=== PATIENT | female | born 1965 | race Caucasian/White ===

== ENCOUNTER 2018-05-17 11:06 | Outpatient (REF) | payer BC, SELFPAY ==
[2018-05-17 19:21] LABS: Bilirubin Negative (Negative); Blood Negative (Negative); Clarity Clear; Glucose Negative (Negative); Ketones Negative (Negative); Leukocyte Esterase Trace (Negative); Nitrite Negative (Negative); Urobilinogen 0.2 EU/dL (Up TO 0.2)
[2018-05-17 19:24] LABS: Bacteria Few HPF (Negative); C & S Indicated? Yes; Casts Negative LPF (Negative); Crystals Negative HPF (Negative); Epithelial Cells Negative HPF (Negative); Mucus Negative (Negative); RBC 0-2 (0-2); WBC >50 HPF (0-5)
== END 2018-05-17 11:26 ==
LOC: NCHCN 11:06
PROVIDERS: PCP Family Medicine; Visit Provider Family Medicine
DX: R39.15 Urgency of urination (principal)
CPT/HCPCS: 87077; 81003; 81015; 87086; 87186

== ENCOUNTER 2018-06-16 10:07 | Outpatient (REF) | payer BC, SELFPAY ==
[2018-06-16 13:33] LABS: Bilirubin Negative (Negative); Blood Moderate (Negative); Clarity Clear; Glucose Negative (Negative); Ketones Negative (Negative); Leukocyte Esterase Negative (Negative); Nitrite Negative (Negative); Urobilinogen 0.2 EU/dL (Up TO 0.2)
[2018-06-16 13:46] LABS: Epithelial Cells Few HPF (Negative); Other Cells Rare Renal (Negative); WBC 0-2 HPF (0-5)
[2018-06-16 13:47] LABS: Bacteria Few HPF (Negative); C & S Indicated? No; Casts 5-10 Hyaline LPF (Negative); Crystals Negative HPF (Negative); Mucus Heavy (Negative)
== END 2018-06-16 10:27 ==
LOC: NCHCN 10:07
PROVIDERS: PCP Family Medicine; Visit Provider Family Medicine
DX: R31.9 Hematuria, unspecified (principal); R35.0 Frequency of micturition
CPT/HCPCS: 81003; 81015

== ENCOUNTER 2018-06-21 01:34 | Outpatient (CLI) | payer BC, SELFPAY ==
--- NOTE | 2018-06-21 08:00 | DI.CT_ITS ---
SYMPTOM/DIAGNOSIS: URINARY FREQUENCY, R35.0, HEMATURIA, F31.[address]: Comparison is made with contrast enhanced CT dated 12/31/16. There are several non obstructing stones in the left kidney, the largest is at the lower pole measuring 5 mm. A few tiny non obstructing stones are seen in the right kidney. No ureteral or bladder calculi are seen. The urinary bladder is nearly empty. The visualized portions of the liver and spleen are unremarkable. The gallbladder, adrenals, pancreas and bowel are unremarkable. There is a left ovarian cyst measuring 2.8 cm. The right ovary is unremarkable. IMPRESSION: Bilateral non obstructing renal calculi, left greater than right.
== END 2018-06-21 01:54 ==
PROVIDERS: PCP Family Medicine; Visit Provider Family Medicine
DX: R31.9 Hematuria, unspecified (principal); R35.0 Frequency of micturition; N20.0 Calculus of kidney
CPT/HCPCS: 74176

== ENCOUNTER 2018-07-10 11:56 | Outpatient (REF) | payer BC, SELFPAY ==
[2018-07-10 19:52] LABS: HCT 39.3 % (36.0-46.0); HGB 12.7 g/dL (12.0-15.5); Mean Corp. HGB Concentration 32.3 g/dL (32.0-36.0); Mean Corpuscular Hemoglobin 28.8 pg (27.0-33.0); Mean Corpuscular Volume 89.1 fL (80-95); Mean Platelet Volume 11.1 fL (8.0-11.0); Platelet Count 338 x1000/uL (130-400); RBC 4.41 m/cumm (4.00-5.20); RBC Distribution Width 14.1 % (11.7-14.6); White Blood Cell Count 9.24 k/cumm (4.4-10.8)
[2018-07-10 22:50] LABS: Ferritin 39 ng/mL (8-388)
[2018-07-10 22:53] LABS: HCG Quant, Pregnancy < 1 mIU/mL (1-3)
== END 2018-07-10 12:16 ==
LOC: NCHCN 11:56
PROVIDERS: PCP Family Medicine; Visit Provider Family Medicine
DX: N92.1 Excessive and frequent menstruation with irregular cycle (principal); R53.83 Other fatigue
CPT/HCPCS: 85027; 82728; 84443; 84702

== ENCOUNTER 2018-10-07 12:17 | Emergency (ER) | payer BC, SELFPAY ==
[2018-10-07 12:31] VITALS: BP 153/98; PULSE 79; RESP 16; TEMP 36.2; O2SAT 100
[2018-10-07 12:34] LABS: Bilirubin Negative (Negative); Blood Moderate (Negative); Clarity Clear; Glucose Negative (Negative); Ketones Negative (Negative); Leukocyte Esterase Negative (Negative); Nitrite Negative (Negative); Urobilinogen 0.2 EU/dL (Up TO 0.2); pH 7.5 (5-8)
--- NOTE | 2018-10-07 12:44 | ED.GENADUL_ITS ---
Discharge Plan Disposition Patient Disposition: HOME Condition: Stable Discharge Details Chief Complaint: FlankPain Clinical Impression: Left ureteral calculus Primary Care Provider: Graciela Naidu ED Provider: Quique Jacobsen Home Meds and New Rx's Prescriptions: New tamsulosin 0.4 mg capsule 0.4 mg PO DAILY Qty: 14 RF: 0 ibuprofen [IBU] 600 mg tablet 600 mg PO QID PRN (Reason: pain) Qty: 20 RF: 0 Continued norgestimate-ethinyl estradiol [Sprintec (28)] 1 EACH tablet 1 tab PO DAILY RF: 0 methylphenidate HCl 10 MG tablet 10 mg PO QPM RF: 0 venlafaxine 150 MG capsule,extended release 24hr 150 mg PO DAILY RF: 0 methylphenidate HCl [Ritalin SR] 20 MG tablet extended release 20 mg PO DAILY RF: 0 Discharge Instructions Instructions: Kidney Stones (ED) Additional Instructions: Return to the emergency department for any fever, severe increase in pain, vomiting, or worsening of your symptoms or any other concerns she may have. Otherwise stay well-hydrated and take medication as prescribed and follow-up with urologist in the next 2 weeks for reassessment or your primary care provider as needed. Referrals: Graciela Naidu MD [Primary Care Provider] - (Follow-up with your primary care provider as needed for reassessment or your urologist in [place] if not improving over the next couple weeks) Discharge Data Discharge Date/Time-TO BE ENTERED AT DEPARTURE: 10/07/18 15:52 Medical Decision Making Urinary frequency, urgency, and bladder pressure that started this morning. Patient states similar history to kidney stones. Patient reports some mild flank pain but no CVA tenderness, mild suprapubic tenderness to palpation of the bladder otherwise no specific findings. I feel that symptoms are more concerning for UTI so plan to do UA and reassess patient. Patient states that she took ibuprofen prior to arrival and is feeling okay Review of urinalysis shows significant amount of blood cells but otherwise no infectious symptoms. Plan to do CT imaging of abdomen given the patient states last kidney stone needed to be operated on for removal. Review of CT scan shows a 5 mm stone in the left UVJ otherwise unremarkable CT scan. Patient flatus on Flomax and given prescription for ibuprofen to take as needed for discomfort and return precautions were discussed. Patient states that she would prefer to follow-up with urologist in [place] as she has seen them in the past. Patient prescribed Flomax and ibuprofen for symptom control. After discussion of diagnosis and plan of care patient has no further needs, questions, or concerns and states clear understanding to return to the emergency department for any worsening symptoms. HPI General Date/Time Provider Initiated Documentation: 10/07/18 12:34 . History of Present Illness 52 year old F presents to the emergency department with the chief complaint of flank pain, described as mild, Quality is described as aching, and is localized to the left (flank). Patient started experiencing this hour(s) (4) No relieving factors improve symptom(s), Related Data Home Medications Medication Instructions Recorded Confirmed methylphenidate HCl 10 mg PO QPM 05/17/14 10/07/18 methylphenidate HCl [Ritalin SR] 20 mg PO DAILY 05/17/14 10/07/18 norgestimate-ethinyl estradiol 1 tab PO DAILY 05/17/14 10/07/18 [Sprintec (28)] venlafaxine 150 mg PO DAILY 05/17/14 10/07/18 ibuprofen [IBU] 600 mg PO QID PRN #20 tab 10/07/18 tamsulosin 0.4 mg PO DAILY #14 cap 10/07/18 Previous Rx's Medication Instructions Recorded ibuprofen [IBU] 600 mg PO QID PRN #20 tab 10/07/18 tamsulosin 0.4 mg PO DAILY #14 cap 10/07/18 Allergies Allergy/AdvReac Type Severity Reaction Status Date / Time No Known Allergies Allergy Unverified 10/07/18 12:34 General Stated Complaint: FlankPain NEVAEH: 3 Review of Systems Constitutional Denies body ache(s), Denies chills, Denies fever(s), Denies malaise and Denies weakness Cardiovascular Denies chest pain Respiratory Reports system reviewed and no additional complaints, except as docu Gastrointestinal Denies abdominal pain, Denies nausea and Denies vomiting Genitourinary Reports as per HPI, Denies hematuria, Reports dysuria and Reports urinary urgency Neurologic Denies confusion and Denies weakness Psychiatric Denies confusion PFSH Social History Smoking and Tabacco status: Never Exam Const General: cooperative and no acute distress Orientation: alert, awake and oriented x3 Resp Effort & Inspection: normal respiratory effort and able to speak in complete sentences Auscultation: clear to auscultation bilaterally Cardio Rate: regular rate Rhythm: regular rhythm Heart Sounds: S1 normal and S2 normal GI Palpation: nontender Back/Spine/Pelvis Back: no CVA tenderness Neuro General: alert, awake and oriented x3 Extrem General: normal capillary refill Course Vital Signs Temperature 36.2 C L 10/07/18 12:31 Pulse 79 10/07/18 12:31 Respiratory Rate 16 10/07/18 12:31 Blood Pressure 153/98 H 10/07/18 12:31 Pulse Oximetry 100 10/07/18 12:31 Temperature 36.2 C L 10/07/18 12:31 Temperature Source Skin 10/07/18 12:31 Pulse 79 10/07/18 12:31 Respiratory Rate 16 10/07/18 12:31 Respiratory Effort Non-Labored 10/07/18 12:31 Blood Pressure 153/98 H 10/07/18 12:31 Blood Pressure Position Sitting 10/07/18 12:31 Pulse Oximetry 100 10/07/18 12:31 Oxygen Delivery Method Room Air 10/07/18 12:31 Oxygen Flow Rate 0 10/07/18 12:31 Pain Level 4 10/07/18 12:31
[2018-10-07 12:49] LABS: Bacteria Negative HPF (Negative); C & S Indicated? No; Casts Negative LPF (Negative); Crystals Negative HPF (Negative); Epithelial Cells Moderate HPF (Negative); Mucus Trace (Negative); RBC >50 (0-2)
--- NOTE | 2018-10-07 13:14 | DI.CT_ITS ---
SYMPTOM/DIAGNOSIS: LEFT FLANK PAIN RENAL COLIC CT: Comparison 06/21/18 and 12/31/16 Dependent atelectatic changes are seen in the lung bases. Lack of IV contrast does limit evaluation of the abdominal and pelvic organs. The unenhanced visualized portions of the liver, spleen, pancreas, gallbladder, bile ducts and adrenal glands are unremarkable. There are bilateral nonobstructing renal stones. There is a 5 mm stone seen at the left ureteral vesicular junction causing mild hydronephrosis. Areas of decreased attenuation are seen in the kidneys bilaterally. These appear to represent cysts. These were present on the prior examination from 12/31/16. The urinary bladder is intact. The reproductive organs are unremarkable. The bowel shows no evidence of obstruction or inflammation. There is a normal appendix present. The abdominal aorta is of normal caliber. No significant abdominal or pelvic adenopathy, ascites or pneumoperitoneum is seen. Degenerative changes are present in the spine. IMPRESSION: 1. 5 mm stone at the left UVJ causing mild hydronephrosis. 2. Bilateral nephrolithiasis
--- NOTE | 2018-10-07 15:00 | DI.VRAD_ITS ---
EXAM: CT Abdomen and Pelvis Without Contrast EXAM DATE/TIME: 10/07/2018 1:15 PM CLINICAL HISTORY: 52 years old, female; Signs and symptoms; Other: Left flank pain; Additional info: History of kidney stones. Left sided abdominal pain since this morning TECHNIQUE: Axial computed tomography images of the abdomen and pelvis without contrast. All CT scans at this facility use at least one of these dose optimization techniques: automated exposure control; mA and/or kV adjustment per patient size (includes targeted exams where dose is matched to clinical indication); or iterative reconstruction. Coronal and sagittal reformatted images were created and reviewed. COMPARISON: CT ABD PELVIS WITH CONTRAST 12/31/2016 10:19 PM FINDINGS: Lower thorax: Subpleural atelectasis of the dependent portions of the lungs. ABDOMEN: Liver: Normal. No mass. Gallbladder and bile ducts: Normal. No calcified stones. No ductal dilation. Pancreas: Normal. No ductal dilation. Spleen: Normal. No splenomegaly. Adrenals: Normal. No mass. Kidneys and ureters: Nonobstructing calyceal stones at the kidneys. 5 mm stone left UVJ. Mild left hydronephrosis. Indeterminate low attenuation lesions at the kidneys not fully evaluated on this exam due to lack of IV contrast. Stomach and bowel: Normal. No obstruction. No mucosal thickening. Appendix: No evidence of appendicitis. PELVIS: Bladder: Unremarkable as visualized. Reproductive: Unremarkable as visualized. ABDOMEN and PELVIS: Intraperitoneal space: Normal. No free air. No significant fluid collection. Bones/joints: No acute fracture. No dislocation. Soft tissues: Unremarkable. Vasculature: Normal. No abdominal aortic aneurysm. Lymph nodes: Normal. No enlarged lymph nodes. IMPRESSION: 5 mm stone left UVJ. Mild left hydronephrosis. Dictated and Authenticated by: Evangelist Varela MD. Ordering:AC Lei MD
[2018-10-07 15:52] VITALS: BP 153/98; PULSE 79; RESP 16; TEMP 36.2; O2SAT 100
== END 2018-10-07 15:52 | disposition home or self-care (01) ==
PROVIDERS: Emergency Provider Nurse Practitioner Family; PCP Family Medicine
DX: N20.1 Calculus of ureter (principal)
CPT/HCPCS: 81025; 99284; 74176; 81003; 81015

== ENCOUNTER 2020-03-13 18:08 | Outpatient (REF) | payer BC, SELFPAY ==
[2020-03-20 22:35] LABS: SARS-CoV-2 RNA Undetected (Undetected); SARS-CoV-2 Specimen Source Nasopharynx
== END 2020-03-13 18:28 ==
LOC: NCHCN 18:08
PROVIDERS: PCP Family Medicine; Visit Provider Nurse Practitioner Family
DX: Z11.59 Encounter for screening for other viral diseases (principal); R50.9 Fever, unspecified
CPT/HCPCS: U0003

== ENCOUNTER 2020-06-04 15:47 | Outpatient (REF) | payer BC, SELFPAY ==
[2020-06-04 19:41] LABS: HCT 39.6 % (36.0-46.0); HGB 12.3 g/dL (11.2-15.7); MCH 28.2 pg (27.0-33.0); MCHC 31.1 % (32.0-36.0); MCV 90.8 fL (80-95); MPV 11.5 fL (8.0-11.0); Platelet Count 312 10^3/uL (130-400); RBC 4.36 10^6/uL (3.93-5.22); RDW 14.3 % (11.7-14.6); WBC 10.49 10^3/uL (4.4-10.8)
[2020-06-04 20:10] LABS: ALT 27 U/L (14-59); AST 15 U/L (15-37); Albumin 3.8 g/dL (3.4-5.0); Alkaline Phosphatase 126 U/L (46-116); Anion Gap 10.3 mmol/L (3-11); BUN 19 mg/dL (7-18); Bilirubin, Total 0.2 mg/dL (0.2-1.0); CO2 25.7 mmol/L (21.0-32.0); CREATININE 0.99 mg/dL (0.55-1.02); Calcium 9.5 mg/dL (8.5-10.1); Chloride 109 mmol/L (98-107); Estimated GFR 58.24 (mL/min/1.73m2); Glucose 110 mg/dL (74-106); Sodium 145 mmol/L (136-145); TSH (W/Ref FT4) 1.89 uIU/mL (0.36-3.74); Total Protein 7.2 g/dL (6.4-8.2)
[2020-06-06 14:39] LABS: Hemoglobin A1C 5.7 % (<5.7)
== END 2020-06-04 16:07 ==
LOC: NCHCN 15:47
PROVIDERS: PCP Family Medicine; Visit Provider Family Medicine
DX: R53.83 Other fatigue (principal); R03.0 Elevated blood-pressure reading, without diagnosis of hypertension; E66.9 Obesity, unspecified; Z00.00 Encounter for general adult medical examination without abnormal findings
CPT/HCPCS: 80053; 85027; 83036; 84443

== ENCOUNTER 2020-10-28 01:40 | Outpatient (CLI) | payer BC, SELFPAY ==
--- NOTE | 2020-10-28 12:55 | DI.MAMMO_ITS ---
EXAM: MAMMO SCREENING CLINICAL HISTORY: SCREENING, Z12.31 TECHNIQUE: Mammograms were interpreted according to the usual protocol including computer analysis w [employer] CAD system, tomosynthesis and C-view imaging. COMPARISON: FINDINGS: The breasts are heterogeneously dense. No dominant mass or clumped microcalcification is identified in either breast. The current examination is compared with previous examinations including February 2018 and there has been no gross interval change in appearance in comparison with the prior studies. IMPRESSION: No specific evidence of malignancy at this time. Routine screening examinations are suggested at ye frederick intervals in this age group according to the ACS ACR guidelines. BI-RADS Category 1 - Negative Breast Density - Category C - Heterogeneously dense
== END 2020-10-28 02:00 ==
PROVIDERS: PCP Family Medicine; Visit Provider Family Medicine
DX: Z12.31 Encounter for screening mammogram for malignant neoplasm of breast (principal)
CPT/HCPCS: 77063; 77067

== ENCOUNTER 2021-03-27 14:38 | Outpatient (REF) | payer BC, SELFPAY ==
[2021-03-27 15:47] LABS: Hemoglobin A1C 5.8 % (<5.7)
[2021-03-27 16:49] LABS: ALT 30 U/L (14-59); AST 19 U/L (15-37); Albumin 3.9 g/dL (3.4-5.0); Alkaline Phosphatase 128 U/L (46-116); Anion Gap 10.7 mmol/L (3-11); BUN 13 mg/dL (7-18); Bilirubin, Total 0.2 mg/dL (0.2-1.0); CO2 26.3 mmol/L (21.0-32.0); Calcium 9.2 mg/dL (8.5-10.1); Calculated LDL 109 mg/dL (<100); Chloride 108 mmol/L (98-107); Cholesterol 179 mg/dL (<200); Estimated GFR 57.35 (mL/min/1.73m2); Glucose 97 mg/dL (74-106); HDL Cholesterol 45 mg/dL (40-60); Potassium 4.1 mmol/L (3.5-5.1); Sodium 145 mmol/L (136-145); Total Protein 7.2 g/dL (6.4-8.2); Triglyceride 125 mg/dL (<150)
== END 2021-03-27 14:39 | disposition home or self-care (01) ==
LOC: NCHCN 14:38
PROVIDERS: PCP Family Medicine; Visit Provider Family Medicine
DX: R73.03 Prediabetes (principal); I10 Essential (primary) hypertension; E66.9 Obesity, unspecified
CPT/HCPCS: 80053; 80061; 83036

== ENCOUNTER 2021-05-22 20:31 | Outpatient (REF) | payer BC, SELFPAY | END 2021-05-22 20:32 | disposition home or self-care (01) | LOC: NCHCN 20:31 | PROVIDERS: PCP Family Medicine; Visit Provider Family Medicine | DX: R39.89 Other symptoms and signs involving the genitourinary system (principal) | CPT/HCPCS: 87086 ==

== ENCOUNTER 2021-05-29 13:40 | Outpatient (CLI) | payer BC, SELFPAY ==
--- NOTE | 2021-05-29 | DI.CT_ITS ---
Exam(s) CT RENAL COLIC WO EXAM: CT RENAL COLIC WO CLINICAL HISTORY: RT LOWER QUAD PAIN, R10.31, URINARY FREQ, R35.0, NEPHRO, N20.0. TECHNIQUE: Imaging Protocol: Axial computed tomography images with coronal and sagittal reformatted images were created and reviewed. COMPARISON: CT CT renal colic wo from 10/07/2018 FINDINGS: ABDOMEN: Lung Bases: Normal where visualized. Liver: Normal density. No measurable mass. Gallbladder and biliary tract: No radiodense calculus or biliary ductal dilation. Pancreas: Normal density, no abnormal calcifications or inflammatory process. Spleen: Normal. Kidneys: Normal size, contour and axis.Bilateral nephrolithiasis. No ureterolithiasis or hydronephro sis. No bladder stones are present. No masses seen. Adrenal glands: No mass is seen. Lymph nodes: Within normal limits. Abdominal Aorta: Abdominal portion non-dilated. Atherosclerosis. PELVIS: Bladder:Symmetric distention, no gross wall thickening. Bowel: No obstruction or bowel wall thickening. Appendix is unremarkable. Peritoneal cavity: No ascites, collection or mesenteric inflammatory response. No free air. Reproductive organs: Within normal limits. Bones: Within normal limits. Soft Tissues: Within normal limits. IMPRESSION: Nephrolithiasis. No evidence of ureterolithiasis or hydronephrosis. RADIATION DOSE DELIVERED: 927.21mGy.cm Total DLP DATA REPOSITORY: All CT scans at this facility are submitted to the National Radiology Data Registry (NRDR) Dose Index Registry (DIR) with the [place] [employer] (ACR). RADIATION OPTIMIZATION: All CT scans at this facility use at least one of these dose optimization te chniques: automated exposure control; mA and/or kV adjustment per patient size (includes targeted exa ms where dose is matched to clinical indication); or iterative reconstruction.
--- NOTE | 2021-05-29 17:12 | DI.VRAD_ITS ---
PROCEDURE INFORMATION: Exam: CT Abdomen And Pelvis Without Contrast Exam date and time: 05/29/2021 4:18 PM Age: 55 years old Clinical indication: Other: RT lower quad pain, urinary frequency, HX of kidney stones TECHNIQUE: Imaging protocol: Computed tomography of the abdomen and pelvis without contrast. Radiation optimization: All CT scans at this facility use at least one of these dose optimization techniques: automated exposure control; mA and/or kV adjustment per patient size (includes targeted exams where dose is matched to clinical indication); or iterative reconstruction. COMPARISON: CT renal colic wo 10/07/2018 1:38 PM FINDINGS: Lungs: The visualized portions of the lung bases are normal. Liver: Normal. No mass. Gallbladder and bile ducts: Normal. No calcified stones. No ductal dilation. Pancreas: Normal. No ductal dilation. Spleen: Normal. No splenomegaly. Adrenal glands: Normal. No mass. Kidneys and ureters: Punctate calcification within the upper pole of the left kidney most likely compatible with a parenchymal nonobstructing renal stone. Other linear calcifications within the left kidney are most likely vascular in nature. No evidence of hydronephrosis or obstructing renal stone. Stomach and bowel: Unremarkable. No obstruction. No mucosal thickening. Appendix: No evidence of appendicitis. Intraperitoneal space: Unremarkable. No free air. No significant fluid collection. Vasculature: Unremarkable. No abdominal aortic aneurysm. Lymph nodes: Unremarkable. No enlarged lymph nodes. Urinary bladder: Unremarkable as visualized. Reproductive: Unremarkable as visualized. Bones/joints: Unremarkable. No acute fracture. Soft tissues: Unremarkable. IMPRESSION: No evidence of acute abdominal or pelvic process. No evidence of hydronephrosis or obstructing renal stone. Dictated and Authenticated by: Selvin Mcgee MD. Ordering:JAILENE Owens MD
[2021-05-29 19:39] LABS: Bilirubin Negative (Negative); Blood Trace-intact (Negative); Clarity Clear (Clear); Glucose Negative (Negative); Ketones Negative (Negative); Leukocyte Esterase Negative (Negative); Nitrite Negative (Negative); Specific Gravity 1.025 (1.005-1.025); Urobilinogen 0.2 EU/dL (Up TO 0.2); pH 6.5 (5-8)
[2021-05-29 19:50] LABS: Bacteria Few HPF (Negative); C & S Indicated? No; Crystals Few Calcium Oxalate HPF (Negative); Epithelial Cells Few HPF (Negative); Mucus Heavy (Negative); RBC 0-2 HPF (0-2); WBC 0-2 HPF (0-5)
== END 2021-05-29 14:00 ==
PROVIDERS: PCP Family Medicine; Visit Provider Family Medicine
DX: R10.31 Right lower quadrant pain (principal); R35.0 Frequency of micturition; N20.0 Calculus of kidney
CPT/HCPCS: 74176; 81003; 81015

== ENCOUNTER 2021-06-22 16:57 | Outpatient (REF) | payer BC, SELFPAY ==
--- NOTE | 2021-06-22 16:00 | PAPFT_PTH ---
PATIENT: Barbra Dc LOC: [facility] U#:[id number] AGE/SX: 55/F ROOM: RE06/22/[address]: Graciela Naidu : 1965 BED: DIS: 06/22/2021 SPEC #: [id number] RECD: 06/22/21 18:05 STATUS: ABEL FARRIS #: [id number] WALLY: 06/22/21 16:[address]: Graciela Naidu DEPT: [facility] Cytology RECD BY: Susu Izaguirre Tissues: 1 - CX/ENDOCX FOR PAP SMEARS Procedures: PAP THIN PREP/UVM Screening HPV DNA PROBE Comments: [id number]
== END 2021-06-22 16:58 | disposition home or self-care (01) ==
LOC: LBN 16:57
PROVIDERS: PCP Family Medicine; Visit Provider Family Medicine
DX: Z12.4 Encounter for screening for malignant neoplasm of cervix (principal); Z01.419 Encounter for gynecological examination (general) (routine) without abnormal findings; Z11.51 Encounter for screening for human papillomavirus (HPV)
CPT/HCPCS: 88142; 87624

== ENCOUNTER 2021-09-07 14:50 | Outpatient (REF) | payer BC, SELFPAY ==
[2021-09-07 16:57] LABS: Hemoglobin A1C 5.7 % (<5.7)
[2021-09-08 11:03] LABS: Hepatitis C Ab w Rflx HCV PCR Negative (Negative)
[2021-09-08 11:18] LABS: HIV-1/2 Ag & Ab Screen Negative (Negative)
== END 2021-09-07 14:51 | disposition home or self-care (01) ==
LOC: NCHCN 14:50
PROVIDERS: PCP Family Medicine; Visit Provider Family Medicine
DX: R73.03 Prediabetes (principal); Z00.00 Encounter for general adult medical examination without abnormal findings; Z11.4 Encounter for screening for human immunodeficiency virus [HIV]; Z11.59 Encounter for screening for other viral diseases
CPT/HCPCS: 86803; 87389; 83036

== ENCOUNTER 2022-04-12 15:11 | Outpatient (REF) | payer BC, SELFPAY ==
[2022-04-12 14:12] LABS: Anion Gap 8.9 mmol/L (3-11); BUN 15 mg/dL (7-18); CO2 27.1 mmol/L (21.0-32.0); Calcium 9.4 mg/dL (8.5-10.1); Chloride 110 mmol/L (98-107); Estimated GFR 57.15 (mL/min/1.73m2); Glucose 82 mg/dL (74-106); Potassium 4.6 mmol/L (3.5-5.1); Sodium 146 mmol/L (136-145)
[2022-04-12 14:25] LABS: Hemoglobin A1C 5.8 % (<5.7)
== END 2022-04-12 15:12 | disposition home or self-care (01) ==
LOC: NCHCN 15:11
PROVIDERS: PCP Family Medicine; Visit Provider Family Medicine
DX: I10 Essential (primary) hypertension (principal); R73.03 Prediabetes
CPT/HCPCS: 80048; 83036

== ENCOUNTER 2022-11-17 01:16 | Outpatient (CLI) | payer BC, SELFPAY ==
--- NOTE | 2022-11-17 15:59 | DI.MAMMO_ITS ---
Exam(s) MAMMO SCREENING EXAM: MAMMO SCREENING CLINICAL HISTORY: SCREENING, Z12.31 TECHNIQUE: Bilateral full field digital CC and MLO mammographic images were obtained with 3D tomosyn thesis and utilizing computer aided detection (CAD). COMPARISON: Available for comparison. FINDINGS: Masses/Architectural Distortion: None seen. Microcalcifications: No suspicious pleomorphic-type are seen. Skin Thickening/Nipple Retraction: None. IMPRESSION: 1. No significant interval change with no specific features of malignancy noted. 2. Unless there is more urgent need, screening mammography is recommended, as per [employer] guidelines. BI-RADS Category 1 - Negative Breast Density - Category C - Heterogeneously dense Breast density category C or D implies that the patient has dense breast tissue. Dense breast tissue is very common and is not abnormal but dense breast tissue can make it harder to find cancer on a ma mmogram. Also, dense breast tissue may increase their breast cancer risk. This information about the result of the mammogram report was provided to the patient to raise their awareness. Use this report when you speak with the patient about their risks for breast cancer, which includes their family hist ory. At that time, you may recommend for more screening tests (Ultrasound or MRI) as they might be us eful based on their risk. A negative radiographic report should not delay biopsy if a dominant or clinically suspicious mass is present. Up to ten percent of cancers are not identified on mammography. A negative report may reinforce clinical impression. Adenosis and dense breasts may obscure an underlying neoplasm. False positive reports average 6 to 10%. Patient will receive a letter notifying them of these results.
== END 2022-11-17 01:36 ==
LOC: DI 01:17
PROVIDERS: PCP Family Medicine; Visit Provider Family Medicine
DX: Z12.31 Encounter for screening mammogram for malignant neoplasm of breast (principal)
CPT/HCPCS: 77063; 77067

== ENCOUNTER 2022-12-20 15:08 | Outpatient (REF) | payer BC, SELFPAY ==
[2022-12-20 20:00] LABS: Hemoglobin A1C 5.9 % (<5.7)
[2022-12-20 20:01] LABS: Anion Gap 7.8 mmol/L (3-11); BUN 16 mg/dL (7-18); CO2 26.2 mmol/L (21.0-32.0); CREATININE 1.2 mg/dL (0.55-1.02); Calcium 9.2 mg/dL (8.5-10.1); Chloride 109 mmol/L (98-107); Estimated GFR 52.47 (mL/min/1.73m2); Glucose 152 mg/dL (74-106); Potassium 3.8 mmol/L (3.5-5.1); Sodium 143 mmol/L (136-145); TSH (W/Ref FT4) 1.63 uIU/mL (0.36-3.74)
== END 2022-12-20 15:09 | disposition home or self-care (01) ==
LOC: NCHCN 15:08
PROVIDERS: PCP Family Medicine; Visit Provider Family Medicine
DX: Z00.00 Encounter for general adult medical examination without abnormal findings (principal); R73.03 Prediabetes; E66.9 Obesity, unspecified; I10 Essential (primary) hypertension
CPT/HCPCS: 80048; 83036; 84443

== ENCOUNTER 2023-11-16 12:37 | Outpatient (REF) | payer BC, SELFPAY ==
[2023-11-16 19:27] LABS: Bilirubin Negative (Negative); Blood Trace-intact (Negative); Clarity Clear (Clear); Glucose Negative (Negative); Ketones Negative (Negative); Leukocyte Esterase Negative (Negative); Nitrite Negative (Negative); Urobilinogen 0.2 mg/dL (Up to 0.2); pH 6.5 (5-8)
[2023-11-16 19:31] LABS: HCT 43.1 % (36.0-46.0); HGB 13.8 g/dL (11.2-15.7); MCH 29.4 pg (27.0-33.0); MCV 92 fL (80-95); MPV 11.3 fL (8.0-11.0); Platelet Count 285 10^3/uL (130-400); RBC 4.69 10^6/uL (3.93-5.22); RDW-SD 47.5 fL; WBC 8.73 10^3/uL (4.4-10.8)
[2023-11-16 19:34] LABS: Bacteria Moderate HPF (Negative); C & S Indicated? Yes; Casts Negative LPF (Negative); Crystals Few Calcium Oxalate HPF (Negative); Epithelial Cells Rare HPF (Negative); Mucus Trace (Negative); Other Cells Rare Renal (Negative); RBC 0-2 HPF (0-2)
[2023-11-16 19:52] LABS: ALT 27 U/L (14-59); AST 20 U/L (15-37); Albumin 3.7 g/dL (3.4-5.0); Alkaline Phosphatase 125 U/L (46-116); Anion Gap 13.9 mmol/L (3-11); BUN 16 mg/dL (7-18); Bilirubin, Total 0.4 mg/dL (0.2-1.0); CO2 20.1 mmol/L (21.0-32.0); CREATININE 1.1 mg/dL (0.55-1.02); Calcium 9.1 mg/dL (8.5-10.1); Chloride 112 mmol/L (98-107); Estimated GFR 57.88 (mL/min/1.73m2); Glucose 131 mg/dL (74-106); Potassium 3.2 mmol/L (3.5-5.1); Sodium 146 mmol/L (136-145); Total Protein 7.7 g/dL (6.4-8.2)
== END 2023-11-16 12:38 | disposition home or self-care (01) ==
LOC: NCHCN 12:37
PROVIDERS: PCP Family Medicine; Visit Provider Nurse Practitioner Family
DX: R31.9 Hematuria, unspecified (principal)
CPT/HCPCS: 80053; 85027; 87077; 81003; 81015; 87086; 87186

== ENCOUNTER 2023-12-15 19:18 | Outpatient (REF) | payer BC, SELFPAY | END 2023-12-15 19:19 | disposition home or self-care (01) | LOC: LBN 19:18 | PROVIDERS: PCP Family Medicine; Visit Provider Family Medicine | DX: N39.0 Urinary tract infection, site not specified (principal) | CPT/HCPCS: 87077; 87086; 87186 ==

== ENCOUNTER 2024-01-02 17:29 | Outpatient (REF) | payer BC, SELFPAY ==
[2024-01-02 18:31] LABS: Anion Gap 13.4 mmol/L (3-11); BUN 17 mg/dL (7-18); CO2 22.6 mmol/L (21.0-32.0); CREATININE 0.9 mg/dL (0.55-1.02); Chloride 111 mmol/L (98-107); Estimated GFR 73.64 (mL/min/1.73m2); Glucose 107 mg/dL (74-106); Magnesium 2.1 mg/dL (1.8-2.4); Potassium 3.6 mmol/L (3.5-5.1); Sodium 147 mmol/L (136-145)
[2024-01-02 18:38] LABS: Hemoglobin A1C 5.7 % (<5.7)
== END 2024-01-02 17:30 | disposition home or self-care (01) ==
LOC: NCHCN 17:29
PROVIDERS: PCP Family Medicine; Visit Provider Family Medicine
DX: Z13.1 Encounter for screening for diabetes mellitus (principal); E87.6 Hypokalemia
CPT/HCPCS: 80048; 83036; 83735

== ENCOUNTER → 2024-01-13 12:40 | Outpatient (CLI) | payer BC, SELFPAY ==
--- NOTE | 2024-01-13 14:46 | DI.RAD_ITS ---
Exam(s) XR ABDOMEN FLAT PLATE EXAM: 2D digital imaging was performed. CLINICAL HISTORY: RECENT UTI, HEMATURIA, ASSESS STONE BURDEN. COMPARISON: CT CT RENAL COLIC WO from 05/29/2021 TECHNIQUE: Supine views of the abdomen was performed. Two images were obtained. FINDINGS: LUNG BASES: Clear. BOWEL GAS PATTERN: Nondistended. FREE AIR: None. CALCIFICATIONS: Bilateral renal calculi are identified. There is a 6 mm stone in the lower pole of t he left kidney. There are 2 calcifications (1-2 mm) overlying the upper pole of the left kidney. Th ere also 2 calcifications overlying the midpole of the right kidney. Phleboliths are seen in the pel vis. OSSEOUS STRUCTURES: Normal for age. OTHER FINDINGS: None. IMPRESSION: Bilateral nephrolithiasis. DATA REPOSITORY: RADIATION DOSE DELIVERED:
== END ==
PROVIDERS: PCP Family Medicine; Visit Provider Family Medicine
DX: N20.0 Calculus of kidney (principal)
CPT/HCPCS: 74018

== ENCOUNTER 2024-01-20 09:40 | Emergency (ER) | payer BC, SELFPAY ==
[2024-01-20 09:44] VITALS: BP 126/75; PULSE 60; RESP 16; TEMP 36.5; O2SAT 97
--- NOTE | 2024-01-20 10:00 | DI.CT_ITS ---
Exam(s) CT ABDOMEN PELVIS WO EXAM: CT ABDOMEN PELVIS WO CLINICAL HISTORY: left flank pain. TECHNIQUE: Imaging Protocol: Axial computed tomography images with coronal and sagittal reformatted images were created and reviewed. Oral:/ no COMPARISON: CT CT RENAL COLIC WO from 05/29/2021 FINDINGS: Lung Bases: No acute findings. Liver: Normal density. No suspicious mass. Gallbladder and biliary tract: No radiodense calculus or biliary dilation. Pancreas: Normal density, no abnormal calcifications or inflammatory process. Spleen: Normal. Kidneys: Normal size, contour and axis. Imax-ly-rprszual left hydronephrosis secondary to a 5 millim eter stone in the proximal ureter. Tiny bilateral nonobstructing calculi also seen. No suspicious m asses seen. Adrenal glands: No masses seen. Lymph nodes: Within normal limits. Vasculature: Abdominal aorta non-dilated. Soft tissues: Tiny fat containing umbilical hernia. Bladder: Nearly empty. No mass or calculi visible.. Bowel: Increased quantity of stool consistent with constipation. No obstruction or bowel wall thicke robyn. Peritoneal cavity: No ascites, collection or mesenteric inflammatory response. Reproductive organs: Unremarkable. Bones: Degenerative disc changes at L5-S1. IMPRESSION: Mild to moderate left hydronephrosis secondary to a 5 millimeter stone in the upper ureter. Addition al tiny nonobstructing calculi. Findings called to Susu Dickerson, ER provider. RADIATION DOSE DELIVERED: 1,069.99mGy.cm Total DLP DATA REPOSITORY: All CT scans at this facility are submitted to the National Radiology Data Registry (NRDR) Dose Index Registry (DIR) with the [employer] (ACR). RADIATION OPTIMIZATION: All CT scans at this facility use at least one of these dose optimization te chniques: automated exposure control; mA and/or kV adjustment per patient size (includes targeted exa ms where dose is matched to clinical indication); or iterative reconstruction.
[2024-01-20] MEDS: Ondansetron 4 MG/2 ML VIAL IVP (10:25)
[2024-01-20 10:31] LABS: Abs Immature Grans 0.07 10^3/uL (0.0-0.06); Absolute Basophil Count 0.06 10^3/uL (0.0-0.2); Absolute Eosinophil Count 0.12 10^3/uL (0.0-0.7); Absolute Lymphocyte Count 1.21 10^3/uL (1.2-3.4); Absolute Monocyte Count 0.52 10^3/uL (0.1-0.8); Absolute Neutrophil Count 10.93 10^3/uL (1.2-6.7); Basophils % 0.5 %; Eosinophils % 0.9 %; HCT 42.9 % (36.0-46.0); HGB 13.5 g/dL (11.2-15.7); Immature Grans % 0.5 %; Lymphocytes % 9.4 %; MCH 29.3 pg (27.0-33.0); MCHC 31.5 % (32.0-36.0); MCV 93 fL (80-95); MPV 11.2 fL (8.0-11.0); Neutrophils % 84.7 %; Platelet Count 242 10^3/uL (130-400); RBC 4.61 10^6/uL (3.93-5.22); RDW 13.7 % (11.7-14.6); RDW-SD 46.7 fL; WBC 12.91 10^3/uL (4.4-10.8)
[2024-01-20 10:32] VITALS: BP 126/75; PULSE 60; RESP 16; TEMP 36.5; O2SAT 97
[2024-01-20 10:40] LABS: Bilirubin Negative (Negative); Blood Trace-intact (Negative); Clarity Cloudy (Clear); Glucose 100 mg/dL (Negative); Ketones Negative (Negative); Leukocyte Esterase Negative (Negative); Nitrite Negative (Negative); Specific Gravity 1.015 (1.005-1.025); Urobilinogen 0.2 mg/dL (Up to 0.2)
[2024-01-20 10:42] LABS: ALT 32 U/L (14-59); AST 29 U/L (15-37); Albumin 3.6 g/dL (3.4-5.0); Alkaline Phosphatase 121 U/L (46-116); Anion Gap 10.3 mmol/L (3-11); BUN 19 mg/dL (7-18); Bilirubin, Total 0.6 mg/dL (0.2-1.0); CO2 24.7 mmol/L (21.0-32.0); CREATININE 1.1 mg/dL (0.55-1.02); Calcium 8.5 mg/dL (8.5-10.1); Chloride 108 mmol/L (98-107); Estimated GFR 57.88 (mL/min/1.73m2); Glucose 156 mg/dL (74-106); Lipase 37 U/L (16-77); Sodium 143 mmol/L (136-145); Total Protein 7.5 g/dL (6.4-8.2)
[2024-01-20 10:47] LABS: Bacteria Few HPF (Negative); C & S Indicated? No; Casts 0-2 Fine Granular LPF (Negative); Crystals Rare Calcium Oxalate HPF (Negative); Epithelial Cells Many HPF (Negative); Mucus Trace (Negative); RBC 0-2 HPF (0-2); WBC Negative HPF (0-5)
[2024-01-20] MEDS: MORPHine 4 MG/ML SYR IVP (10:57)
[2024-01-20] MEDS: Ketorolac 15 MG/ML VIAL 7.5 MG IVP (11:14)
[2024-01-20 11:30] VITALS: BP 145/81; PULSE 73; O2SAT 100
[2024-01-20] MEDS: HYDROmorphone 2 MG/ML SYR 0.5 MG IVP (11:31)
[2024-01-20] MEDS: Normal Saline 1,000 ML 1000 ML IV (11:32)
[2024-01-20] MEDS: Tamsulosin 0.4 MG CAPCR PO (11:33)
--- NOTE | 2024-01-20 11:51 | ED.GENADUL_ITS ---
Discharge Plan Disposition Patient Disposition: Home Condition: Stable Discharge Details Clinical Impression: Calcium ureterolithiasis Primary Care Provider: Graciela Naidu ED Provider: Susu Dickerson Home Meds and New Rx's Prescriptions: New hydromorphone [Dilaudid] 2 mg tablet 2 mg PO Q6H PRNQty: 12 0RF ondansetron 4 mg tablet,disintegrating 4 mg PO Q8H PRN PRN4 Days Qty: 12 0RF tamsulosin [Flomax] 0.4 mg capsule 0.4 mg PO QHS Qty: 7 0RF Continued dextroamphetamine-amphetamine [Adderall XR] 25 mg capsule,extended release 24hr 25 mg PO QAM rizatriptan 10 mg tablet 10 mg PO DAILY PRN Rx Instructions: may repeat once after at least 2 hours valacyclovir [Valtrex] 1 gram tablet 2,000 mg PO DAILY PRN dextroamphetamine-amphetamine [Adderall XR] 15 mg capsule,extended release 24hr 15 mg PO DAILY topiramate 50 mg tablet 100 mg PO BID venlafaxine 150 MG capsule,extended release 24hr 150 mg PO DAILY ibuprofen [IBU] 600 mg tablet 600 mg PO QID PRN (Reason: pain) Qty: 20 0RF Discharge Instructions Additional Instructions: Take the Flomax as prescribed daily, you received a dose today Take the Zofran 1 tablet every 8 hours as needed for nausea and vomiting You may take the Dilaudid 1 tablet every 6 hours as needed for discomfort Take ibuprofen 400 to 600 mg every 8 hours with food Take Tylenol 650 mg every 4-6 hours in addition to the ibuprofen and do not consume more than 4 g of Tylenol daily Should you develop signs of urinary tract infection including chills, fever, worsening pain, burning with urination you should be reevaluated as you may need a stent Return earlier should you have new or worsening complaints Referrals: Cameron Sanchez MD [ [facility] STAFF PHYSICIAN] - Discharge Data Discharge Date/Time-TO BE ENTERED AT DEPARTURE: 01/20/24 12:36 HPI General Date/Time Provider Initiated Documentation: 01/20/24 09:45 . HPI Narrative: 5 denies any trauma. 8-year-old female presents with left flank pain which started this morning. Has had recurrent urinary tract infections for the past 2 months which is why she presents. She states she does not have any urinary symptoms at this time. She denies any fever or chills. She denies any chest pain or shortness of breath. She has had nausea without vomiting. States she has a history of kidney stones and this feels similarly. Related Data Home Medications Medication Instructions Recorded Confirmed venlafaxine 150 mg 150 mg PO DAILY 05/17/14 01/20/24 capsule,extended release 24 hr ibuprofen 600 mg tablet (IBU) 600 mg PO QID PRN pain #20 tabs 10/07/18 01/20/24 dextroamphetamine-amphetamine ER 25 mg PO QAM 06/04/21 01/20/24 25 mg 24hr capsule,extend release (Adderall XR) rizatriptan 10 mg tablet 10 mg PO DAILY PRN 06/04/21 01/20/24 valacyclovir 1 gram tablet 2,000 mg PO DAILY PRN 06/04/21 01/20/24 (Valtrex) dextroamphetamine-amphetamine ER 15 mg PO DAILY 01/03/24 01/20/24 15 mg 24hr capsule,extend release (Adderall XR) topiramate 50 mg tablet 100 mg PO BID 01/17/24 01/20/24 hydromorphone 2 mg tablet 2 mg PO Q6H PRN #12 tabs 01/20/24 (Dilaudid) ondansetron 4 mg disintegrating 4 mg PO Q8H PRN PRN 4 days #12 tabs 01/20/24 tablet tamsulosin 0.4 mg capsule (Flomax) 0.4 mg PO QHS #7 caps 01/20/24 Previous Rx's Medication Instructions Recorded ibuprofen 600 mg tablet (IBU) 600 mg PO QID PRN pain #20 tabs 10/07/18 hydromorphone 2 mg tablet 2 mg PO Q6H PRN #12 tabs 01/20/24 (Dilaudid) ondansetron 4 mg disintegrating 4 mg PO Q8H PRN PRN 4 days #12 tabs 01/20/24 tablet tamsulosin 0.4 mg capsule (Flomax) 0.4 mg PO QHS #7 caps 01/20/24 Allergies Allergy/AdvReac Type Severity Reaction Status Date / Time No Known Allergies Allergy Unverified 01/20/24 09:50 General Stated Complaint: FlankPain NEVAEH: 3 Exam Narrative Exam Narrative: Alert and oriented 58-year-old female in acute discomfort to her left flank, no anterior abdominal tenderness, afebrile and nontoxic, no scleral icterus, left CVA tenderness, no abdominal bruit or pulsatile mass, distal pulses intact, no pallor, alert and oriented x 4, Course Vital Signs Vital signs: Vital Signs Temperature 36.5 C 01/20/24 09:44 Pulse 60 01/20/24 09:44 Respiratory Rate 16 01/20/24 09:44 Blood Pressure 126/75 01/20/24 09:44 Pulse Oximetry 97 01/20/24 09:44 Temperature 36.5 C 01/20/24 10:32 Temperature Source Skin 01/20/24 10:32 Pulse 73 01/20/24 11:30 Respiratory Rate 16 01/20/24 10:32 Respiratory Effort Normal 01/20/24 10:53 Blood Pressure 145/81 H 01/20/24 11:30 Blood Pressure Mean 102 01/20/24 11:30 Blood Pressure Position Sitting 01/20/24 10:32 Pulse Oximetry 100 01/20/24 11:30 Oxygen Delivery Method Room Air 01/20/24 11:30 Oxygen Flow Rate 0 01/20/24 11:30 Pain Level 3 01/20/24 10:53 Lab/Test Results Lab/Test Results: 01/20/24 11:14 Urine - Clean Catch Urine Culture - Pending Laboratory Tests Range/Units 01/20/24 01/20/24 10:19 10:25 WBC (4.4-10.8) 10^3/uL 12.91 H RBC (3.93-5.22) 10^6/uL 4.61 Hgb (11.2-15.7) g/dL 13.5 Hct (36.0-46.0) % 42.9 MCV (80-95) fL 93 MCH (27.0-33.0) pg 29.3 MCHC (32.0-36.0) % 31.5 L RDW (11.7-14.6) % 13.7 Plt Count (130-400) 10^3/uL 242 MPV (8.0-11.0) fL 11.2 H Immature Gran % % 0.5 Neutrophils % % 84.7 Lymphocytes % % 9.4 Monocytes % % 4.0 Eosinophils % % 0.9 Basophils % % 0.5 Nucleated RBC % (0.0-0.3) % 0.0 Absolute Neutrophils (1.2-6.7) 10^3/uL 10.93 H Absolute Lymphocytes (1.2-3.4) 10^3/uL 1.21 Absolute Monocytes (0.1-0.8) 10^3/uL 0.52 Absolute Eosinophils (0.0-0.7) 10^3/uL 0.12 Absolute Basophils (0.0-0.2) 10^3/uL 0.06 Sodium (136-145) mmol/L 143 Potassium (3.5-5.1) mmol/L 4.0 Chloride (98-107) mmol/L 108 H Carbon Dioxide (21.0-32.0) mmol/L 24.7 Anion Gap (3-11) mmol/L 10.3 BUN (7-18) mg/dL 19 H Creatinine (0.55-1.02) mg/dL 1.1 H Est GFR (CKD-EPI 2020) (mL/min/1.73m2) 57.88 Glucose (74-106) mg/dL 156 H Calcium (8.5-10.1) mg/dL 8.5 Total Bilirubin (0.2-1.0) mg/dL 0.6 AST (15-37) U/L 29 ALT (14-59) U/L 32 Alkaline Phosphatase (46-116) U/L 121 H Total Protein (6.4-8.2) g/dL 7.5 Albumin (3.4-5.0) g/dL 3.6 Lipase (16-77) U/L 37 Urine Color (Yellow) Yellow Urine Clarity (Clear) Cloudy Urine pH (5-8) 8.0 Ur Specific [place] (1.005-1.025) 1.015 Urine Protein (Neg-Trace) mg/dL Trace Urine Ketones (Negative) mg/dL Negative Urine Blood (Negative) Trace-intact H Urine Nitrite (Negative) Negative Urine Bilirubin (Negative) Negative Urine Urobilinogen (Up to 0.2) mg/dL 0.2 Ur Leukocyte Esterase (Negative) Negative Urine RBC (0-2) HPF 0-2 Urine WBC (0-5) HPF Negative Ur Epithelial Cells (Negative) HPF Many Urine Crystals (Negative) HPF Rare Calcium Oxalate Urine Bacteria (Negative) HPF Few Urine Casts (Negative) LPF 0-2 Fine Granular Urine Mucus (Negative) Trace Ur Culture Indicated? No Urine Glucose (Negative) mg/dL 100 H Medical Decision Making This 58-year-old female presents with left flank pain which started this morning. Denies any dysuria or frequency. States she has a history of kidney stones and this feels similarly. Her diagnostic labs are baseline for patient, creatinine of 1.1 which is unchanged. Patient has a urinalysis does not show evidence of infection, however was sent for culture. Patient received 1 L fluid, Toradol, Zofran, morphine and 0.5 mg of Dilaudid has improvement of symptoms. She was given a strainer for her urine and started on Flomax. A small amount of Dilaudid for pain control with risk of addiction reviewed. Zofran for nausea and vomiting. Return precautions reviewed and patient expressed understanding. Patient is aware that should she develop signs or symptoms of urinary tract infection she must return immediately for reassessment. Quality:SDOH Health Related Social Needs: No Data to Display PFSH All Active Problems (Updated 01/20/24 @ 12:18 by JOHN Mixon) Calcium ureterolithiasis (Acute) Urinary urgency (Acute) Screening for colorectal cancer (Acute) Medical History (Updated 01/20/24 @ 12:18 by JOHN Mixon) Hypokalemia Bilateral hearing loss Acute urinary tract infection Blood in urine Chronic depression Chronic kidney disease, stage 3 Recurrent herpes simplex History of TMJ disorder Benign essential HTN Decreased hearing of both ears Blind right eye TMJ (temporomandibular joint disorder) Migraine Obesity Nephrolithiasis Right knee pain PACO (obstructive sleep apnea) Depression ADD (attention deficit disorder) Hypertension Insomnia Prediabetes Urinary frequency RLQ abdominal pain Social History Smoking/Tobacco Use Status: Never Smoking risk assessment performed?: Yes Alcohol Intake: never Drug use: Never Do you feel safe in your relationship?: Yes
--- NOTE | 2024-01-20 12:29 | NUR.NOTE ---
Nursing Note: PT needs follow up with [facility] urology next week for a left sided kidney stone. Aleajndra, ED
== END 2024-01-20 12:36 | disposition home or self-care (01) ==
PROVIDERS: Emergency Provider Physician Assistant; PCP Family Medicine
DX: N13.2 Hydronephrosis with renal and ureteral calculous obstruction (principal); N20.1 Calculus of ureter; R65.20 Severe sepsis without septic shock; A41.9 Sepsis, unspecified organism; Z87.442 Personal history of urinary calculi
CPT/HCPCS: 36415; 80053; 83690; 96361; 96374; 96375; 99284; 74176; 81003; 81015; 85025; 87086; 99283; J1170; J1885; J2270; J2405

== ENCOUNTER 2024-01-20 15:55 | Emergency (ER) | payer BC, SELFPAY ==
[2024-01-20] VITALS (63 sets, daily range): BP systolic 80–139; BP diastolic 43–75; PULSE 78–128; RESP 17–32; TEMP 36.9–37.7; O2SAT 94–100
--- NOTE | 2024-01-20 16:13 | W.ED.GENAD ---
Discharge Plan Disposition Patient Disposition: Transfer-Acute Inpatient Care Specific Acute Inpt Facility: [facility] Condition: Stable Discharge Details Clinical Impression: Hydronephrosis with urinary obstruction due to ureteral calculus, Severe sepsis Primary Care Provider: Graciela Naidu ED Provider: Jagruti Hercules Home Meds and New Rx's Prescriptions: No Action dextroamphetamine-amphetamine [Adderall XR] 25 mg capsule,extended release 24hr 25 mg PO QAM rizatriptan 10 mg tablet 10 mg PO DAILY PRN Rx Instructions: may repeat once after at least 2 hours valacyclovir [Valtrex] 1 gram tablet 2,000 mg PO DAILY PRN dextroamphetamine-amphetamine [Adderall XR] 15 mg capsule,extended release 24hr 15 mg PO DAILY topiramate 50 mg tablet 100 mg PO BID venlafaxine 150 MG capsule,extended release 24hr 150 mg PO DAILY ibuprofen [IBU] 600 mg tablet 600 mg PO QID PRN (Reason: pain) Qty: 20 0RF hydromorphone [Dilaudid] 2 mg tablet 2 mg PO Q6H PRNQty: 12 0RF ondansetron 4 mg tablet,disintegrating 4 mg PO Q8H PRN PRN4 Days Qty: 12 0RF tamsulosin [Flomax] 0.4 mg capsule 0.4 mg PO QHS Qty: 7 0RF Discharge Data Discharge Date/Time-TO BE ENTERED AT DEPARTURE: 01/20/24 20:33 HPI <Kyra Ordonez NP - Last Filed: 01/23/24 09:33> General Mode of arrival: ambulatory. Date/Time Provider Initiated Documentation: 01/20/24 16:00. Limitations to Documentation: no limitations. Information obtained by: patient, RN notes reviewed and old records reviewed. HPI Narrative: 58-year-old female presents to the ER for the second time today for recheck after being seen earlier diagnosed with a 5 mm proximal ureter kidney stone which was obstructive. Was given hydromorphone and tamsulosin. Patient and family report that she went home laid down, and then began having chills and rigors. Daughter checked temperature and got 102. Patient appears pale upon arrival, tired and confused. Daughter reports that this is somewhat at her baseline but also attributes it to being tired and the pain medication. Patient denies any pain currently. She does have a past medical history of hypertension ADD depression obstructive sleep apnea, chronic kidney disease stage III hypokalemia. She did not take any Tylenol or ibuprofen prior to this visit last Tylenol or ibuprofen was at 10:00 this morning. Upon arrival she is tachycardic with a pulse of 116 temperature is 37.7. Related Data Home Medications Medication Instructions Recorded Confirmed venlafaxine 150 mg 150 mg PO DAILY 05/17/14 01/20/24 capsule,extended release 24 hr ibuprofen 600 mg tablet (IBU) 600 mg PO QID PRN pain #20 tabs 10/07/18 01/20/24 dextroamphetamine-amphetamine ER 25 mg PO QAM 06/04/21 01/20/24 25 mg 24hr capsule,extend release (Adderall XR) rizatriptan 10 mg tablet 10 mg PO DAILY PRN 06/04/21 01/20/24 valacyclovir 1 gram tablet 2,000 mg PO DAILY PRN 06/04/21 01/20/24 (Valtrex) dextroamphetamine-amphetamine ER 15 mg PO DAILY 01/03/24 01/20/24 15 mg 24hr capsule,extend release (Adderall XR) topiramate 50 mg tablet 100 mg PO BID 01/17/24 01/20/24 hydromorphone 2 mg tablet 2 mg PO Q6H PRN #12 tabs 01/20/24 01/20/24 (Dilaudid) ondansetron 4 mg disintegrating 4 mg PO Q8H PRN PRN 4 days #12 tabs 01/20/24 01/20/24 tablet tamsulosin 0.4 mg capsule (Flomax) 0.4 mg PO QHS #7 caps 01/20/24 01/20/24 Previous Rx's Medication Instructions Recorded ibuprofen 600 mg tablet (IBU) 600 mg PO QID PRN pain #20 tabs 10/07/18 hydromorphone 2 mg tablet 2 mg PO Q6H PRN #12 tabs 01/20/24 (Dilaudid) ondansetron 4 mg disintegrating 4 mg PO Q8H PRN PRN 4 days #12 tabs 01/20/24 tablet tamsulosin 0.4 mg capsule (Flomax) 0.4 mg PO QHS #7 caps 01/20/24 Allergies Allergy/AdvReac Type Severity Reaction Status Date / Time No Known Allergies Allergy Unverified 01/20/24 16:01 General Stated Complaint: FlankPain NEVAEH: 3 Exam <Kyra Ordonez NP - Last Filed: 01/23/24 09:33> Narrative Exam Narrative: Constitutional: Alert and oriented x3. Appears stated age. Normal body habitus. Patient appears pale, confused however daughter states that this is somewhat at her baseline and she is also recently had some Dilaudid, does have rigors. Head: Normocephalic, no trauma. Eyes: Pupils PERRL, Red reflex noted, EOM's intact. Eyelids symmetrical without lesions, discharge, or swelling. ENT: Bilateral TM's WNL, External ear normal to inspection, no mastoid TTP, swelling, or erythema, Nasal turbinates WNL, no nasal discharge. Normal dentition, Chest: Sinus tachycardia, Normal S1, S2, distal pulses intact. Resp: Lungs clear to auscultation bilaterally, no wheezes, rales, or rhonchi. Abdomen: Soft, non-distended, Normoactive bowel sounds all 4 quads. Musculoskeletal: Normal gait, Moves all 4 extremities without difficulty. Skin: No suspicious rashes or lesions. Capillary refill less than 2 sec. Neurologic: Cranial nerves II-XII intact. Alert and oriented x 3. Motor: No deficits noted. Sensory: Intact bilaterally all 4 extremities. Hematologic/Lymphatic: No ecchymosis, no lymphadenopathy. Course <Kyra Ordonez NP - Last Filed: 01/23/24 09:33> Vital Signs Vital signs: Vital Signs Temperature 37.7 C H 01/20/24 15:58 Pulse 116 H 01/20/24 15:58 Respiratory Rate 18 01/20/24 15:58 Blood Pressure 139/75 01/20/24 15:58 Pulse Oximetry 100 01/20/24 15:58 Temperature 37.7 C H 01/20/24 15:58 Temperature Source Skin 01/20/24 15:58 Pulse 116 H 01/20/24 15:58 Respiratory Rate 18 01/20/24 15:58 Respiratory Effort Normal 01/20/24 16:01 Blood Pressure 139/75 01/20/24 15:58 Blood Pressure Position Sitting 01/20/24 15:58 Pulse Oximetry 100 01/20/24 15:58 Oxygen Delivery Method Room Air 01/20/24 15:58 Oxygen Flow Rate 0 01/20/24 15:58 Lab/Test Results Lab/Test Results: 01/20/24 16:12 Urine - Clean Catch Urine Culture - Pending 01/20/24 16:08 Blood Blood Culture - Pending 01/20/24 16:08 Blood Blood Culture - Pending Medical Decision Making <Kyra Ordonez NP - Last Filed: 01/23/24 09:33> 58-year-old female presents to the ER for the second time today for recheck after being seen earlier diagnosed with a 5 mm proximal ureter kidney stone which was obstructive. Was given hydromorphone and tamsulosin. Patient and family report that she went home laid down, and then began having chills and rigors. Daughter checked temperature and got 102. Patient appears pale upon arrival, tired and confused. Daughter reports that this is somewhat at her baseline but also attributes it to being tired and the pain medication. Patient denies any pain currently. She does have a past medical history of hypertension ADD depression obstructive sleep apnea, chronic kidney disease stage III hypokalemia. She did not take any Tylenol or ibuprofen prior to this visit last Tylenol or ibuprofen was at 10:00 this morning. Upon arrival she is tachycardic with a pulse of 116 temperature is 37.7. Workup ordered including CBC CMP blood cultures x 2 urinalysis. Acetaminophen 1 g IV piggyback, 1 g Rocephin IV piggyback. I am hesitant to order fluids at this time due to patient's stage III chronic kidney disease until seeing her BUN and creatinine. Urinalysis shows trace blood 1.0 urobilinogen negative for leukocytes negative for nitrites. 1713: [facility] transfer center called, for suspected urosepsis and infected kidney stone. Care is to be handed off to oncoming provider Jagruti Hercules NP pending consult with [facility] urology. Patient case and details discussed with her she verbalized understanding. This text was generated using [employer] dictation system, please disregard any oddities of phrase or misspellings. At the time of care transfer patient is concerning but hemodynamically stable. 1730: Report and care of patient received. Patient is evaluated and resting comfortably on the stretcher. She is responding appropriately denies any significant flank pain, nausea or or other complaints. Her skin is pink warm dry she is well-perfused head is atraumatic eyes normal appearance nonicteric noninjected cardiovascular regular rate and rhythm she is sinus tachycardia in the low 100s. Her abdomen is round soft nontender. She is moving all extremities neurologic awake alert oriented no focal deficits psychiatric normal mood and affect 1750 received a call back from [facility] she has been accepted for transfer for urinary stenting by Dr. Evangelist Rodriguez. She is being transported by ground EMS. Blood pressure did drop to 86 systolic but is fluid responsive, will give another gram of ceftriaxone in the setting of severe sepsis. Received a 500 cc bolus of normal saline and now receiving normal saline at 150 cc/h Quality:[facility] Health Related Social Needs: No Data to Display <Jagruti Hercules NP - Last Filed: 01/20/24 17:55> 58-year-old female presents to the ER for the second time today for recheck after being seen earlier diagnosed with a 5 mm proximal ureter kidney stone which was obstructive. Was given hydromorphone and tamsulosin. Patient and family report that she went home laid down, and then began having chills and rigors. Daughter checked temperature and got 102. Patient appears pale upon arrival, tired and confused. Daughter reports that this is somewhat at her baseline but also attributes it to being tired and the pain medication. Patient denies any pain currently. She does have a past medical history of hypertension ADD depression obstructive sleep apnea, chronic kidney disease stage III hypokalemia. She did not take any Tylenol or ibuprofen prior to this visit last Tylenol or ibuprofen was at 10:00 this morning. Upon arrival she is tachycardic with a pulse of 116 temperature is 37.7. Workup ordered including CBC CMP blood cultures x 2 urinalysis. Acetaminophen 1 g IV piggyback, 1 g Rocephin IV piggyback. I am hesitant to order fluids at this time due to patient's stage III chronic kidney disease until seeing her BUN and creatinine. Urinalysis shows trace blood 1.0 urobilinogen negative for leukocytes negative for nitrites. 1713: [facility] transfer center called, for suspected 1730: Report and care of patient received. Patient is evaluated and resting comfortably on the stretcher. She is responding appropriately denies any significant flank pain, nausea or or other complaints. Her skin is pink warm dry she is well-perfused head is atraumatic eyes normal appearance nonicteric noninjected cardiovascular regular rate and rhythm she is sinus tachycardia in the low 100s. Her abdomen is round soft nontender. She is moving all extremities neurologic awake alert oriented no focal deficits psychiatric normal mood and affect 1750 received a call back from [facility] she has been accepted for transfer for urinary stenting by Dr. Evangelist Rodriguez. She is being transported by ground EMS. Blood pressure did drop to 86 systolic but is fluid responsive, will give another gram of ceftriaxone in the setting of severe sepsis. Received a 500 cc bolus of normal saline and now receiving normal saline at 150 cc/h Medical Records Medical records reviewed: Yes I reviewed the patient's medical records. Lab Data Lab results reviewed: Yes I reviewed the patient's lab results. PFSH <Kyra Ordonez NP - Last Filed: 01/23/24 09:33> All Active Problems (Updated 01/20/24 @ 17:55 by Jagruti Hercules NP) Severe sepsis (Acute) Hydronephrosis with urinary obstruction due to ureteral calculus (Acute) Calcium ureterolithiasis (Acute) Urinary urgency (Acute) Screening for colorectal cancer (Acute) Medical History (Updated 01/20/24 @ 17:55 by Jagruti Hercules NP) Hypokalemia Bilateral hearing loss Acute urinary tract infection Blood in urine Chronic depression Chronic kidney disease, stage 3 Recurrent herpes simplex History of TMJ disorder Benign essential HTN Decreased hearing of both ears Blind right eye TMJ (temporomandibular joint disorder) Migraine Obesity Nephrolithiasis Right knee pain PACO (obstructive sleep apnea) Depression ADD (attention deficit disorder) Hypertension Insomnia Prediabetes Urinary frequency RLQ abdominal pain Social History Smoking/Tobacco Use Status: Never Smoking risk assessment performed?: Yes Alcohol Intake: never Drug use: Never Do you feel safe in your relationship?: Yes Sign Out <Kyra Ordonez NP - Last Filed: 01/23/24 09:33> Sign Out Data: Sign Out Comment: Pending Urology consult for emergent stent with [facility] and most likely transfer. Here for the second time today with a 5 mm proximal ureter obstructing kidney stone with fever chills rigor and elevated lactate concern for urosepsis or infected stone. Given a gram of Tylenol and 1 g of Rocephin IV. Dr. Sanchez was consulted here and is unable to place stent this weekend recommends transfer to [facility]. Last updated by Kyra Ordonez NP at 01/20/24 17:24
[2024-01-20 16:22] LABS: Bilirubin Negative (Negative); Blood Trace-intact (Negative); Clarity Clear (Clear); Glucose Negative (Negative); Ketones Negative (Negative); Leukocyte Esterase Negative (Negative); Nitrite Negative (Negative); Specific Gravity 1.015 (1.005-1.025); pH 7.5 (5-8)
--- NOTE | 2024-01-20 16:30 | DI.RAD_ITS ---
Exam(s) XR CHEST 2V PA LATERAL EXAM: XR CHEST 2V PA LATERAL CLINICAL HISTORY: Fever. TECHNIQUE: 2D digital imaging was performed. COMPARISON: No exams were available for comparison FINDINGS: 2 views: Heart size is normal. The mediastinum is not widened. Lungs are clear. No infiltrates nor pleural effusions. IMPRESSION: No acute pulmonary findings. DATA REPOSITORY: RADIATION DOSE DELIVERED:
[2024-01-20 16:41] LABS: Bacteria Moderate HPF (Negative); C & S Indicated? C&S Done As Ordered; Casts Negative LPF (Negative); Crystals Few Amorphous HPF (Negative); Epithelial Cells Moderate HPF (Negative); Mucus Trace (Negative); RBC 0-2 HPF (0-2); WBC 0-2 HPF (0-5)
[2024-01-20 17:01] LABS: Abs Immature Grans 0.04 10^3/uL (0.0-0.06); Absolute Basophil Count 0.03 10^3/uL (0.0-0.2); Absolute Lymphocyte Count 0.24 10^3/uL (1.2-3.4); Absolute Monocyte Count 0.06 10^3/uL (0.1-0.8); Absolute Neutrophil Count 10.65 10^3/uL (1.2-6.7); Basophils % 0.3 %; HCT 40.5 % (36.0-46.0); HGB 12.5 g/dL (11.2-15.7); Immature Grans % 0.4 %; Lymphocytes % 2.2 %; MCH 28.6 pg (27.0-33.0); MCHC 30.9 % (32.0-36.0); MCV 93 fL (80-95); MPV 10.7 fL (8.0-11.0); Monocytes % 0.5 %; Neutrophils % 96.6 %; Platelet Count 202 10^3/uL (130-400); RBC 4.37 10^6/uL (3.93-5.22); RDW 13.7 % (11.7-14.6); RDW-SD 46.5 fL; WBC 11.02 10^3/uL (4.4-10.8)
[2024-01-20 17:02] LABS: Lactate 2.7 mmol/L (0.6-1.4)
[2024-01-20] MEDS: ACETAMINOPHEN 1,000 MG/100 ML BTL 400 MG IVPB (17:10)
[2024-01-20 17:16] LABS: ALT 28 U/L (14-59); AST 19 U/L (15-37); Albumin 3.4 g/dL (3.4-5.0); Alkaline Phosphatase 114 U/L (46-116); Anion Gap 12.3 mmol/L (3-11); BUN 20 mg/dL (7-18); Bilirubin, Total 0.6 mg/dL (0.2-1.0); CO2 20.7 mmol/L (21.0-32.0); CREATININE 1.4 mg/dL (0.55-1.02); Calcium 8.3 mg/dL (8.5-10.1); Chloride 110 mmol/L (98-107); Estimated GFR 43.34 (mL/min/1.73m2); Glucose 174 mg/dL (74-106); Potassium 3.6 mmol/L (3.5-5.1); Sodium 143 mmol/L (136-145); Total Protein 6.9 g/dL (6.4-8.2)
[2024-01-20] MEDS: cefTRIAXone 1 GM/50 ML BAG IVPB ×2 (17:36→18:00)
[2024-01-20] MEDS: Normal Saline 500 ML IV (17:45)
[2024-01-20 19:53] LABS: COVID-19 PCR Negative (Negative); Influenza A PCR Negative (Negative); Influenza B PCR Negative (Negative); RSV PCR Negative (Negative)
[2024-01-20 19:54] LABS: Source NASOPHARYNX
[2024-01-20] MEDS: HYDROmorphone 2 MG/ML SYR 0.5 MG IVP (20:21)
--- NOTE | 2024-01-21 06:36 | NUR.NOTE ---
Blood culture results have been [place] to [facility]
== END 2024-01-20 20:33 | disposition short-term general hospital (02) ==
PROVIDERS: Registered Nurse Emergency; Emergency Provider Nurse Practitioner Acute Care; PCP Family Medicine
DX: N13.6 Pyonephrosis (principal); B96.20 Unspecified Escherichia coli [E. coli] as the cause of diseases classified elsewhere; R65.20 Severe sepsis without septic shock; I12.9 Hypertensive chronic kidney disease with stage 1 through stage 4 chronic kidney disease, or unspecified chronic kidney disease; N18.30 Chronic kidney disease, stage 3 unspecified
CPT/HCPCS: 36415; 80053; 87040; 87077; 87637; 96365; 96375; 99285; 71046; 81003; 81015; 83605; 85025; 87086; 87186; J0131; J0696; J1170

== ENCOUNTER 2024-03-28 02:42 | Outpatient (CLI) | payer BC, SELFPAY ==
--- OUTSIDE RECORDS SUMMARY | 2024-03-28 02:44 | XMS_ITS | Encounter Summary ---
Author Organization [facility] Address [address] [place] [address] Care Team Providers Care Billiard Table Repairer Name Role Phone Unknown, Provider Primary Care Provider Encounter Details Date Type Department Care Team (Late st Contact Info) Description 06/23/2021 Lab Requisition [facility] [address] [place] [address] Unknown, Provider, Social History Tobacco Use Types Packs/Day Years Used Date Smoking Tobacco: Never Assessed Sex and Gender Information Value Date Recorded Sex Assigned at Not on file Gender Identity Not on file Sexual Orientation Not on file documented as of this encounter Plan of Treatment Not on file documented as of this encounter Visit Diagnoses Not on filedocumented in this encounter Care Teams Billiard Table Repairer Relationship Specialty Start Date End Date Unknown, Provider, PCP - General 07/15/15 documented as of this encounter
--- OUTSIDE RECORDS SUMMARY | 2024-03-28 02:44 | XMS_ITS | Encounter Summary ---
[place] [address] Care Team Providers Care Community Education Coordinator Name Role Phone Graciela Naidu MD Primary Care Provider [phone] Encounter Details Date Type Department Care Team (Late st Contact Info) Description 02/15/2024 [place] [phone] Fernanda Meek, RN Social History Tobacco Use Types Packs/Day Years Used Date Smoking Tobacco: Never Smokeless Tobacco: Never Alcohol Use Standard Drinks/Week Comments Never 0 (1 standard drink = 0.6 oz pur e alcohol) [facility] Utilities Answer Date Recorded In the past 12 months has e [employer], gas, oil, or water [email or web address] threatened to shut off services in your home? No 01/21/2024 Hunger Vital Sign Answer Date Recorded Within the past 12 months, y ou worried that your food would run out before you got the money to buy more. Never true 01/21/20 24 Within the past 12 months, t he food you bought just didn't last and you didn't have money to get more. Never true 01/21/2024 PRAPARE - Transportation Answer Date Re corded In the past 12 months, has l ack of transportation kept you from medical appointments or from getting medications? No 12/28 In the past 12 months, has l ack of transportation kept you from meetings, work, or from getting things needed for daily living? No 01/21/2024 Housing Stability Vital Sign Answer Richard e Recorded In the last 12 months, was t here a time when you were not able to pay the mortgage or rent on time? No 01/21/2024 In the past 12 months, how m any times have you moved where you were living? 0 01/21/2024 At any time in the past 12 m [place], were you homeless or living in a senior living (including now)? No 01/21/2024 IPV Inpatient Questions Answer Date Recorded Does Anyone Try to Keep You From Having Contact with Others or Doing Things Outside Your Home? no 01/20/2024 Feels Threatened by Someone no 12/28 Feels Unsafe at Home or Work/School no 01/20/2024 Physical Signs of Abuse Present no 01/20/2024 Sex and Gender Information Value Date Recorded Sex Assigned at Not on file Gender Identity Not on file Sexual Orientation Not on file documented as of this encounter Miscellaneous Notes * Telephone Encounter - Fernanda Meek RN - 02/15/2024 1:03 PM EDT Created in error documented in this encounter Plan of Treatment Upcoming Encounters Date Type Department Care Team (Late st Contact Info) Description 04/20/2024 3:45 PM EDT [place] [phone] Pam Grant MD [facility] [address] 04/20/2024 4:40 PM EDT [place] [phone] Pam Grant MD [facility] [place] [address] documented as of this encounter Visit Diagnoses Not on filedocumented in this encounter Care Teams Community Education Coordinator Relationship Specialty Start Date End Date Graciela Naidu MD [facility] [address] [place] [address] PCP - General 07/21/10 documented as of this encounter
--- OUTSIDE RECORDS SUMMARY | 2024-03-28 02:44 | XMS_ITS | Encounter Summary ---
Author Organization [facility] Address [facility] [place] [address] Care Team Providers Care Event Host Name Role Phone Graciela Naidu MD Primary Care Provider [phone] Encounter Details Date Type Department Care Team (Late st Contact Info) Description 02/09/2024 10:10 AM EDT - 02/09/2024 11:59 PM EDT Hospital Encounter XRay at [address] [place] [address] Pam Grant MD [facility] [place] [address] Discharge Disposition: Home Social History Tobacco Use Types Packs/Day Years Used Date Smoking Tobacco: Never Smokeless Tobacco: Never Alcohol Use Standard Drinks/Week Comments Never 0 (1 standard drink = 0.6 oz pur e alcohol) [facility] Utilities Answer Date Recorded In the past 12 months has [employer], gas, oil, or water company threatened to shut off services in your [...] time in the past 12 m [place], were you homeless or living in a residential (including now)? No 01/21/2024 IPV Inpatient Questions [...] on file documented as of this encounter Medications at Time of Discharge Medication Sig Dispensed Refills Start Date End Date dextroamphetamine-amphe tamine (Adderall XR) 15 mg ER 24 hr capsule 01/30/2024 topiramate (Topamax) 100 mg tablet Take 1 tablet by mouth 2 times daily. 01/02/2024 tamsulosin (Flomax) 0.4 mg capsule Take 1 capsule by mouth daily. 90 tablet 3 02/09/2024 acetaminophen (Tylenol) 325 mg tablet Take 3 tablets by mouth every 8 hours as needed for Pain. 01/24/2024 methylphenidate (RITALIN) 20 mg tablet 07/16/201003/09 zolpidem (AMBIEN) 5 mg tablet 07/16/2010 03/09/2024 venlafaxine (EFFEXOR) 75 mg tablet 07/16/2010 03/09/2024 documented as of this encounter Plan of Treatment Upcoming Encounters Date Type Department Care Team (Late st Contact Info) Description 04/20/2024 3:45 PM EDT [place] [address] Pam Grant MD [facility] [place] [address] 04/20/2024 4:40 PM EDT [place] [phone] Pam Grant MD [facility] [place] [address] documented as of this encounter Procedures Procedure Name Priority Date/Time Associated Diagnosis Comments XR FLUORO NO RAD <1HR - OR USE Routine 02/09/2024 9:44 AM EDT documented in this encounter Results * XR Fluoro No Rad <1Hr - OR Use (02/09/2024 9:44 AM EDT) Narrative [employer], Auditing User - 02/09/2024 10:11 AM EDT This exam is auto-finalizing. No interpretation was done. Pam Grant MD [facility] FLUORO [facility] documented in this encounter Visit Diagnoses Not on filedocumented in this encounter Care Teams Event Host Relationship Specialty Start Date End Date Graciela Naidu MD [facility] [address] [place] [address] PCP - General 07/21/10 documented as of this encounter
--- OUTSIDE RECORDS SUMMARY | 2024-03-28 02:44 | XMS_ITS | Encounter Summary ---
Author Organization [facility] Address [address] [place] [address] Care Team Providers Care Marine Biologist Name Role Phone Unavailable Primary Care Provider Unavailabl e Encounter Details Date Type Department Care Team (Late st Contact Info) Description 05/27/2003 Results Only [facility] - [facility] [address] [place] [address] Graciela Arciniega MD [address] [place] [address] [place] [phone] Social History Tobacco Use Types Packs/Day Years Used Date Smoking Tobacco: Never Assessed Sex and Gender Information Value Date Recorded Sex Assigned at Not on file Gender Identity Not on file Sexual Orientation Not on file documented as of this encounter Plan of Treatment Not on file documented as of this encounter Procedures Procedure Name Priority Date/Time Associated Diagnosis Comments CYTOPATHOLOGY Routine 05/27/2003 0:00 EDT documented in this encounter Results * CYTOPATHOLOGY (05/27/2003 0:00 EDT) Pathology Report: CYTOPATHOLOGY REPORT Reports generated via electronic interface contain original data; however they are lacking the format of the original report. Caution should be taken when reading/interpreti ng unformatted reports. Name: ? CHRISTINA, BARBRA ? Accession #: ? [id number] : ? 1965 (Age: 37) ??F ?Collect Date: ? 05/27/2003 Location: ? [facility] ? Receive Date: ? 05/29/2003 Provider: ?GRACIELA ARCINIEGA MD Copy to: ? Specimen/Source: ?ThinPrep Pap Test, Cervix/Endocervix Last Menstrual Period: ? 05/23/03 Other: ? HPVA - HPV testing requested if ASC-US on the current ThinPrep Pap test. ? SPECIMEN ADEQUACY ? Satisfactory for Evaluation - transformation zone component present GENERAL CATEGORIZATION ? Negative for Intraepithelial Lesion or Malignancy ? Document reviewed and electronically signed by: ? LENNIE Arana(ASCP) ? Report Date: ??05/31/2003 08:04 End of Report ANASTASIA GREWAL 05/27/2003 05/29/2003 Graciela Arciniega MD PATHOLOGY ORDERABLES ANASTASIA GREWAL [address] [place] [address] documented in this encounter Visit Diagnoses Not on filedocumented in this encounter
--- OUTSIDE RECORDS SUMMARY | 2024-03-28 02:44 | XMS_ITS | Encounter Summary ---
[place] [address] Care Team Providers Care Food Technologist Name Role Phone Graciela Niadu MD Primary Care Provider [phone] Reason for Referral * Diagnostic Test (Routine) - Closed Specialty Diagnoses / Procedures Referred By Bradley lopez Referred To Contact Urology Diagnoses Ureteral obstruction, left Procedures Cysto Stent Removal Long Galloway MD [facility] [place] [address] [facility] [place] [address] Referral ID Status Reason Start Date Expiration Date V isits Requested Visits Authorized [id number] Closed Test Only 02/09/2024 02/08/2025 1 1 Reason for Visit * Auth/Cert (Routine) Specialty Diagnoses / Procedures Referred By Bradley lopez Referred To Contact Diagnoses Left ureteral calculus Urinary tract infection with hematuria, site unspecified Ureteral obstruction, left Urolithiasis Procedures PRO CYSTO/URETERO/PYELOSCOPY W/LITHOTRIPSY CYSTOURETEROSCOPY, LITHOTRIPSY (WRVU 7.5) MODIFIER HOLMIUM LASER Pam Grant MD [facility] [address] [facility] Referral ID Status Reason Start Date Expiration Date Visits Re quested Visits Authorized [id number] 1 1 Encounter Details Date Type Department Care Team (Late st Contact Info) Description 02/09/2024 6:09 AM EDT - 02/09/2024 9:46 AM EDT Hospital Encounter Outpatient [facility] [place] [phone] Pam Grant MD [facility] [place] [address] Ureteral obstruction, left (Primary Dx); Left ureteral calculus; Urinary tract infection with hematuria, site unspecified Discharge Disposition: Home Social History Tobacco Use Types Packs/Day Years Used Date Smoking Tobacco: Never Smokeless Tobacco: Never Alcohol Use Standard Drinks/Week Comments Never 0 (1 standard drink = 0.6 oz pur e alcohol) [facility] Utilities Answer Date Recorded In the past 12 months has th e Today Tix, gas, oil, or water Locationary threatened to shut off services in your [...] any time in the past 12 m onths, were you homeless or living in a senior living (including now)? No 01/21/2024 [facility] IPV Inpatient Questions Answer Date Recorded Does [...] on file documented as of this encounter Last Filed Vital Signs Vital Sign Reading Time Taken Comments Blood Pressure 148/82 02/09/2024 9:31 AM EDT Pulse 69 02/09/2024 9:31 AM EDT Temperature 36 ??C (96.8 ??F) 02/09/2024 9:02 AM EDT Respiratory Rate 16 02/09/2024 9:31 AM EDT Oxygen Saturation 96% 02/09/2024 9:31 AM EDT Inhaled Oxygen Concentration - - Weight 102.1 kg (225 lb) 02/09/2024 6:32 AM EDT Height 170.2 cm (5' 7) 02/09/2024 6:32 AM EDT Body Mass Index 35.24 02/09/2024 6:32 AM EDT documented in this encounter Discharge Instructions * Discharge Instructions* Radha Adam V RN - 02/09/2024 6:40 AM EDT At 6:30am you received 975 mg of acetaminophen- Your next dose should not be taken before 8 hours have passed or as advised by your provider. Next dose not before 2:30pm You should not take more than a total of 3000 mg of acetaminophen in a 24 hour period. Toradol 30 mg IV given in OR, Do not start Ibuprofen before 5:00 pm today General Anesthesia Discharge Instructions Go home and rest. You may be sleepy for several hours. Take it easy as sudden position changes may cause nausea and/or dizziness. Use caution on stairs. Do not smoke if you are alone. Follow a light to regular diet as tolerated today. If nausea occurs, start with clear liquids, and progress slowly to a regular diet. Do not drive, operate machinery, drink alcoholic beverages or make any legal decisions after havinggeneral anesthesia. The medications given change your reaction time and alter your judgement. IV site -- slight redness is normal, you can use warm compresses. If tenderness and redness increases or foul drainage occurs, please contact your M.D. Patients who have had endotracheal tubes/LMA (tubes used by the anesthesia staff to ensure a safe airway during your operation) may have a sore throat. This is normal and cold liquids or soothing lozenges will help ease this discomfort. Narcotic pain medications can cause constipation, please ask the surgeons office what they recommend for prevention of this. Some non-pharmaceutical means of constipation prevention include increasing intake of fluids, eating more fruits and vegetables as well as fruit juices. If you are uncomfortable and/or unable to urinate within 8 hours of discharge and it is before 5 pm, call your physician. If it is after 5pm go to the closest emergency room or call the hospital office machine punch operator at [phone] and ask for physician gas substation operator covering for your physician. Questions or problems after 5pm or on a weekend: Call the [facility] office machine punch operator at and ask for the physician gas substation operator covering for your doctor. * Patient Instructions* Long Galloway MD - 02/09/2024 9:06 AM EDT Urology Discharge Instructions after Cystoscopy and Ureteroscopy Call your doctor for: Fevers greater than 101.3F Severe nausea or vomiting Increasing pain not controlled by pain medications Inability to urinate before 5 PM weekdays for urgent concerns after 5 PM and weekends. Ask for the on-call Urology resident Activity level: Increased activity may lead to more stent discomfort and more blood in your urine. Your activity level will be determined by your comfort level. Diet: You may resume your regular diet as tolerated. Drink plenty of water, at least 2 liters (64 oz) per day or enough to make urine clear or pale yellow. Driving: No driving while still taking opioid pain medications (wait at least 6- 8 hours since last dose). No driving if you are still sore from surgery as it may limit your ability to react quickly if necessary. Shower/Bath: No restrictions. Stent Discomfort: Most patients experience some degree of discomfort related to their ureteral stent. Symptoms include flank pain (increased during urination), frequency and urgency of urination, burning or pain in the bladder/urethra with urination, pelvic discomfort, and blood in the urine. Your symptoms may be exacerbated by activity. To manage your stent symptoms, try the following: - Drink plenty of fluid (~2 liters per day or enough to make urine clear or pale yellow) - Take acetaminophen (Tylenol), up to 650mg every 4 hours (regular strength) or 1000mg every 6 hours (extra strength) (unless otherwise instructed by a physician) - Take ibuprofen (Motrin, Advil, or generic), up to 600-800mg every 8 hours (unless otherwise instructed by a physician) - Do not exceed 4000mg acetaminophen in 24 hours. Do not exceed 3200mg ibuprofen in 24 hours. - Take Flomax daily until your stent is removed (if prescribed) Follow up: - An appointment will be scheduled in about 14 days for stent removal in the Urology clinic. Pleasecall [phone] if you do not receive your appointment. No future appointments. It is important to remember that your ureteral stent cannot stay in place permanently. If it remains in place too long it may become encrusted with stone and require additional surgery to remove it. Please call our office if you do not receive your appointment or if you need to reschedule. documented in this encounter Medications at Time of Discharge [...] 07/16/2010 03/09/2024 documented as of this encounter Progress Notes * Radha Adam RN - 02/09/2024 9:03 AM EDT Arrived [facility], monitors placed, alarms on/ audible. No urinary drainage noted on chux/ liz area.O2 mask 6L, LMA DC'd on arrival by FRONTEND ENGINEER 09:13 O2 mask off R/A trial, HOB up, gingerale. 09:30 denies pain/ nausea. VSS, I need to pee, assist to BR for void, pink urine. 09:41 Discharge instructions and medications reviewed with patient and and Kem. Dr. Galloway paged for Flomax Rx to pt. Pharmacy. All questions answered and written copy sent home with patient. Patient ambulated to car for discharge accompanied by [facility] staff member. documented in this encounter H&P Notes * Pam Grant MD - 02/09/2024 7:21 AM EDT The patient's history and physical exam have been reviewed and completed. There has been no interval change from that of the pre-operative history and physical exam done within the last 30 days. Source Note - Pam Grant MD - 02/06/2024 12:40 PM EDT Images from the original note were not included. Urology History and Physical: Barbra Dc is a 58 y.o. female with a history of obesity and urosepsis secondary to left proximal ureteral stone sp 6Fr Vr on 01/20/2024 with findings: - Septic from obstructing left ureteral stone - Cloudy bladder urine sent for culture - Left renal aspirate sent for culture - L 6Fr x variable length ureteral stent placed - 14Fr lemus catheter placed CT with left proximal ureteral/renal stone HU ureteral stone ~730 She presents today for LEFT URS/LL, stent exchange There have been no changes to her history. She denies fevers/chills, chest pain, SOB, and n/v. She has completed antibiotics as prescribed, ciprofloxacin for 10 - 49,000 ecoli. Urine cx: 01/20 R to amp/sul, bactrim sp cipro as above PMH: No past medical history on file. PSH: Past Surgical History: Procedure Laterality Date PRO CYSTOSCOPY, INSERT URETERAL STENT Left 01/20/2024 CYSTO, STENT PLACEMENT (WRVU 2.82) performed by Evangelist Rodriguez MD at [facility] OR Allergies: No Known Allergies No data found. Physical Exam: Gen: NAD CV: S1 S2 Pulm: CTAB, respiratory effort normal Labs: Recent Labs 01/24/24 0025 01/23/24 0506 01/21/24 0102 WBC 11.1* 13.6* 8.4 HGB 10.9* 12.1 12.2 HCT 34.0* 36.5 38.9 PLATELET 161 151 174 Recent Labs 01/24/24 0025 01/23/24 0506 01/21/24 0102 NA 138 139 144 K Not Perf 3.6 3.6 CL 111* 110* 113* CO2 19* 21* 19* BUN 15 20* 23* CREATININE 0.78 1.05 1.58* Micro: Lab Results Component Value Date URINECULTURE 10,000-49,000 cfu/ml Escherichia coli (A) 01/21/2024 URINECULTURE No growth (Less than 100 cfu/ml). 01/20/2024 Imaging: Relevant imaging reviewed A/P: 58 y.o. female who presents today for above procedures. All risks, benefits, and alternatives have been explained, and questions answered. Proceed with scheduled procedure. - Consent signed and placed in chart - Patient marked LEFT - Preop abx: leisa Galloway MD 02/06/2024 [id number] did the note. I did the H&P, consent and Lt sergei Agree with assessment and plan. * Pam Grant MD - 02/06/2024 12:40 PM EDT Images from the original note were not included. Urology History and Physical: Barbra Dc is a 58 y.o. female with a history of obesity and urosepsis secondary to left proximal ureteral stone sp 6Fr Vr on 01/20/2024 with findings: - Septic from obstructing left ureteral stone - Cloudy bladder urine sent for culture - Left renal aspirate sent for culture - L 6Fr x variable length ureteral stent placed - 14Fr lemus catheter placed CT with left proximal ureteral/renal stone HU ureteral stone ~730 She presents today for LEFT URS/LL, stent exchange There have been no changes to her history. She denies fevers/chills, chest pain, SOB, and n/v. She has completed antibiotics as prescribed, ciprofloxacin for 10 - 49,000 ecoli. Urine cx: 01/20 R to amp/sul, bactrim sp cipro as above PMH: No past medical history on file. PSH: Past Surgical History: Procedure Laterality Date PRO CYSTOSCOPY, INSERT URETERAL STENT Left 01/20/2024 CYSTO, STENT PLACEMENT (WRVU 2.82) performed by Evangelist Rodriguez MD at [facility] OR Allergies: No Known Allergies No data found. Physical Exam: Gen: NAD CV: S1 S2 Pulm: CTAB, respiratory effort normal Labs: Recent Labs 01/24/24 0025 01/23/24 0506 01/21/24 0102 WBC 11.1* 13.6* 8.4 HGB 10.9* 12.1 12.2 HCT 34.0* 36.5 38.9 PLATELET 161 151 174 Recent Labs 01/24/24 0025 01/23/24 0506 01/21/24 0102 NA 138 139 144 K Not Perf 3.6 3.6 CL 111* 110* 113* CO2 19* 21* 19* BUN 15 20* 23* CREATININE 0.78 1.05 1.58* Micro: Lab Results Component Value Date URINECULTURE 10,000-49,000 cfu/ml Escherichia coli (A) 01/21/2024 URINECULTURE No growth (Less than 100 cfu/ml). 01/20/2024 Imaging: Relevant imaging reviewed A/P: 58 y.o. female who presents today for above procedures. All risks, benefits, and alternatives have been explained, and questions answered. Proceed with scheduled procedure. - Consent signed and placed in chart - Patient marked LEFT - Preop abx: leisa Galloway MD 02/06/2024 [id number] did the note. I did the H&P, consent and Lt sergei Agree with assessment and plan. documented in this encounter Miscellaneous Notes * Op Note - Pam Grant MD - 02/09/2024 7:41 AM EDT [facility] [place] [place] Patient Name: Barbra Dc : [id number] MR#: [id number] Case Date: 02/09/2024 Surgeon: Surgeons and Role: * Pam Grant MD - Primary * Long Galloway MD - Resident - Assisting Preoperative diagnosis: Urolithiasis Postoperative diagnosis: Urolithiasis Procedure(s) (LRB): CYSTOURETEROSCOPY, LITHOTRIPSY (WRVU 7.5) (Left) MODIFIER HOLMIUM LASER (N/A) CYSTO, RETROGRADE, URETEROPYELOGRAPHY (WRVU 2.37) (Left) Findings: - left ureteral/renal stones lasered/extracted - multiple Antonio's plaques throughout - 6Fr x26 left ureteral stent Plan: - 2 week stent removalt Anesthesia: General Estimated Blood Loss: 0 mL Specimens removed during surgery: left stones Drains: 6Fr x26 ureteral stent Surgical Closure: na Disposition: awakened from anesthesia, extubated and taken to the recovery room in a stable condition, having suffered no apparent untoward event. Condition: doing well without problems (Please see the Surgical Encounter Summary for any Implant and Specimen details pertinent to this patient.) HPI/Surgical Indications: Barbra Dc is a 58 y.o. female with a history of obesity and urosepsis secondary to left proximal ureteral stone sp 6Fr Vr on 01/20/2024 with findings: - Septic from obstructing left ureteral stone - Cloudy bladder urine sent for culture - Left renal aspirate sent for culture - L 6Fr x variable length ureteral stent placed - 14Fr lemus catheter placed CT with left proximal ureteral/renal stone HU ureteral stone ~730 She presents today for LEFT URS/LL, stent exchange There have been no changes to her history. She denies fevers/chills, chest pain, SOB, and n/v. She has completed antibiotics as prescribed, ciprofloxacin for 10 - 49,000 ecoli. Urine cx: 01/20 R to amp/sul, bactrim sp cipro as above Procedure Description: The patient was identified in the pre-operative holding area. Consent was verified. The correct side of the procedure was marked. The patient was taken to the operating room and placed supine on the operating table. General anesthesia was induced. The patient was then moved to the dorsal lithotomy position and prepped and draped in the usual sterile fashion. A timeout was performed involving all members of the OR team confirming the patient's identity and planned procedure. Preoperative antibiotics (ancef) were administered. A 22 Fr rigid cystoscope was inserted into the bladder. The existing left ureteral stent was visualized. A guidewire was inserted alongside the stent and advanced to the level of renal pelvis on fluoroscopy. The stent was then grasped with a stent grasper and removed through the cystoscope. The cystoscope was removed over the wire. Stent was noted with minimal encrustation. A semi-rigid ureteroscope was introduced. The distal ureter was navigated easily until the ureteralstone was encountered; the stone was relocated to the pelvis. A second wire was introduced and the ureteroscope was removed. An access sheath was advance over the wire under fluoroscopy. Next, a LithoVue flexible ureteroscope was then inserted and navigated to the renal pelvis. The stone was fragmented with Holmium laser was used at 6 Hz and 0.6 J for fragmentation. These fragments were extractedwith a ze/zero tip basket and sent off for analysis. Retrograde pyelography was performed and stones large enough for basketing were extracted. There were multiple Antonio's plaques throughout the collecting system. The ureteroscope was slowly removed to inspect the ureter. The access sheath was removed along with the ureteroscope. The cystoscope wasbackloaded over the wire, and a 6 Fr x 26 cm ureteral stent was inserted over the wire. The proximal coil was visualized on fluoroscopy to be within the renal pelvis and the distal coil was seen withdirect visualization in the bladder. The bladder was emptied. The cystoscope was removed. The patient tolerated the procedure well and was awakened from anesthesia with no adverse events. The patient was taken to the recovery area in stable condition. Dr. Grant, the attending surgeon, was present for the entire procedure documented in this encounter Plan of Treatment Upcoming Encounters Date Type Department Care Team (Late st Contact Info) Description 04/20/2024 3:45 PM EDT [place] [address] Pam Grant MD [facility] [place] [address] 04/20/2024 4:40 PM EDT [place] [address] Pam Grant MD [facility] [place] [address] Scheduled Orders Name Type Priority Associated Diagnoses Orde r Schedule Cysto Stent Removal PROCEDURE Routine Ureteral obstruction, left Expected: 02/16/2024 (Approximate), Expires: 08/17/2024 documented as of this encounter Procedures Procedure Name Priority Date/Time Associated Diagnosis Comments XR FLUORO NO RAD <1HR - OR USE Routine 02/09/2024 9:44 AM EDT CYSTO,RETROGRADE,UR ETEROPYELOGRAPHY Routine 02/09/2024 8:59 AM EDT Left ureteral calculus Urinary tract infection with hematuria, site unspecified Ureteral obstruction, left [facility] KIDNEY STONE ANALYSIS Routine 02/09/2024 8:45 AM EDT Cystourethroscopy, Ureter Catheter ([id number]) 02/09/2024 7:26 AM EDT Left ureteral calculus Urinary tract infection with hematuria, site unspecified Ureteral obstruction, left MODIFIER HOLMIUM LASER 02/09/2024 7:26 AM EDT Left ureteral calculus Urinary tract infection with hematuria, site unspecified Ureteral obstruction, left Cysto/Uretero/Pyelo scopy W/Lithotripsy ([id number]) 02/09/2024 7:26 AM EDT Left ureteral calculus Urinary tract infection with hematuria, site unspecified Ureteral obstruction, left CYSTO,URETEROSCOPY\ LITHOTRIPSY Routine 02/09/2024 6:10 AM EDT Left ureteral calculus Urinary tract infection with hematuria, site unspecified Ureteral obstruction, left documented in this encounter Results * XR Fluoro No Rad <1Hr - OR Use (02/09/2024 9:44 AM EDT) Narrative Dicom, Auditing User - 02/09/2024 10:11 AM EDT This exam is auto-finalizing. No interpretation was done. Pam Grant MD IMG FLUORO GUICHO MATHEWS * Kidney Stone Analysis (02/09/2024 8:45 AM EDT) Kidney Stone Analysis Test ? Result ?Flag ??Unit ??RefValue ------- Kidney Stone Analysis ??Source: ?Left Ureter ??Stone Interpretation ? SEE COMMENTS ?80% Calcium phosphate (apatite). 10% Calcium oxalate ?dihydrate. ??10% Calcium oxalate monohydrate. ??Result Comment ? SEE COMMENTS ?For stones containing calcium oxalate, calcium phosphate, ?and/or uric acid, a 24 hr urinary supersaturation test may ?help detect underlying risk factors for this type of stone ?formation and provide guidance for a stone prevention ?strategy. ? ---ADDITIONAL INFORMATION------- ?This test was developed and its performance characteristics ?determined by [facility] in a manner consistent with CLIA ?requirements. This test has not been cleared or approved by ?the U.S. Food and Drug Administration. ?Test Performed by: ?[facility] ?[address] [place] [address] ?Province Archivist: Duane Lewis Ph.D.; CLIA# [id number] [facility] Calculus 02/09/2024 8:45 AM EDT 02/09/2024 1:20 PM EDT Narrative Resulting Agency Comment Spec In Lab Pam Grant MD BODY FLUIDS AND STOOLS ORDERABLES Performing Organization Address City/State/RUST Co de Phone Number [facility] [place] [address] documented in this encounter Visit Diagnoses Diagnosis Ureteral obstruction, left- Primary Other ureteric obstruction Left ureteral calculus Calculus of ureter Urinary tract infection with hematuria, site unspecified documented in this encounter Administered Medications Inactive Administered Medications - up to 3 most recent administrations Medication Order MAR Action Action Date Dose Rate Site acetaminophen (Tylenol) tablet 975 mg 975 mg (rounded from 1,000 mg), Oral, ONCE, 1 dose, On Therese 02/09/24 at 0630, Maximum dose of acetaminophen is 4,000 mg from all sources in 24 hours. When ordered for pain, acetaminophen should be given even when other ordered pain medications are indicated. , Day of Surgery (Day of Procedure), Routine Given 02/09/2024 6:36 AM EDT 975 mg documented in this encounter Active and Recently Administered Medications Times are shown in EDT. Scheduled Medication Order 02/07/2024 02/08/2024 02/09/2024 acetaminophen (Tylenol) tablet 975 mg (COMPLETED) 975 mg (rounded from 1,000 mg), Oral, ONCE, 1 dose, On Therese 24 at 0630, Maximum dose of acetaminophen is 4,000 mg from all sources in 24 hours. When ordered for pain, acetaminophen should be given even when other ordered pain medications are indicated. , Day of Surgery (Day of Procedure), Routine 0636 (Given - Provid er: Marlee Greoc RN) ceFAZolin (Ancef) (100 mg/mL) injection solution 2 g (COMPLETED) 2 g, Intravenous, DISTRIBUTION ESTIMATOR TO O.R., 1 dose, On Therese 02/09/24 at 0630, To be prepared by and administered by Anesthesia. Reconstitute each ceFAZolin 1 gram vial with 10 mL of NS or SWFI = 100 mg/mL May inject IV without further dilution over 3 to 5 minutes., Indication for (Active or Suspected): Prophylaxis 0645 (Handoff - Prov ider: Marlee Greco RN)0734 (New Bag - Provider: Shahram Hadley CRNA) Continuous Medication Order 02/07/2024 02/08/2024 02/09/2024 lactated ringers infusion (CANCELED) 1,000 mL, at 100 mL/hr, Intravenous, CONTINUOUS, Starting on Therese 02/09/24 at 0630, Until Therese 02/09/24 at 0945, Day of Surgery (Day of Procedure) 0726 (New Bag - Prov ider: Shahram Hadley CRNA)0853 (New Bag - Provider: Shahram Hadley CRNA) PRN Medication Order 02/07/2024 02/08/2024 02/09/2024 iohexoL (Omnipaque) (300 mg/mL) solution (CANCELED) PRN, Starting on Therese 02/09/24 at 0800, Until Therese 24 at 1010, Intra-Operative (Intra-Procedure), Routine 0800 (Given - Provid er: Pam Grant MD - Comment: dispensed to sterile field for use by surgeon prn) documented in this encounter Care Teams Food Technologist Relationship Specialty Start Date End Date Graciela Naidu MD [facility] [address] [facility] [address] [place] [address] PCP - General 07/21/10 documented as of this encounter
--- OUTSIDE RECORDS SUMMARY | 2024-03-28 02:44 | XMS_ITS | Encounter Summary ---
Author Organization [facility] Address [address] [place] [address] Care Team Providers Care General Inspector Name Role Phone Unavailable Primary Care Provider Unavailabl e Encounter Details Date Type Department Care Team (Late st Contact Info) Description 10/19/2007 Results Only [facility] - Maple conversion [address] [place] [address] Graciela Arciniega MD [address] [place] [address] [phone] Social History Tobacco Use Types Packs/Day Years Used Date Smoking Tobacco: Never Assessed Sex and Gender Information Value Date Recorded Sex Assigned at Not on file Gender Identity Not on file Sexual Orientation Not on file documented as of this encounter Plan of Treatment Not on file documented as of this encounter Procedures Procedure Name Priority Date/Time Associated Diagnosis Comments CYTOPATHOLOGY Routine 10/19/2007 0:00 EST documented in this encounter Results * CYTOPATHOLOGY (10/19/2007 0:00 EST) Pathology Report: CYTOPATHOLOGY REPORT Reports generated via electronic interface contain original data; however they are lacking the format of the original report. Caution should be taken when reading/interpreti ng unformatted reports. Name: ? BARBRA VASQUEZ ? Accession #: ? [id number] : ? 1965 (Age: 41) ??F ?Collect Date: ? 10/19/2007 Location: ? [facility] ? Receive Date: ? 10/23/2007 Provider: ?GRACIELA ARCINIEGA MD Copy to: ? Specimen/Source: ?ThinPrep Pap Test, Cervix/Endocervix, processed on [employer] ThinPrep Imaging System, with manual evaluation Last Menstrual Period: ? 10/10/07 Hormonal/Contracep tive Status: ? Control Pills Other: ? HPVA - HPV testing requested if ASC-US on the current ThinPrep Pap test. ? SPECIMEN ADEQUACY ? Satisfactory for Evaluation - transformation zone component present GENERAL CATEGORIZATION ? Negative for Intraepithelial Lesion or Malignancy ? Document reviewed and electronically signed by: ? Jarred Dietz, LENNIE(ASCP) ? Report Date: ??10/25/2007 10:37 End of Report ANASTASIA GREWAL 10/19/2007 10/23/2007 Graciela Arciniega MD PATHOLOGY ORDERABLES ANASTASIA GREWAL [address] [place] [address] documented in this encounter Visit Diagnoses Not on filedocumented in this encounter
--- OUTSIDE RECORDS SUMMARY | 2024-03-28 02:44 | XMS_ITS | Encounter Summary ---
[place] [address] Care Team Providers Care Forest Economist Name Role Phone Graciela Naidu MD Primary Care Provider [phone] Encounter Details Date Type Department Care Team (Late st Contact Info) Description 02/08/2024 [place] [phone] Fernanda Meek, RN Social History Tobacco Use Types Packs/Day Years Used Date Smoking Tobacco: Never Smokeless Tobacco: Never Alcohol Use Standard Drinks/Week Comments Never 0 (1 standard drink = 0.6 oz pur e alcohol) [facility] Utilities Answer Date Recorded In the past 12 months has e [employer], gas, oil, or water [employer] threatened to shut off services in your [...] any time in the past 12 m [facility], were you homeless or living in a half-way (including now)? No 01/21/2024 IPV Inpatient Questions [...] Miscellaneous Notes * Telephone Encounter - Fernanda eMek RN - 02/08/2024 5:09 PM EDT Copied from [facility] #[id number]. Topic: Specialty Dept CRMs - Generic Call >> Feb 08, 2024 4:49 PM Sarah Mcintyre wrote: Specialist: Rudy Relationship (if other than patient-full name): self Reason for Call: Patient calling, says she is aware of the 6:15 AM arrival time for her procedure tomorrow but is wondering how long to expect to be here for (including recovery). Can you please advise? Patient says a detailed message may be left if no answer. documented in this encounter Plan of Treatment Upcoming Encounters Date Type Department Care Team (Late st Contact Info) Description 04/20/2024 3:45 PM EDT [place] [address] Pam Grant MD [facility] [address] 04/20/2024 4:40 PM EDT [place] [address] Pam Grant MD [facility] [place] [address] documented as of this encounter Visit Diagnoses Not on filedocumented in this encounter Care Teams Forest Economist Relationship Specialty Start Date End Date Graciela Naidu MD [address] [facility] [address] [place] [address] PCP - General 07/21/10 documented as of this encounter
--- OUTSIDE RECORDS SUMMARY | 2024-03-28 02:44 | XMS_ITS | Encounter Summary ---
[place] [address] Care Team Providers Care Machine Greaser Name Role Phone Graciela Naidu MD Primary Care Provider [phone] Reason for Visit * Auth/Cert (Routine) Specialty Diagnoses / Procedures Referred By Bradley lopez Referred To Contact Diagnoses Left ureteral calculus Urinary tract infection with hematuria, site unspecified Ureteral obstruction, left Urolithiasis Procedures PRO CYSTO/URETERO/PYELOSCOPY W/LITHOTRIPSY CYSTOURETEROSCOPY, LITHOTRIPSY (WRVU 7.5) MODIFIER HOLMIUM LASER Pam Grant MD [facility] [place] [address] [facility] Referral ID Status Reason Start Date Expiration Date Visits Re quested Visits Authorized [id number] 1 1 Encounter Details Date Type Department Care Team (Late st Contact Info) Description 02/09/2024 7:26 AM EDT Anesthesia Event [facility] [place] [phone] Jaguar Lassiter MD [facility] [place] [address] Anesthesia Record Procedure Summary Procedure Name Responsible Anesthesiologist Anesthesia Start Time Anesthesia Stop Time CYSTOURETEROSCOPY, LITHOTRIPSY (WRVU 7.5) (Left: Bladder) Jaguar Lassiter MD 02/09/24 0726 02/09/24 0901 Events Date Time Event Comment 02/09/2024 0713 0726 AN Verify 0726 Start 0726 An Start Data 0731 An Induction 0732 An Intubation 0732 Anesthesia Ready 0901 an stop data 0901 Recovery or ICU Handoff Clarissa ent care was transferred to the destination unit staff after review of the patient's medical history, current anesthetic/surgical status and plan, according to the Provider Handoff Checklist. 0901 Stop Meds Name Total Propofol 150 mg Propofol INF 342.32 mg fentaNYL 100 mcg Midazolam 2 mg IV Lidocaine 100 mg Dexamethasone 8 mg Ondansetron 8 mg PHENYLephrine 160 mcg ceFAZolin (Ancef) (100 mg/mL) injection solution 2 g 2 g ketorolac 30 mg lactated ringers infusion 1,000 mL * Agents Name O2 Sevoflurane (et) * Blood No blood administrations on file. Lines, Drains, and Airways Type Details Placement Removal Supraglottic Mask Ventilation: Ea sy (1); LMA Type: iGel; LMA Size: 4; Inserted by: Jomar 02/09/24 0734 by Shahram Hadley, METAL CASKET ASSEMBLER Incision 02/09/24; 0741; uret hral meatus; cystoscopy 02/09/24 0741 by Taty Rogers RN PIV 02/09/24; 0655; [id number] catheter system; 22 gauge; metacarpal vein (top of hand), right; Anatomical Landmarks; [facility] RN; distraction, intradermal injection; 02/09/24; 0935 02/09/24 0655 by Marlee Greco RN 02/09/24 0935 by Radha Adam RN documented in this encounter Social History Tobacco Use Types Packs/Day Years Used Date Smoking Tobacco: Never Smokeless Tobacco: Never Alcohol Use Standard Drinks/Week Comments Never 0 (1 standard drink = 0.6 oz pur e alcohol) [facility] Utilities Answer Date Recorded In the past 12 months has [employer], gas, oil, or water [employer] threatened to shut off services in your home? No 01/21/2024 Hunger Vital Sign Answer Date Recorded Within the past 12 months, y ou worried that your food would run out before you got the money to buy more. Never true 01/21/20 Within the past 12 months, t he [...] were you homeless or living in a [facility] (including now)? No 01/21/2024 IPV Inpatient Questions [...] on file documented as of this encounter OR Notes * Anesthesia Postprocedure Evaluation - Jaguar Lassiter MD - 02/09/2024 11:19 AM EDT Department of Anesthesiology Post-procedure Note Patient: Barbra Dc Procedure Summary Date: 02/09/24 Room / Location: [facility] OR [address] [place] [address] OSC Anesthesia Start: 725 Anesthesia Stop: 900 Procedures: CYSTOURETEROSCOPY, LITHOTRIPSY (WRVU 7.5) (Left: Bladder) MODIFIER HOLMIUM LASER CYSTO, RETROGRADE, URETEROPYELOGRAPHY (WRVU 2.37) (Left: Bladder) Diagnosis: Left ureteral calculus Urinary tract infection with hematuria, site unspecified Ureteral obstruction, left (Urolithiasis) Surgeons: Pam Grant MD Responsible Provider: Jaguar Lassiter MD Anesthesia Type: general ASA Status: 2 All Anesthesia Providers: Anesthesiologist: Jaguar Lassiter MD METAL CASKET ASSEMBLER: Shahram Hadley CRNA Vitals Value Taken Time BP 148/82 02/09/24 0931 Temp 36 ??C (96.8 ??F) 02/09/24 0902 Pulse 69 02/09/24 0931 Resp 16 02/09/24 0931 SpO2 96 % 02/09/24 0931 Pain Level 0 02/09/24 0935 Patient Location: PACU/[facility] Level of Consciousness: Awake and Alert Pain Management: Satisfactory Analgesia PONV: None Cardiovascular Status: At Baseline Respiratory Status: At Baseline Postoperative Fluid Status: Intravascular EUvolemia Possible Anesthetic Complications: NONE apparent at time of evaluation Final Primary Anesthesia Type: General (The anesthetic type performed was the same as planned.) Comments: * Anesthesia Preprocedure Evaluation - Jaguar Lassiter MD - 02/08/2024 12:47 PM EDT Pre-Anesthesia Evaluation for: Barbra Dc a 58 y.o. female. Procedure(s): CYSTOURETEROSCOPY, LITHOTRIPSY (WRVU 7.5) MODIFIER HOLMIUM LASER Patient Active Problem List Diagnosis Date Noted ??? Ureteral obstruction, left 01/21/2024 ??? Sepsis 01/21/2024 No past medical history on file. Past Surgical History: Procedure Laterality Date ??? PRO CYSTOSCOPY, INSERT URETERAL STENT Left 01/20/2024 CYSTO, STENT PLACEMENT (WRVU 2.82) performed by Evangleist Rodriguez MD at [facility] OR Social History Tobacco Use ??? Smoking status: Never ??? Smokeless tobacco: Never Substance Use Topics ??? Alcohol use: Never Social History Substance and Sexual Activity Drug Use Never No Known Allergies Medications: MAR and/or home medications have been reviewed. Physical Exam: Preprocedure Vitals Current as of 02/08/24 1247 No BP, pulse, respiration, SpO2, or temperature recorded. Height: 169 cm (5' 6.54) (01/21/24) Weight: 103.7 kg (228 lb 9.9 oz) (01/21/24) BMI: 36.31 IBW: 60.5 kg (133 lb 7.2 oz) Airway Assessment: Mallampati: II Cardiovascular Assessment: Rhythm: regular Rate: normal system normal Pulmonary Assessment: pulmonary exam normal Dental Assessment: - normal exam Misc Assessment: IV access: Peripheral line Last Filed Perioperative Cognitive Screening None Anesthesia Plan: ASA 2 general, with a(n) intravenous induction 58 yo with history of renal stone now here for cysto lithotripsy. GA w/ LMA Region - Other Informed Consent: Anesthetic plan and risks discussed with patient. Anesthesia Screening documented in this encounter Plan of Treatment Upcoming Encounters Date Type Department Care Team (Late st Contact Info) Description 04/20/2024 3:45 PM EDT [place] [phone] Pam Grant MD [facility] [place] [address] 04/20/2024 4:40 PM EDT [place] [phone] Pam Grant MD [facility] [place] [address] documented as of this encounter Visit Diagnoses Not on filedocumented in this encounter Administered Medications Inactive Administered Medications - up to 3 most recent administrations Medication Order MAR Action Action Date Dose Rate Site ceFAZolin (Ancef) (100 mg/mL) injection solution 2 g 2 g, Intravenous, WINDOWS SERVER SPECIALIST TO O.R., 1 dose, On Therese 02/09/24 at 0630, To be prepared by and administered by Anesthesia. Reconstitute each ceFAZolin 1 gram vial with 10 mL of NS or SWFI = 100 mg/mL May inject IV without further dilution over 3 to 5 minutes., Indication for (Active or Suspected): Prophylaxis New Bag 02/09/2024 7:34 AM EDT 2 g dexAMETHasone (Decadron) injection Intravenous, PRN, Starting on Therese 02/09/24 at 0734, Until Therese 02/09/24 at 0901, Anesthesia Intra-op, Routine Given 02/09/2024 7:34 AM EDT 8 mg fentaNYL (pf) (50 mcg/mL) multi-dose injection Intravenous, PRN, Starting on Therese 02/09/24 at 0729, Until Therese 02/09/24 at 0901, Anesthesia Intra-op, Routine Given 02/09/2024 8:17 AM EDT 25 mcg Given 02/09/2024 7:54 AM EDT 25 mcg Given 02/09/2024 7:29 AM EDT 50 mcg ketorolac (Toradol) (30 mg/mL) injection Intravenous, PRN, Starting on Therese 02/09/24 at 0852, Until Therese 02/09/24 at 0901, Anesthesia Intra-op, Routine Given 02/09/2024 8:52 AM EDT 30 mg lactated ringers infusion 1,000 mL, at 100 mL/hr, Intravenous, CONTINUOUS, Starting on Therese 02/09/24 at 0630, Until Therese 02/09/24 at 0945, Day of Surgery (Day of Procedure) New Bag 02/09/2024 8:53 AM EDT New Bag 02/09/2024 7:26 AM EDT lidocaine (pf) (Xylocaine) (20 mg/mL) 2% injection syringe Intravenous, PRN, Starting on Therese 02/09/24 at 0731, Until Therese 02/09/24 at 0901, Anesthesia Intra-op, Routine Given 02/09/2024 7:31 AM EDT 100 mg midazolam (pf) (Versed) (1 mg/mL) multi-dose injection Intravenous, PRN, Starting on Therese 02/09/24 at 0726, Until Therese 02/09/24 at 0901, Anesthesia Intra-op, Routine Given 02/09/2024 7:26 AM EDT 2 mg ondansetron (pf) (Zofran) (2 mg/mL) injection Intravenous, PRN, Starting on Therese 02/09/24 at 0852, Until Therese 02/09/24 at 0901, Anesthesia Intra-op, Routine Given 02/09/2024 8:52 AM EDT 8 mg PHENYLephrine in NS (PF) (SHAWNA-SYNEPHRINE) 0.8 mg/10 mL (80 mcg/mL) multi-dose injection Syringe Intravenous, PRN, Starting on Therese 02/09/24 at 0747, Until Therese 02/09/24 at 0901, Anesthesia Intra-op, Routine Given 02/09/2024 7:47 AM EDT 80 mcg Given 02/09/2024 7:44 AM EDT 80 mcg propofoL (Diprivan) (10 mg/mL) infusion Intravenous, CONTINUOUS PRN, Starting on Therese 02/09/24 at 0729, Until Therese 02/09/24 at 0901, Anesthesia Intra-op, Routine New Bag 02/09/2024 7:29 AM EDT 50 mcg/kg/min 23.34 mL/hr propofoL (Diprivan) 10 mg/mL bolus injection (Anesthesia) Intravenous, PRN, Starting on Therese 02/09/24 at 0731, Until Therese 02/09/24 at 0901, Anesthesia Intra-op Given 02/09/2024 7:31 AM EDT 150 mg documented in this encounter Care Teams Machine Greaser Relationship Specialty Start Date End Date Graciela Naidu MD [address] [place] [address] PCP - General 07/21/10 documented as of this encounter
--- OUTSIDE RECORDS SUMMARY | 2024-03-28 02:44 | XMS_ITS | Encounter Summary ---
Author Organization [facility] Address [address] [place] [address] Care Team Providers Care Flying Squad Worker Name Role Phone Unknown, Provider Primary Care Provider Encounter Details Date Type Department Care Team (Late st Contact Info) Description 09/07/2021 Lab Requisition [facility] Pathology & Laboratory Medicine - [facility] [address] [place] [address] Outr Resulting Lab, Provider Social History Tobacco Use Types Packs/Day Years Used Date Smoking Tobacco: Never Assessed Sex and Gender Information Value Date Recorded Sex Assigned at Not on file Gender Identity Not on file Sexual Orientation Not on file documented as of this encounter Plan of Treatment Not on file documented as of this encounter Procedures Procedure Name Priority Date/Time Associated Diagnosis Comments HEPATITIS C AB W REFLEX TO HCV RNA BY PCR Routine 09/07/2021 7:36 EST documented in this encounter Results * HEPATITIS C AB W REFLEX TO HCV RNA BY PCR (09/07/2021 7:36 EST) Hep C Antibody Negative Negative 09/08/2021 10:59 EST [facility] Blood VENOUS BLOOD / Unknown 09/07/2021 7:36 EST 09/07/2021 21:22 EST Provider Outr Resulting Lab CHEMISTRY & BLOOD GAS ORDERABLES [facility] [address] [place] [address] documented in this encounter Visit Diagnoses Not on filedocumented in this encounter Care Teams Flying Squad Worker Relationship Specialty Start Date End Date Unknown, ProviderMD PCP - General 07/15/15 documented as of this encounter
--- OUTSIDE RECORDS SUMMARY | 2024-03-28 02:44 | XMS_ITS | Encounter Summary ---
Author Organization [facility] Address [address] [place] [address] Care Team Providers Care Group Fitness Assistant Department Head Name Role Phone Unavailable Primary Care Provider Unavailabl e Encounter Details Date Type Department Care Team (Late st Contact Info) Description 05/23/2012 Results Only [facility] - [facility] [address] [place] [address] Edilia Genao, EYAD [address] [place] [address] Social History Tobacco Use Types Packs/Day Years Used Date Smoking Tobacco: Never Assessed Sex and Gender Information Value Date Recorded Sex Assigned at Not on file Gender Identity Not on file Sexual Orientation Not on file documented as of this encounter Plan of Treatment Not on file documented as of this encounter Procedures Procedure Name Priority Date/Time Associated Diagnosis Comments PAP TEST- RESULT ONLY Routine 05/23/2012 0:00 EDT documented in this encounter Results * PAP TEST- RESULT ONLY (05/23/2012 0:00 EDT) Pathology Report: CYTOPATHOLOGY REPORT Reports generated via electronic interface contain original data; however they are lacking the format of the original report. Caution should be taken when reading/interpreti ng unformatted reports. Name: ? CHRISTINA, BARBRA ? Accession #: ? [id number] : ? 1965 (Age: 46) ??F ?Collect Date: ? 05/23/2012 Location: ? [facility] ? Receive Date: ? 05/25/2012 Provider: ?EDILIA GENAO SOCIAL MEDIA CONTENT SPECIALIST Copy to: ? Specimen/Source: ?Pap Test, Cervix/Endocervix, ThinPrep Imaging System with manual evaluation Last Menstrual Period: ? 04/26/12 Hormonal/Contracep tive Status: ? Oral contraceptives: Sprintec 28 ? SPECIMEN ADEQUACY ? Satisfactory for Evaluation - transformation zone component absent GENERAL CATEGORIZATION ? Negative for Intraepithelial Lesion or Malignancy ? Document reviewed and electronically signed by: ? LENNIE Jackman(ASCP) ? Report Date: ??06/01/2012 16:40 End of Report ANASTASIA GREWAL 05/23/2012 05/25/2012 Edilia Genao NP PATHOLOGY ORDERABLES ANASTASIA GREWAL [address] [place] [address] documented in this encounter Visit Diagnoses Not on filedocumented in this encounter
--- OUTSIDE RECORDS SUMMARY | 2024-03-28 02:44 | XMS_ITS | Encounter Summary ---
Author Organization [facility] Address [address] [place] [address] Care Team Providers Care Porcelain Enameler Name Role Phone Unavailable Primary Care Provider Unavailabl e Encounter Details Date Type Department Care Team (Late st Contact Info) Description 07/12/2005 Results Only [facility] - Maple conversion [address] [place] [address] Graciela Arciniega MD [address] [place] [phone] Social History Tobacco Use Types Packs/Day Years Used Date Smoking Tobacco: Never Assessed Sex and Gender Information Value Date Recorded Sex Assigned at Not on file Gender Identity Not on file Sexual Orientation Not on file documented as of this encounter Plan of Treatment Not on file documented as of this encounter Procedures Procedure Name Priority Date/Time Associated Diagnosis Comments CYTOPATHOLOGY Routine 07/12/2005 0:00 EST documented in this encounter Results * CYTOPATHOLOGY (07/12/2005 0:00 EST) Pathology Report: CYTOPATHOLOGY REPORT Reports generated via electronic interface contain original data; however they are lacking the format of the original report. Caution should be taken when reading/interpreti ng unformatted reports. Name: ? BARBRA VASQUEZ ? Accession #: ? [id number] : ? 1965 (Age: 39) ??F ?Collect Date: ? 07/12/2005 Location: ? [facility] ? Receive Date: ? 07/14/2005 Provider: ?GRACIELA ARCINIEGA MD Copy to: ? Specimen/Source: ?ThinPrep Pap Test, Cervix/Endocervix, processed on [employer] ThinPrep Imaging System, with manual evaluation Last Menstrual Period: ? 06/07/05 Hormonal/Contracep tive Status: ? Orthotricyclen Other: ? HPVA - HPV testing requested if ASC-US on the current ThinPrep Pap test. ? SPECIMEN ADEQUACY ? Satisfactory for Evaluation - transformation zone component present GENERAL CATEGORIZATION ? Negative for Intraepithelial Lesion or Malignancy INTERPRETATION ? 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 ? Document reviewed and electronically signed by: ? Sonja Fair, CT(ASCP)(IAC) ? Report Date: ??07/16/2005 14:12 End of Report ANASTASIA GREWAL 07/12/2005 07/14/2005 Graciela Arciniega MD PATHOLOGY ORDERABLES Performing Organization Address City/State/[facility] Co de Phone Number ANASTASIA GREWAL [address] [place] [address] documented in this encounter Visit Diagnoses Not on filedocumented in this encounter
--- OUTSIDE RECORDS SUMMARY | 2024-03-28 02:44 | XMS_ITS | Encounter Summary ---
Author Organization [facility] Address [address] [place] [address] Care Team Providers Care Interior Plant Caretaker Name Role Phone Unavailable Primary Care Provider Unavailabl e Encounter Details Date Type Department Care Team (Late st Contact Info) Description 07/06/2001 Results Only [facility] - Maple conversion [address] [place] [address] Graciela Arciniega MD [address] [place] [phone] Social History Tobacco Use Types Packs/Day Years Used Date Smoking Tobacco: Never Assessed Sex and Gender Information Value Date Recorded Sex Assigned at Not on file Gender Identity Not on file Sexual Orientation Not on file documented as of this encounter Plan of Treatment Not on file documented as of this encounter Procedures Procedure Name Priority Date/Time Associated Diagnosis Comments CYTOPATHOLOGY Routine 07/06/2001 0:00 EST documented in this encounter Results * CYTOPATHOLOGY (07/06/2001 0:00 EST) Pathology Report: CYTOPATHOLOGY REPORT Reports generated via electronic interface contain original data; however they are lacking the format of the original report. Caution should be taken when reading/interpreti ng unformatted reports. Name: ? BARBRA VASQUEZ ? Accession #: ? [id number] : ? 1965 (Age: 35) ??F ?Collect Date: ? 07/06/2001 Location: ? [facility] ? Receive Date: ? 07/10/2001 Provider: ?GRACIELA ARCINIEGA MD Copy to: ? Specimen/Source: ?Conventional Pap Test, Cervix/Endocervix Last Menstrual Period: ? 05/21/01 Menstrual/Pregnanc y Status: ? SPECIMEN ADEQUACY ? Satisfactory for evaluation but limited by an absence of a transformation zone component. GENERAL CATEGORIZATION ? Within Normal Limits ? Document reviewed and electronically signed by: ? LENNIE Melton(ASCP) ? Report Date: ??07/13/2001 13:43 End of Report ANASTASIA GREWAL 07/06/2001 07/10/2001 Graciela Arciniega MD PATHOLOGY ORDERABLES ANASTASIA GREWAL [address] [place] [address] documented in this encounter Visit Diagnoses Not on filedocumented in this encounter
--- OUTSIDE RECORDS SUMMARY | 2024-03-28 02:44 | XMS_ITS | Encounter Summary ---
Author Organization [facility] Address [address] [place] [address] Care Team Providers Care Learning Operations Specialist Name Role Phone Unknown, Provider Primary Care Provider Encounter Details Date Type Department Care Team (Latest Contact Info) Description 06/23/2021 Lab Requisition [facility] Pathology & Laboratory Medicine - [facility] [address] [place] [address] Graciela Naidu MD [address] [address] Encounter for gynecological examination (general) (routine) without abnormal findings Social History Tobacco Use Types Packs/Day Years Used Date Smoking Tobacco: Never Assessed Sex and Gender Information Value Date Recorded Sex Assigned at Not on file Gender Identity Not on file Sexual Orientation Not on file documented as of this encounter Plan of Treatment Not on file documented as of this encounter Procedures Procedure Name Priority Date/Time Associated Diagnosis Comments PAP TEST Today 06/22/2021 4:00 EDT Encounter for gynecological examination (general) (routine) without abnormal findings HPV DNA DETECTION WITH GENOTYPING, PCR Today 06/22/2021 4:00 EDT Encounter for gynecological examination (general) (routine) without abnormal findings documented in this encounter Results * HUMAN PAPILLOMAVIRUS (HPV) DETECTION-HIGH RISK TYPES (06/22/2021 4:00 EDT) HPV other High Risk types, PCR Negative Negative 06/30/2021 11:51 EDT [facility] Papanicolaou smear specimen (specimen) CERVIX UTERI STRUCTURE / Unknown 06/22/2021 4:00 EDT 06/29/2021 10:14 EDT Graciela Naidu MD MICROBIOLOGY - GENER AL ORDERABLES Performing Organization Address City/[facility]/ZIP Co de Phone Number [facility] [address] [place] [address] * PAP TEST (06/22/2021 4:00 EDT) Specimens A. Cervix and/or Endocervix , ThinPrep Imaging System with Manual Evaluation 06/30/2021 11:51 EDT [facility] Specimen Adequacy Satisfactory for Evaluation - transformation zone component present 06/30/2021 11:51 EDT [facility] General Categorization Negative for intraepithelial lesion or malignancy 06/30/2021 11:51 T [facility] Attestation . 06/30/2021 11:51 EDT [facility] at 1151 Clinical History SEE BELOW 06/30/20 11:51 EDT [facility] HPV The result for the Human Papillomavirus (HPV) Detection-High Risk Types is Negative. No E6 or E7 mRNA is detected from HPV types 16,18,31,33,35,39 ,45,51,52,56,58,5 9,66, and 68 by maintenance and utilities supervisor mediated amplification.Kadi ting was performed on specimen [id number] and was resulted on 06/30/2021 1147 EDT by JEANNE, LAB INSTRUMENT RESULTS IN 06/30/2021 11:51 EDT [facility] Performing Lab [facility] 06/30/2021 11:51 EDT [facility] Scanned Images 06/30/2021 11:51 EDT [facility] Papanicolaou smear specimen (specimen) CERVIX UTERI STRUCTURE / Unknown 06/22/2021 4:00 EDT 06/23/2021 15:11 EDT Graciela Naidu MD PATHOLOGY ORDERABLES Performing Organization Address City/[facility]/ZIP Co de Phone Number [facility] [address] [place] [phone] documented in this encounter Visit Diagnoses Diagnosis Encounter for gynecological examination (general) (routine) without abnormal findings documented in this encounter Care Teams Learning Operations Specialist Relationship Specialty Start Date End Date Unknown, Provider, PCP - General 07/15/15 documented as of this encounter
--- OUTSIDE RECORDS SUMMARY | 2024-03-28 02:44 | XMS_ITS | Encounter Summary ---
[place] [address] Care Team Providers Care Tip Puncher Name Role Phone Graciela Naidu MD Primary Care Provider [phone] Reason for Visit * Auth/Cert (Routine) Specialty Diagnoses / Procedures Referred By Bradley lopez Referred To Contact Diagnoses Left ureteral calculus Urinary tract infection with hematuria, site unspecified Ureteral obstruction, left Urolithiasis Procedures PRO CYSTO/URETERO/PYELOSCOPY W/LITHOTRIPSY CYSTOURETEROSCOPY, LITHOTRIPSY (WRVU 7.5) MODIFIER HOLMIUM LASER Pam Grant MD [facility] [place] [address] [place] [address] [facility] Referral ID Status Reason Start Date Expiration Date Visits Re quested Visits Authorized [id number] 1 1 Encounter Details Date Type Department Care Team (Late st Contact Info) Description 02/09/2024 7:30 AM EDT - 02/09/2024 9:28 AM EDT Surgery [facility] [place] [address] Pam Grant MD [facility] [address] [place] [address] CYSTOURETEROSCOPY, LITHOTRIPSY (WRVU 7.5) Social History Tobacco Use Types Packs/Day Years Used Date Smoking Tobacco: Never Smokeless Tobacco: Never Alcohol Use Standard Drinks/Week Comments Never 0 (1 standard drink = 0.6 oz pur e alcohol) [facility] Utilities Answer Date Recorded In the past 12 months has th e electric, gas, oil, or water company threatened [...] any time in the past 12 m [facility], were you homeless or living in a custodial (including now)? No 01/21/2024 DH IPV Inpatient [...] Sign Reading Time Taken Comments Blood Pressure 147/82 02/09/2024 9:15 AM EDT Pulse 68 02/09/2024 9:15 AM EDT Temperature 36 ??C (96.8 ??F) 02/09/2024 9:02 AM EDT Respiratory Rate 16 02/09/2024 9:15 AM EDT Oxygen Saturation 98% 02/09/2024 9:15 AM EDT Inhaled Oxygen Concentration - - [...] closest emergency room or call the hospital buffing machine operator semiautomatic at [phone] and ask for physician consular officer covering for your physician. Questions or problems after 5pm or on a weekend: Call the [facility] buffing machine operator semiautomatic at and ask for the physician consular officer covering for your doctor. * Patient Instructions* [...] stent removal in the Urology clinic. Pleasecall [phone] if you do not receive your appointment. [...] this encounter Progress Notes * Radha Adam V, RN - 02/09/2024 9:03 AM EDT Arrived OSC #10, monitors placed, alarms on/ audible. No urinary drainage noted on chux/ liz area.O2 mask 6L, LMA DC'd on arrival by PARKING ASSISTANT 09:13 O2 mask off R/A trial, HOB [...] STENT PLACEMENT (WRVU 2.82) performed by Evangelist Rordiguez MD at [facility] Allergies: No Known Allergies No data found. Physical Exam: Gen: NAD CV: S1 S2 Pulm: CTAB, respiratory effort normal Labs: Recent Labs 05/28/24 0025 01/23/24 0506 01/21/24 0102 WBC 11.1* [...] 2.82) performed by Evangelist Rodriguez MD at [facility] Allergies: No Known Allergies No [...] Grant MD - 02/09/2024 7:41 AM EDT [facility] Operative Note Patient Name: Barbra Dc : [id number] MR#: [id number] Case Date: 02/09/2024 Surgeon: Surgeons and Role: [...] for fragmentation. These fragments were extractedwith a Goshi/zero tip basket and sent off for analysis. [...] 04/20/2024 3:45 PM EDT [place]ointment [place] [address] Pam Grant MD [facility] [place] [address] 04/20/2024 4:40 PM EDT Office [place] [address] Pam Grant MD [facility] [place] [address] Scheduled Orders Name Type Priority Associated Diagnoses [...] hematuria, site unspecified Ureteral obstruction, left HC [facility] KIDNEY STONE ANALYSIS Routine 02/09/2024 8:45 AM EDT Cystourethroscopy, Ureter Catheter ([id number]) 02/09/2024 7:26 AM EDT Left ureteral calculus Urinary tract infection with hematuria, site unspecified Ureteral obstruction, left MODIFIER HOLMIUM LASER 02/09/2024 7:26 AM EDT Left ureteral calculus Urinary tract infection with hematuria, site unspecified Ureteral obstruction, left Cysto/Uretero/Pyelo scopy W/Lithotripsy ([id number]) 02/09/2024 7:26 AM EDT Left ureteral calculus [...] No interpretation was done. Pam Grant MD [facility] FLUORO GUICHO MATHEWS * Kidney Stone Analysis [...] developed and its performance characteristics ?determined by [facility] in a manner consistent with CLIA ?requirements. This test has not been cleared or approved by ?the U.S. Food and Drug Administration. ?Test Performed by: ?[facility] ?[address] [place] [address] ?Deflector Operator: Duane Lewis Ph.D.; CLIA# [id number] [facility] Calculus 02/09/2024 8:45 AM EDT 02/09/2024 1:20 PM EDT Narrative Resulting Agency Comment Spec In Lab Pam Grant MD BODY FLUIDS AND STOOLS ORDERABLES [facility] [place] [address] documented in this encounter Visit Diagnoses Diagnosis Ureteral obstruction, left- Primary Other ureteric obstruction Left ureteral calculus Calculus of ureter Urinary tract infection with hematuria, site unspecified Left ureteral calculus Calculus of ureter Urinary tract infection with hematuria, site unspecified Ureteral obstruction, left Other ureteric obstruction documented in this encounter Administered Medications Inactive [...] Given 02/09/2024 6:36 AM EDT 975 mg iohexoL (Omnipaque) (300 mg/mL) solution PRN, Starting on Therese 02/09/24 at 0800, Until Therese 02/09/24 at 1010, Intra-Operative (Intra-Procedure), Routine Given 02/09/2024 8:00 AM EDT 50 mLs 19- Surgical Site documented in this encounter Active and Recently [...] Routine 0636 (Given - Provid er: Marlee Greco RN) ceFAZolin (Ancef) (100 mg/mL) injection solution 2 g (COMPLETED) 2 g, Intravenous, SKI MAKER TO O.R., 1 dose, On Therese 02/09/24 [...] on Therese 02/09/24 at 0800, Until Therese 02/09/24 at 1010, Intra-Operative (Intra-Procedure), Routine 0800 (Given - Provid er: Pam Grant MD - Comment: dispensed to sterile field for use by surgeon prn) documented in this encounter Care Teams Tip Puncher Relationship Specialty Start Date End Date Graciela Naidu MD [address] [place] [address] PCP - General 07/21/10 documented as of this encounter
--- OUTSIDE RECORDS SUMMARY | 2024-03-28 02:44 | XMS_ITS | Encounter Summary ---
[place] [address] Care Team Providers Care Eyelet Punch Operator Name Role Phone Graciela Naidu MD Primary Care Provider [phone] Encounter Details Date Type Department Care Team (Late st Contact Info) Description 02/09/2024 [place] [phone] Fernanda Meek, RN Social History Tobacco Use Types Packs/Day Years Used Date Smoking Tobacco: Never Smokeless Tobacco: Never Alcohol Use Standard Drinks/Week Comments Never 0 (1 standard drink = 0.6 oz pur e alcohol) [facility] Utilities Answer Date Recorded In the past 12 months has e [employer], gas, oil, or water [employer] threatened to shut off services in your [...] any time in the past 12 m ont, were you homeless or living in a retirement (including now)? No 01/21/2024 IPV Inpatient Questions [...] Telephone Encounter - Fernanda Meek RN - 02/09/2024 4:49 PM EDT Copied from [facility] #[id number]. Topic: Specialty Dept CRMs - Triage >> Feb 09, 2024 4:44 PM Dawood Shahid wrote: Triage Message Specialist: Pam Grant MD Relationship (if other than patient-full name): Patient Symptom: Post Op Pain Has patient experienced symptom before No If patient has experienced symptom before, when was the last time this occurred N/a Is patient currently having symptom Yes When did symptom begin Today Additional Comments: Patient is experiencing pain and would like to discuss what she can do since its too early to take any OTC meds. Please call to advise documented in this encounter Plan of Treatment Upcoming Encounters Date Type Department Care Team (Late st Contact Info) Description 04/20/2024 3:45 PM EDT [place] [phone] Pam Grant MD [facility] [place] [address] 04/20/2024 4:40 PM EDT [place] [address] Pam Grant MD [facility] [place] [address] documented as of this encounter Visit Diagnoses Not on filedocumented in this encounter Care Teams Eyelet Punch Operator Relationship Specialty Start Date End Date Graciela Naidu MD [facility] KOFI KLINE [facility] [address] [place] [address] PCP - General 07/21/10 documented as of this encounter
--- OUTSIDE RECORDS SUMMARY | 2024-03-28 02:44 | XMS_ITS | Encounter Summary ---
Author Organization [facility] Address [address] [place] [address] Care Team Providers Care Fisher Terrapin Name Role Phone Unavailable Primary Care Provider Unavailabl e Encounter Details Date Type Department Care Team (Late st Contact Info) Description 04/01/2000 Results Only [facility] - Maple conversion [address] [place] [address] Graciela Arciniega MD [address] [place] [phone] Social History Tobacco Use Types Packs/Day Years Used Date Smoking Tobacco: Never Assessed Sex and Gender Information Value Date Recorded Sex Assigned at Not on file Gender Identity Not on file Sexual Orientation Not on file documented as of this encounter Plan of Treatment Not on file documented as of this encounter Procedures Procedure Name Priority Date/Time Associated Diagnosis Comments CYTOPATHOLOGY Routine 04/01/2000 0:00 EDT documented in this encounter Results * CYTOPATHOLOGY (04/01/2000 0:00 EDT) Pathology Report: CYTOPATHOLOGY REPORT Reports generated via electronic interface contain original data; however they are lacking the format of the original report. Caution should be taken when reading/interpreti ng unformatted reports. Name: ? CHRISTINA, BARBRA ? Accession #: ? [id number] : ? 1965 (Age: 34) ??F ?Collect Date: ? 04/01/2000 Location: ? [facility] ? Receive Date: ? 04/05/2000 Provider: ?GRACIELA ARCINIEGA MD Copy to: ? Specimen/Source: ?Conventional Pap Test, Cervix/Endocervix Last Menstrual Period: ? Menstrual/Pregnanc y Status: ? Post ? SPECIMEN ADEQUACY ? Satisfactory for evaluation. GENERAL CATEGORIZATION ? Within Normal Limits ? Document reviewed and electronically signed by: ? Roxana Marcus, ??SCT(ASCP) ? Report Date: ??04/07/2000 13:03 End of Report [facility] 04/01/2000 04/05/2000 Graciela Arciniega MD PATHOLOGY ORDERABLES [facility] [address] [place] [address] documented in this encounter Visit Diagnoses Not on filedocumented in this encounter
--- OUTSIDE RECORDS SUMMARY | 2024-03-28 02:44 | XMS_ITS | Encounter Summary ---
Author Organization [facility] Address [address] [place] [address] Care Team Providers Care Java Tech Lead Name Role Phone Unknown, Provider Primary Care Provider [phone] Encounter Details Date Type Department Care Team (Late st Contact Info) Description 12/12/2015 Results Only [facility] [phone] Graciela Arciniega MD [address] [place] [address] Social History Tobacco Use Types [...] Diagnosis Comments PAP TEST- RESULT ONLY Routine 12/12/2015 0:00 EDT documented in this encounter Results * PAP TEST- RESULT ONLY (12/12/2015 0:00 EDT) Pathology Report: CYTOPATHOLOGY REPORT Reports generated via electronic interface contain original data; however they are lacking the format of the original report. Caution should be taken when reading/interpreti ng unformatted reports. Name: ? PAOLA VASQUEZN ? Accession #: ? [id number] ? : ? 1965 (Age: 50) ??F ?Collect Date: ? 12/12/2015 ? Location: ? [facility] ? Receive Date: ? 12/15/2015 ? Provider: GRACIELA ARCINIEGA MD Copy to: ? Final Report SPECIMEN ADEQUACY ? Satisfactory for Evaluation - transformation zone component present - scant squamous epithelial component GENERAL CATEGORIZATION ? Other, see interpretation INTERPRETATION ? Endometrial cells present in a woman equal to or greater than age 45. Negative for Intraepithelial Lesion. EDUCATIONAL NOTES/RECOMMENDATI ONS ? ASCCP management guidelines advises using histologic endometrial assessment only in postmenopausal women. Benign appearing endometrial cells on Pap tests are usually a normal finding in women with regular menstrual cycles, especially if the Pap test was collected during the first half of the menstrual cycle. There is data showing that endometrial cells on Pap tests may be associated with endometrial/uterin e abnormalities in post menopausal women or in perimenopausal women with abnormal bleeding. There is limited data on the significance of benign endometrial cells in post menopausal women on HRT. ??Clinical correlation is recommended. Note: ??The Pap test is not an accurate test for the screening of endometrial lesions and should not be used as a follow up in patients with clinical suspicion of endometrial pathology. An additional slide was prepared and evaluated. Last Menstrual Period: 10/2015 Hormonal/Contracep tive status: Control Pills Specimen/Source: ??Pap Test, Cervix/Endocervix, ThinPrep Imaging System with manual evaluation Document reviewed and electronically signed by: ? SUSAN MANNING MD ? Report ??Date: 12/26/2015 12:00 HPV with Pap Test ? Date Ordered: ? 12/26/2015 ? Status: ?? Signed Out ?Date Complete: ? 12/30/2015 ? By: ??System Interface ? Date Reported: ? 12/30/2015 ? Interpretation RESULT: Negative for HPV. No E6 or E7 mRNA is detected from HPV types 16,18,31,33,35, 39,45,51,52,56,58, 59,66, and 68 by director bioinformatics mediated amplification. Comments Document reviewed and electronically signed by: ? System Interface ? Report date: 12/30/2015 By the signature above, the attending physician certifies that he/she has personally conducted a gross and/or microscopic examination of the described specimens and rendered or confirmed the above diagnosis. End of Report [facility] 12/12/2015 12/15/2015 Graciela Arciniega MD PATHOLOGY ORDERABLES [facility] [address] [place] [address] documented in this encounter Visit Diagnoses Not on filedocumented in this encounter Care Teams Java Tech Lead Relationship Specialty Start Date End Date Unknown, Provider, PCP - General 07/15/15 documented as of this encounter
--- OUTSIDE RECORDS SUMMARY | 2024-03-28 02:44 | XMS_ITS | Encounter Summary ---
Author Organization [facility] Address [address] [place] [address] Care Team Providers Care Envelope Adjuster Name Role Phone Unavailable Primary Care Provider Unavailabl e Encounter Details Date Type Department Care Team (Late st Contact Info) Description 04/25/[address] [facility] - Maple conversion [address] [place] [address] Graciela Naidu MD [address] [place] [phone] Social History Tobacco Use Types Packs/Day Years Used Date Smoking Tobacco: Never Assessed Sex and Gender Information Value Date Recorded Sex Assigned at Not on file Gender Identity Not on file Sexual Orientation Not on file documented as of this encounter Plan of Treatment Not on file documented as of this encounter Procedures Procedure Name Priority Date/Time Associated Diagnosis Comments CYTOPATHOLOGY Routine 04/25/2002 0:00 EDT documented in this encounter Results * CYTOPATHOLOGY (04/25/2002 0:00 EDT) Pathology Report: CYTOPATHOLOGY REPORT Reports generated via electronic interface contain original data; however they are lacking the format of the original report. Caution should be taken when reading/interpreti ng unformatted reports. Name: ? CHRISTINA, BARBRA ? Accession #: ? [id number] : ? 1965 (Age: 36) ??F ?Collect Date: ? 04/25/2002 Location: ? [facility] ? Receive Date: ? 04/27/2002 Provider: ?GRACIELA NAIDU MD Copy to: ? Specimen/Source: ?ThinPrep Pap Test, Cervix/Endocervix Last Menstrual Period: ? 05/21/01 Menstrual/Pregnanc y Status: ? Post Hormonal/Contracep tive Status: ? Yes ? SPECIMEN ADEQUACY ? Satisfactory for Evaluation - transformation zone component present GENERAL CATEGORIZATION ? Negative for Intraepithelial Lesion or Malignancy ? Document reviewed and electronically signed by: ? LENNIE Vitale(ASCP) ? Report Date: ??05/01/2002 13:09 End of Report [facility] GREW[facility] 04/25/2002 04/27/2002 Graciela Naidu MD PATHOLOGY ORDERABLES [facility] [address] [place] [address] documented in this encounter Visit Diagnoses Not on filedocumented in this encounter
--- OUTSIDE RECORDS SUMMARY | 2024-03-28 02:44 | XMS_ITS | Encounter Summary ---
Author Organization [facility] Address [address] [place] [address] Care Team Providers Care Smoking Pipes Cleaner Name Role Phone Unavailable Primary Care Provider Unavailabl e Encounter Details Date Type Department Care Team (Late st Contact Info) Description 05/17/2011 Results Only [facility] - [facility] ([facility] [address] [place] [address] Edilia Genao, EYAD [address] [place] [address] Social History Tobacco Use Types [...] Diagnosis Comments PAP TEST- RESULT ONLY Routine 05/17/2011 0:00 EDT documented in this encounter Results * PAP TEST- RESULT ONLY (05/17/2011 0:00 EDT) Pathology Report: CYTOPATHOLOGY REPORT ? Reports generated via electronic interface contain original data; ? however they are lacking the format of the original report. ? Caution should be taken when reading/interpreti ng unformatted reports. ? Name: ? BARBRA VASQUEZ ? Accession #: ? [id number] ? : ? 1965 (Age: 45) ??F ?Collect Date: ? 05/17/2011 ? Location: ? [facility] ? Receive Date: ? 05/19/2011 ? Provider: EDILIA GENAO NP ? Copy to: ? Final Report ? SPECIMEN ADEQUACY ? Satisfactory for Evaluation ? - transformation zone component present ? GENERAL CATEGORIZATION ? Negative for Intraepithelial Lesion or Malignancy ? Last Menstural Period: 05/12/2011 ? Hormonal/Contracep tive status: Control Pills ? Specimen/Source: ??Pap Test, Cervix/Endocervix, ThinPrep Imaging System with ? manual evaluation ? Document reviewed and electronically signed by: ? Chery Samson, [place](ASCP) ? Report ??Date: 05/20/2011 13:53 ? HPV with Pap Test ? Date Ordered: ? 05/20/2011 ? Status: ?? Signed Out ?Date Complete: ? 05/25/2011 ? By: ??System Interface ? Date Reported: ? 05/25/2011 ? Interpretation ? RESULT: Negative for HPV types 16, 18, 31, 33, 35, 39, 45, 51, 52, ? 56, 58, 59, and 68. ? Comments ? Document reviewed and electronically signed by: ? System Interface ? Report date: 05/25/2011 ? By the signature above, the attending physician certifies that he/she has ? personally conducted a gross and/or microscopic examination of the described ? specimens and rendered or confirmed the above diagnosis. ? End of Report ? [facility]ST[facility] GREWAL 05/17/2011 05/19/2011 Edilia Genao WEB CONTENT EXECUTIVE PATHOLOGY ORDERABLES [facility] [address] [place] [address] documented in this encounter Visit Diagnoses Not on filedocumented in this encounter
--- OUTSIDE RECORDS SUMMARY | 2024-03-28 02:44 | XMS_ITS | Encounter Summary ---
Author Organization [facility] [place] [address] Care Team Providers Care Long Term Care Pharmacist Name Role Phone Graciela Naidu MD Primary Care Provider [phone] Encounter Details Date Type Department Care Team (Latest Contact Info) Description 02/24/2024 Travel Social History Tobacco Use Types Packs/Day Years Used Date Smoking Tobacco: Never Smokeless Tobacco: Never Alcohol Use Standard Drinks/Week Comments Never 0 (1 standard drink = 0.6 oz pur e alcohol) [facility] Utilities Answer Date Recorded In the [...] any time in the past 12 m [facility], were you homeless or living in a [...] 04/20/2024 3:45 PM EDT Appointment [place] [address] Pam Grant MD [facility] [address] 04/20/2024 4:40 PM EDT Office [place] [address] Pam Grant MD [facility] [place] [address] documented as of this encounter Visit Diagnoses Not on filedocumented in this encounter Care Teams Long Term Care Pharmacist Relationship Specialty Start Date End Date Graciela Naidu MD Eve KAYE [address] [place] [address] PCP - General 07/21/10 documented as of this encounter
--- OUTSIDE RECORDS SUMMARY | 2024-03-28 02:44 | XMS_ITS | Clinical Summary ---
[place] [address] Care Team Providers Care Blister Rust Eradicator Name Role Phone Graciela Naidu MD Primary Care Provider [phone] Allergies No known active allergies Medications Medication Sig Dispensed Refills Start Date End Date Status acetaminophen (Tylenol) 325 mg tablet Take 3 tablets by mouth every 8 hours as needed for Pain. 01/24/2024 Active dextroamphetamine-amp hetamine (Adderall XR) 15 mg ER 24 hr capsule 01/30/2024 Active topiramate (Topamax) 100 mg tablet Take 1 tablet by mouth 2 times daily. 01/02/2024 Active tamsulosin (Flomax) 0.4 mg capsule Take 1 capsule by mouth daily. 90 tablet 3 02/09/2024 Active Active Problems Problem Noted Date Diagnosed Date Ureteral obstruction, left 01/21/2024 Sepsis 01/21/2024 Encounters Date Type Department Care Team Description 02/24/2024 11:00 AM EDT [place] [address] Pam Grant MD Nephrolithiasis (Primary Dx); Ureteral obstruction, left 02/24/2024 Travel 02/17/2024 Travel 02/15/2024 [place] [address] Fernanda Meek RN 02/09/2024 10:10 AM EDT - 02/09/2024 11:59 PM EDT Hospital Encounter XRay at [address] [place] [phone] Pam Grant MD Discharge Disposition: Home 02/09/2024 7:30 AM EDT - 02/09/2024 9:28 AM EDT [facility] [place] [phone] Pam Grant MD CYSTOURETEROSCOPY, LITHOTRIPSY (WRVU 7.5) 02/09/2024 7:26 AM EDT Anesthesia Event [place] [address] Jaguar Lassiter MD 02/09/2024 6:09 AM EDT - 02/09/2024 9:46 AM EDT Hospital Encounter [facility] [place] [phone] Pam Grant MD Ureteral obstruction, left (Primary Dx); Left ureteral calculus; Urinary tract infection with hematuria, site unspecified Discharge Disposition: Home 02/09/2024 Telephone Urology at [place] [phone] Fernanda Meek RN 02/08/2024 Telephone Urology at [place] [phone] Fernanda Meek RN 01/27/2024 [place] [address] Melita Dang RN 01/26/2024 [place] [address] Melita Dang, RN 01/20/2024 11:29 PM EDT Anesthesia Event Main Operating Room [place] [phone] José Luis Gee MD Keane, Patrick C, CRNA 01/20/2024 10:50 PM EDT Ancillary Procedure [place] [address] 01/20/2024 10:40 PM EDT - 01/21/2024 12:23 AM EDT Surgery [place] [address] Evangelist Rodriguez MD CYSTO, STENT PLACEMENT (WRVU 2.82) 01/20/2024 9:44 PM EDT - 01/24/2024 2:05 PM EDT Hospital Encounter Surgical [place] [phone] Nhan Castelan MD Chavez, David R, MD Left ureteral calculus; Pyelonephritis, acute; Ureteral stone; Urinary tract infection with hematuria, site unspecified; Ureteral obstruction, left Discharge Disposition: Home 01/20/2024 5:45 PM EDT Ancillary Procedure [place] [address] Evangelist Rodriguez MD 01/20/2024 5:40 PM EDT Ancillary Procedure [place] [phone] Candi Rodriguez MD 01/20/2024 Ancillary Procedure [place] [address] 01/20/2024 Travel 01/20/2024 [place] [address] Evangelist Rodriguez MD Left ureteral calculus; Pyelonephritis, acute 01/13/2024 Ancillary Procedure [place] [address] Candi Rodriguez MD from Last 3 Months Social History Tobacco Use Types Packs/Day Years Used Date Smoking Tobacco: Never Smokeless Tobacco: Never Tobacco Cessation:Counseling Given: Not Answered Alcohol Use Standard Drinks/Week Comments Never 0 (1 standard drink = 0.6 oz pur e alcohol) [facility] Utilities Answer Date Recorded In the [...] any time in the past 12 m [facility], were you homeless or living in a skilled nursing (including now)? No 01/21/2024 IPV Inpatient Questions [...] on file Sexual Orientation Not on file Last Filed Vital Signs Vital Sign Reading Time Taken Comments Blood Pressure 145/94 02/24/2024 11:36 AM EDT Pulse 95 02/24/2024 11:36 AM EDT Temperature 36 ??C (96.8 ??F) 02/09/2024 9:02 AM EDT Respiratory Rate 16 02/09/2024 9:31 AM EDT Oxygen Saturation 96% 02/09/2024 9:31 AM EDT Inhaled Oxygen Concentration - - Weight 102.1 kg (225 lb) 02/09/2024 6:32 AM EDT Height 170.2 cm (5' 7) 02/09/2024 6:32 AM EDT Body Mass Index 35.24 02/09/2024 6:32 AM EDT Plan of Treatment Upcoming Encounters Date Type Department Care Team (Late st Contact Info) Description 04/20/2024 3:45 PM EDT [place] [phone] Pam Grant MD [facility] [place] [address] 04/20/2024 4:40 PM EDT [place] [phone] Pam Grant MD [facility] [place] [address] Health Maintenance Due Date Last Done Comments CT Colonography 1964 Colonoscopy 1964 Colorectal Cancer Screening 1964 FIT DNA 1964 FIT 1964 Sigmoidoscopy (10 year) with FIT yearly 1964 Sigmoidoscopy 1964 HIV screen 1982 Hepatitis C Screening 1982 Lipid Screening 1982 Hepatitis B vaccine (0-59 yrs) (1) 11/15/1983 Tdap adult 11/15/1983 Tetanus vaccine 11/15/1983 HPV test 1994 PAP Smear 1994 Breast Cancer Share Decision Needed 2004 Breast Cancer screening 2004 Zoster vaccine (1 of 2) 2014 Advance Directive 11/15/2019 Covid-19 Vaccine (1 - 2022-2 4 season) 2023 Influenza (Flu) vaccine (1 o f 1 - Influenza standard series) 04/29/2024 Diabetes Screening (HgbA1C o r Glucose) 01/23/2027 01/24/2024, 01/23/2024, 01/21/2024, Additional history exists Medical Devices Implanted Type Area Maintenance Worker Device Identifier Shelf Expiration Date Model / Serial / Lot Stent Ureteral [id number] Set Dbl Pgtl Tpr Tip Ptfe Hyconi ([id number]) (Autoreq) - [id number] Implanted:Qty : 1 on 01/20/2024 by Evangelist Rodriguez MD at [facility] IMPLANTS Left: Ureter [place] Bitdeli - Padlet [id number] 06/16/2026 [id number] 60 / / [id number] Explanted Type Area Maintenance Worker Device Identifier Shelf Expiration Date Model / Serial / Lot Stent Ureteral [id number] Set Dbl Pgtl Radpq Tip Hydpc ([id number]) - [id number] Implanted:Qt y: 1 on 02/09/2024 by Pam Grant MD at [facility] Explanted:Qt y: 1 on 02/24/2024 by Pam Grant MD IMPLANTS Left: Urinary Bladder StageBloc - Padlet [id number] 07/05/2026 [id number] 30 / / [id number] Procedures Procedure Name Priority Date/Time Associated Diagnosis Comments CYSTO, STENT REMOVAL Routine 02/24/2024 11:00 AM EDT Nephrolithiasis XR FLUORO NO RAD <1HR - OR USE Routine 02/09/2024 9:44 AM EDT CYSTO,RETROGRADE,URE TEROPYELOGRAPHY Routine 02/09/2024 8:59 AM EDT Left ureteral calculus Urinary tract infection with hematuria, site unspecified Ureteral obstruction, left HC [facility] KIDNEY STONE ANALYSIS Routine 02/09/2024 8:45 AM EDT Cystourethroscopy, Ureter Catheter ([id number]) 02/09/2024 7:26 AM EDT Left ureteral calculus Urinary tract infection with hematuria, site unspecified Ureteral obstruction, left MODIFIER HOLMIUM LASER 02/09/2024 7:26 AM EDT Left ureteral calculus Urinary tract infection with hematuria, site unspecified Ureteral obstruction, left Cysto/Uretero/Pyelos copy W/Lithotripsy ([id number]) 02/09/2024 7:26 AM EDT Left ureteral calculus Urinary tract infection with hematuria, site unspecified Ureteral obstruction, left CYSTO,URETEROSCOPY\L ITHOTRIPSY Routine 02/09/2024 6:10 AM EDT Left ureteral calculus Urinary tract infection with hematuria, site unspecified Ureteral obstruction, left DIFFERENTIAL, AUTOMATED Routine 01/24/2024 12:25 AM EDT HEMOGRAM Routine 01/24/2024 12:25 AM EDT HC CBC,PLT & AUTO DIFF Routine 01/24/2024 12:25 AM EDT BASIC METABOLIC PANEL (NON-FASTING) Routine 01/24/2024 12:25 AM EDT DIFFERENTIAL, AUTOMATED Routine 01/23/2024 5:06 AM EDT HEMOGRAM Routine 01/23/2024 5:06 AM EDT HC CBC,PLT & AUTO DIFF Routine 01/23/2024 5:06 AM EDT BASIC METABOLIC PANEL (NON-FASTING) Routine 01/23/2024 5:06 AM EDT HC MAGNESIUM, SERUM Routine 01/23/2024 5 :06 AM EDT HC PHOSPHORUS, SERUM Routine 01/23/2024 5:06 AM EDT SCAN DOC: TELEMETRY STRIPS 01/21/2024 10:55 PM EDT SCAN DOC: TELEMETRY STRIPS 01/21/2024 10:53 PM EDT DIFFERENTIAL, AUTOMATED STAT 01/21/2024 1:02 AM EDT HEMOGRAM STAT 01/21/2024 1:02 AM EDT HC CBC,PLT & AUTO DIFF STAT 01/21/2024 1:02 AM EDT BASIC METABOLIC PANEL (NON-FASTING) STAT 01/21/2024 1:02 AM EDT HC MAGNESIUM, SERUM STAT 01/21/2024 1 :02 AM EDT HC PHOSPHORUS, SERUM STAT 01/21/2024 1:02 AM EDT BLOOD GAS 2 VENOUS Routine 01/21/2024 12 :52 AM EDT POCT GLUCOSE Routine 01/21/2024 12:49 AM EDT XR FLUORO NO RAD <1HR - OR USE STAT 01/21/2024 12:28 AM EDT HC URINE CULTURE Routine 01/21/2024 12:0 0 AM EDT HC URINE CULTURE Routine 01/20/2024 11:5 5 PM EDT MODIFIER,UROLOGY,PED I TO ADULT 01/20/2024 11:29 PM EDT Left ureteral calculus Pyelonephritis, acute Cystoscopy, Insert Ureteral Stent ([id number]) 01/20/2024 11:29 PM EDT Left ureteral calculus Pyelonephritis, acute SCAN, PERIPHERAL BLOOD STAT 01/20/2024 11:14 PM EDT DIFFERENTIAL, AUTOMATED STAT 01/20/2024 11:14 PM EDT HEMOGRAM STAT 01/20/2024 11:14 PM EDT BASIC METABOLIC PANEL (NON-FASTING) STAT 01/20/2024 11:14 PM EDT HC CBC,PLT & AUTO DIFF STAT 01/20/2024 11:14 PM EDT CYSTO, STENT PLACEMENT Routine 01/20/2024 10:49 PM EDT Left ureteral calculus Pyelonephritis, acute REQUEST FOR 2ND READ CT ABDOMEN AND PELVIS STAT 01/20/2024 10:47 PM EDT EKG 12-LEAD STAT 01/20/2024 10:06 PM EDT FILM LIBRARY STORAGE ONLY DX CHEST Routine 01/20/2024 5:39 PM EDT FILM LIBRARY STORAGE ONLY CT ABDOMEN AND PELVIS Routine 01/20/2024 5:37 PM EDT FILM LIBRARY STORAGE ONLY DX CHEST Routine 01/20/2024 12:00 AM EDT FILM LIBRARY STORAGE ONLY DX ABDOMEN Routine 01/13/2024 12:00 AM EDT from Last 3 Months Results * CYSTO, STENT REMOVAL (02/24/2024 11:00 AM EDT) Narrative Pam Grant MD - 02/24/2024 11:00 AM EDT Pam Grant MD ? 03/09/2024 ??6:19 AM Procedure: Flexible cystoscopy. Surgeon: Rudy Complications: None. Procedure: Urinalysis revealed no evidence of an active urinary tract infection. After informed consent was obtained and the external genitalia appropriately had been cleaned and draped lidocaine was instilled into the urethra to achieve topical anesthesia. The flexible telescope was inserted into the urethra and advanced into the bladder under direct vision. The urethra was normal. ??The vulva was normal. ??The bladder mucosa was normal with inflammation noted. ??No bladder tumors or stones or foreign bodies were noted. ??The stent was identified, grasped with a flexible forceps and removed intact. The patient tolerated the procedure well. There were no complications. Pre procedure they were given 1 dose ??of keflex ?? Kem Hicks MD URO PROCEDURE W RFL ORDERABLES * XR Fluoro No Rad <1Hr - OR Use (02/09/2024 9:44 AM EDT) Only the most recent of2 resultswithin the time period is included. Narrative Dicom, Auditing User - 02/09/2024 10:11 AM EDT This exam is auto-finalizing. No interpretation was done. Pam Grant MD [facility] [place]UORO GUICHO MATHEWS * Kidney Stone Analysis [...] developed and its performance characteristics ?determined by [facility] in a manner consistent with CLIA ?requirements. This test has not been cleared or approved by ?the U.S. Food and Drug Administration. ?Test Performed by: ?[facility] ?[address] [place] [address] ?Restaurant Inspector: Duane Lewis Ph.D.; CLIA# [id number] [facility] Calculus 02/09/2024 8:45 AM EDT 02/09/2024 1:20 PM EDT Narrative Resulting Agency Comment Spec In Lab Pam Grant MD BODY FLUIDS AND STOOLS ORDERABLES [facility] [place] [address] * (ABNORMAL) Hemogram (01/24/2024 12:25 AM EDT) Only the most recent of4 resultswithin the time period is included. WBC 11.1(H) 4.0 - 9.5 x10(3)/[facility] RBC 3.85(L) 4.00 - 5.21 x10(6)/[facility] LAB[facility]ORY Hemoglobin 10.9(L) 11.7 - 15.5 g/dL [facility] Hematocrit 34.0(L) 35.7 - 45.8 % [facility] MCV 88.3 82.6 - 94.4 fL [facility] MCH 28.3 27.1 - 32.0 pg [facility] MCHC 32.1 31.7 - 35.0 g/dL [facility] Platelets 161 145 - 357 x10(3)/[facility] RDWSD 46.8(H) 37.0 - 46.0 [facility] LABORATORY RDWCV 14.5(H) 11.5 - 14.1 % [facility] MPV 11.4 7.6 - 12.9 [facility] LABORATORY nRBC % Auto 0.0 % [facility] nRBC Abs Auto 0.000 0.000 - 0.000 x10(3)/[facility] LABOR[facility]ORY Blood 01/24/2024 12:2 5 AM EDT 01/24/2024 12:38 AM EDT Narrative Resulting Agency Comment Spec In Lab Quique Hanson MD HEMATOLOGY ORDERABLE S [facility] [place] [address] * (ABNORMAL) Differential, Automated (01/24/2024 12:25 AM EDT) Only the most recent of4 resultswithin the time period is included. Neutrophils % 75.5 % [facility] Neutr Abs (ANC) 8.38(H) 1.70 - 6.10 x10(3)/[facility] LABORATORY Lymphocytes % 13.0 % [facility] Lymphocytes Abs 1.4 0.9 - 3.2 x10(3)/[facility] Monocytes % 7.6 % [facility] Monocyte Abs 0.8 0.3 - 0.9 x10(3)/[facility] LABORATORY Eosinophils % 2.5 % [facility] Eosinophils Abs 0.3 0.0 - 0.4 x10(3)/[facility] LABORATORY Basophils % 0.6 % [facility] Basophils Abs 0.1 0.0 - 0.1 x10(3)/[facility]ORATORY Immature Gran % 0.80 % [facility] Comment: Immature granulocytes(IG's)percentage and absolute count will include metamyelocytes, myelocytes, and promyelocytes. Blood smears from CBCs yielding IG's will be scanned manually for concordance. If this scan disagrees with the automated IG or if promyelocytes are noted, a manual differential will be performed. Neelam Gran Abs 0.09(H) 0.00 - 0.04 x10(3)/[facility] Blood 01/24/2024 12:2 5 AM EDT 01/24/2024 12:38 AM EDT Narrative Resulting Agency Comment Spec In Lab Quique Hanson MD HEMATOLOGY ORDERABLE S [facility] [place] [address] * (ABNORMAL) Basic Metabolic Panel (non-fasting) (01/24/2024 12:25 AM EDT) Only the most recent of4 resultswithin the time period is included. Glucose Lvl 155 65 - 199 mg/dL [facility] Comment:Diabetes: >=200 mg/d L plus symptoms BUN 15 8 - 18 mg/dL [facility] Creatinine 0.78 0.70 - 1.20 mg/dL [facility] Sodium 138 135 - 145 mmol/L [facility] Potassium Not Perf 3.5 - 5.0 [facility] Comment: Unable to quantitate due to sample hemolysis. ??Sample redraw suggested. Called by: , Read back by: Carmita Melendez, Date/Time:01/24/24 01:10. Please note: ??Patients with WBC >100,000 may have falsely elevated Potassium levels. ??For accurate Potassium quantification in these patients send serum separator tube (gold top) for subsequent determinations. ??Contact the Clinical Chemistry Laboratory if there are any questions. Chloride 111(H) 98 - 107 mmol/L [facility] CO2 19(L) 22 - 31 mmol/L [facility] Anion Gap 8 5 - 15 mmol/L [facility] Calcium 8.4(L) 8.5 - 10.5 mg/dL [facility] Estimated GFR 87 >=60 mL/min/1. 73 m?? [facility] Comment: This patient's estimated GFR was calculated using the 2020 CKD-EPI equation. The estimated GFR can vary from the measured GFR by up to 30% in the absence of rapidly changing kidney function. Assessment of the estimated GFR is not appropriate when creatinine concentrations are rapidly changing. For clinical situations in which a more precise estimate of GFR is necessary, consider alternative methods of GFR estimation such as a 24-hour urine creatinine clearance. Assignment of CKD stage 1-5 for patients with an eGFR near the transition point between stages may be based on clinical assessment of muscle mass and symptoms in addition to eGFR. Blood 01/24/2024 12:2 5 AM EDT 01/24/2024 12:38 AM EDT Narrative Resulting Agency Comment Spec In Lab Evangelist Rodriguez MD CHEMISTRY ORDERABLES [facility] [place] [address] * (ABNORMAL) Phosphorus (01/23/2024 5:06 AM EDT) Only the most recent of2 resultswithin the time period is included. Phosphorus 2.0(L) 2.5 - 4.5 mg/dL [facility] Blood 01/23/2024 5:06 AM EDT 01/23/2024 5:12 AM EDT Narrative Resulting Agency Comment Spec In Lab Evangelist Rodriguez MD CHEMISTRY ORDERABLES Performing Organization Address City/[facility]/ZIP Co de Phone Number [facility] [place] [address] * Magnesium (01/23/2024 5:06 AM EDT) Only the most recent of2 resultswithin the time period is included. Magnesium 0.84 0.69 - 1.07 mmol/L [facility] Blood 01/23/2024 5:06 AM EDT 01/23/2024 5:12 AM EDT Narrative Resulting Agency Comment Spec In Lab Evangelist Rodriguez MD CHEMISTRY ORDERABLES [facility] [place] [address] * Scan Doc: Telemetry Strips (01/21/2024 10:55 PM EDT) Only the most recent of2 resultswithin the time period is included. Narrative 01/21/2024 10:55 PM EDT Ordered by an unspecified provider. Scanning Provider MEDIA MGR SCAN EXT O RDR/RSLT * (ABNORMAL) BLOOD GAS 2 VENOUS (01/21/2024 12:52 AM EDT) pH Antwan 7.17(Criti vijaya) 7.32 - 7.42 [facility] Comment:Not noted by instrum ent mixer operator tablets. pCO2 Antwan 52(H) 41 - 51 mmHg [facility] pO2 Antwan 29 25 - 40 mmHg [facility] HCO3 Antwan 18.6 mmol/L [facility] BE Antwan -9.9 mmol/L [facility] Hgb Blood Gas 13.3 11.7 - 15.5 g/dL [facility] O2HB Antwan 52.0 % [facility] COHB Antwan 0.1 % [facility] Comment: Nonsmokers: 0.5-1.5% COHB Smokers: Variable, but usually less than 10% Toxic: 20-30% COHB Lethal: Greater than 60% COHB METHB Antwan 0.6 <=1.5 % [facility] Na Whole Blood 143 135 - 145 mmol/L [facility] K Whole Blood 3.6 3.5 - 5.0 mmol/L [facility] Comment: Please note: Patients with WBC >100,000 may have falsely elevated Potassium levels. Contact the Clinical Chemistry Laboratory if there are any questions. ICa Whole Blood 1.20 1.15 - 1.33 mmol/L [facility] Comment: Note: ??Total bilirubin higher than 20 mg/dL may lead to falsely low ionized calcium. CL Whole Blood 113(H) 98 - 107 mmol/L [facility] Gluc Whole Bld 154 65 - 199 mg/dL [facility] Comment:Diabetes: >=200 mg/d L plus symptoms Lactate WB 3.2(H) 0.5 - 2.2 mmol/L [facility] Flow Antwan 3.0 LPM [facility] BGas Source Venous [facility] Blood 01/21/2024 12:5 2 AM EDT 01/21/2024 12:52 AM EDT Evangelist Rodriguez MD CHEMISTRY ORDERABLES Performing Organization Address [facility]/ZIP Co de Phone Number [facility] [place] [address] * POCT Glucose (01/21/2024 12:49 AM EDT) POC Glucose 124 65 - 199 mg/dL [facility] Comment: Supplemental ranges: <140 mg/dL before meals <180 mg/dL all other times of the day Blood 01/21/2024 12:4 9 AM EDT 01/21/2024 12:49 AM EDT Evangelist Rodriguez MD POINT OF CARE TEST O RDERABLES Performing Organization Address [facility] Co de Phone Number [facility] [place] [address] * (ABNORMAL) Urine culture Cystoscopic Urine (01/21/2024 12:00 AM EDT) Only the most recent of2 resultswithin the time period is included. Urine Culture 10,000-49,000 cfu/ml Escherichia coli(A) [facility] Organism Escherichia coli(A) [facility] Cystoscopic Urine 01/21/2024 12:32 AM EDT Comment:Left kidney urine sa mple Narrative Resulting Agency Comment Spec In Lab Organism Antibiotic Method Susceptibility Escherichia coli Amikacin VITEK 2 METHOD Sensitive Escherichia coli Ampicillin + Sulbactam VITEK 2 METHOD Resistant Escherichia coli Aztreonam VITEK 2 METHOD Sensitive Escherichia coli Cefazolin VITEK 2 METHOD Sensitive Escherichia coli Cefepime VITEK 2 METHOD <=1: Sensitive Escherichia coli Ceftazidime VITEK 2 METHOD <=1: Sensitive Escherichia coli Ceftriaxone VITEK 2 METHOD Sensitive Escherichia coli Gentamicin VITEK 2 METHOD Sensitive Escherichia coli Levofloxacin VITEK 2 METHOD Sensitive Comment: Levofloxacin and Ciprofloxacin may not adequately treat infections in critically ill patients even when isolates test susceptible in the laboratory. Contact Infectious Disease before using in critically ill patients. Escherichia coli Meropenem VITEK 2 METHOD <=0.25: Sensitive Escherichia coli Nitrofurantoin VITEK 2 METHOD Sensitive Escherichia coli Piperacillin/Tazobactam VITEK 2 METHO D <=4: Sensitive Escherichia coli Tetracycline VITEK 2 METHOD Sensitive Escherichia coli Tobramycin VITEK 2 METHOD Sensitive Escherichia coli Trimethoprim/Sulfa VITEK 2 METHOD Resistant Evangelist Rodriguez MD MICROBIOLOGY - GENER AL ORDERABLES Performing Organization Address [facility]/ZIP Co de Phone Number [facility] [place] [address] * Scan, Peripheral Blood (01/20/2024 11:14 PM EDT) Plat Estimate Normal [facility] RBC Morphology Normal [facility] Blood 01/20/2024 11:1 4 PM EDT 01/20/2024 11:20 PM EDT Narrative Resulting Agency Comment Spec In Lab Sunshine June MD HEMATOLOGY ORDERA BLES Performing Organization Address [facility] Co de Phone Number [facility] [place] [address] * Request For 2nd Read CT Abdomen & Pelvis (01/20/2024 10:47 PM EDT) RECOMBINETICS WORKSTATION ID [id number] DH RAD Anatomical Region Laterality Modality Abdomen, Pelvis SO Impressions 01/21/2024 7:07 AM EDT Obstructing 5 x 8 mm proximal left ureteral calculus. Bilateral scattered nonobstructing nephrolithiases, largest 3 mm. Thank you for letting us participate in the care of this patient. ??If you are a health care provider and have any questions regarding this report, please contact the number below. ??For patients who have questions please contact the health healthcare facility administrator that requested your imaging first. ? Electronically signed by: Rebeca Garcia MD, [facility] ([phone]), at 01/21/2024 7:07 AM Narrative 01/21/2024 7:07 AM EDT EXAMINATION: REQUEST FOR 2ND READ CT ABDOMEN AND PELVIS CLINICAL HISTORY: septioc stone; Sending Institution [facility]; Date of exam [id number]; I believe a reinterpretation of this exam may alter care of Patient. Yes TECHNIQUE: Helical CT of the abdomen and pelvis without intravenous contrast. Oral contrast was not administered. Multiplanar reformatted images were generated. Study performed January 20, 2024 at [facility]. COMPARISON: None FINDINGS: The absence of intravenous contrast limits the evaluation of solid viscera and vasculature. Lower chest: No consolidation Liver: Normal contour Bile ducts: Nondilated. Gallbladder: No calcified stones. Normal caliber wall. Pancreas: Normal contour without ductal dilatation. Spleen: Normal size. Adrenals: Normal. Right kidney/ureter: Scattered 2 and 3 mm nonobstructing nephrolithiasis. Left kidney/ureter: Asymmetric left renal enlargement and perinephric stranding. Asymmetric moderate left pelvocaliectasis. Scattered punctate nonobstructing left nephrolithiasis, largest 3 mm. Proximal ureteral dilation to an obstructing 5 x 8 mm proximal ureteral calculus. Urinary Bladder: Collapsed Vasculature: No abdominal aortic aneurysm. Lymph Nodes: Scattered small retroperitoneal lymph nodes Bowel: Pancolonic fecal burden. Normal appendix. Normal caliber small bowel. Peritoneum and retroperitoneum: No free fluid or loculated fluid collection. No pneumoperitoneum. No mesenteric inflammation. Abdominal wall: Normal. Reproductive organs: Normal contours. Osseous structures: No suspicious lesions. Procedure Note Rebeca Garcia MD - 01/21/2024 EXAMINATION: REQUEST FOR 2ND READ CT ABDOMEN AND PELVIS CLINICAL HISTORY: septioc stone; Sending Institution [facility]; Date of exam [id number]; I believe a reinterpretation of this exam may alter care ofPatient. Yes TECHNIQUE: Helical CT of the abdomen and pelvis without intravenouscontrast. Oral contrast was not administered. Multiplanar reformatted images were generated. Study performed January 20, 2024 at [facility]. COMPARISON: None FINDINGS: The absence of intravenous contrast limits the evaluation of solid visceraand vasculature. Lower chest: No consolidation Liver: Normal contour Bile ducts: Nondilated. Gallbladder: No calcified stones. Normal caliber wall. Pancreas: Normal contour without ductal dilatation. Spleen: Normal size. Adrenals: Normal. Right kidney/ureter: Scattered 2 and 3 mm nonobstructingnephrolithiasis. Left kidney/ureter: Asymmetric left renal enlargement and perinephricstranding. Asymmetric moderate left pelvocaliectasis. Scattered punctatenonobstructing left nephrolithiasis, largest 3 mm. Proximal ureteral dilation to anobstructing 5 x 8 mm proximal ureteral calculus. Urinary Bladder: Collapsed Vasculature: No abdominal aortic aneurysm. Lymph Nodes: Scattered small retroperitoneal lymph nodes Bowel: Pancolonic fecal burden. Normal appendix. Normal caliber smallbowel. Peritoneum and retroperitoneum: No free fluid or loculated fluidcollection. No pneumoperitoneum. No mesenteric inflammation. Abdominal wall: Normal. Reproductive organs: Normal contours. Osseous structures: No suspicious lesions. IMPRESSION Obstructing 5 x 8 mm proximal left ureteral calculus. Bilateral scattered nonobstructing nephrolithiases, largest 3 mm. Thank you for letting us participate in the care of this patient. If youare a health care provider and have any questions regarding this report,please contact the number below. For patients who have questions please contactthe health healthcare facility administrator that requested your imaging first. Electronically signed by: Rebeca Garcia MD, [facility]([phone]), at 01/21/2024 7:07 AM Nhan Castelan MD IMG OUTSIDE INTERPRE TATION ORDERABLES * EKG 12 Lead (01/20/2024 10:06 PM EDT) Ventricular rate 91 BPM MUSE SYSTEM Atrial Rate 91 BPM MUSE SYSTEM P-R Interval 140 ms MUSE SYSTEM QRS Duration 98 ms MUSE SYSTEM Q-T Interval 394 ms MUSE SYSTEM QTC Calculated (Bezet) 484 ms MUSE SYSTEM Calculated P Arabi 48 degrees MUSE SYSTEM Calculated R Arabi 26 degrees MUSE SYSTEM Calculated T Arabi 39 degrees MUSE SYSTEM INTERPRETATION Normal sinus rhythm Lateral infarct , age undetermined Abnormal ECG No previous ECGs available Confirmed by Ashleigh Santana ([id number]) on 01/21/2024 12:58:47 PM MUSE SYSTEM 01/20/2024 10:0 6 PM EDT 01/21/2024 12:58 PM EDT Nhan Castelan MD ECG ORDERABLES Performing Organization Address City/[facility]/ZIP Co de Phone Number MUSE SYSTEM * Film Library- Storage Only DX Chest (01/20/2024 5:39 PM EDT) Only the most recent of2 resultswithin the time period is included. Narrative [facility] - 01/20/2024 5:39 PM EDT This exam is auto-finalizing. It's purpose is for storage only. Evangelist Rodriguez MD [facility] FILM LIBRARY ORD ERABLES Performing Organization Address [facility] de Phone Number [place], [place] * Film Library- Storage Only CT Abdomen & Pelvis (01/20/2024 5:37 PM EDT) Narrative [facility] 01/20/2024 5:37 PM EDT This exam is auto-finalizing. It's purpose is for storage only. Candi Rodriguez MD [facility] FILM LIBRARY ORD ERABLES Performing Organization Address [facility] Co de Phone Number [place], [place] * Film Library- Storage Only DX Abdomen (01/13/2024 12:00 AM EDT) Narrative [facility] 01/20/2024 5:37 PM EDT This exam is auto-finalizing. It's purpose is for storage only. Candi Rodriguez MD [facility] FILM LIBRARY ORD ERABLES Performing Organization Address City/[facility] Co de Phone Number [facility] [place] from Last 3 Months Advance Directives * Attempt Cardiopulmonary Resuscitation - Inpatient (Latest Code Status on File) Date Activated Date Inactivated Comments 01/21/2024 12:30 AM 01/24/2024 4:28 PM Question Answer Comments Code Status decision made by: Patient Care Teams Blister Rust Eradicator Relationship Specialty Start Date End Date Graciela Naidu MD [facility] [address] [place] [address] PCP - General 07/21/10
--- OUTSIDE RECORDS SUMMARY | 2024-03-28 02:44 | XMS_ITS | Encounter Summary ---
Author Organization [facility] [place] [address] Care Team Providers Care Human Resource Professional Name Role Phone Graciela Naidu MD Primary Care Provider [phone] Encounter Details Date Type Department Care Team (Latest Contact Info) Description 02/17/2024 Travel Social History Tobacco Use Types Packs/Day [...] any time in the past 12 m [facility], were you homeless or [...] 04/20/2024 3:45 PM EDT [place] [address] Pam Grant MD [facility] [place] [address] 04/20/2024 4:40 PM EDT [place] [address] Pam Grant MD [facility] [place] [address] documented as of this encounter Visit Diagnoses Not on filedocumented in this encounter Care Teams Human Resource Professional Relationship Specialty Start Date End Date Graciela Naidu MD [address] [place] [address] PCP - General 07/21/10 documented as of this encounter
--- OUTSIDE RECORDS SUMMARY | 2024-03-28 02:44 | XMS_ITS | Encounter Summary ---
Author Organization [facility] Address [address] [place] [address] Care Team Providers Care Disulfurizer Tender Name Role Phone Unknown, Provider Primary Care Provider [phone] Encounter Details Date Type Department Care Team (Latest Contact Info) Description 06/23/2021 Lab Requisition [facility] Pathology & Laboratory Medicine - [facility] [address] [place] [address] Graciela Naidu MD [address] [address] Encounter for gynecological examination (general) (routine) without abnormal findings Social History Tobacco Use Types Packs/Day Years Used Date Smoking Tobacco: Never Assessed Sex and Gender Information Value Date Recorded Sex Assigned at Not on file Gender Identity Not on file Sexual Orientation Not on file documented as of this encounter Plan of Treatment Scheduled Orders Name Type Priority Associated Diagnoses Orde r Schedule PAP TEST Pathology Today Encounter for gynecological examination (general) (routine) without abnormal findings Ordered: 06/23/2021 documented as of this encounter Visit Diagnoses Diagnosis Encounter for gynecological examination (general) (routine) without abnormal findings documented in this encounter Care Teams Disulfurizer Tender Relationship Specialty Start Date End Date Unknown, Provider, PCP - General 07/15/15 documented as of this encounter
--- OUTSIDE RECORDS SUMMARY | 2024-03-28 02:44 | XMS_ITS | Encounter Summary ---
[place] [address] Care Team Providers Care Network Architect Manager Name Role Phone Graciela Naidu MD Primary Care Provider [phone] Reason for Referral * Diagnostic Test (Routine) - Closed Specialty Diagnoses / Procedures Referred By Bradley lopez Referred To Contact Urology Diagnoses Nephrolithiasis Procedures Cysto Stent Removal Pam Grant MD [facility] [address] [place] [address] Referral ID Status Reason Start Date Expiration Date V isits Requested Visits Authorized [id number] Closed Test Only 02/24/2024 02/23/2025 1 1 Reason for Visit * Diagnostic Test (Routine) - Closed Specialty Diagnoses / Procedures Referred By Bradley lopez Referred To Contact Urology Diagnoses Ureteral obstruction, left Procedures Cysto Stent Removal Long Galloway MD [facility] [place] [address] [place] [address] Referral ID Status Reason Start Date Expiration Date V isits Requested Visits Authorized [id number] Closed Test Only 02/09/2024 02/08/2025 1 1 Encounter Details Date Type Department Care Team (Late st Contact Info) Description 02/24/2024 11:00 AM EDT Procedure visit Urology at [facility] [place] [address] Pam Grant MD [facility] [place] [address] Nephrolithiasis (Primary Dx); Ureteral obstruction, left Social History Tobacco Use Types Packs/Day Years Used Date Smoking Tobacco: Never Smokeless Tobacco: Never Alcohol Use Standard Drinks/Week Comments Never 0 (1 standard drink = 0.6 oz pur e alcohol) [facility] Utilities Answer Date Recorded In [...] in a custodial (including now)? No 01/21/2024 [facility] Inpatient Questions Answer Date Recorded Does Anyone [...] Pulse 95 02/24/2024 11:36 AM EDT Temperature - - Respiratory Rate - - Oxygen Saturation - - Inhaled Oxygen Concentration - - Weight - - Height - - Body Mass Index - - documented in this encounter Patient Instructions * Patient Instructions* Reginald Ospina RN - 02/24/2024 11:00 AM EDT Instructions following Cystoscopy Activity: As tolerated by your comfort level. Fluids: You should increase your water today. Avoid coffee, tea and cola. You do not need to qcpean67 ounces of water today. Urination: You will likely have a small amount of blood in your urine for the next several days. This is normal; however, if you are passing large amounts of blood clots or are unable to void please call our office at [phone] before 5PM or [phone] after hours. Please call if: * you have copious blood in your urine * fevers greater than 101.3 F * you are unable to void The number for questions is [phone] before 5 PM weekdays and [phone] after 5 PM and weekends. Follow-up: Drink water, lemonade, diet sprite, and fresca. Measure urine output and when you are urinating 2,000mL a day, you are ready for your urine study. That is when you will request the urine study kit and follow the instructions with the kit. Follow up with a 6 week renal ultrasound. documented in this encounter Progress Notes * Pam Grant MD - 02/24/2024 11:00 AM EDT Images from the original note were not included. Expand All Collapse All Urology History and Physical: Barbra Dc is [...] ureteral/renal stone HU ureteral stone ~730 She presented 02/06/24 for LEFT URS/LL, stent exchange Her stone was Ca phosphate 80%, Ca oxalate 20%. She returns now for a stent removal ImP: nephrolithiasis Plan: RTC 6 weeks for a renal uls\ Advised to drink enough to make 2 liters of urine daily Will then do a litholink documented in this encounter Procedure Notes * Pam Grant MD - 02/24/2024 11:00 AM EDTAssociated Order(s): CYSTO, STENT REMOVAL Procedure(s): CYSTO, STENT REMOVAL Pre-Procedure Diagnose(s): Nephrolithiasis Procedure: Flexible cystoscopy. Surgeon: Rudy Complications: None. Procedure: Urinalysis revealed no evidence of an active urinary tract infection. After informed consent was obtained and the external genitalia appropriately had been cleaned and draped lidocaine was instilled into the urethra to achieve topical anesthesia. The flexible telescope was inserted into the urethra and advanced into the bladder under direct vision. The urethra was normal. The vulva was normal. The bladder mucosa was normal with inflammation noted. No bladder tumors or stones or foreign bodies were noted. The stent was identified, grasped with aflexible forceps and removed intact. The patient tolerated the procedure well. There were no complications. Pre procedure they were given 1 dose of keflex documented in this encounter Plan of Treatment Upcoming Encounters Date Type Department Care Team (Late st Contact Info) Description 04/20/2024 3:45 PM EDT [place] [address] Pam Grant MD [facility] [place] [place] [address] 04/20/2024 4:40 PM EDT [place] [address] Pam Grant MD [facility] [place] [address] Scheduled Orders Name Type Priority Associated Diagnoses Orde r Schedule US Retroperitoneal Complete Imaging Routine Nephrolithiasis Expected: 04/08/2024, Expires: 10/08/2024 documented as of this encounter Procedures Procedure Name Priority Date/Time Associated Diagnosis Comments CYSTO, STENT REMOVAL Routine 02/24/2024 11:00 AM EDT Nephrolithiasis documented in this encounter Results * CYSTO, STENT REMOVAL (02/24/2024 11:00 [...] Hicks MD URO PROCEDURE W RFL ORDERABLES documented in this encounter Visit Diagnoses Diagnosis Nephrolithiasis- Primary Calculus of kidney Ureteral obstruction, left Other ureteric obstruction documented in this encounter Administered Medications Inactive Administered Medications - up to 3 most recent administrations Medication Order MAR Action Action Date Dose Rate Site cephALEXin (Keflex) capsule 500 mg 500 mg, Oral, ONCE, 1 dose, On Tue02/24/24 at 1100, Routine, Indication for (Active or Suspected): Prophylaxis Given 02/24/2024 11:18 AM EDT 500 mg documented in this encounter Care Teams Network Architect Manager Relationship Specialty Start Date End Date Graciela Naidu MD [address] [place] [address] PCP - General 07/21/10 documented as of this encounter
--- OUTSIDE RECORDS SUMMARY | 2024-03-28 02:44 | XMS_ITS | Encounter Summary ---
Author Organization [facility] Address [address] [place] [address] Care Team Providers Care Towel Weaver Name Role Phone Unknown, Provider Primary Care Provider Encounter Details Date Type Department Care Team (Late st Contact Info) Description 09/07/2021 Lab Requisition [facility] Pathology & Laboratory Medicine - [facility] [address] [place] [address] Outr Resulting Lab, Provider Social History Tobacco [...] Procedure Name Priority Date/Time Associated Diagnosis Comments HIV 1/2 ANTIGEN AND ANTIBODY, 4TH GENERATION Routine 09/07/2021 7:36 EST documented in this encounter Results * HIV 1/2 ANTIGEN AND ANTIBODY, 4TH GENERATION (09/07/2021 7:36 EST) HIV 1 and 2 Antibody/p24 Antigen, 4th Generation Negative Negative 09/08/2021 11:13 EST [facility] Comment:If acute HIV-1 infec tion is suspected in a high risk patient, submit plasma specimen for HIV-1 RNA quantitation test. Blood VENOUS BLOOD / Unknown 09/07/2021 7:36 EST 09/07/2021 21:22 EST Narrative [facility] - 09/08/2021 11:13 EST Fourth Generation assay performed on the Siemens Centaur XPT. Provider Outr Resulting Lab IMMUNOLOGY A ND SEROLOGY ORDERABLES Performing Organization Address [facility]/State/ZIP Co de Phone Number [facility] [address] [place] [address] documented in this encounter Visit Diagnoses Not on filedocumented in this encounter Care Teams Towel Weaver Relationship Specialty Start Date End Date Unknown, Provider, PCP - General 07/15/15 documented as of this encounter
--- OUTSIDE RECORDS SUMMARY | 2024-03-28 02:44 | XMS_ITS | Referral Summary ---
Author Organization [facility] Address [address] [place] [address] Care Team Providers Care Dredgemaster Name Role Phone Unknown, Provider Primary Care Provider Social History Tobacco Use Types Packs/Day Years Used Date Smoking Tobacco: Never Assessed Sex and Gender Information Value Date Recorded Sex Assigned at Not on file Gender Identity Not on file Sexual Orientation Not on file Plan of Treatment Not on file Procedures Procedure Name Priority Date/Time Associated Diagnosis Comments HEPATITIS C AB W REFLEX TO HCV RNA BY PCR Routine 09/07/2021 7:36 EST from Last 3 Months or Most Recently Relevant to Health Maintenance Results * HEPATITIS C AB W REFLEX TO HCV RNA BY PCR (09/07/2021 7:36 EST) Hep C Antibody Negative Negative 09/08/2021 10:59 EST [facility] Blood VENOUS BLOOD / Unknown 09/07/2021 7:36 EST 09/07/2021 21:22 EST Provider Outr Resulting Lab CHEMISTRY & BLOOD GAS ORDERABLES [facility] [address] [place] [address] from Last 3 Months or Most Recently Relevant to Health Maintenance Care Teams Dredgemaster Relationship Specialty Start Date End Date Unknown, Provider, PCP - General 07/15/15
--- OUTSIDE RECORDS SUMMARY | 2024-03-28 02:44 | XMS_ITS | Clinical Summary ---
Author Organization [facility] Address [address] [place] [address] Care Team Providers Care Quality Control Operator Name Role Phone Unknown, Provider Primary Care Provider [phone] Social History Tobacco Use Types Packs/Day Years Used Date Smoking Tobacco: Never Assessed Sex and Gender Information Value Date Recorded Sex Assigned at Not on file Gender Identity Not on file Sexual Orientation Not on file Plan of Treatment Health Maintenance Due Date Last Done Comments Hepatitis B Vaccine (1 of 3 - 19+ 3-dose series) 11/14 COVID-19 Vaccine (2022- season) 2023 Hepatitis C Screen Completed 09/07/2021 Procedures Procedure Name Priority Date/Time Associated Diagnosis Comments HEPATITIS C AB W REFLEX TO HCV RNA BY PCR Routine 09/07/2021 7:36 EST from Last 3 Months or Most Recently Relevant to Health Maintenance Results * HEPATITIS C AB W REFLEX TO HCV RNA BY PCR (09/07/2021 7:36 EST) Hep C Antibody Negative Negative 09/08/2021 10:59 EST [facility] Blood VENOUS BLOOD / Unknown 09/07/2021 7:36 EST 09/07/2021 21:22 EST Provider Outr Resulting Lab CHEMISTRY & BLOOD GAS ORDERABLES [facility] [address] [place] [address] from Last 3 Months or Most Recently Relevant to Health Maintenance Care Teams Quality Control Operator Relationship Specialty Start Date End Date Unknown, Provider, PCP - General 07/15/15
--- OUTSIDE RECORDS SUMMARY | 2024-03-28 02:45 | XMS_ITS | Encounter Summary ---
Author Organization [facility] Address [facility] [place] [address] Care Team Providers Care Lumber Sticker Name Role Phone Graciela Naidu MD Primary Care Provider [phone] Encounter Details Date Type Department Care Team (Late st Contact Info) Description 01/20/2024 [place] [address] Brendan Rodriguez MD [facility] [place] [address] Left ureteral calculus; Pyelonephritis, acute Social History Tobacco Use Types Packs/Day Years Used Date Smoking Tobacco: Never Assessed [facility] Utilities Answer Date Recorded In the past 12 months has [employer], gas, oil, or water [employer] threatened to shut off services in your [...] any time in the past 12 m [facility], were you homeless or living in a [...] on file documented as of this encounter Progress Notes * Brendan Rodriguez MD - 01/20/2024 5:45 PM EDT T Center Consult 58 yo female Barbra Dc with a septic left 5 mm proximal ureteral calculus, WBC 12K, T 102, BP SBP 86/p, HR 119 with creatinine of 1.4. On Rocephin 2 grams, need a left ureteral stent placement likely tonight if she does not worsen. BRENDAN RODRIGUEZ MD documented in this encounter Plan of Treatment Upcoming Encounters Date Type Department Care Team (Late st Contact Info) Description 04/20/2024 3:45 PM EDT Appoint[place] [address] Pam Grant MD [facility] [place] [address] 04/20/2024 4:40 PM EDT [place] [address] Pam Grant MD [facility] [place] [address] documented as of this encounter Visit Diagnoses Diagnosis Left ureteral calculus Calculus of ureter Pyelonephritis, acute Acute pyelonephritis without lesion of renal medullary necrosis documented in this encounter Care Teams Lumber Sticker Relationship Specialty Start Date End Date Graciela Naidu MD [address] [place] [address] [facility] [address] [place] [address] PCP - General 07/21/10 documented as of this encounter
--- OUTSIDE RECORDS SUMMARY | 2024-03-28 02:45 | XMS_ITS | Encounter Summary ---
[place] [address] Care Team Providers Care Instructor Correspondence School Name Role Phone Graciela Naidu MD Primary Care Provider [phone] Encounter Details Date Type Department Care Team (Late st Contact Info) Description 01/20/2024 10:50 PM EDT Ancillary Procedure [place] [phone] Social History Tobacco Use Types Packs/Day Years Used Date Smoking Tobacco: Never Assessed [facility] Utilities Answer Date Recorded In [...] any time in the past 12 m [facility], were you homeless or living in [...] 04/20/2024 3:45 PM EDT [place] [address] Pam Grant MD [facility] [place] [address] 04/20/2024 4:40 PM EDT [place] [address] Pam Grant MD [facility] [place] [address] documented as of this encounter Procedures Procedure Name Priority Date/Time Associated Diagnosis Comments REQUEST FOR 2ND READ CT ABDOMEN AND PELVIS STAT 01/20/2024 10:47 PM EDT documented in this encounter Results * Request For 2nd Read CT Abdomen & Pelvis (01/20/2024 10:47 PM EDT) WORKSTATION ID [id number] [facility] Anatomical Region Laterality Modality Abdomen, Pelvis SO [...] who have questions please contact the health child care counselor that requested your imaging first. ? Electronically signed by: Rebeca Garcia MD, [facility] ([phone]), at 01/21/2024 7:07 AM Narrative 01/21/2024 7:07 AM EDT EXAMINATION: REQUEST FOR 2ND READ CT ABDOMEN AND PELVIS CLINICAL HISTORY: septioc stone; Sending Institution [facility]; Date of exam 20240120; I believe a reinterpretation of this exam may alter care of Patient. Yes TECHNIQUE: Helical CT of the abdomen and pelvis without intravenous contrast. Oral contrast was not administered. Multiplanar reformatted images were generated. Study performed January 20, [address] [facility]. COMPARISON: None FINDINGS: The absence of [...] PELVIS CLINICAL HISTORY: septioc stone; Sending Institution [facility]; Date of exam [id number]; I believe a reinterpretation of this exam may alter care ofPatient. Yes TECHNIQUE: Helical CT of the abdomen and pelvis without intravenouscontrast. Oral contrast was not administered. Multiplanar reformatted images were generated. Study performed January 20, [address] [facility]. COMPARISON: None FINDINGS: The absence of [...] patients who have questions please contactthe health child care counselor that requested your imaging first. Electronically signed by: Rebeca Garcia MD, [facility]([phone]), at 01/21/2024 7:07 AM Nhan Castelan MD IMG OUTSIDE INTERPRE TATION ORDERABLES documented in this encounter Visit Diagnoses Not on filedocumented in this encounter Care Teams Instructor Correspondence School Relationship Specialty Start Date End Date Graciela Naidu MD [address] [place] [address] PCP - General 07/21/10 documented as of this encounter
--- OUTSIDE RECORDS SUMMARY | 2024-03-28 02:45 | XMS_ITS | Encounter Summary ---
Author Organization [facility] [place] [address] Care Team Providers Care Medical Videographer Name Role Phone Unavailable Primary Care Provider Unavailabl e Encounter Details Date Type Department Care Team (Late st Contact Info) Description 07/16/2010 8:40 AM EST Follow-[place] [address] Soniya Miranda APRN [facility] [place] [address] Social History Tobacco Use Types Packs/Day Years Used Date Smoking Tobacco: Never Assessed Sex and Gender Information Value Date Recorded Sex Assigned at Not on file Gender Identity Not on file Sexual Orientation Not on file documented as of this encounter Plan of Treatment Upcoming Encounters Date Type Department Care Team (Late st Contact Info) Description 04/20/2024 3:45 PM EDT [place] [address] Pam Grant MD [facility] [place] [address] 04/20/2024 4:40 PM EDT [place] [phone] Pam Grant MD [facility] [place] [address] documented as of this encounter Visit Diagnoses Not on filedocumented in this encounter
--- OUTSIDE RECORDS SUMMARY | 2024-03-28 02:45 | XMS_ITS | Encounter Summary ---
[place] [address] Care Team Providers Care Long Wall Mining Machine Helper Name Role Phone Graciela Naidu MD Primary Care Provider Encounter Details Date Type Department Care Team (Late st Contact Info) Description 01/26/2024 [place] [phone] Melita Dang, RN Social History Tobacco Use Types Packs/Day Years Used Date Smoking Tobacco: Never Smokeless Tobacco: Never Alcohol Use Standard Drinks/Week Comments Never 0 (1 standard drink = 0.6 oz pur e alcohol) [facility] Utilities Answer Date Recorded In the past 12 months has e [employer], gas, oil, or water [employer] threatened to shut off services in your [...] any time in the past 12 m [facility], were you homeless or living in [...] as of this encounter Progress Notes * Melita Dang RN - 01/26/2024 2:53 PM EDT Call returned to patient regarding stent discomfort. Background: Patient was discharged on 01/24/24, she has a left ureteral stent in place: Plan: -Follow up: [facility] in 2-4 weeks requested -Cx: [facility] blood cx grew E.coli, continue cipro for 14 days - Ucx E.coli sensitive to fluoroquinolones Disposition: Patient reports that she has been experiencing hematuria and back pain since discharge. Medications: Tylenol: 1000 mg this am x 1 -Does not have ibuprofen on hand -has hydromorphone 2mg and zofran on hand (not in discharge instructions). Fluids- water- 20 oz glass (2 today) Robyn allison Iced coffee Bowels- soft, no constipation Reviewed discharge instructions regarding stent discomfort, encouraged patient to increase water intake, limit bladder irritants and take ibuprofen and tylenol as recommended (reviewed instructions),patient will call back with any further questions or concerns. Stent Discomfort: Most patients experience some degree of discomfort related to their ureteral stent. Symptoms include flank pain (increased during urination), frequency and urgency of urination, burning or pain in the bladder or urethra with urination, pelvic discomfort, and blood in the urine. Your symptoms may be exacerbated by activity. To manage your stent symptoms, try the following: - drink plenty of fluid (~2 liters per day or enough to make urine clear or pale yellow) - take ibuprofen (Motrin, Advil, or generic), up to 600-800mg every 8 hours - take acetaminophen (Tylenol), up to 650mg every 4 hours (regular strength) or 1000mg every 6 hours (extra strength) - Take flomax daily until your stent is removed if you have stent pain. (Does not have flomax). documented in this encounter Miscellaneous Notes * Telephone Encounter - Melita Dang RN - 01/26/2024 2:52 PM EDT Copied from [facility] #[id number]. Topic: Specialty Dept CRMs - Triage >> January 26, 2024 11:12 AM Tania Phan wrote: Triage Message Specialist: Michael Relationship (if other than patient-full name): self Symptom: patient is having pain in back and acetaminophen (Tylenol) 325 mg tablet is not helping, blood in urine Has patient experienced symptom before If patient has experienced symptom before, when was the last time this occurred Is patient currently having symptom yes When did symptom begin this morning Additional Comments: patient stated she is having blood in urine and had a blood clot this morning,patient is also having pain in her back. Patient believes stent may be moving, she feels something is wrong Patient was provided some pain medication in the emergency room but isn't sure if she can take it. She was give hydromorphone 2mgs and ondansetron ODT 4 mg tablets >> January 26, 2024 2:47 PM Tania Phan wrote: Patient called again, she stated she would like a call back from a nurse as soon as possible, patient stated she has been in pain since this morning and hasn't heard from anyone documented in this encounter Plan of Treatment Upcoming Encounters Date Type Department Care Team (Late st Contact Info) Description 04/20/2024 3:45 PM EDT [place] [address] Pam Grant MD [facility] [place] [address] 04/20/2024 4:40 PM EDT [place] [address] Pam Grant MD [facility] [place] [address] documented as of this encounter Visit Diagnoses Not on filedocumented in this encounter Care Teams Long Wall Mining Machine Helper Relationship Specialty Start Date End Date Graciela Naidu MD [address] [place] [address] PCP - General 07/21/10 documented as of this encounter
--- OUTSIDE RECORDS SUMMARY | 2024-03-28 02:45 | XMS_ITS | Encounter Summary ---
[place] [address] Care Team Providers Care Superintendent Division Name Role Phone Graciela Naidu MD Primary Care Provider [phone] Encounter Details Date Type Department Care Team (Late st Contact Info) Description 01/20/2024 5:40 PM EDT Ancillary Procedure [place] [phone] Candi Rodriguez MD [address] [place] [address] Social History Tobacco Use Types Packs/Day Years Used Date Smoking Tobacco: Never Assessed [facility] Utilities Answer Date Recorded In the past 12 months has [employer], gas, oil, or water [employer] threatened to shut off services in your [...] any time in the past 12 m [facility], were you homeless or living in a care home (including now)? No 01/21/2024 IPV Inpatient Questions [...] 04/20/2024 3:45 PM EDT [place] [address] Pam Grant MD [facility] [place] [address] 04/20/2024 4:40 PM EDT [place] [phone] Pam Grant MD [facility] [place] [address] documented as of this encounter Procedures Procedure Name Priority Date/Time Associated Diagnosis Comments FILM LIBRARY STORAGE ONLY CT ABDOMEN AND PELVIS Routine 01/20/2024 5:37 PM EDT documented in this encounter Results * Film Library- Storage Only CT Abdomen & Pelvis (01/20/2024 5:37 PM EDT) Narrative RAD - 01/20/2024 5:37 PM EDT This exam is auto-finalizing. It's purpose is for storage only. Candi Rodriguez MD IMG FILM LIBRARY ORD ERABLES [place], [place] documented in this encounter Visit Diagnoses Not on filedocumented in this encounter Care Teams Superintendent Division Relationship Specialty Start Date End Date Graciela Naidu MD [address] [place] [address] PCP - General 07/21/10 documented as of this encounter
--- OUTSIDE RECORDS SUMMARY | 2024-03-28 02:45 | XMS_ITS | Encounter Summary ---
Author Organization [facility] [place] [address] Care Team Providers Care Tar Man Name Role Phone Graciela Naidu MD Primary Care Provider [phone] Encounter Details Date Type Department Care Team (Late st Contact Info) Description 01/20/2024 5:45 PM EDT Ancillary Procedure [place] [address] Evangelist Rodriguez MD [facility] DR [place]ATR[place] [address] Social History Tobacco Use Types Packs/Day Years Used Date Smoking Tobacco: Never Assessed [facility] Utilities Answer Date Recorded In the past 12 months has [employer], gas, oil, or water [employer] threatened to shut off services in your [...] any time in the past 12 m [facility], were you homeless or living in a nursing home (including now)? No 01/21/2024 IPV Inpatient [...] 3:45 PM EDT Appointment [place] [phone] Pam Grant MD [facility] [place] [address] 04/20/2024 4:40 PM EDT [place] [phone] Pam Grant MD [facility] [place] [address] documented as of this encounter Procedures Procedure Name Priority Date/Time Associated Diagnosis Comments FILM LIBRARY STORAGE ONLY DX CHEST Routine 01/20/2024 5:39 PM EDT documented in this encounter Results * Film Library- Storage Only DX Chest (01/20/2024 5:39 PM EDT) Narrative RAD - 01/20/2024 5:39 PM EDT This exam is auto-finalizing. It's purpose is for storage only. Evangelist Rodriguez MD IMG FILM LIBRARY ORD ERABLES [place] documented in this encounter Visit Diagnoses Not on filedocumented in this encounter Care Teams Tar Man Relationship Specialty Start Date End Date Graciela Naidu MD [facility] [address] [place] [address] PCP - General 07/21/10 documented as of this encounter
--- OUTSIDE RECORDS SUMMARY | 2024-03-28 02:45 | XMS_ITS | Encounter Summary ---
[place] [address] Care Team Providers Care Customer Support Advisor Name Role Phone Graciela Naidu MD Primary Care Provider [phone] Reason for Visit * Auth/Cert (Routine) Specialty Diagnoses / Procedures Referred By Bradley t Referred To Contact Diagnoses Pyelonephritis, acute Left ureteral calculus Ureteral obstruction, left Sepsis Infected kidney stone Procedures EMERGENCY [facility]ARDYI Evangelist Rodriguez MD [facility] [place] [address] [facility] Referral ID Status Reason Start Date Expiration Date Visits Re quested Visits Authorized [id number] 1 1 Encounter Details Date Type Department Care Team (Late st Contact Info) Description 01/20/2024 11:29 PM EDT Anesthesia Event [place] [address] José Luis Gee MD [facility] [place] [address] Milan Monroy CRNA [facility] [place] [address] Anesthesia Record Procedure Summary Procedure Name Responsible Anesthesiologist Anesthesia Start Time Anesthesia Stop Time CYSTO, STENT PLACEMENT (WRVU 2.82) (Left: Bladder) José uLis Gee MD 01/20/24232801/21/24 0047 Events Date Time Event Comment 01/20/2024 232 AN Verify 232 Start 232 An Start Data 2338 An Induction 2341 An Intubation 2353 Anesthesia Ready 01/21/2024 0006 0017 Extubation/LMA Out 0033 an stop data 0047 Recovery or ICU Handoff Clarissa ent care was transferred to the destination unit staff after review of the patient's medical history, current anesthetic/surgical status and plan, according to the Provider Handoff Checklist. 0047 Stop Meds Name Total fentaNYL 50 mcg Propofol 130 mg Rocuronium 50 mg PHENYLephrine 160 mcg Dexamethasone 4 mg sugammadex 200 mg succinylcholine 100 mg PHENYLephrine INF 580 mcg piperacillin-tazobactam 3.375 g * Agents Name O2 * Blood No blood administrations on file. Lines, Drains, and Airways Type Details Placement Removal PIV 01/20/24; 1600; wzje-zfv-[id number] catheter system; 20 gauge; median cubital vein (antecubital fossa), left; Anatomical Landmarks; Outside hospital; 01/24/24; 1400 01/20/24 1600 by Kiki Mills RN 01/24/24 1400 by Carmita Pham RN PIV 01/20/24; 1600; paan-jwo-adwnrt catheter system; 20 gauge; Anatomical Landmarks; Sending hospital; site symptomatic; 01/21/24; 1152 01/20/24 1600 by Kiki Mills RN 01/21/24 1152 by Juliet Hoffmann RN ETT Mask Ventilation: No t Attempted (0); ETT Type: Cuffed, Oral; ETT Size: 7 mm; Mac Blade: 3; Notes: Asleep, Pre-O2, Cricoid Pressure, RSI, Stylette; Attempts: 1; Laryngoscopy Grade: 2; ETT Placement Verified By: Capnometry, Visual; Secured at Teeth: 20 cm; Inserted by: Rocio MACKEY; Removal Date: 01/21/24; Removal Time: 1601/20/242340 by Judy Chan MD 01/21/2416 by Judy Chan MD Urethral Catheter 01/21/24; 0023; Genitourinary surgery; Acute urinary retention or obstruction; indwelling double lumen catheter; latex; 14; inserted at this facility; drainage bag; 01/22/24; 0952 01/21/24 0023 by Denisse Ambrose RN 01/22/24 09 by Juliet Hoffmann RN documented in this encounter Social History Tobacco Use Types Packs/Day Years Used Date Smoking Tobacco: Never Assessed [facility] Utilities Answer Date Recorded In the past 12 months has th e [employer], gas, oil, or water [employer] threatened to shut off services in your [...] in a residential (including now)? No 01/21/2024 DH IPV Inpatient [...] OR Notes * Anesthesia Postprocedure Evaluation - José Luis Gee MD - 01/21/2024 2:46 AM EDT Department of Anesthesiology Post-procedure Note Patient: Barbra Dc Procedure Summary Date: 01/20/24 Room / Location: [facility] OR [facility] MAIN OR Anesthesia Start: 2328 Anesthesia Stop: 01/21/2446 Procedures: CYSTO, STENT PLACEMENT (WRVU 2.82) (Left: Bladder) MODIFIER,UROLOGY,PEDI TO ADULT Diagnosis: Left ureteral calculus Pyelonephritis, acute (Left ureteral stone.) Surgeons: Evangelist Rodriguez MD Responsible Provider: José Luis Gee MD Anesthesia Type: general ASA Status: 3 - Emergent All Anesthesia Providers: Anesthesiologist: José Luis Gee MD Designer/Writer: Judy Chan MD Vitals Value Taken Time BP 113/67 01/21/24 0603 Temp 37.4 ??C (99.3 ??F) 01/21/24 0400 Pulse 83 01/21/24 0645 Resp 14 01/21/24 0645 SpO2 96 % 01/21/24 0645 Pain Level 0 01/21/24 0400 Vitals shown include unfiled device data. Patient Location: ICU Level of Consciousness: Awake and Alert Pain Management: Pain Being Addressed PONV: None Cardiovascular Status: At Baseline Respiratory Status: At Baseline Postoperative Fluid Status: Intravascular EUvolemia Possible Anesthetic Complications: NONE apparent at time of evaluation Final Primary Anesthesia Type: General (The anesthetic type performed was the same as planned.) Comments: José Luis Gee MD * Anesthesia Preprocedure Evaluation - José Luis Gee MD - 01/20/2024 9:13 PM EDT Pre-Anesthesia Evaluation for: Barbra Dc a 58 y.o. female. Procedure(s): CYSTO, STENT PLACEMENT (WRVU 2.82) MODIFIER,UROLOGY,PEDI TO ADULT There are no problems to display for this patient. No past medical history on file. No past surgical history on file. Social History Tobacco Use ??? Smoking status: Not on file ??? Smokeless tobacco: Not on file Substance Use Topics ??? Alcohol use: Not on file Social History Substance and Sexual Activity Drug Use Not on file No Known Allergies Medications: MAR and/or home medications have been reviewed. Physical Exam: Preprocedure Vitals Current as of 01/20/24 2113 No BP, pulse, respiration, SpO2, or temperature recorded. Height: Weight: BMI: IBW: Airway Assessment: Mallampati: II TM distance: >3 FB Neck ROM: full Cardiovascular Assessment: Rate: abnormal Pulmonary Assessment: unlabored breathing Dental Assessment: - normal exam Misc Assessment: Last Filed Perioperative Cognitive Screening None Anesthesia Plan: ASA 3 emergent general, with a(n) intravenous induction 58 yo female with septic physiology for septic renal calculus. Plan for cysto/stent in urgent fashion. No significant medical history. Denies cardiac or pulmonary problems. Denies problems with prioranesthetics. NPO appropriate NKA Plan: [place] md Region - Other Informed Consent: Anesthetic plan and risks discussed with patient. Plan discussed with resident and attending. Anesthesia Screening documented in this encounter Plan of Treatment Upcoming Encounters Date Type Department Care Team (Late st Contact Info) Description 04/20/2024 3:45 PM EDT [place] [address] Pam Grant MD [facility] [address] 04/20/2024 4:40 PM EDT [place] [phone] Pam Grant MD [facility] [place] [address] documented as of this encounter Visit Diagnoses Not on filedocumented in this encounter Administered Medications Inactive Administered Medications - up to 3 most recent administrations Medication Order MAR Action Action Date Dose Rate Site dexAMETHasone (Decadron) injection Intravenous, PRN, Starting on Tue01/20/24 at 2347, Until 01/21/24 at 0047, Anesthesia Intra-op, Routine Given 01/20/2024 11:47 PM EDT 4 mg fentaNYL (pf) (50 mcg/mL) multi-dose injection Intravenous, PRN, Starting on Tue01/20/24 at 2355, Until 01/21/24 at 0047, Anesthesia Intra-op, Routine Given 01/20/2024 11:55 PM EDT 50 mcg PHENYLephrine (Zach-Synephrine) (80 mcg/mL) in sodium chloride 0.9% 250 mL infusion Intravenous, CONTINUOUS PRN, Starting on Tue01/20/24 at 2355, Until 01/21/24 at 0047, Anesthesia Intra-op, Routine Rate/Dose Change 01/21/2024 12:00 AM EDT 40 mcg/min 30 mL/hr New Bag 01/20/2024 11:55 PM EDT 20 mcg/min 15 mL/hr PHENYLephrine in NS (PF) (ZACH-SYNEPHRINE) 0.8 mg/10 mL (80 mcg/mL) multi-dose injection Syringe Intravenous, PRN, Starting on Tue01/20/24 at 2338, Until 01/21/24 at 0047, Anesthesia Intra-op, Routine Given 01/20/2024 11:38 PM EDT 160 mcg piperacillin-tazobactam (Zosyn) injection Intravenous, PRN, Starting on Tue01/20/24 at 2344, Until 01/21/24 at 0047, Anesthesia Intra-op, Routine Given 01/20/2024 11:44 PM EDT 3.375 g propofoL (Diprivan) 10 mg/mL bolus injection (Anesthesia) Intravenous, PRN, Starting on Tue01/20/24 at 2338, Until 01/21/24 at 0047, Anesthesia Intra-op Given 01/20/2024 11:38 PM EDT 130 mg rocuronium (Zemuron) (10 mg/mL) multi-dose injection Intravenous, PRN, Starting on Tue01/20/24 at 2348, Until 01/21/24 at 0047, Anesthesia Intra-op, Routine Given 01/20/2024 11:48 PM EDT 50 mg succinylcholine (Anectine;Quelicin) (20 mg/mL) injection Intravenous, PRN, Starting on Tue01/20/24 at 2338, Until 01/21/24 at 0047, Anesthesia Intra-op, Routine Given 01/20/2024 11:38 PM EDT 100 mg sugammadex (Bridion) 100 mg/mL injection Intravenous, PRN, Starting on 01/21/24 at 0001, Until 01/21/24 at 0047, Anesthesia Intra-op, Routine Given 01/21/2024 12:01 AM EDT 200 mg documented in this encounter Care Teams Customer Support Advisor Relationship Specialty Start Date End Date Graciela Naidu MD [address] [place] [address] PCP - General 07/21/10 documented as of this encounter
--- OUTSIDE RECORDS SUMMARY | 2024-03-28 02:45 | XMS_ITS | Encounter Summary ---
[place] [address] Care Team Providers Care Gas Plumbing Inspector Name Role Phone Graciela Naidu MD Primary Care Provider Encounter Details Date Type Department Care Team (Latest Contact Info) Description 01/20/2024 Travel Social History Tobacco Use Types Packs/Day Years Used Date Smoking Tobacco: Never Assessed [facility] Utilities Answer Date Recorded In [...] any time in the past 12 m [facility], were you homeless or living in a halfway (including now)? No 01/21/2024 IPV Inpatient Questions [...] 04/20/2024 3:45 PM EDT [place] [address] Pam Grant MD [facility] [place] [address] 04/20/2024 4:40 PM EDT Office Visit Urology at [place] [phone] Pam Grant MD [facility] [place] [address] documented as of this encounter Visit Diagnoses Not on filedocumented in this encounter Care Teams Gas Plumbing Inspector Relationship Specialty Start Date End Date Graciela Naidu MD [address] [place] [address] PCP - General 07/21/10 documented as of this encounter
--- OUTSIDE RECORDS SUMMARY | 2024-03-28 02:45 | XMS_ITS | Encounter Summary ---
[place] [address] Care Team Providers Care Farmer And Grazier Name Role Phone Graciela Naidu MD Primary Care Provider [phone] Encounter Details Date Type Department Care Team (Late st Contact Info) Description 01/13/2024 Ancillary Procedure [place] [address] Candi Rodriguez MD [address] [place] [address] Social History Tobacco Use Types Packs/Day Years Used Date Smoking Tobacco: Never Assessed Sex and Gender Information Value Date Recorded Sex Assigned at Not on file Gender Identity Not on file Sexual Orientation Not on file documented as of this encounter Plan of Treatment Upcoming Encounters Date Type Department Care Team (Late st Contact Info) Description 04/20/2024 3:45 PM EDT Appoint[place] [address] Pam Grant MD [facility] [place] [address] 04/20/2024 4:40 PM EDT [place] [address] Pam Grant MD [facility] [place] [address] documented as of this encounter Procedures Procedure Name Priority Date/Time Associated Diagnosis Comments FILM LIBRARY STORAGE ONLY DX ABDOMEN Routine 01/13/2024 12:00 AM EDT documented in this encounter Results * Film Library- Storage Only DX Abdomen (01/13/2024 12:00 AM EDT) Narrative [facility] - 01/20/2024 5:37 PM EDT This exam is auto-finalizing. It's purpose is for storage only. Candi Rodriguez MD IMG FILM LIBRARY ORD ERABLES Performing Organization Address City/State/[facility] Co de Phone Number [place], [place] documented in this encounter Visit Diagnoses Not on filedocumented in this encounter Care Teams Farmer And Grazier Relationship Specialty Start Date End Date Graciela Naidu MD [address] [place] [address] PCP - General 07/21/10 documented as of this encounter
--- OUTSIDE RECORDS SUMMARY | 2024-03-28 02:45 | XMS_ITS | Encounter Summary ---
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 Name Role Phone Graciela Naidu MD Primary Care Provider [phone] Reason for Visit * Reason Comments Hospital Transfer Urinary Tract Infection * Auth/Cert (Routine) Specialty Diagnoses / Procedures Referred By Bradley t Referred To Contact Diagnoses Pyelonephritis, acute Left ureteral calculus Ureteral obstruction, left Sepsis Infected kidney stone Procedures EMERGENCY IPI Brendan Rodriguez MD [facility] [place] [address] [facility] Referral ID Status Reason Start Date Expiration Date Visits Re quested Visits Authorized [id number] 1 1 Encounter Details Date Type Department Care Team (Late st Contact Info) Description 01/20/2024 10:40 PM EDT - 01/21/2024 12:23 AM EDT Surgery [place] [address] Brendan Rodriguez MD [facility] [place] [address] CYSTO, STENT PLACEMENT (WRVU 2.82) Social History Tobacco Use Types Packs/Day Years Used Date Smoking Tobacco: Never Smokeless Tobacco: Never Tobacco Cessation:Counseling Given: Not Answered Alcohol Use Standard Drinks/Week Comments Never 0 (1 standard drink = 0.6 oz pur e alcohol) [facility] Utilities Answer Date Recorded In the past [...] any time in the past 12 m [facility], were you homeless or living in a usp (including now)? No 01/21/2024 IPV Inpatient Questions [...] Sign Reading Time Taken Comments Blood Pressure 94/60 01/20/2024 9:59 PM EDT Pulse 89 01/20/2024 9:59 PM EDT Temperature 37.5 ??C (99.5 ??F) 01/20/2024 9:59 PM ED T Respiratory Rate 20 01/20/2024 9:59 PM EDT Oxygen Saturation 98% 01/20/2024 9:59 PM EDT Inhaled Oxygen Concentration - - Weight 102.1 kg (225 lb) 01/20/2024 9:59 PM EDT Height 169 cm (5' 6.54) 01/20/2024 9:59 PM EDT Body Mass Index 36.31 01/21/2024 1:00 AM EDT documented in this encounter Discharge Summaries * Brendan Rodriguez MD - 01/24/2024 7:01 AM EDT Discharge Summary Patient Name: Barbra Dc Patient Age: 58 y.o. Language: Iraqi Race: White Ethnicity: Not nor Admit date: 01/20/2024 Discharge date: 01/24/2024 Attending Physician: Brendan Rodriguez MD Discharge Diagnoses (Hospital Problems) and Secondary Diagnoses (Chronic Problems): Active Hospital Problems Diagnosis Ureteral obstruction, left Sepsis Resolved Hospital Problems No resolved problems to display. There are no active non-hospital problems to display for this patient. Operations/Major Procedures: Procedure(s): CYSTO, STENT PLACEMENT (WRVU 2.82) MODIFIER,UROLOGY,PEDI TO ADULT 01/20/2024 - 01/21/2024 History of Presentation: (from admission H&P) Barbra Dc is a 58 y.o. female with pmh of obesity, now septic from left 5mm proximal obstructing ureteral calculus. WBC, 12K, Tmax 102F, tachycardic, Cr 1.4. Received Rocephin 2grams at [facility]. OR Findings: - Septic from obstructing left ureteral stone - Cloudy bladder urine sent for culture - Left renal aspirate sent for culture - L 6Fr x variable length ureteral stent placed - 14Fr lemus catheter placed Hospital Course: Patient was admitted electively to [facility] via the ED and [facility] a few hours after surgery. POD0 Required pressors intra-op, admitted to ICU postop. UTI, bacteremia causing sepsis. Weaned offpressors shortly after. POD1 Afebrile, HDS POD2 Afebrile, HDS. Lemus removed POD3 Afebrile, HDS She remained afebrile, with stable vital signs for the last 24 hours. Today, on POD# 4 she has met all criteria for discharge home: her pain is well controlled with medications by mouth, she is tolerating a regular diet, is voiding spontaneously without difficulties, and is up and ambulating without complications. She has been deemed safe for discharge. Plan: -Follow up: URS in 2-4 weeks requested -Cx: [facility] blood cx grew E.coli, continue cipro for 14 days - Ucx E.coli sensitive to fluoroquinolones Vital Signs at Discharge: Weight: Wt Readings from Last 1 Encounters: 01/21/24 103.7 kg (228 lb 9.9 oz) Height: Ht Readings from Last 1 Encounters: 01/21/24 169 cm (5' 6.54) BMI: Body mass index is 36.31 kg/m??. Last value Range last 24 hrs Temperature Temp: 37.5 ??C (99.5 ??F) Temp: [36.6 ??C (97.9 ??F)-37.5 ??C (99.5 ??F)] Heart Rate Heart Rate: 73 Heart Rate: -- Blood Pressure BP: 155/87 BP: (112-155)/(58-89) Respiratory Rate Resp: 18 Resp: [17-23] SpO2 SpO2: 100 % SpO2: [98 %-100 %] Exam at Discharge: General: NAD, resting comfortably, pleasant, conversant HEENT: Normocephalic, atraumatic, anicteric sclerae CVS: Reg rate Pulm: Non labored on room air Abd: soft, nontender, non-distended. : No Lemus Skin: warm, dry Ext: well perfused Functional and Cognitive Status: Ambulating and cognitively intact. Important Studies and Lab Data: Labs:Last 3 wbc, hgb, hct plt Recent Labs 01/24/24 0025 01/23/24 0506 01/21/24 0102 WBC 11.1* 13.6* 8.4 HGB 10.9* 12.1 12.2 HCT 34.0* 36.5 38.9 PLATELET 161 151 174 Last 3 Lytes Recent Labs 01/24/24 0025 01/23/24 0506 01/21/24 0102 NA 138 139 144 K Not Perf 3.6 3.6 CL 111* 110* 113* CO2 19* 21* 19* BUN 15 20* 23* CREATININE 0.78 1.05 1.58* Studies: Results for orders placed or performed during the hospital encounter of 01/20/[address] Abdomen & Pelvis (Exam End: 01/20/2024 10:47 PM) Result Value WORKSTATION ID [id number] Impression Obstructing 5 x 8 mm proximal left ureteral calculus. Bilateral scattered nonobstructing nephrolithiases, largest 3 mm. Thank you for letting us participate in the care of this patient. If you are a health care provider and have any questions regarding this report, please contact the number below. For patients who have questions please contact the health patient centered care specialist that requested your imaging first. Pending Studies and Lab Data: The patient will need the following 2 tests completed on: 01/20/2024 1. Urinalysis with reflex Culture 2. Request for Blood Gas Draw (Leb/CGP) Diagnosis: Authorizing Provider: Nhan Castelan MD, Brendan Rodriguez MD Discharge Conditions/Prognosis: Stable, medically appropriate for discharge Discharge to: Home Updated Allergies/ADRs: No Known Allergies Immunizations Given this Hospitalization: There is no immunization history on file for this patient. Discharge Medications: Your Medications New Medications Dose Details acetaminophen 325 mg tablet Commonly known as: Tylenol Take 3 tablets by mouth every 8 hours as needed for Pain. 975 mg Refills: 0 ciprofloxacin 500 mg tablet Commonly known as: Cipro Take 1 tablet by mouth 2 times daily for 14 days. 500 mg Quantity: 28 tablet Refills: 0 Continued medications, unchanged Dose Details Ambien 5 mg tablet Generic drug: zolpidem Refills: 0 Mononessa (28) 0.25-35 mg-mcg tablet Generic drug: norgestimate-ethinyl estradioL Refills: 0 Ritalin 20 mg tablet Generic drug: methylphenidate Refills: 0 venlafaxine 75 mg tablet Commonly known as: Effexor Refills: 0 Smoking Status at Discharge: Social History Tobacco Use Smoking Status Never Smokeless Tobacco Never Instructions Given to Patient at Discharge: Patient Instructions Discharge Instructions after Ureteral Stent Placement Call your doctor for: fevers greater than 101 severe nausea or vomiting increasing pain not controlled by pain medications Inability to urinate and/or large blood clots The number for questions is [phone] before 5 PM weekdays and [phone] after 5 PM and weekends if questions are urgent/emergent. Activity level: Increased activity may lead to more stent discomfort and more blood in your urine. Your activity level will be determined by your comfort level. Diet: You may resume your regular diet as tolerated. Driving: No driving while still taking opioid pain medications (wait at least 6- 8 hours since last dose). No driving if you are still sore from surgery as it may limit your ability to react quickly if necessary. Shower/Bath: No restrictions. Blood in urine: You will have blood in your urine as long as you have the stent in place. It may get better and then may worsen intermittently. This is normal. Should it become more bloody, decrease your activity and increase your fluid intake. Stent Discomfort: Most patients experience some degree [...] is removed if you have stent pain. Antibiotic:Ciprofloxacin - You have been given a prescription for Ciprofloxacin. Please take twice a day for two weeks. - Avoid strenuous activity out of a risk of tendon rupture Follow up Appointments: You will be scheduled for future removal of your kidney stone in 2-4 weeks time. Please call [phone] if you do not hear from the Urologic clinic in the next couple of days about when your procedure will be scheduled. It is important to remember that your ureteral stent cannot stay in place permanently. If it remains in place too long it may become encrusted with stone and require additional surgery to remove it. Please call our office if you do not receive your appointment or if you need to reschedule. General Instructions None Future Appointments and Orders Future Orders Complete By Expires SURGICAL CASE REQUEST: CYSTOURETEROSCOPY, LITHOTRIPSY (WRVU 7.5) [[id number] CPT(R)] As directed Process Instructions: Scheduling Instructions: This order is to be used for Surgeries and Procedures being performed at an internal [facility] facility or an external facility with a [facility] [place] or [place] provider. This includes allinternal ORs, ASCs, and Endoscopy areas, and Pain Clinics at [facility], [facility]. For Surgeries and Procedures being performed at other non- Surgical facilities, please use an order with an ID# that begins with EXT. Questions: Pre-procedure Diagnosis: Urolithiasis Case Classification: G = Elective When should the procedure be done?: Surgeon requested Anesthesia Type for surgery: per Anesthesiology Surgeon request for regional post-op pain control placed by anesthesia provider: Request NO REGIONAL Pre-admission testing needed?: Special Needs? (Comments box above, or paper, for details): Clinical Trial?: Special Anesthesia intubation requests: Enhanced Recovery Patient?: Pre-op COVID Testing Needed?: Explant: Follow-Up: No future appointments. Primary Care Provider: Graciela Naidu MD [phone] Follow-up Recommendations for Providers: None Unexpected Findings: None Call your doctor if: Please call your doctor immediately or go to an Emergency Department if you notice worsening pain not controlled by pain medications, uncontrolled headache, vision changes, chest pain, difficulty breathing, persistent nausea and vomiting, new redness or swelling in any extremities, new onset weakness or changes in sensation, or for any fevers greater than 101.3 F. Your care was managed by the Urology Team at [facility]. If you have any questions or concerns, please feel free to contact us. Provider Contact Information: Urology Clinic: [facility] (after business hours): Time spent on discharge plannin minutes JOHN Carlson 01/24/2024 Urology Attending: I saw and evaluated the patient. I agree with the findings and the plan of care as documented in Rosy Claire' note. Brendan Rodriguez MD, FACS documented in this encounter Discharge Instructions * Patient Instructions* Arnie Claire PA - 01/24/2024 7:10 AM EDT Discharge Instructions after Ureteral Stent Placement Call your doctor for: fevers greater than 101 severe nausea or vomiting increasing pain not controlled by pain medications Inability to urinate and/or large blood clots The number for questions is [phone] before 5 PM weekdays and [phone] after 5 PM and weekends if questions are urgent/emergent. Activity level: Increased activity may lead to more stent discomfort and more blood in your urine. Your activity level will be determined by your comfort level. Diet: You may resume your regular diet as tolerated. Driving: No driving while still taking opioid pain medications (wait at least 6- 8 hours since last dose). No driving if you are still sore from surgery as it may limit your ability to react quickly if necessary. Shower/Bath: No restrictions. Blood in urine: You will have blood in your urine as long as you have the stent in place. It may get better and then may worsen intermittently. This is normal. Should it become more bloody, decrease your activity and increase your fluid intake. Stent Discomfort: Most patients experience some degree [...] is removed if you have stent pain. Antibiotic:Ciprofloxacin - You have been given a prescription for Ciprofloxacin. Please take twice a day for two weeks. - Avoid strenuous activity out of a risk of tendon rupture Follow up Appointments: You will be scheduled for future removal of your kidney stone in 2-4 weeks time. Please call [phone] if you do not hear from the Urologic clinic in the next couple of days about when your procedure will be scheduled. It is important to remember that your [...] 8 hours as needed for Pain. 01/24/2024 ciprofloxacin (Cipro) 500 mg tablet Take 1 tablet by mouth 2 times daily for 14 days. 28 tablet 01/24/2024 02/07/2024 methylphenidate (RITALIN) 20 mg tablet 07/16/201003/09 zolpidem (AMBIEN) 5 mg tablet 07/16/2010 03/09/2024 venlafaxine (EFFEXOR) 75 mg tablet 07/16/2010 03/09/2024 documented as of this encounter Progress Notes * Brendan Quarles, PROCTOLOGIST - 01/23/2024 10:17 PM EDT Respiratory Therapy NIV Note NIV Settings: NIV Mode: CPAP EPAP (cmH20): 5 PEEP/CPAP (cm H2O): 5 cm H20 FiO2 (%): 40 % NIV Measurements: Resp: 18 Mve: 10.3 Leak (L/min): 0 L/min Vte: 572 SpO2: 98 % Skin Assessment: NIV Skin Assessment WDL: WDL Assessment: Patient compliant with CPAP for 3 hours tonight. Plan: Continue HS CPAP BRENDAN QUARLES PROCTOLOGIST * Brendan Rodriguez MD - 01/23/2024 9:19 AM EDT Urology Progress Note Patient: Barbra Dc : 1965 Room: [address] Admit date: 01/20/2024 Attending: Brendan Rodriguez MD ID: Barbra Dc is a 58 y.o. female with a history of obesity 3 Days Post-Op s/p left ureteral stent placement due to septic stone. Past 24 hr Events: - Left ureteral stent placed 01/19 - On Zosyn -Floor status since 01/20 - Afebrile and HDS without blood pressure support since procedure -Lemus removed yesterday with good voids and low PVRs - Patient overall feeling better, but still mildly lethargic WBC 13.6 (8.4) - Creatinine 1.05 (1.58 Current Medications: piperacillin-tazobactam 3.375 g Intravenous Q8H heparin (porcine) 5,000 Units Subcutaneous 2 times per day dextroamphetamine-amphetamine XR 30 mg Oral Daily venlafaxine XR 150 mg Oral Daily with breakfast topiramate 100 mg Oral BID Objective: Last value Range last 24hrs Temperature Temp: 36.9 ??C (98.4 ??F) Temp: [36.7 ??C (98.1 ??F)-37.1 ??C (98.8 ??F)] Heart Rate Heart Rate: 73 Heart Rate: -- Blood Pressure BP: 124/76 BP: (124-149)/(76-95) Respiratory Rate Resp: 20 Resp: [16-20] SpO2 SpO2: 99 % SpO2: [97 %-99 %] Intake/Output Summary (Last 24 hours) at 01/23/2024 0919 Last data filed at 01/23/2024 0844 Gross per 24 hour Intake 1100 ml Output 100 ml Net 1000 ml Physical Exam: Gen: NAD, awake/alert CV: regular rate Pulm: non-labored breathing on room air Abd: soft, non-tender, non-distended : Lemus removed Ext: warm, well perfused, moving spontaneously Labs: Recent Labs 01/23/24 0506 01/21/24 0102 01/20/24 2314 WBC 13.6* 8.4 27.2* HGB 12.1 12.2 11.7 HCT 36.5 38.9 37.2 PLATELET 151 174 194 Recent Labs 01/23/24 0506 01/21/24 0102 01/20/24 2314 NA 139 144 145 K 3.6 3.6 3.0* CL 110* 113* 118* CO2 21* 19* 17* BUN 20* 23* 21* CREATININE 1.05 1.58* 1.51* GLUCOSE 109 159 111 CALCIUM 8.6 8.3* 7.4* MAGNESIUM 0.84 0.70 -- PHOS 2.0* 2.9 -- No results found for: SPGRAVITYUA, PHUADIP, PROTEINUADIP, GLUCOSEU, KETONESUA, UROBILIUADIP, BLOODUADIP, NITRATEUA, LEUKOESTERUA, WBCUA, BILIRUBINUA Imaging: CT abd/pel w/o contrast (re-read 01/21/24, origical imaging obtained 01/20/24): IMPRESSION Obstructing 5 x 8 mm proximal left ureteral calculus. Bilateral scattered nonobstructing nephrolithiases, largest 3 mm. Micro: Urine cultures growing prelim E. coli A/P: Barbra Dc is a 58 y.o. female now 3 Days Post-Op s/p left ureteral stent placement for septic stone 01/20/24. Patient transferred to ICU following procedure for blood pressure support requirement intra-op. She was given a one time dose of vancomycin overnight and now remains on Zosyn. Post-op, patient has been afebrile and hemo dynamically stable without IV pressors. Patient now floor status plan to de-escalate antibiotics pending culture results. Will call outside hospital today to see if there urine cultures to speciate yet. Regardless, will remain inpatient today for monitoring as her WBC has increased slightly and she is still does not appear fully at her baseline after infection. Plan: - Regular diet - Continue Zosyn - Follow-up urine cultures - Call outside hospital for urine culture results Plan discussed with Dr. Rodriguez, Urology attending. Quique Hanson MD 01/23/2024 [id number] Urology Attending: I saw and evaluated the patient. I agree with the findings and the plan of care as documented in Dr. Hanson's note. Brendan Rodriguez MD, FACS * Brendan Rodriguez MD - 01/22/2024 9:39 AM EDT Urology Progress Note Patient: Barbra Dc : 1965 Room: [address] Admit date: 01/20/2024 Attending: Brendan Rodriguez MD ID: Barbra Dc is a 58 y.o. female with a history of obesity 2 Days Post-Op s/p left ureteral stent placement due to septic stone. Past 24 hr Events: - Left ureteral stent placed 01/19 - On Zosyn -Floor status since 01/20 - Afebrile and HDS without blood pressure support since procedure - Lemus draining clear yellow urine - Patient overall feeling better - WBC 27 -> 8, pending labs this a.m. - Cr 1.51 -> 1.58 pending labs this a.m. Current Medications: piperacillin-tazobactam 3.375 g Intravenous Q8H heparin (porcine) 5,000 Units Subcutaneous 2 times per day dextroamphetamine-amphetamine XR 30 mg Oral Daily venlafaxine XR 150 mg Oral Daily with breakfast topiramate 100 mg Oral BID Objective: Last value Range last 24hrs Temperature Temp: 37.1 ??C (98.8 ??F) Temp: [36.5 ??C (97.7 ??F)-37.1 ??C (98.8 ??F)] Heart Rate Heart Rate: 73 Heart Rate: [70-76] Blood Pressure BP: 127/84 BP: (96-127)/(56-84) Respiratory Rate Resp: 18 Resp: [15-22] SpO2 SpO2: 97 % SpO2: [95 %-98 %] Intake/Output Summary (Last 24 hours) at 01/22/2024 0939 Last data filed at 01/22/2024 0800 Gross per 24 hour Intake 2956 ml Output 1070 ml Net 1886 ml Physical Exam: Gen: NAD, awake/alert CV: regular rate Pulm: non-labored breathing on room air Abd: soft, non-tender, non-distended : Lemus draining clear yellow urine Ext: warm, well perfused, moving spontaneously Labs: Recent Labs 01/21/24 0102 01/20/24 2314 WBC 8.4 27.2* HGB 12.2 11.7 HCT 38.9 37.2 PLATELET 174 194 Recent Labs 01/21/24 0102 01/20/24 2314 NA 144 145 K 3.6 3.0* CL 113* 118* CO2 19* 17* BUN 23* 21* CREATININE 1.58* 1.51* GLUCOSE 159 111 CALCIUM 8.3* 7.4* MAGNESIUM 0.70 -- PHOS 2.9 -- No results found for: SPGRAVITYUA, PHUADIP, PROTEINUADIP, GLUCOSEU, KETONESUA, UROBILIUADIP, BLOODUADIP, NITRATEUA, LEUKOESTERUA, WBCUA, BILIRUBINUA Imaging: CT abd/pel w/o contrast (re-read 01/21/24, origical imaging obtained 01/20/24): IMPRESSION Obstructing 5 x 8 mm proximal left ureteral calculus. Bilateral scattered nonobstructing nephrolithiases, largest 3 mm. Micro: Urine culture data pending A/P: Barbra Dc is a 58 y.o. female now 2 Days Post-Op s/p left ureteral stent placement for septic stone 01/20/24. Patient transferred to ICU following procedure for blood pressure support requirement intra-op. She was given a one time dose of vancomycin overnight and now remains on Zosyn. Post-op, patient has been afebrile and hemo dynamically stable without IV pressors. Patient now floor status plan to de-escalate antibiotics pending culture results. Will DC Lemus catheter and the patient has remained stable and afebrile. Will continue Zosyn until urine culture results. Plan: - Regular diet - DC Lemus catheter - Continue Zosyn - Follow-up urine cultures -Hep-Lock IV Plan discussed with Dr. Rodriguez, Urology attending. Quique Hanson MD 01/22/2024 [id number] Urology Attending: I saw and evaluated the patient. I agree with the findings and the plan of care as documented in Dr. Hanson's note. Brendan Rodriguez MD, FACS * Brendan Rodriguez MD - 01/21/2024 9:17 AM EDT Urology Progress Note Patient: Barbra Dc : 1965 Room: [address] Admit date: 01/20/2024 Attending: Brendan Rodriguez MD ID: Barbra Dc is a 58 y.o. female with a history of obesity 1 Day Post-Op s/p left ureteral stent placement due to septic stone. Past 24 hr Events: - Left ureteral stent placed overnight requiring IV pressors intra-op so transferred to ICU - On Zosyn - Afebrile and HDS without blood pressure support since procedure - Lemus draining cloudy yellow urine - Patient overall feeling better - WBC 27 -> 8 - Cr 1.51 -> 1.58 (latest labs collected soon after OR) Current Medications: piperacillin-tazobactam 3.375 g Intravenous Q8H heparin (porcine) 5,000 Units Subcutaneous 2 times per day dextroamphetamine-amphetamine XR 30 mg Oral Daily venlafaxine XR 150 mg Oral Daily with breakfast topiramate 100 mg Oral BID Objective: Last value Range last 24hrs Temperature Temp: 37.3 ??C (99.1 ??F) Temp: [37 ??C (98.6 ??F)-37.5 ??C (99.5 ??F)] Heart Rate Heart Rate: 83 Heart Rate: [82-98] Blood Pressure BP: 113/67 BP: (94-113)/(60-67) Respiratory Rate Resp: 21 Resp: [14-25] SpO2 SpO2: 97 % SpO2: [97 %-100 %] Intake/Output Summary (Last 24 hours) at 01/21/2024 0917 Last data filed at 01/21/2024 0518 Gross per 24 hour Intake 923.3 ml Output 576 ml Net 347.3 ml Physical Exam: Gen: NAD, awake/alert CV: regular rate Pulm: non-labored breathing on room air Abd: soft, non-tender, non-distended : Lemus draining cloudy yellow urine Ext: warm, well perfused, moving spontaneously Labs: Recent Labs 01/21/24 0102 01/20/24 2314 WBC 8.4 27.2* HGB 12.2 11.7 HCT 38.9 37.2 PLATELET 174 194 Recent Labs 01/21/24 0102 01/20/24 2314 NA 144 145 K 3.6 3.0* CL 113* 118* CO2 19* 17* BUN 23* 21* CREATININE 1.58* 1.51* GLUCOSE 159 111 CALCIUM 8.3* 7.4* MAGNESIUM 0.70 -- PHOS 2.9 -- No results found for: SPGRAVITYUA, PHUADIP, PROTEINUADIP, GLUCOSEU, KETONESUA, UROBILIUADIP, BLOODUADIP, NITRATEUA, LEUKOESTERUA, WBCUA, BILIRUBINUA Imaging: CT abd/pel w/o contrast (re-read 01/21/24, origical imaging obtained 01/20/24): IMPRESSION Obstructing 5 x 8 mm proximal left ureteral calculus. Bilateral scattered nonobstructing nephrolithiases, largest 3 mm. Micro: Urine culture data pending A/P: Barbra Dc is a 58 y.o. female now 1 Day Post-Op s/p left ureteral stent placement for septic stone 01/20/24. Patient transferred to ICU following procedure for blood pressure support requirement intra-op. She was given a one time dose of vancomycin overnight and now remains on Zosyn. Post-op, patient has been afebrile and hemo dynamically stable without IV pressors. Will transfer patient to floor status if patient continues to do well. Plan to de-escalate antibiotics pending culture results. WBC downtrended from 27 to 8. Cr remains unchanged from admission labs (1.51-> 1.58)however last set of labs collected shortly after procedure. Plan to recheck labs tomorrow. Will cont inue with Lemus catheter for now for maximum urinary drainage for infection. Today's Plan: Down grade to floor status if patient remains stable Recommend cont. Zosyn until cx data returns Cont. Lemus catheter Regular diet Rest of care per ICU team, appreciate recc's. Plan discussed with Dr. Rodriguez, Urology attending. JOHN Faustin 01/21/2024 [id number] Urology Attending: I saw and evaluated the patient. I agree with the findings and the plan of care as documented in PAClacho Nelson's, note. Brendan Rodriguez MD, FACS documented in this encounter H&P Notes * Brandyn Kan MD - 01/21/2024 12:08 AM EDT Critical Care - Admission Note History of Present Illness: Barbra Dc is a 58 y.o. female with PMH of ADHD and PACO per patient report, possible MDD or Migraines (med review) who was transferred from [facility] for management of L obstructing ureteral stone andurosepsis. Reportedly, she had systolic pressures in the 80s, tachycardia, Tmax 102, WBC 12, and Cr1.4. The patient went to the OR with Urology for ureteral stent placement and was hemodynamically stable during the procedure with some liz-oral cyanosis per Anesthesia report. The patient is admitted to the SICU in stable condition, no pressor needs, for monitoring per request of the Urology and Anesthesia team given her pre-op sepsis symptoms. Review of Systems: Denies HERNANDEZ, abdominal pain, CP, SOB, N/V. Past Medical Surgery: No past medical history on file. Past and Surgical History: No past surgical history on file. Prior To Admission Medications: Medications Prior to Admission Medication Sig Dispense Refill Last Dose norgestimate-ethinyl estradiol (MONONESSA, 28,) 0.25-35 mg-mcg per tablet methylphenidate (RITALIN) 20 mg tablet zolpidem (AMBIEN) 5 mg tablet venlafaxine (EFFEXOR) 75 mg tablet Current Medications: lactated ringers infusion magnesium sulfate 1 g in dextrose 5% 100 mL infusion potassium chloride 10 mEq in sterile water 100 mL infusion OR potassium chloride 10 mEq in sterile water 100 mL infusion OR potassium chloride 10 mEq in sterile water 100 mL infusion NORepinephrine (Levophed) (16 mcg/mL) in dextrose 5% 250 mL infusion iohexoL (Omnipaque) (300 mg/mL) solution piperacillin-tazobactam (Zosyn) 3.375 g vial attach to sodium chloride 0.9% 50 mL Mini-Bag Plus heparin (porcine) (5,000 units/1 mL) subcutaneous injection 5,000 Units vancomycin (Vancocin) 1.5 gram in sodium chloride 0.9% 500 mL infusion calcium gluconate 1g in sodium chloride 0.9% 50mL acetaminophen (Tylenol) tablet 975 mg oxyCODONE (Roxicodone) tablet 2.5 mg OR oxyCODONE (Roxicodone) tablet 5 mg oxyCODONE (Roxicodone) tablet 2.5 mg Allergies: No Known Allergies Family History: No family history on file. Social History and Habits: Social History Socioeconomic History Marital status: Spouse name: Not on file Number of children: Not on file Years of education: Not on file Highest education level: Not on file Occupational History Not on file Tobacco Use Smoking status: Not on file Smokeless tobacco: Not on file Substance and Sexual Activity Alcohol use: Not on file Drug use: Not on file Sexual activity: Not on file Other Topics Concern Not on file Social History Narrative Not on file Social Determinants of Health Financial Resource Strain: Not on file Food Insecurity: Not on file Transportation Needs: Not on file Physical Activity: Not on file Intimate Partner Violence: Not At Risk (01/20/2024) IPV Inpatient Questions Prevent Contact with Others: no Feels Threatened by Someone: no Feels Unsafe at Home: no Physical Signs of Abuse Present: no Housing Stability: Not on file Physical Exam: Last Set of Vitals and range of vitals over past 24 hours: Last value Range last 24 hrs Temperature Temp: 37.5 ??C (99.5 ??F) Temp: [37.5 ??C (99.5 ??F)] Heart Rate Heart Rate: 89 Heart Rate: [89] Blood Pressure BP: 94/60 BP: (94)/(60) Respiratory Rate Resp: 21 Resp: [20-21] SpO2 SpO2: 100 % SpO2: [98 %-100 %] Gen: Awake, alert HEENT: Sclera non-icteric, PERRL CV: RRR, no m/r/g RESP: CTAB, no wheezing, on RA ABD: Soft, normoactive bowel sounds URO: Lemus in place, mildly cloudy urine output EXT: WWP, palpable pulses bilaterally Neuro: Grossly intact Laboratory (Last 24 Hours): Recent Results (from the past 24 hour(s)) Basic Metabolic Panel (non-fasting) Result Value Ref Range Glucose Lvl 111 65 - 199 mg/dL BUN 21 (H) 8 - 18 mg/dL Creatinine 1.51 (H) 0.70 - 1.20 mg/dL Sodium 145 135 - 145 mmol/L Potassium 3.0 (CRIT) 3.5 - 5.0 mmol/L Chloride 118 (H) 98 - 107 mmol/L CO2 17 (L) 22 - 31 mmol/L Anion Gap 10 5 - 15 mmol/L Calcium 7.4 (L) 8.5 - 10.5 mg/dL Estimated GFR 40 (L) >=60 mL/min/1.73 m?? Hemogram Result Value Ref Range WBC 27.2 (H) 4.0 - 9.5 x10(3)/mcL RBC 4.03 4.00 - 5.21 x10(6)/mcL Hemoglobin 11.7 11.7 - 15.5 g/dL Hematocrit 37.2 35.7 - 45.8 % MCV 92.3 82.6 - 94.4 fL MCH 29.0 27.1 - 32.0 pg MCHC 31.5 (L) 31.7 - 35.0 g/dL Platelets 194 145 - 357 x10(3)/mcL RDWSD 47.5 (H) 37.0 - 46.0 fL RDWCV 14.0 11.5 - 14.1 % MPV 11.1 7.6 - 12.9 fL nRBC % Auto 0.0 % nRBC Abs Auto 0.000 0.000 - 0.000 x10(3)/mcL Differential, Automated Result Value Ref Range Neutrophils % 92.9 % Neutr Abs (ANC) 25.22 (H) 1.70 - 6.10 x10(3)/mcL Lymphocytes % 2.1 % Lymphocytes Abs 0.6 (L) 0.9 - 3.2 x10(3)/mcL Monocytes % 3.2 % Monocyte Abs 0.9 0.3 - 0.9 x10(3)/mcL Eosinophils % 0.4 % Eosinophils Abs 0.1 0.0 - 0.4 x10(3)/mcL Basophils % 0.2 % Basophils Abs 0.1 0.0 - 0.1 x10(3)/mcL Immature Gran % 1.20 % Neelam Gran Abs 0.32 (H) 0.00 - 0.04 x10(3)/mcL Scan, Peripheral Blood Result Value Ref Range Plat Estimate Normal RBC Morphology Normal POCT Glucose Result Value Ref Range POC Glucose 124 65 - 199 mg/dL Hemogram Result Value Ref Range WBC 8.4 4.0 - 9.5 x10(3)/mcL RBC 4.18 4.00 - 5.21 x10(6)/mcL Hemoglobin 12.2 11.7 - 15.5 g/dL Hematocrit 38.9 35.7 - 45.8 % MCV 93.1 82.6 - 94.4 fL MCH 29.2 27.1 - 32.0 pg MCHC 31.4 (L) 31.7 - 35.0 g/dL Platelets 174 145 - 357 x10(3)/mcL RDWSD 47.9 (H) 37.0 - 46.0 fL RDWCV 13.9 11.5 - 14.1 % MPV 11.2 7.6 - 12.9 fL nRBC % Auto 0.0 % nRBC Abs Auto 0.000 0.000 - 0.000 x10(3)/mcL Differential, Automated Result Value Ref Range Neutrophils % 94.2 % Neutr Abs (ANC) 7.96 (H) 1.70 - 6.10 x10(3)/mcL Lymphocytes % 3.7 % Lymphocytes Abs 0.3 (L) 0.9 - 3.2 x10(3)/mcL Monocytes % 0.8 % Monocyte Abs 0.1 (L) 0.3 - 0.9 x10(3)/mcL Eosinophils % 0.2 % Eosinophils Abs 0.0 0.0 - 0.4 x10(3)/mcL Basophils % 0.5 % Basophils Abs 0.0 0.0 - 0.1 x10(3)/mcL Immature Gran % 0.60 % Neelam Gran Abs 0.05 (H) 0.00 - 0.04 x10(3)/mcL Microbiology: Blood Cultures: none Urine Cultures: from bladder and kidney sent, pending Radiology: No post-op imaging Assessment/Plan: Barbra Dc is a 58 y.o. female with pmhx of ADHD and PACO who is admitted to the SICU s/p stent placement for ureteral stone for monitoring in the context of urosepsis. Neuro: - pain control: acetaminophen, Oxycodone PRN - sedation: none - ordered home meds: Venlafaxine, Methylphenidate, Topiramate CV: - vasopressors: none - SBP goal: <160, MAP goal > 65 Pulm: - CPAP ordered FEN: -LR @ 100 ml/hr GI: - Full liquid diet per urology : #Ureteral stone s/p stent 01/19 - lemus, monitor UOP, appearance Endo: - no endocrine history ID: #Urosepsis - ABX: Broad spectrum (Vanc/Zosyn) per urology - cultures: urine samples sent, pending Heme: - CBC qD PPx: - DVT: SCD's, SQH - GI: none Disp: admit to ICU, Critical Care Red 1 Brandyn Kan MD 01/21/2024 Associated attestation - Sue Cao DO - 01/21/2024 7:58 AM EDT CCS ATTENDING ATTESTATION NOTE The patients presentation, data and plan was discussed with the resident physician. I have not examined the patient. * Brendan Rodriguez MD - 01/20/2024 11:00 PM EDT Patient Name: Barbra Dc Age: 58 y.o. Date of : 1965 Attending Provider: No att. providers found Urology Pre-op H&P Barbra Dc is a 58 y.o. female with pmh of obesity, now septic from left 5mm proximal obstructing ureteral calculus. WBC, 12K, Tmax 102F, tachycardic, Cr 1.4. Received Rocephin 2grams at [facility]. PMH: No past medical history on file. PSHx: No past surgical history on file. Home Meds: No current facility-administered medications on file prior to encounter. Current Outpatient Medications on File Prior to Encounter Medication Sig Dispense Refill norgestimate-ethinyl estradiol (MONONESSA, 28,) 0.25-35 mg-mcg per tablet methylphenidate (RITALIN) 20 mg tablet zolpidem (AMBIEN) 5 mg tablet venlafaxine (EFFEXOR) 75 mg tablet PHYSICAL EXAM Temp: [37.5 ??C (99.5 ??F)] Heart Rate: [89] Resp: [20] BP: (94)/(60) SpO2: [98 %] Heart Rate from SpO2: -- GEN: Alert, ashen, ill appearing. CHEST: CTAB CV: tachycardic, no murmurs appreciated ASSESSMENT / PLAN 58 y.o. female presenting as transfer for cysto and L stent for sepsis 2/2 left obstructing proximal ureteral stone. All risks, benefits and alternatives have been explained, patient wishes to proceed with scheduled procedure. Consent is signed: yes Site marking: LEFT Prophylactic antibiotics ordered: Zosyn Code status reviewed: full. Quique Hanson MD Urology Attending: I saw and evaluated the patient. I agree with the findings and the plan of care as documented in Dr. Hanson's note. Brendan Rodriguez MD, FACS documented in this encounter ED Notes * Sunshine June MD - 01/21/2024 7:53 AM EDT ED Resident Note HPI: Barbra Dc is a 58 y.o. female with no significant past medical history who presents to the Emergency Department for urology evaluation for concerns of septic stone. Patient reports that she presented to an outside hospital this morning with extreme left-sided abdominal pain. At that time she was reportedly told she had a kidney stone and sent home. Patient reports that she developed fevers later that day and represented to the outside hospital. Per EMS at the outside while she had a leukocytosis, elevated lactate she received a gram of 7 IV fluids and Tylenol.ROS as per HPI Vitals: ED Triage Vitals BP: 94/60 [01/20/242158] Heart Rate: 89 [01/20/242158] Resp: 20 [01/20/242158] Temp: 37.5 ??C (99.5 ??F) [01/20/242158] Temp src: Oral [01/21/24 0100] SpO2: 98 % [01/20/242158] O2 Device: RA [01/20/242158] O2 Flow Rate (L/min): n/a Physical Exam Constitutional: Appearance: She is ill-appearing. She is not toxic-appearing or diaphoretic. Comments: Somewhat tired appearing Cardiovascular: Rate and Rhythm: Normal rate. Pulses: Normal pulses. Pulmonary: Effort: Pulmonary effort is normal. No respiratory distress. Breath sounds: No wheezing. Abdominal: General: Abdomen is flat. Tenderness: There is no abdominal tenderness. There is no guarding. Skin: Capillary Refill: Capillary refill takes less than 2 seconds. Coloration: Skin is not pale. Neurological: General: No focal deficit present. Psychiatric: Mood and Affect: Mood normal. Procedures Assessment and Plan: 58 y.o. female with concerns for septic stone. Vital signs are significant for borderline hypotension on initial examination, she was not tachycardic nor febrile. On physical exam she appeared tired but nontoxic. She had no abdominal tenderness. After I evaluated her I paged urology. Ordered preop labs. She was admitted to the urology service for operative management. The visit findings, diagnosis, and care plan were discussed with the patient. Sunshine June MD Resident 01/21/24 0757 Associated attestation - Nhan Castelan MD - 01/21/2024 8:38 AM EDT ED ATTENDING ATTESTATION NOTE The patient was seen in conjunction with the resident physician. Patient was I have reviewed the diagnostic studies including labs, imaging studies. The patient did go to the operating room prior to me being able to independently evaluate her, however, I have discussed the details of the case with the resident and agree with the assessment and plan as described in the resident note. documented in this encounter Miscellaneous Notes * Care Management Discharge - Carmita Bentley RN - 01/24/2024 9:12 AM EDT CARE MANAGEMENT FINAL DISCHARGE NOTE Chart reviewed, care reviewed with primary team and at interdisciplinary rounds. Patient is medically ready for discharge to home. Needs for Transition of Care: Plan for discharge is: Home w/o Services Outpatient Agency/Support Group Needs: None Agency Referrals & Follow-up Care: Transportation: family or friend will provide Functional status prior to admission: Independent Home Environment: Others in the home: child(morgan), adult, spouse. Current Living Arrangements: home/apartment/condo. Accessibility Concerns:4 [place] multilevel home, pt can be accommodated on main floor if needed. Current Functional Ability: *2 assist DME used at home: other (see comments) (Pt has cpap at home to use as needed) DME Needed at Discharge: none Patient is insured through: Primary Insurance: [employer] [place] [employer] [place] / [place] / Product Type: *No Product type* / Secondary Insurance: N/A Prescription Coverage: Yes This plan was formulated with input from patient, and team. All are in agreement with plan. Secure chat initiated with provider and plan is for patient to leave later today via spouse/privatecar. Per chat-this patient does not have any needs at d/c. Carmita Bentley RN, CM Pager-[phone] * Plan of Care - Meaghan Manrique RN - 01/23/2024 9:53 AM EDT OUTCOME EVALUATION NOTE: OUTCOME SUMMARY: A&O x4, neuro intact. Remains on RA with clear lung sounds. HR regular, no tele orders. Voidingspontaneously, up to bedside commode with urgency and frequently. Tolerating regular diet, multiplesoft/loose bowel movements. PLAN MOVING FORWARD: IV Abx Q4 VS Problem: Bleeding (Surgery Nonspecified) Goal: Absence of Bleeding Outcome: Ongoing (Interventions Implemented as Appropriate) Problem: Bowel Motility Impaired (Surgery Nonspecified) Goal: Effective Bowel Elimination Outcome: Ongoing (Interventions Implemented as Appropriate) Problem: Infection (Surgery Nonspecified) Goal: Absence of Infection Signs and Symptoms Outcome: Ongoing (Interventions Implemented as Appropriate) Problem: Ongoing Anesthesia Effects (Surgery Nonspecified) Goal: Anesthesia/Sedation Recovery Outcome: Ongoing (Interventions Implemented as Appropriate) Problem: Pain (Surgery Nonspecified) Goal: Acceptable Pain Control Outcome: Ongoing (Interventions Implemented as Appropriate) Problem: Postoperative Nausea and Vomiting (Surgery Nonspecified) Goal: Nausea and Vomiting Relief Outcome: Ongoing (Interventions Implemented as Appropriate) Problem: Postoperative Urinary Retention (Surgery Nonspecified) Goal: Effective Urinary Elimination Outcome: Ongoing (Interventions Implemented as Appropriate) Problem: Fall Injury Risk Goal: Absence of Fall and Fall-Related Injury Outcome: Ongoing (Interventions Implemented as Appropriate) Problem: Adult Inpatient Plan of Care Goal: Plan of Care Review Outcome: Ongoing (Interventions Implemented as Appropriate) Goal: Patient-Specific Goal (Individualized) Outcome: Ongoing (Interventions Implemented as Appropriate) Goal: Absence of Hospital-Acquired Illness or Injury Outcome: Ongoing (Interventions Implemented as Appropriate) Goal: Optimal Comfort and Wellbeing Outcome: Ongoing (Interventions Implemented as Appropriate) Goal: Readiness for Transition of Care Outcome: Ongoing (Interventions Implemented as Appropriate) * Plan of Care - Quita Emmanuel RN - 01/23/2024 5:31 AM EDT OUTCOME EVALUATION NOTE: OUTCOME SUMMARY: Pt a+o x4, follows commands. No report of n/t. Remains on RA, satting > 95%. MAP >65. Up to bsc as needed, adequate UOP. No PRNs given. PLAN MOVING FORWARD: D/c??? Pulm hygiene Increase mobility INDIVIDUALIZED FALL PREVENTION INTERVENTIONS: Patient-specific fall risk factors per assessment: [current deficits]: lines, hospital environment,medications Assistance [level of assistance required for transfers and ambulation]: sba/independent Supervision [direct monitoring required during toileting and ADLs]: eyes on Surveillance [continuous indirect monitoring]: sao2 Patient-specific fall prevention interventions for sensory deficits provided, if applicable: [X] N/A CARE PLAN GOAL OUTCOME EVALUATION: Problem: Bleeding (Surgery Nonspecified) Goal: Absence of Bleeding Outcome: Ongoing (Interventions Implemented as Appropriate) Problem: Bowel Motility Impaired (Surgery Nonspecified) Goal: Effective Bowel Elimination Outcome: Ongoing (Interventions Implemented as Appropriate) Problem: Infection (Surgery Nonspecified) Goal: Absence of Infection Signs and Symptoms Outcome: Ongoing (Interventions Implemented as Appropriate) Problem: Ongoing Anesthesia Effects (Surgery Nonspecified) Goal: Anesthesia/Sedation Recovery Outcome: Ongoing (Interventions Implemented as Appropriate) Problem: Pain (Surgery Nonspecified) Goal: Acceptable Pain Control Outcome: Ongoing (Interventions Implemented as Appropriate) Problem: Postoperative Nausea and Vomiting (Surgery Nonspecified) Goal: Nausea and Vomiting Relief Outcome: Ongoing (Interventions Implemented as Appropriate) Problem: Postoperative Urinary Retention (Surgery Nonspecified) Goal: Effective Urinary Elimination Outcome: Ongoing (Interventions Implemented as Appropriate) Problem: Fall Injury Risk Goal: Absence of Fall and Fall-Related Injury Outcome: Ongoing (Interventions Implemented as Appropriate) Problem: Adult Inpatient Plan of Care Goal: Plan of Care Review Outcome: Ongoing (Interventions Implemented as Appropriate) Goal: Patient-Specific Goal (Individualized) Outcome: Ongoing (Interventions Implemented as Appropriate) Goal: Absence of Hospital-Acquired Illness or Injury Outcome: Ongoing (Interventions Implemented as Appropriate) Goal: Optimal Comfort and Wellbeing Outcome: Ongoing (Interventions Implemented as Appropriate) Goal: Readiness for Transition of Care Outcome: Ongoing (Interventions Implemented as Appropriate) * Plan of Care - Juliet Hoffmann RN - 01/22/2024 8:45 AM EDT OUTCOME EVALUATION NOTE: OUTCOME SUMMARY: AxO4, moving extremities x4 with no complaint of N/T. Pain well managed with ordered regime. Sats >92% on RA. MAPs >65. Lemus discontinued at 1000 and patient voiding. BM x1. Tolerating regulardiet with no complaint of N/V. PLAN MOVING FORWARD: Monitor VS Encourage PO intake Monitor IxOs INDIVIDUALIZED FALL PREVENTION INTERVENTIONS: Patient-specific fall risk factors per assessment: [current deficits]: Lines/drains, recent surgical procedure, unfamiliar environment Assistance [level of assistance required for transfers and ambulation]: SBA Supervision [direct monitoring required during toileting and ADLs]: Eyes on Surveillance [continuous indirect monitoring]: Pulse ox, call light within reach, room near nurses station, alarms appropriately set, purposeful rounding Patient-specific fall prevention interventions for sensory deficits provided, if applicable: [X] Yes CARE PLAN GOAL OUTCOME EVALUATION: Problem: Bleeding (Surgery Nonspecified) Goal: Absence of Bleeding Outcome: Ongoing (Interventions Implemented as Appropriate) Problem: Bowel Motility Impaired (Surgery Nonspecified) Goal: Effective Bowel Elimination Outcome: Ongoing (Interventions Implemented as Appropriate) Problem: Infection (Surgery Nonspecified) Goal: Absence of Infection Signs and Symptoms Outcome: Ongoing (Interventions Implemented as Appropriate) Problem: Ongoing Anesthesia Effects (Surgery Nonspecified) Goal: Anesthesia/Sedation Recovery Outcome: Ongoing (Interventions Implemented as Appropriate) Problem: Pain (Surgery Nonspecified) Goal: Acceptable Pain Control Outcome: Ongoing (Interventions Implemented as Appropriate) Problem: Postoperative Nausea and Vomiting (Surgery Nonspecified) Goal: Nausea and Vomiting Relief Outcome: Ongoing (Interventions Implemented as Appropriate) Problem: Postoperative Urinary Retention (Surgery Nonspecified) Goal: Effective Urinary Elimination Outcome: Ongoing (Interventions Implemented as Appropriate) Problem: Fall Injury Risk Goal: Absence of Fall and Fall-Related Injury Outcome: Ongoing (Interventions Implemented as Appropriate) Problem: Adult Inpatient Plan of Care Goal: Plan of Care Review Outcome: Ongoing (Interventions Implemented as Appropriate) Goal: Patient-Specific Goal (Individualized) Outcome: Ongoing (Interventions Implemented as Appropriate) Goal: Absence of Hospital-Acquired Illness or Injury Outcome: Ongoing (Interventions Implemented as Appropriate) Goal: Optimal Comfort and Wellbeing Outcome: Ongoing (Interventions Implemented as Appropriate) Goal: Readiness for Transition of Care Outcome: Ongoing (Interventions Implemented as Appropriate) * Plan of Care - Quita Emmanuel RN - 01/22/2024 2:07 AM EDT OUTCOME EVALUATION NOTE: OUTCOME SUMMARY: Pt a+o x4, follows commands x4. Pt on RA overnight, did not want to wear cpap. NSR on tele, normotensive. Ambulated around unit x1, see flowsheets. Up to chair in AM for ~2h. Tolerated well. Resting between care. PLAN MOVING FORWARD: D/c planning Pulm hygiene Increase ambulation INDIVIDUALIZED FALL PREVENTION INTERVENTIONS: Patient-specific fall risk factors per assessment: [current deficits]: lines, drains, hospital environment, medications Assistance [level of assistance required for transfers and ambulation]: 1a/sba Supervision [direct monitoring required during toileting and ADLs]: eyes on Surveillance [continuous indirect monitoring]: pulse oximetry Patient-specific fall prevention interventions for sensory deficits provided, if applicable: [X] N/A CARE PLAN GOAL OUTCOME EVALUATION: Problem: Bleeding (Surgery Nonspecified) Goal: Absence of Bleeding Outcome: Ongoing (Interventions Implemented as Appropriate) Problem: Bowel Motility Impaired (Surgery Nonspecified) Goal: Effective Bowel Elimination Outcome: Ongoing (Interventions Implemented as Appropriate) Problem: Infection (Surgery Nonspecified) Goal: Absence of Infection Signs and Symptoms Outcome: Ongoing (Interventions Implemented as Appropriate) Problem: Ongoing Anesthesia Effects (Surgery Nonspecified) Goal: Anesthesia/Sedation Recovery Outcome: Ongoing (Interventions Implemented as Appropriate) Problem: Pain (Surgery Nonspecified) Goal: Acceptable Pain Control Outcome: Ongoing (Interventions Implemented as Appropriate) Problem: Postoperative Nausea and Vomiting (Surgery Nonspecified) Goal: Nausea and Vomiting Relief Outcome: Ongoing (Interventions Implemented as Appropriate) Problem: Postoperative Urinary Retention (Surgery Nonspecified) Goal: Effective Urinary Elimination Outcome: Ongoing (Interventions Implemented as Appropriate) Problem: Fall Injury Risk Goal: Absence of Fall and Fall-Related Injury Outcome: Ongoing (Interventions Implemented as Appropriate) Problem: Adult Inpatient Plan of Care Goal: Plan of Care Review Outcome: Ongoing (Interventions Implemented as Appropriate) Goal: Patient-Specific Goal (Individualized) Outcome: Ongoing (Interventions Implemented as Appropriate) Goal: Absence of Hospital-Acquired Illness or Injury Outcome: Ongoing (Interventions Implemented as Appropriate) Goal: Optimal Comfort and Wellbeing Outcome: Ongoing (Interventions Implemented as Appropriate) Goal: Readiness for Transition of Care Outcome: Ongoing (Interventions Implemented as Appropriate) * Initial Assessments - Yen Best MSW - 01/21/2024 2:45 PM EDT Summary: Initial Assessment Office of Care Management Initial Assessment MARITZA Anthony reviewed record and discussed patient with Care Team. 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 Admitted From: Transfer from another hospital Location: [facility] Reason for Hospitalization: Left ureteral obstruction Covid Vaccination Status: 1st, 2nd & booster Last COVID test: Past medical History: No past medical history on file. Hospitalizations Within the Past 30 Days: no previous admission in last 30 days Current Decision-Making Capacity: Self If AD's have not been completed the following surrogate would be surrogate decision maker per [place] surrogate decision making law. (Only good for 180 days) Any patient receiving care in [place] must abide by [place] law. The hierarchy for surrogate decision making is: (a) Patient???s spouse or civil union partner unless there is a divorce proceeding, separation agreement, or restraining order limiting that person???s relationship with the patient. (b) Any adult son or daughter of the patient. (c) Either parent of the patient. (d) Any adult brother or sister of the patient. (e) Any adult grandchild of the patient. (f) Any grandparent of the patient. (g) Any adult aunt, uncle, niece, or nephew of the patient. (h) A close friend of the patient. (i) The agent with financial power of shrimp picker or a conservator appointed in accordance with RSA [id number]. (j) The guardian of the patient???s estate. Advance Care Planning: Attempt Cardiopulmonary Resuscitation - Inpatient <no information> -Advanced Directive: No, declines Current Coping/Education/Information Needs: Pt was awake, alert, and conversant during IA completion; denied having any questions or concerns Current Functional Ability: 2 assist Functional Status Prior to Admission: Independent Prior ADLs & IADLs: Independent with all ADLs & IADLs Home Environment: Others in the home: child(morgan), adult, spouse. Current Living Arrangements: home/apartment/condo. Accessibility Concerns:4 VARG[place] multilevel home, pt can be accommodated on main floor if needed. In the last 12 months, was there a time when you were not able to pay the mortgage or rent on time?: No In the past 12 months, how many times have you moved where you were living?: 0 At any time in the past 12 months, were you homeless or living in a usp (including now)?: No In the past 12 months has the electric, gas, oil, or water company threatened to shut off services in your home?: No Within the past 12 months, you worried that your food would run out before you got the money to buymore.: Never true Within the past 12 months, the food you bought just didn't last and you didn't have money to get more.: Never true Resource / Environmental Concerns: Resource/Environmental Concerns: none In the past 12 months, has lack of transportation kept you from medical appointments or from getting medications?: No In the past 12 months, has lack of transportation kept you from meetings, work, or from getting things needed for daily living?: No Current DME: other (see comments) (Pt has cpap at home to use as needed) Home Address confirmed as: [address] [place] [id number] Social & Family Supports: All names listed below confirmed with patient as current and correct Extended Emergency Contact Information Primary Emergency Contact: VandaLexy rivers Relation: Child Current Care Provided by: self Provides Primary Care For: no one Caregiver if needed: child(morgan), adult Quality of Family relationships: involved, helpful, supportive Community Resources being provided currently: none Behavioral Health History: Pt denied Substance Use/Abuse confirmed: Pt denied. Social History Tobacco Use Smoking Status Never Smokeless Tobacco Never In the past year have you used an illegal drug or used a prescription medication for non-medical reasons?: No 0 No problems reported 1-2 Low level 3-5 Moderate level 6-8 Substantial level 9- 10 Severe level In the past year have you had 4 or more drinks a day containing alcohol?: No 0 to 7 points: Low risk 8 to 15 points: Medium risk 16 to 19 points: High risk 20 to 40 points: Addiction likely Other Pertinent/Service Specific Information: Pt lives in a house in [place], [place] with her /SDM Kem and adult daughter Lexy. Kem is not listed in pt's chart because he doesn't have aphone and per pt, Kem receives information and updates on pt through Lexy when needed. Pt also has two other adult children who do not live locally. Health/Prescription Coverage: Primary Insurance: [employer] [facility] [place] Payor: [employer] [facility] [place] / Plan: [place]HP / Product Type: *No Product type* / Secondary Insurance: N/A ; Prescription Coverage: Yes Preferred Pharmacy: No Pharmacies Listed Status: Patient is a : No Primary Care Provider confirmed: Graciela Naidu MD [phone] Patient/Caregiver Goals of Treatment: Pt's goal is to return back home after discharge Potential Needs for Transition of Care: (Pending) Agency Referrals: Not Applicable Transportation: no concerns Transportation Anticipated: family or friend will provide Concerns to be Addressed: denies needs/concerns at this time Assessment: Mrs. Dc is a 58 year old female who was transferred from [facility] and admitted to the SICU at [facility] with a left ureteral obstruction. Plan: Pt is currently alert and oriented. A member of the Care Management team will continue to monitor progress, follow for continuity of care and assist with transition of care planning. MARITZA Madison S[employer] Business Analyst Office of Care Management * Plan of Care - Juliet Hoffmann RN - 01/21/2024 10:50 AM EDT OUTCOME EVALUATION NOTE: OUTCOME SUMMARY: AxO4, moving extremities x4 with no complaint of N/T. Pain well managed with ordered regime. Sats >92% on RA. NSR on telemetry with MAPs >65. Lemus in place with pink/yellow output, 500cc LR bolus given for low UOP. No BM. Tolerating regular diet with no complaint of N/V. Down-graded to med-surg LOC. PLAN MOVING FORWARD: Monitor VS Encourage PO intake Monitor IxOs INDIVIDUALIZED FALL PREVENTION INTERVENTIONS: Patient-specific fall risk factors per assessment: [current deficits]: Lines/drains, recent surgical procedure, unfamiliar environment Assistance [level of assistance required for transfers and ambulation]: 2 assist Supervision [direct monitoring required during toileting and ADLs]: Hands on Surveillance [continuous indirect monitoring]: Pulse ox, call light within reach, room near nurses station, alarms appropriately set, purposeful rounding Patient-specific fall prevention interventions for sensory deficits provided, if applicable: [X] Yes CARE PLAN GOAL OUTCOME EVALUATION: Problem: Bleeding (Surgery Nonspecified) Goal: Absence of Bleeding Outcome: Ongoing (Interventions Implemented as Appropriate) Problem: Bowel Motility Impaired (Surgery Nonspecified) Goal: Effective Bowel Elimination Outcome: Ongoing (Interventions Implemented as Appropriate) Problem: Infection (Surgery Nonspecified) Goal: Absence of Infection Signs and Symptoms Outcome: Ongoing (Interventions Implemented as Appropriate) Problem: Ongoing Anesthesia Effects (Surgery Nonspecified) Goal: Anesthesia/Sedation Recovery Outcome: Ongoing (Interventions Implemented as Appropriate) Problem: Pain (Surgery Nonspecified) Goal: Acceptable Pain Control Outcome: Ongoing (Interventions Implemented as Appropriate) Problem: Postoperative Nausea and Vomiting (Surgery Nonspecified) Goal: Nausea and Vomiting Relief Outcome: Ongoing (Interventions Implemented as Appropriate) Problem: Postoperative Urinary Retention (Surgery Nonspecified) Goal: Effective Urinary Elimination Outcome: Ongoing (Interventions Implemented as Appropriate) * Plan of Care - Miranda Pisano RN - 01/21/2024 6:58 AM EDT OUTCOME EVALUATION NOTE: OUTCOME SUMMARY: Pt received from OR wo report. Pt on 4L NC wo gtt. Pt AOx4 following commands and moving all 4 ext.VBG drawn, pH 7.17 CO2 52.4, HCo3 18.6. Pt started on CPAP, on CPAP at home. AUO, yellow to red andcloudy urine. Pt not endorsing pain. Pt weened to RA. LR @100. Afebrile and normotensive. Passed swallow. PLAN MOVING FORWARD: Downgrade? INDIVIDUALIZED FALL PREVENTION INTERVENTIONS: Patient-specific fall risk factors per assessment: [current deficits]: Lines, drains, pain, generalized weakness, altered mental status, medication effects, hospital equipment, mobility limitations. Assistance [level of assistance required for transfers and ambulation]: 2 assist Supervision [direct monitoring required during toileting and ADLs]: Hands on Surveillance [continuous indirect monitoring]: [facility], bed alarm, purposeful rounding, room near nurses station. Patient-specific fall prevention interventions for sensory deficits provided, if applicable: YES CARE PLAN GOAL OUTCOME EVALUATION: Problem: Bleeding (Surgery Nonspecified) Goal: Absence of Bleeding Outcome: Ongoing (Interventions Implemented as Appropriate) Problem: Bowel Motility Impaired (Surgery Nonspecified) Goal: Effective Bowel Elimination Outcome: Ongoing (Interventions Implemented as Appropriate) Problem: Infection (Surgery Nonspecified) Goal: Absence of Infection Signs and Symptoms Outcome: Ongoing (Interventions Implemented as Appropriate) Problem: Ongoing Anesthesia Effects (Surgery Nonspecified) Goal: Anesthesia/Sedation Recovery Outcome: Ongoing (Interventions Implemented as Appropriate) Problem: Pain (Surgery Nonspecified) Goal: Acceptable Pain Control Outcome: Ongoing (Interventions Implemented as Appropriate) Problem: Postoperative Nausea and Vomiting (Surgery Nonspecified) Goal: Nausea and Vomiting Relief Outcome: Ongoing (Interventions Implemented as Appropriate) Problem: Postoperative Urinary Retention (Surgery Nonspecified) Goal: Effective Urinary Elimination Outcome: Ongoing (Interventions Implemented as Appropriate) * Op Note - Brendan Rodriguez MD - 01/20/2024 11:52 PM EDT [facility] Operative Note Patient Name: Barbra Dc : [id number] MR#: [id number] Case Date: 01/20/2024 - 01/21/2024 Surgeon: Surgeons and Role: * Brendan Rodriguez MD - Primary * Quique Hanson MD - Resident - Assisting Preoperative diagnosis: Left ureteral stone. Postoperative diagnosis: Left ureteral stone. Procedure(s) (LRB): CYSTO, STENT PLACEMENT (WRVU 2.82) (Left) MODIFIER,UROLOGY,PEDI TO ADULT (N/A) Findings: - Septic from obstructing left ureteral stone - Cloudy bladder urine sent for culture - Left renal aspirate sent for culture - L 6Fr x variable length ureteral stent placed - 14Fr lemus catheter placed Anesthesia: General Estimated Blood Loss: 0mL Specimens removed during surgery: Bladder urine and left renal aspirate for culture Drains: Left 6Fr x variable length ureteral stent, 14Fr lemus catheter Surgical Closure: n/a Disposition: awakened from anesthesia, extubated and taken to the recovery room in a stable condition, having suffered no apparent untoward event. Condition: doing well without problems (Please see the Surgical Encounter Summary for any Implant and Specimen details pertinent to this patient.) HPI/Surgical Indications: 58F septic from left 5mm proximal obstructing ureteral calculus. WBC, 12K, Tmax 102F, tachycardic, Cr 1.4. Received Rocephin 2grams at [facility]. Procedure Description: The patient was identified in the pre-operative holding area. Consent was verified. The correct side of the procedure was marked. The patient was taken to the operating room and placed supine on the operating table. General anesthesia was induced. The patient was then moved to the lithotomy position and prepped and draped in the usual sterile fashion. A timeout was performed involving all members of the OR team confirming the patient's identity and planned procedure. Preoperative antibiotics were administered. A 22 Fr rigid cystoscope was inserted into the bladder. A 360 degree cystoscopy revealed a normal appearing bladder without stones or lesions but significant debris. Urine was sent for culture from the bladder. The ureteral orifices were noted to be in orthotopic position. A glide wire was passed into the left ureteral orifice without difficulty and visualized on fluoroscopy to be within the renal pelvis. A Pollack catheter was inserted over the wire. The wire was removed and a hydronephrotic gtt was visualized. Urine was aspirated from the renal pelvis and sent for culture. Next, a small amount of contrast was instilled which showed filling defect of proximal ureter in location of suspected stone. The wire was replaced. The Pollack catheter was then removed and a 6 Fr by variable length ureteral stent was passed over the wire. The proximal coil was visualized on fluoroscopy to be within the renal pelvis and the distal coil was seen with direct visualization in the bladder. The bladder was emptied. The cystoscope was removed. A 14Fr lemus catheter was placed. The patient tolerated the procedure well and was awakened from anesthesia with no adverse events. Patient was tachycardic and still with concern for ongoing sepsis was transported to the recovery area in guarded condition. Dr. Rodriguez, the attending surgeon, was present for the entire procedure. Surgical Infection Prevention Bundle Used? N/A Attestation: Case Date: 01/20/2024 - 01/21/2024 I was present and I participated during the entire procedure (does not need to include opening and closing). BRENDAN RODRIGUEZ MD 01/21/2024 documented in this encounter Plan of Treatment Upcoming Encounters Date Type Department Care Team (Late st Contact Info) Description 04/20/2024 3:45 PM EDT Appointment Ultrasound at [facility] [place] [phone] Pam Grant MD [facility] [place] [address] 04/20/2024 4:40 PM EDT Office Visit Urology [place] [facility] [place] [address] Pam Grant MD [facility] [place] [address] documented as of this encounter Procedures Procedure Name Priority Date/Time Associated Diagnosis Comments HEMOGRAM Routine 01/24/2024 12:25 AM EDT DIFFERENTIAL, AUTOMATED Routine 01/24/2024 12:25 AM EDT HC CBC,PLT & AUTO DIFF Routine 01/24/2024 12:25 AM EDT BASIC METABOLIC PANEL (NON-FASTING) Routine 01/24/2024 12:25 AM EDT HEMOGRAM Routine 01/23/2024 5:06 AM EDT DIFFERENTIAL, AUTOMATED Routine 01/23/2024 5:06 AM EDT HC CBC,PLT & AUTO DIFF Routine 01/23/2024 5:06 AM EDT HC PHOSPHORUS, SERUM Routine 01/23/2024 5:06 AM EDT HC MAGNESIUM, SERUM Routine 01/23/2024 5 :06 AM EDT BASIC METABOLIC PANEL (NON-FASTING) Routine 01/23/2024 5:06 AM EDT HEMOGRAM STAT 01/21/2024 1:02 AM EDT DIFFERENTIAL, AUTOMATED STAT 01/21/2024 1:02 AM EDT HC CBC,PLT & AUTO DIFF STAT 01/21/2024 1:02 AM EDT HC PHOSPHORUS, SERUM STAT 01/21/2024 1:02 AM EDT HC MAGNESIUM, SERUM STAT 01/21/2024 1 :02 AM EDT BASIC METABOLIC PANEL (NON-FASTING) STAT 01/21/2024 1:02 AM EDT BLOOD GAS [...] calculus Pyelonephritis, acute Cystoscopy, Insert Ureteral Stent (09522) 01/20/2024 11:29 PM EDT Left ureteral calculus Pyelonephritis, acute SCAN, PERIPHERAL BLOOD STAT 01/20/2024 11:14 PM EDT HEMOGRAM STAT 01/20/2024 11:14 PM EDT DIFFERENTIAL, AUTOMATED STAT 01/20/2024 11:14 PM EDT HC CBC,PLT & AUTO DIFF STAT 01/20/2024 11:14 PM EDT BASIC METABOLIC PANEL (NON-FASTING) STAT 01/20/2024 11:14 PM EDT CYSTO, STENT PLACEMENT Routine 01/20/2024 10:49 PM EDT Left ureteral calculus Pyelonephritis, acute REQUEST FOR 2ND READ CT ABDOMEN AND PELVIS STAT 01/20/2024 10:47 PM EDT EKG 12-LEAD STAT 01/20/2024 10:06 PM EDT FILM LIBRARY STORAGE ONLY DX CHEST Routine 01/20/2024 12:00 AM EDT documented in this encounter Results * (ABNORMAL) Differential, Automated (01/24/2024 12:25 AM EDT) Neutrophils % 75.5 % [facility] Neutr Abs (ANC) 8.38(H) 1.70 - 6.10 x10(3)/ L [facility] Lymphocytes % 13.0 % [facility] Lymphocytes Abs 1.4 0.9 - 3.2 x10(3)/[facility] Monocytes % 7.6 % [facility] Monocyte Abs 0.8 0.3 - 0.9 x10(3)/ L [facility] Eosinophils % 2.5 % [facility] Eosinophils Abs 0.3 0.0 - 0.4 x10(3)/[facility] Basophils % 0.6 % [facility] Basophils Abs 0.1 0.0 - 0.1 x10(3)/[facility] Immature Gran % 0.80 % [facility] Comment: Immature granulocytes(IG's)percentage and absolute count will include metamyelocytes, myelocytes, and promyelocytes. Blood smears from CBCs yielding IG's will be scanned manually for concordance. If this scan disagrees with the automated IG or if promyelocytes are noted, a manual differential will be performed. Neelam Gran Abs 0.09(H) 0.00 - 0.04 x10(3)/ L [facility] Blood 01/24/2024 12:2 5 AM EDT 01/24/2024 12:38 AM EDT Narrative Resulting Agency Comment Spec In Lab Quique Hanson MD HEMATOLOGY ORDERABLE S Performing Organization Address City/[facility]/ZIP Co de Phone Number [facility] [place] [address] * (ABNORMAL) Hemogram (01/24/2024 12:25 AM EDT) WBC 11.1(H) 4.0 - 9.5 x10(3)/[facility] RBC 3.85(L) 4.00 - 5.21 x10(6)/[facility] Hemoglobin 10.9(L) 11.7 - 15.5 g/dL [facility] Hematocrit 34.0(L) 35.7 - 45.8 % [facility] MCV 88.3 82.6 - 94.4 fL [facility] MCH 28.3 27.1 - 32.0 pg [facility] MCHC 32.1 31.7 - 35.0 g/dL [facility] Platelets 161 145 - 357 x10(3)/[facility] RDWSD 46.8(H) 37.0 - 46.0 [facility] RDWCV 14.5(H) 11.5 - 14.1 % [facility] MPV 11.4 7.6 - 12.9 [facility] nRBC % Auto 0.0 % [facility] nRBC Abs Auto 0.000 0.000 - 0.000 x10(3)/[facility] Blood 01/24/2024 12:2 5 AM EDT 01/24/2024 12:38 AM EDT Narrative Resulting Agency Comment Spec In Lab Quique Hanson MD HEMATOLOGY ORDERABLE S [facility] [place] [address] * (ABNORMAL) Basic Metabolic Panel (non-fasting) (01/24/2024 12:25 AM EDT) Glucose Lvl 155 65 - 199 mg/dL [facility] Comment:Diabetes: >=200 mg/d L plus symptoms BUN 15 8 - 18 mg/dL [facility] Creatinine 0.78 0.70 - 1.20 mg/dL [facility] Sodium 138 135 - 145 mmol/L [facility] Potassium Not Perf 3.5 - 5.0 [facility] Comment: Unable to quantitate due to sample hemolysis. ??Sample redraw suggested. Called by: FLORA, Read back by: Carmita Melendez, Date/Time:01/24/24 01:10. Please note: ??Patients with WBC >100,000 may have falsely elevated Potassium levels. ??For accurate Potassium quantification in these patients send serum separator tube (gold top) for subsequent determinations. ??Contact the Clinical Chemistry Laboratory if there are any questions. Chloride 111(H) 98 - 107 mmol/L [facility] CO2 19(L) 22 - 31 mmol/L [facility] Anion Gap 8 5 - 15 mmol/L [facility] Calcium 8.4(L) 8.5 - 10.5 mg/dL [facility] Estimated GFR 87 >=60 mL/min/1. 73 m?? [facility] Comment: This patient's estimated GFR was [...] Narrative Resulting Agency Comment Spec In Lab Brendan Rodriguez MD CHEMISTRY ORDERABLES Performing Organization Address City/[facility]/[place] [address] * (ABNORMAL) Differential, Automated (01/23/2024 5:06 AM EDT) Neutrophils % 85.4 % [facility] Neutr Abs (ANC) 11.58(H) 1.70 - 6.10 x10(3)/ L [facility] Lymphocytes % 7.8 % [facility] Lymphocytes Abs 1.1 0.9 - 3.2 x10(3)/[facility] Monocytes % 4.2 % [facility] Monocyte Abs 0.6 0.3 - 0.9 x10(3)/[facility] Eosinophils % 1.5 % [facility] Eosinophils Abs 0.2 0.0 - 0.4 x10(3)/[facility] Basophils % 0.4 % [facility] Basophils Abs 0.0 0.0 - 0.1 x10(3)/[facility] Immature Gran % 0.70 % [facility] Comment: Immature granulocytes(IG's)percentage and absolute count will include metamyelocytes, myelocytes, and promyelocytes. Blood smears from CBCs yielding IG's will be scanned manually for concordance. If this scan disagrees with the automated IG or if promyelocytes are noted, a manual differential will be performed. Neelam Gran Abs 0.09(H) 0.00 - 0.04 x10(3)/[facility] Blood 01/23/2024 5:06 AM EDT 01/23/2024 5:12 AM EDT Narrative Resulting Agency Comment Spec In Lab Quique Hanson MD HEMATOLOGY ORDERABLE S Performing Organization Address City/[facility]/[place] [address] * (ABNORMAL) Hemogram (01/23/2024 5:06 AM EDT) Pathologist [facility] WBC 13.6(H) 4.0 - 9.5 x10(3)/[facility] RBC 4.06 4.00 - 5.21 x10(6)/[facility] Hemoglobin 12.1 11.7 - 15.5 g/dL [facility] Hematocrit 36.5 35.7 - 45.8 % [facility] MCV 89.9 82.6 - 94.4 fL [facility] MCH 29.8 27.1 - 32.0 pg [facility] MCHC 33.2 31.7 - 35.0 g/dL [facility] Platelets 151 145 - 357 x10(3)/[facility] RDWSD 47.8(H) 37.0 - 46.0 [facility] RDWCV 14.5(H) 11.5 - 14.1 % [facility] MPV 11.0 7.6 - 12.9 [facility] nRBC % Auto 0.0 % [facility] nRBC Abs Auto 0.000 0.000 - 0.000 x10(3)/[facility] Blood 01/23/2024 5:06 AM EDT 01/23/2024 5:12 AM EDT Narrative Resulting Agency Comment Spec In Lab Quique Hanson MD HEMATOLOGY ORDERABLE S [facility] [place] [address] * (ABNORMAL) Basic Metabolic Panel (non-fasting) (01/23/2024 5:06 AM EDT) Pathologist [facility] Glucose Lvl 109 65 - 199 mg/dL [facility] Comment:Diabetes: >=200 mg/d L plus symptoms BUN 20(H) 8 - 18 mg/dL [facility] Creatinine 1.05 0.70 - 1.20 mg/dL [facility] Sodium 139 135 - 145 mmol/L [facility] Potassium 3.6 3.5 - 5.0 mmol/L [facility] Comment: Please note: ??Patients with WBC >100,000 may have falsely elevated Potassium levels. ??For accurate Potassium quantification in these patients send serum separator tube (gold top) for subsequent determinations. ??Contact the Clinical Chemistry Laboratory if there are any questions. Chloride 110(H) 98 - 107 mmol/L [facility] CO2 21(L) 22 - 31 mmol/L [facility] Anion Gap 8 5 - 15 mmol/L [facility] Calcium 8.6 8.5 - 10.5 mg/dL [facility] Estimated GFR 61 >=60 mL/min/1. 73 m?? [facility] Comment: This patient's estimated GFR was [...] and symptoms in addition to eGFR. Blood 01/23/2024 5:06 AM EDT 01/23/2024 5:12 AM EDT Narrative Resulting Agency Comment Spec In Lab Brendan Rodriguez MD CHEMISTRY ORDERABLES [facility] [place] [address] * Magnesium (01/23/2024 5:06 AM EDT) Magnesium 0.84 0.69 - 1.07 mmol/L [facility] Blood 01/23/2024 5:06 AM EDT 01/23/2024 5:12 AM EDT Narrative Resulting Agency Comment Spec In Lab Brendan Rodriguez MD CHEMISTRY ORDERABLES Performing Organization Address City/[facility]/ZIP Co de Phone Number [facility] [place] [address] * (ABNORMAL) Phosphorus (01/23/2024 5:06 AM EDT) Phosphorus 2.0(L) 2.5 - 4.5 mg/dL [facility] Blood 01/23/2024 5:06 AM EDT 01/23/2024 5:12 AM EDT Narrative Resulting Agency Comment Spec In Lab Brendan Rodriguez MD CHEMISTRY ORDERABLES Performing Organization Address City/[facility] Co de Phone Number [facility] [place] [address] * (ABNORMAL) Differential, Automated (01/21/2024 1:02 AM EDT) Neutrophils % 94.2 % [facility] Neutr Abs (ANC) 7.96(H) 1.70 - 6.10 x10(3)/mc L [facility] Lymphocytes % 3.7 % [facility] Lymphocytes Abs 0.3(L) 0.9 - 3.2 x10(3)/mc L [facility] Monocytes % 0.8 % [facility] Monocyte Abs 0.1(L) 0.3 - 0.9 x10(3)/mc L [facility] Eosinophils % 0.2 % [facility] Eosinophils Abs 0.0 0.0 - 0.4 x10(3)/mc L [facility] Basophils % 0.5 % [facility] Basophils Abs 0.0 0.0 - 0.1 x10(3)/mc L [facility] Immature Gran % 0.60 % [facility] Comment: Immature granulocytes(IG's)percentage and absolute count will include metamyelocytes, myelocytes, and promyelocytes. Blood smears from CBCs yielding IG's will be scanned manually for concordance. If this scan disagrees with the automated IG or if promyelocytes are noted, a manual differential will be performed. Neelam Gran Abs 0.05(H) 0.00 - 0.04 x10(3)/mc L [facility] Blood 01/21/2024 1:02 AM EDT 01/21/2024 1:13 AM EDT Narrative Resulting Agency Comment Spec In Lab Miguel Pack MD HEMATOLOGY ORDERABLE S [facility] [place] [address] * (ABNORMAL) Hemogram (01/21/2024 1:02 AM EDT) WBC 8.4 4.0 - 9.5 x10(3)/[facility] RBC 4.18 4.00 - 5.21 x10(6)/[facility] Hemoglobin 12.2 11.7 - 15.5 g/dL [facility] Hematocrit 38.9 35.7 - 45.8 % [facility] MCV 93.1 82.6 - 94.4 fL [facility] MCH 29.2 27.1 - 32.0 pg [facility] MCHC 31.4(L) 31.7 - 35.0 g/dL [facility] Platelets 174 145 - 357 x10(3)/[facility] RDWSD 47.9(H) 37.0 - 46.0 fL [facility] RDWCV 13.9 11.5 - 14.1 % [facility] MPV 11.2 7.6 - 12.9 fL [facility] nRBC % Auto 0.0 % [facility] nRBC Abs Auto 0.000 0.000 - 0.000 x10(3)/mcL [facility] Blood 01/21/2024 1:02 AM EDT 01/21/2024 1:13 AM EDT Narrative Resulting Agency Comment Spec In Lab Miguel Pack MD HEMATOLOGY ORDERABLE S [facility] [place] [address] * (ABNORMAL) Basic Metabolic Panel (non-fasting) (01/21/2024 1:02 AM EDT) Glucose Lvl 159 65 - 199 mg/dL [facility] Comment:Diabetes: >=200 mg/d L plus symptoms BUN 23(H) 8 - 18 mg/dL [facility] Creatinine 1.58(H) 0.70 - 1.20 mg/dL [facility] Sodium 144 135 - 145 mmol/L [facility] Potassium 3.6 3.5 - 5.0 mmol/L [facility] Comment: Please note: ??Patients with WBC >100,000 may have falsely elevated Potassium levels. ??For accurate Potassium quantification in these patients send serum separator tube (gold top) for subsequent determinations. ??Contact the Clinical Chemistry Laboratory if there are any questions. Chloride 113(H) 98 - 107 mmol/L [facility] CO2 19(L) 22 - 31 mmol/L [facility] Anion Gap 12 5 - 15 mmol/L [facility] Calcium 8.3(L) 8.5 - 10.5 mg/dL [facility] Comment:result rechecked-HT Estimated GFR 37(L) >=60 mL/min/1. 73 m?? [facility] Comment: This patient's estimated GFR was [...] and symptoms in addition to eGFR. Blood 01/21/2024 1:02 AM EDT 01/21/2024 1:13 AM EDT Narrative Resulting Agency Comment Spec In Lab Brendan Rodriguez MD CHEMISTRY ORDERABLES [facility] [place] [address] * Magnesium (01/21/2024 1:02 AM EDT) Magnesium 0.70 0.69 - 1.07 mmol/L [facility] Blood 01/21/2024 1:02 AM EDT 01/21/2024 1:13 AM EDT Narrative Resulting Agency Comment Spec In Lab Brendan Rodriguez MD CHEMISTRY ORDERABLES Performing Organization Address [facility]/ZIP Co de Phone Number [facility] [place] [address] * Phosphorus (01/21/2024 1:02 AM EDT) Phosphorus 2.9 2.5 - 4.5 mg/dL [facility] Blood 01/21/2024 1:02 AM EDT 01/21/2024 1:13 AM EDT Narrative Resulting Agency Comment Spec In Lab Brendan Rodriguez MD CHEMISTRY ORDERABLES Performing Organization Address [facility] Co de Phone Number [facility] [place] [address] * (ABNORMAL) BLOOD GAS 2 VENOUS (01/21/2024 12:52 AM EDT) pH Antwan 7.17(Criti vijaya) 7.32 - 7.42 [facility] Comment:Not noted by instrum 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 pCO2 [place]tw[place] 52(H) 41 - 51 mmHg [facility] pO2 [place] 29 25 - 40 mmHg [facility] HCO3 [place] 18.6 mmol/L [facility] BE [place]twan -9.9 mmol/L [facility] Hgb Blood Gas 13.3 11.7 - 15.5 g/dL [facility] O2HB [place]tw[place] 52.0 % [facility] COHB [place]twan 0.1 % [facility] Comment: Nonsmokers: 0.5-1.5% COHB Smokers: Variable, but usually less than 10% Toxic: 20-30% COHB Lethal: Greater than 60% COHB METHB [place]tw[place] 0.6 <=1.5 % [facility] Na Whole Blood 143 135 - 145 mmol/L [facility] K Whole Blood 3.6 3.5 - 5.0 mmol/L [facility] Comment: Please note: Patients with WBC >100,000 may have falsely elevated Potassium levels. Contact the Clinical Chemistry Laboratory if there are any questions. ICa Whole Blood 1.20 1.15 - 1.33 mmol/L [facility] Comment: Note: ??Total bilirubin higher than 20 mg/dL may lead to falsely low ionized calcium. CL Whole Blood 113(H) 98 - 107 mmol/L [facility] Gluc Whole Bld 154 65 - 199 mg/dL [facility] Comment:Diabetes: >=200 mg/d L plus symptoms Lactate WB 3.2(H) 0.5 - 2.2 mmol/L [facility] Flow [place]twan 3.0 LPM [facility] BGas Source Venous [facility] Blood 01/21/2024 12:5 2 AM EDT 01/21/2024 12:52 AM EDT Brendan Rodriguez MD CHEMISTRY ORDERABLES [facility] [place] [address] * POCT Glucose (01/21/2024 12:49 AM EDT) POC Glucose 124 65 - 199 mg/dL [facility] Comment: Supplemental ranges: <140 mg/dL before meals <180 mg/dL all other times of the day Blood 01/21/2024 12:4 9 AM EDT 01/21/2024 12:49 AM EDT Brendan Rodriguez MD POINT OF CARE TEST O RDERABLES [facility] [place] [address] * XR Fluoro No Rad <1Hr - OR Use (01/21/2024 12:28 AM EDT) Narrative Dicom, Auditing User - 01/21/2024 12:29 AM EDT This exam is auto-finalizing. No interpretation was done. Nhan Castelan MD IMG FLUORO ORDERABLE S * (ABNORMAL) Urine culture Cystoscopic Urine (01/21/2024 12:00 AM EDT) Urine Culture 10,000-49,000 cfu/ml Escherichia coli(A) [facility] Organism Escherichia coli(A) [facility] Cystoscopic Urine 01/21/2024 12:32 AM EDT [...] Escherichia coli Trimethoprim/Sulfa VITEK 2 METHOD Resistant Brendan Rodriguez MD MICROBIOLOGY - GENER AL ORDERABLES Performing Organization Address [facility] Co de Phone Number [facility] [place] [address] * Urine culture Cystoscopic Urine (01/20/2024 11:55 PM EDT) Urine Culture No growth (Less than 100 cfu/ml). [facility] Cystoscopic Urine 01/20/2024 11:55 PM EDT 01/21/2024 12:32 AM EDT Comment:Bladder urine cultur e Narrative Resulting Agency Comment Spec In Lab Brendan Rodriguez MD MICROBIOLOGY - GENER AL ORDERABLES Performing Organization Address [facility] Co de Phone Number [facility] [place] [address] * Scan, Peripheral Blood (01/20/2024 11:14 PM EDT) Plat Estimate Normal [facility] RBC Morphology Normal [facility] Blood 01/20/2024 11:1 4 PM EDT 01/20/2024 11:20 PM EDT Narrative Resulting Agency Comment Spec In Lab Sunshine June MD HEMATOLOGY ORDERA BLES Performing Organization Address [facility] Co de Phone Number [facility] [place] [address] * (ABNORMAL) Differential, Automated (01/20/2024 11:14 PM EDT) Neutrophils % 92.9 % [facility] Neutr Abs (ANC) 25.22(H) 1.70 - 6.10 x10(3)/[facility] Lymphocytes % 2.1 % [facility] Lymphocytes Abs 0.6(L) 0.9 - 3.2 x10(3)/[facility] Monocytes % 3.2 % [facility] Monocyte Abs 0.9 0.3 - 0.9 x10(3)/[facility] Eosinophils % 0.4 % [facility] Eosinophils Abs 0.1 0.0 - 0.4 x10(3)/[facility] Basophils % 0.2 % [facility] Basophils Abs 0.1 0.0 - 0.1 x10(3)/[facility] Immature Gran % 1.20 % [facility] Comment: Immature granulocytes(IG's)percentage and absolute count will include metamyelocytes, myelocytes, and promyelocytes. Blood smears from CBCs yielding IG's will be scanned manually for concordance. If this scan disagrees with the automated IG or if promyelocytes are noted, a manual differential will be performed. Neelam Gran Abs 0.32(H) 0.00 - 0.04 x10(3)/[facility] Blood 01/20/2024 11:1 4 PM EDT 01/20/2024 11:20 PM EDT Narrative Resulting Agency Comment Spec In Lab Sunshine June MD HEMATOLOGY ORDERA BLES [facility] [place] [address] * (ABNORMAL) Hemogram (01/20/2024 11:14 PM EDT) WBC 27.2(H) 4.0 - 9.5 x10(3)/[facility] RBC 4.03 4.00 - 5.21 x10(6)/[facility] Hemoglobin 11.7 11.7 - 15.5 g/dL [facility] Hematocrit 37.2 35.7 - 45.8 % [facility] MCV 92.3 82.6 - 94.4 fL [facility] MCH 29.0 27.1 - 32.0 pg [facility] MCHC 31.5(L) 31.7 - 35.0 g/dL [facility] Platelets 194 145 - 357 x10(3)/[facility] RDWSD 47.5(H) 37.0 - 46.0 fL [facility] RDWCV 14.0 11.5 - 14.1 % [facility] MPV 11.1 7.6 - 12.9 [facility] nRBC % Auto 0.0 % [facility] nRBC Abs Auto 0.000 0.000 - 0.000 x10(3)/[facility] Blood 01/20/2024 11:1 4 PM EDT 01/20/2024 11:20 PM EDT Narrative Resulting Agency Comment Spec In Lab Sunshine June MD HEMATOLOGY ORDERA BLES [facility] [place] [address] * (ABNORMAL) Basic Metabolic Panel (non-fasting) (01/20/2024 11:14 PM EDT) Glucose Lvl 111 65 - 199 mg/dL [facility] Comment:Diabetes: >=200 mg/d L plus symptoms BUN 21(H) 8 - 18 mg/dL [facility] Creatinine 1.51(H) 0.70 - 1.20 mg/dL [facility] Sodium 145 135 - 145 mmol/L [facility] Potassium 3.0(Criti vijaya) 3.5 - 5.0 mmol/L [facility] Comment: Called by: , Read back by: Denisse Ambrose, Date/Time:01/21/24 00:00. Please note: ??Patients with WBC >100,000 may have falsely elevated Potassium levels. ??For accurate Potassium quantification in these patients send serum separator tube (gold top) for subsequent determinations. ??Contact the Clinical Chemistry Laboratory if there are any questions. Chloride 118(H) 98 - 107 mmol/L [facility] CO2 17(L) 22 - 31 mmol/L [facility] Anion Gap 10 5 - 15 mmol/L [facility] Calcium 7.4(L) 8.5 - 10.5 mg/dL [facility] Estimated GFR 40(L) >=60 mL/min/1. 73 m?? [facility] Comment: This patient's estimated GFR was [...] and symptoms in addition to eGFR. Blood 01/20/2024 11:1 4 PM EDT 01/20/2024 11:20 PM EDT Narrative Resulting Agency Comment Spec In Lab Nhan Castelan MD CHEMISTRY ORDERABLES [facility] [place] [address] * Request For 2nd Read CT Abdomen & Pelvis (01/20/2024 10:47 PM EDT) WORKSTATION ID [id number] RAD Anatomical Region Laterality Modality Abdomen, Pelvis [...] who have questions please contact the health patient centered care specialist that requested your imaging first. ? Narrative 01/21/2024 7:07 AM EDT EXAMINATION: REQUEST FOR 2ND READ CT ABDOMEN AND PELVIS CLINICAL HISTORY: septioc stone; Sending Institution [facility]; Date of exam 20240120; I believe a reinterpretation of this exam may alter care of Patient. Yes TECHNIQUE: Helical CT of the abdomen and pelvis without intravenous contrast. Oral contrast was not administered. Multiplanar reformatted images were generated. Study performed January 20, 2024 at [facility]. COMPARISON: None FINDINGS: The absence of [...] PELVIS CLINICAL HISTORY: septioc stone; Sending Institution [facility]; Date of exam 20240120; I believe a reinterpretation of this exam may alter care ofPatient. Yes TECHNIQUE: Helical CT of the abdomen and pelvis without intravenouscontrast. Oral contrast was not administered. Multiplanar reformatted images were generated. Study performed January 20, 2024 at [facility]. COMPARISON: None FINDINGS: The absence of [...] patients who have questions please contactthe health patient centered care specialist that requested your imaging first. Nhan Castelan MD IMG OUTSIDE INTERPRE TATION ORDERABLES * EKG 12 Lead (01/20/2024 10:06 PM EDT) Ventricular rate 91 BPM MUSE SYSTEM Atrial Rate 91 BPM MUSE SYSTEM P-R Interval 140 ms MUSE SYSTEM QRS Duration 98 ms MUSE SYSTEM Q-T Interval 394 ms MUSE SYSTEM QTC Calculated (Bezet) 484 ms MUSE SYSTEM Calculated P [place] 48 degrees MUSE SYSTEM Calculated R [place] 26 degrees MUSE SYSTEM Calculated T [place] 39 degrees MUSE SYSTEM INTERPRETATION Normal sinus rhythm Lateral infarct , age undetermined Abnormal ECG No previous ECGs available Confirmed by Ashleigh Santana ([id number]) on 01/21/2024 12:58:47 PM MUSE SYSTEM 01/20/2024 10:0 6 PM EDT 01/21/2024 12:58 PM EDT Nhan Castelan MD ECG ORDERABLES MUSE SYSTEM * Film Library- Storage Only DX Chest (01/20/2024 12:00 AM EDT) Narrative Dicom, Auditing User - 01/21/2024 2:16 AM EDT This exam is auto-finalizing. It's purpose is for storage only. Nhan Castelan MD IMG FILM LIBRARY ORD ERABLES documented in this encounter Visit Diagnoses Diagnosis Left ureteral calculus Calculus of ureter Pyelonephritis, acute Acute pyelonephritis without lesion of renal medullary necrosis Ureteral obstruction, left- Primary Other ureteric obstruction Left ureteral calculus Calculus of ureter Pyelonephritis, acute Acute pyelonephritis without lesion of renal medullary necrosis Ureteral stone Calculus of ureter Urinary tract infection with hematuria, site unspecified documented in this encounter Admitting Diagnoses Diagnosis Ureteral obstruction, left Other ureteric obstruction Sepsis documented in this encounter Administered Medications Inactive Administered Medications - up to 3 most recent administrations Medication Order MAR Action Action Date Dose Rate Site acetaminophen (Tylenol) tablet 975 mg 975 mg, Oral, EVERY 8 HOURS PRN, Starting on 01/21/24 at 0106, Until 01/24/24 at 1628, Pain, Maximum dose of acetaminophen is 4000 mg from all sources in 24 hours. When ordered for pain, acetaminophen should be given even when other ordered pain medications are indicated. , Routine Given 01/21/2024 5:43 PM EDT 975 mg ciprofloxacin (Cipro) tablet 500 mg 500 mg, Oral, 2 TIMES DAILY, First dose on Tue01/24/24 at 0830, Until Discontinued, Give this medication 2 hours BEFORE, or 6 hours AFTER products with multivalent cations (e.g. Calcium, Iron, Zinc, Magnesium, Aluminum). Do not coadminister, Routine, Indication for (Active or Suspected): Bacteremia/Sepsis Given 01/24/2024 9:39 AM EDT 500 mg dextroamphetamine-amphetamine XR (Adderall XR) capsule 30 mg 30 mg, Oral, DAILY, First dose on Tue01/21/24 at 0900, Until Discontinued, Routine Given 01/24/2024 9:00 AM EDT 30 mg Given 01/23/2024 8:49 AM EDT 30 mg Given 01/22/2024 8:21 AM EDT 30 mg heparin (porcine) (5,000 units/1 mL) subcutaneous injection 5,000 Units 5,000 Units, Subcutaneous, EVERY 12 HOURS SCHEDULED (2 times per day), First dose on Tue01/21/24 at 0200, Until Discontinued, Routine Given 01/24/2024 9:30 AM EDT 5,000 Units Given 01/23/2024 9:03 PM EDT 5,000 Units Given 01/23/2024 8:49 AM EDT 5,000 Units iohexoL (Omnipaque) (300 mg/mL) solution PRN, Starting on Tue01/21/24 at 0025, Until 01/21/24 at 0140, Intra-Operative (Intra-Procedure), Routine Given 01/21/2024 12:25 AM EDT 5 mLs topiramate (Topamax) tablet 100 mg 100 mg, Oral, 2 TIMES DAILY, First dose on Tue01/21/24 at 0900, Until Discontinued, DO NOT SPLIT, CRUSH OR OPEN, Routine Given 01/24/2024 9:30 AM EDT 100 mg Given 01/23/2024 9:03 PM EDT 100 mg Given 01/23/2024 8:49 AM EDT 100 mg venlafaxine XR (Effexor-XR) capsule 150 mg 150 mg, Oral, DAILY WITH BREAKFAST, First dose on Tue01/21/24 at 0800, Until Discontinued, DO NOT CRUSH OR OPEN, Routine Given 01/24/2024 9:30 AM EDT 150 mg Given 01/23/2024 8:49 AM EDT 150 mg Given 01/22/2024 8:20 AM EDT 150 mg documented in this encounter Active and Recently Administered Medications Times are shown in EDT. Scheduled Medication Order 01/22/2024 01/23/2024 01/24/2024 ciprofloxacin (Cipro) tablet 500 mg 500 mg, Oral, 2 TIMES DAILY, First dose on Tue01/24/24 at 0830, Until Discontinued, Give this medication 2 hours BEFORE, or 6 hours AFTER products with multivalent cations (e.g. Calcium, Iron, Zinc, Magnesium, Aluminum). Do not coadminister, Routine, Indication for (Active or Suspected): Bacteremia/Sepsis 0939 (Given - Provider: Carmita Pham, COLETTE) dextroamphetamine-amphe tamine XR (Adderall XR) capsule 30 mg 30 mg, Oral, DAILY, First dose on Tue01/21/24 at 0900, Until Discontinued, Routine 0821 (Given - Provider: Juliet Hoffmann RN - Comment: Barcodes not scanning, only able to scan once) 0849 (Given - Provider: Meaghan Manrique RN) 0900 (Given - Provider: Carmita Pham RN - Comment: dose verified by EK- barcode unreadable) heparin (porcine) (5,000 units/1 mL) subcutaneous injection 5,000 Units 5,000 Units, Subcutaneous, EVERY 12 HOURS SCHEDULED (2 times per day), First dose on Tue01/21/24 at 0200, Until Discontinued, Routine 0820 (Given - Provider: Juliet Hoffmann RN)2008 (Given - Provider: Quita Emmanuel RN) 0849 (Given - Provider: Meaghan Manrique RN)210 (Given - Provider: Mayda Marcano RN) 0930 (Given - Provider: Carmita Pham RN) piperacillin-tazobactam (Zosyn) 3.375 g vial attach to sodium chloride 0.9% 50 mL Mini-Bag Plus (CANCELED) 3.375 g, Intravenous, EVERY 8 HOURS, First dose on 01/21/24 at 0800, Until Discontinued, Administer over 4 Hours, Warning Vesicant/Irritant Medication Do not administer or Y-site with lactated ringers., Indication for (Active or Suspected): Bacteremia/Sepsis 0336 (Stopped - Provider: Quita Emmanuel RN)0823 (New Bag - Provider: Juliet Hoffmann RN)1223 (Stopped - Provider: Juliet Hoffmann RN)1640 (New Bag - Provider: Juliet Hoffmann RN)2040 (Stopped - Provider: Quita Emmanuel, COLETTE)2344 (New Bag - Provider: Quita Emmanuel RN) 0344 (Stopped - Provider: Quita Emmanuel RN)0844 (New Bag - Provider: Meaghan Manrique RN)1244 (Stopped - Provider: Meaghan Manrique RN)1545 (New Bag - Provider: Meaghan Manrique RN)1945 (Stopped - Provider: Mayda Marcano RN) 0000 (New Bag - Provider: Mayda Marcano RN)0400 (Stopped - Provider: Mayda Marcano RN) potassium, sodium phosphates (Neutra-Phos) 280-160-250 mg oral packet 3 g (COMPLETED) 3 g, Oral, ONCE, 1 dose, On Tue01/23/24 at 0945, Reconstitute each packet in 75 mL of water. Give with full glass of water (240 mL)., Routine 0902 (Given - Provider: Meaghan Manrique RN) potassium, sodium phosphates (Neutra-Phos) 280-160-250 mg oral packet 3 g (COMPLETED) 3 g, Oral, ONCE, 1 dose, On 01/23/24 at 1315, Reconstitute each packet in 75 mL of water. Give with full glass of water (240 mL)., Routine 1313 (Given - Provider: Meaghan Manrique RN) topiramate (Topamax) tablet 100 mg 100 mg, Oral, 2 TIMES DAILY, First dose on 01/21/24 at 0900, Until Discontinued, DO NOT SPLIT, CRUSH OR OPEN, Routine 0820 (Given - Provider: Juliet Hoffmann, COLETTE)2008 (Given - Provider: Quita Emmanuel, COLETTE) 0849 (Given - Provider: Meaghan Manrique, RN)210 (Given - Provider: Mayda Marcano, COLETTE) 0930 (Given - Provider: Carmita Pham, RN) venlafaxine XR (Effexor-XR) capsule 150 mg 150 mg, Oral, DAILY WITH BREAKFAST, First dose on 01/21/24 at 0800, Until Discontinued, DO NOT CRUSH OR OPEN, Routine 819 (Given - Provider: Juliet Hoffmann RN) 08 (Given - Provider: Meaghan Manrique, COLETTE) 0930 (Given - Provider: Carmita Pham, RN) Continuous Medication Order 01/22/2024 01/23/2024 01/24/2024 lactated ringers infusion (CANCELED) 100 mL/hr, Intravenous, CONTINUOUS, Starting on 01/21/24 at 0100, Until 01/22/24 at 0942 0405 (Rate/Dose Verify - Provider: Quita Emmanuel RN)0503 (New Bag - Provider: Quita Emmanuel RN)0800 (Rate/Dose Verify - Provider: Juliet Hoffmann, COLETTE)0942 (Stopped - Provider: Juliet Hoffmann, COLETTE) PRN Medication Order 01/22/2024 01/23/2024 01/24/2024 acetaminophen (Tylenol) tablet 975 mg 975 mg, Oral, EVERY 8 HOURS PRN, Starting on 01/21/24 at 0106, Until 01/24/24 at 1628, Pain, Maximum dose of acetaminophen is 4000 mg from all sources in 24 hours. When ordered for pain, acetaminophen should be given even when other ordered pain medications are indicated. , Routine documented in this encounter Care Teams Ironworker Wire Fence Erector Relationship Specialty Start Date End Date Graciela Naidu MD Eve [address] [place] [address] PCP - General 07/21/10 documented as of this encounter
--- OUTSIDE RECORDS SUMMARY | 2024-03-28 02:45 | XMS_ITS | Encounter Summary ---
[place] [address] Care Team Providers Care Laboratory Monitor Name Role Phone Graciela Naidu MD Primary Care Provider Encounter Details Date Type Department Care Team (Late st Contact Info) Description 01/27/2024 Telephone [place] [id number] Melita Dang, RN Social History Tobacco Use Types Packs/Day Years Used Date Smoking Tobacco: Never Smokeless Tobacco: Never Alcohol Use Standard Drinks/Week Comments Never 0 (1 standard drink = 0.6 oz pur e alcohol) [facility] Utilities Answer Date Recorded In the past 12 months has e [employer], gas, oil, or water [employer] threatened to shut off services in your [...] [facility] time [facility] the [facility] were you homeless or living in a skilled nursing (including now)? No 01/21/2024 [facility] Inpatient [...] Progress Notes * Melita Dang RN - 01/27/2024 10:57 AM EDT Call returned to patient. Background: Patient was discharged on 01/24/24, she has a left ureteral stent in place: Plan: -Follow up: [facility] in 2-4 weeks requested -Cx: [facility] blood cx grew E.coli, continue cipro for 14 days - Ucx E.coli sensitive to fluoroquinolones Disposition: Patient reports bright red hematuria and also reports that she passed a clot (size of a dried cardoso)this am. Patient has since urinated again and there were no clots noted. Patient denies difficulty with urination and has a good flow. Reviewed discharge instructions regarding blood in urine with a stent in place and activity levels.Patient has been doing some light ambulation and resting but otherwise has been resting. Reassured patient that this is normal and recommended that she continue to rest, increase fluid intake and limit bladder irritants. 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 documented in this encounter Miscellaneous Notes * Telephone Encounter - Melita Dang RN - 01/27/2024 10:43 AM EDT Copied from [facility] #[id number]. Topic: Specialty Dept CRMs - Triage >> January 27, 2024 9:02 AM November R wrote: Triage Message Specialist: Evangelist Rodriguez MD Relationship (if other than patient-full name): Self Symptom: blood clots and pain meds Has patient experienced symptom before y If patient has experienced symptom before, when was the last time this occurred today Is patient currently having symptom y When did symptom begin last night Additional Comments: Patient states that she is having blood clots . Patietn is not sure if they are big or not . Patient states that her discharge summary said to call if she has large blood clots. Patient states she has questions about her pain meds documented in this encounter Plan of Treatment Upcoming Encounters Date Type Department Care Team (Late st Contact Info) Description 04/20/2024 3:45 PM EDT Appointment [place] [address] Pam Grant MD [facility] [place] [address] 04/20/2024 4:40 PM EDT Office Visit [place] [address] Pam Grant MD [facility] [place] [address] documented as of this encounter Visit Diagnoses Not on filedocumented in this encounter Care Teams Laboratory Monitor Relationship Specialty Start Date End Date Graciela Naidu MD [facility] [address] [place] [id number] PCP - General 07/21/10 documented as of this encounter
--- OUTSIDE RECORDS SUMMARY | 2024-03-28 02:45 | XMS_ITS | Encounter Summary ---
[place] [address] Care Team Providers Care Spring Up Supervisor Name Role Phone Graciela Naidu MD Primary Care Provider [phone] Reason for Visit * Reason Comments Hospital Transfer Urinary Tract Infection * Auth/Cert (Routine) Specialty Diagnoses / Procedures Referred By Bradley t Referred To Contact Diagnoses Pyelonephritis, acute Left ureteral calculus Ureteral obstruction, left Sepsis Infected kidney stone Procedures EMERGENCY IPI Brendan Rodriguez MD [facility] [place] [address] [facility] Referral ID Status Reason Start Date Expiration Date Visits Re quested Visits Authorized [id number] 1 1 Encounter Details Date Type Department Care Team (Latest Contact Info) Description 01/20/2024 9:44 PM EDT - 01/24/2024 2:05 PM EDT Hospital Encounter Surgical [place] [address] Nhan Castelan MD [address] [place] [address] Brendan Rodriguez MD [facility] [place] [address] Left ureteral calculus; Pyelonephritis, acute; Ureteral stone; Urinary tract infection with hematuria, site unspecified; Ureteral obstruction, left Discharge Disposition: Home Social History Tobacco Use Types Packs/Day Years Used Date Smoking Tobacco: Never Smokeless Tobacco: Never Tobacco Cessation:Counseling Given: Not Answered Alcohol Use Standard Drinks/Week Comments Never 0 (1 standard drink = 0.6 oz pur e alcohol) [facility] Utilities Answer Date Recorded In the past 12 months has th e [employer], gas, oil, or water [employer] threatened to shut off services in your [...] time in the past 12 m [facility], were you homeless or living in a [...] Sign Reading Time Taken Comments Blood Pressure 113/60 01/24/2024 12:25 PM EDT Pulse 73 01/22/2024 4:00 AM EDT Temperature 37.2 ??C (99 ??F) 01/24/2024 12: 25 PM EDT Respiratory Rate 18 01/24/2024 3:13 AM EDT Oxygen Saturation 98% 01/24/2024 12: 25 PM EDT Inhaled Oxygen Concentration - - Weight 103.7 kg (228 lb 9.9 oz) 01/21/2024 1:00 AM EDT Height 169 cm (5' 6.54) 01/21/2024 2:00 AM EDT Body Mass Index 36.31 01/21/2024 1:00 AM EDT documented in this encounter Discharge Summaries * Brendan Rodriguez MD - 01/24/2024 7:01 AM EDT Discharge Summary Patient Name: Barbra Dc Patient Age: 58 y.o. Language: Croatian Race: White Ethnicity: Not nor Admit date: [...] tachycardic, Cr 1.4. Received Rocephin 2grams at [facility]. OR Findings: - Septic from obstructing left ureteral stone - Cloudy bladder urine sent for culture - Left renal aspirate sent for culture - L 6Fr x variable length ureteral stent placed - 14Fr lemus catheter placed Hospital Course: Patient was admitted electively to [facility] via the ED and was transferred from the PACU to the [facility] in good condition a few [...] up: URS in 2-4 weeks requested -Cx: [facility] blood cx grew E.coli, continue cipro for [...] 01/20/2024 10:47 PM) Result Value WORKSTATION ID [id number] Impression Obstructing 5 x 8 mm proximal left ureteral calculus. Bilateral scattered nonobstructing nephrolithiases, largest 3 mm. Thank you for letting us participate in the care of this patient. If you are a health care provider and have any questions regarding this report, please contact the number below. For patients who have questions please contact the health customer care manager that requested your imaging first. Electronically signed by: Rebeca Garcia MD, [facility] ([phone]), at 01/21/2024 7:07 AM Pending Studies and Lab Data: The patient [...] blood clots The number for questions is [phone] before 5 PM weekdays and [phone] after 5 PM and weekends if questions [...] stone in 2-4 weeks time. Please call [phone] if you do not hear from the [...] SURGICAL CASE REQUEST: CYSTOURETEROSCOPY, LITHOTRIPSY (WRVU 7.5) [[id number] CPT(R)] As directed Process Instructions: Scheduling Instructions: This order is to be used for Surgeries and Procedures being performed at an internal [facility] facility or an external facility with a [facility] or [place] provider. This includes allinternal ORs, ASCs, and Endoscopy areas, and Pain Clinics at [facility], [facility] & ON LICENSE OF [facility]. For Surgeries and Procedures being performed at [...] appointments. Primary Care Provider: Graciela Naidu MD [phone] Follow-up Recommendations for Providers: None Unexpected Findings: [...] was managed by the Urology Team at [facility]. If you have any questions or concerns, please feel free to contact us. Provider Contact Information: Urology Clinic: [facility] (after business hours): Time spent on discharge [...] blood clots The number for questions is [phone] before 5 PM weekdays and [phone] after 5 PM and weekends if questions [...] stone in 2-4 weeks time. Please call [phone] if you do not hear from the [...] this encounter Progress Notes * Brendan Quarles, HARDWARE ENGINEERING MANAGER - 01/23/2024 10:17 PM EDT Respiratory Therapy [...] tonight. Plan: Continue HS CPAP BRENDAN QUARLES RRT * Brendan Rodriguez MD - 01/23/2024 9:19 AM EDT Urology Progress Note Patient: Barbra Dc : 1965 Room: [address] Admit date: 01/20/2024 Attending: Brendan Rodriguez [...] Note Patient: Barbra Dc : 1965 Room: [place] [address]- Admit date: 01/20/2024 Attending: Brendan Rodriguez MD [...] Note Patient: Barbra Dc : 1965 Room: [address] Admit date: 01/20/2024 Attending: Brendan Rodriguez [...] the plan of care as documented in PACatynes Nelson's, note. Brendan Rodriguez MD, FACS documented in this encounter H&P Notes * Brandyn Kan MD - 01/21/2024 12:08 AM EDT Critical Care - Admission Note History of Present Illness: Barbra Dc is a 58 y.o. female with PMH of ADHD and PACO per patient report, possible MDD or Migraines (med review) who was transferred from [facility] for management of L obstructing [...] Intimate Partner Violence: Not At Risk (01/20/2024) DH IPV Inpatient Questions Prevent Contact with Others: [...] tachycardic, Cr 1.4. Received Rocephin 2grams at [facility]. PMH: No past medical history [...] the patient. Sunshine June MD Resident 01/21/24 1499 Associated attestation - Nhan Castelan MD - [...] none Patient is insured through: Primary Insurance: [employer] [place] [employer] [place] / Plan[place] / [...] needs at d/c. Carmita Bentley RN, CM [phone] * Plan of Care - Meaghan Manrique [...] Team, bedside nurse, medical record, and Patient HIGHWAY INSPECTOR Introduced self/reviewed role; services accepted. Admitted From: Transfer from another hospital Location: [facility] Reason for Hospitalization: Left ureteral obstruction Covid Vaccination Status: 1st, 2nd & booster Last COVID test: Past medical History: No past medical history on file. Hospitalizations Within the Past 30 Days: no previous admission in last 30 days Current Decision-Making Capacity: Self If AD's have not been completed the following surrogate would be surrogate decision maker per [place] decision making law. (Only good for 180 days) Any patient receiving care in [place] must abide by [place] law. The hierarchy for surrogate decision making [...] (i) The agent with financial power of tree cutter or a conservator appointed in accordance with [...] or living in a skilled nursing (including now)?: No In the past 12 months has the electric, gas, oil, or water [employer] threatened to shut off services in your [...] use as needed) Home Address confirmed as: [address] [place] [id number] Social & Family Supports: All names listed below confirmed with patient as current and correct Extended Emergency Contact Information Primary Emergency Contact: Lexy Dc Relation: Child Current Care Provided by: self [...] Information: Pt lives in a house in [place], [place] with her /SDM Kem and adult daughter Lexy. Kem is not listed in pt's chart because he doesn't have aphone and per pt, Kem receives information and updates on pt through Lexy when needed. Pt also has two other adult children who do not live locally. Health/Prescription Coverage: Primary Insurance: [employer] [place] [employer] [place] / Plan[place] / Product Type: *No Product type* / Secondary Insurance: N/A ; Prescription Coverage: Yes Preferred Pharmacy: No Pharmacies Listed Status: Patient is a : No Primary Care Provider confirmed: Graciela Naidu MD [phone] Patient/Caregiver Goals of Treatment: Pt's goal is to return back home after discharge Potential Needs for Transition of Care: (Pending) Agency Referrals: Not Applicable Transportation: no concerns Transportation Anticipated: family or friend will provide Concerns to be Addressed: denies needs/concerns at this time Assessment: Mrs. Dc is a 58 year old female who was transferred from [facility] and admitted to the SICU at [facility] with a left ureteral obstruction. Plan: Pt is currently alert and oriented. A member of the Care Management team will continue to monitor progress, follow for continuity of care and assist with transition of care planning. MARITZA Madison Steeplechase Jockey Office of Care Management * Plan of [...] Rodriguez MD - 01/20/2024 11:52 PM EDT [facility] Operative Note Patient Name: Barbra Dc : [id number] MR#: [id number] Case Date: 01/20/2024 - 01/21/2024 Surgeon: Surgeons [...] tachycardic, Cr 1.4. Received Rocephin 2grams at [facility]. Procedure Description: The patient was [...] 04/20/2024 3:45 PM EDT [place] [address] Pam Grant MD [facility] [place] [address] 04/20/2024 4:40 PM EDT Office [place] [phone] Pam Grnat MD [facility] [place] [address] documented as of this encounter Procedures Procedure [...] calculus Pyelonephritis, acute Cystoscopy, Insert Ureteral Stent (10549) 01/20/2024 11:29 PM EDT Left ureteral calculus [...] 12:25 AM EDT) Neutrophils % 75.5 % [facility] Neutr Abs (ANC) 8.38(H) 1.70 - 6.10 x10(3)/ L [facility] Lymphocytes % 13.0 % [facility] Lymphocytes Abs 1.4 0.9 - 3.2 x10(3)/ L [facility] Monocytes % 7.6 % [facility] Monocyte Abs 0.8 0.3 - 0.9 x10(3)/ L [facility] Eosinophils % 2.5 % [facility] Eosinophils Abs 0.3 0.0 - 0.4 x10(3)/ L [facility] Basophils % 0.6 % [facility] Basophils Abs 0.1 0.0 - 0.1 x10(3)/ L [facility] Immature Gran % 0.80 % [facility] Comment: Immature granulocytes(IG's)percentage and absolute count will include metamyelocytes, myelocytes, and promyelocytes. Blood smears from CBCs yielding IG's will be scanned manually for concordance. If this scan disagrees with the automated IG or if promyelocytes are noted, a manual differential will be performed. Neelam Gran Abs 0.09(H) 0.00 - 0.04 x10(3)/mc L [facility] Blood 01/24/2024 12:2 5 AM EDT 01/24/2024 12:38 AM EDT Narrative Resulting Agency Comment Spec In Lab Quique Hanson MD HEMATOLOGY ORDERABLE S [facility] [place] [address] * (ABNORMAL) Hemogram (01/24/2024 12:25 AM EDT) WBC 11.1(H) 4.0 - 9.5 x10(3)/[facility] RBC 3.85(L) 4.00 - 5.21 x10(6)/[facility] Hemoglobin 10.9(L) 11.7 - 15.5 g/dL [facility] Hematocrit 34.0(L) 35.7 - 45.8 % [facility] MCV 88.3 82.6 - 94.4 fL [facility] MCH 28.3 27.1 - 32.0 pg [facility] MCHC 32.1 31.7 - 35.0 g/dL [facility] Platelets 161 145 - 357 x10(3)/[facility] RDWSD 46.8(H) 37.0 - 46.0 [facility] RDWCV 14.5(H) 11.5 - 14.1 % [facility] MPV 11.4 7.6 - 12.9 [facility] nRBC % Auto 0.0 % [facility] nRBC Abs Auto 0.000 0.000 - 0.000 x10(3)/[facility] Blood 01/24/2024 12:2 5 AM EDT 01/24/2024 12:38 AM EDT Narrative Resulting Agency Comment Spec In Lab Quique Hanson MD HEMATOLOGY ORDERABLE S [facility] [place] [address] * (ABNORMAL) Basic Metabolic Panel (non-fasting) (01/24/2024 12:25 AM EDT) Glucose Lvl 155 65 - 199 mg/dL [facility] Comment:Diabetes: >=200 mg/d L plus symptoms BUN 15 8 - 18 mg/dL [facility] Creatinine 0.78 0.70 - 1.20 mg/dL [facility] Sodium 138 135 - 145 mmol/L [facility] Potassium Not Perf 3.5 - 5.0 [facility] Comment: Unable to quantitate [...] questions. Chloride 111(H) 98 - 107 mmol/L [facility] CO2 19(L) 22 - 31 mmol/L [facility] Anion Gap 8 5 - 15 mmol/L [facility] Calcium 8.4(L) 8.5 - 10.5 mg/dL [facility] Estimated GFR 87 >=60 mL/min/1. 73 m?? [facility] Comment: This patient's estimated [...] In Lab Brendan Rodriguez MD CHEMISTRY ORDERABLES [facility] [place] [address] * (ABNORMAL) Differential, Automated (01/23/2024 5:06 AM EDT) Neutrophils % 85.4 % [facility] Neutr Abs (ANC) 11.58(H) 1.70 - 6.10 x10(3)/[facility] Lymphocytes % 7.8 % [facility] Lymphocytes Abs 1.1 0.9 - 3.2 x10(3)/[facility] Monocytes % 4.2 % [facility] Monocyte Abs 0.6 0.3 - 0.9 x10(3)/[facility] Eosinophils % 1.5 % [facility] Eosinophils Abs 0.2 0.0 - 0.4 x10(3)/[facility] Basophils % 0.4 % [facility] Basophils Abs 0.0 0.0 - 0.1 x10(3)/[facility] Immature Gran % 0.70 % [facility] Comment: Immature granulocytes(IG's)percentage and absolute count will include metamyelocytes, myelocytes, and promyelocytes. Blood smears from CBCs yielding IG's will be scanned manually for concordance. If this scan disagrees with the automated IG or if promyelocytes are noted, a manual differential will be performed. Neelam Gran Abs 0.09(H) 0.00 - 0.04 x10(3)/[facility] Blood 01/23/2024 5:06 AM EDT 01/23/2024 5:12 AM EDT Narrative Resulting Agency Comment Spec In Lab Quique Hanson MD HEMATOLOGY ORDERABLE S [facility] [place] [address] * (ABNORMAL) Hemogram (01/23/2024 5:06 AM EDT) WBC 13.6(H) 4.0 - 9.5 x10(3)/[facility] RBC 4.06 4.00 - 5.21 x10(6)/[facility] Hemoglobin 12.1 11.7 - 15.5 g/dL [facility] Hematocrit 36.5 35.7 - 45.8 % [facility] MCV 89.9 82.6 - 94.4 fL [facility] MCH 29.8 27.1 - 32.0 pg [facility] MCHC 33.2 31.7 - 35.0 g/dL [facility] Platelets 151 145 - 357 x10(3)/[facility] RDWSD 47.8(H) 37.0 - 46.0 [facility] RDWCV 14.5(H) 11.5 - 14.1 % [facility] MPV 11.0 7.6 - 12.9 [facility] nRBC % Auto 0.0 % [facility] nRBC Abs Auto 0.000 0.000 - 0.000 x10(3)/[facility] Blood 01/23/2024 5:06 AM EDT 01/23/2024 5:12 AM EDT Narrative Resulting Agency Comment Spec In Lab Quique Hanson MD HEMATOLOGY ORDERABLE S [facility] [place] [address] * (ABNORMAL) Basic Metabolic Panel (non-fasting) (01/23/2024 5:06 AM EDT) Glucose Lvl 109 65 - 199 mg/dL [facility] Comment:Diabetes: >=200 mg/d L plus symptoms BUN 20(H) 8 - 18 mg/dL [facility] Creatinine 1.05 0.70 - 1.20 mg/dL [facility] Sodium 139 135 - 145 mmol/L [facility] Potassium 3.6 3.5 - 5.0 mmol/L [facility] Comment: Please note: ??Patients with WBC >100,000 may have falsely elevated Potassium levels. ??For accurate Potassium quantification in these patients send serum separator tube (gold top) for subsequent determinations. ??Contact the Clinical Chemistry Laboratory if there are any questions. Chloride 110(H) 98 - 107 mmol/L [facility] CO2 21(L) 22 - 31 mmol/L [facility] Anion Gap 8 5 - 15 mmol/L [facility] Calcium 8.6 8.5 - 10.5 mg/dL [facility] Estimated GFR 61 >=60 mL/min/1. 73 m?? [facility] Comment: This patient's estimated [...] In Lab Brendan Rodriguez MD CHEMISTRY ORDERABLES [facility] [place] [address] * Magnesium (01/23/2024 5:06 AM EDT) [facility] Magnesium 0.84 0.69 - 1.07 mmol/L [facility] Blood 01/23/2024 5:06 AM EDT 01/23/2024 5:12 AM EDT Narrative Resulting Agency Comment Spec In Lab Brendan Rodriguez MD CHEMISTRY ORDERABLES Performing Organization Address [facility]/ZIP Co de Phone Number [facility] [place] [address] * (ABNORMAL) Phosphorus (01/23/2024 5:06 AM EDT) [facility] Phosphorus 2.0(L) 2.5 - 4.5 mg/dL [facility] Blood 01/23/2024 5:06 AM EDT 01/23/2024 5:12 AM EDT Narrative Resulting Agency Comment Spec In Lab Brendan Rodriguez MD CHEMISTRY ORDERABLES Performing Organization Address [facility]/ZIP Co de Phone Number [facility] [place] [address] * (ABNORMAL) Differential, Automated (01/21/2024 1:02 AM EDT) [facility] Neutrophils % 94.2 % [facility] Neutr Abs (ANC) 7.96(H) 1.70 - 6.10 x10(3)/mc L [facility] Lymphocytes % 3.7 % [facility] Lymphocytes Abs 0.3(L) 0.9 - 3.2 x10(3)/mc L [facility] Monocytes % 0.8 % [facility] Monocyte Abs 0.1(L) 0.3 - 0.9 x10(3)/mc L [facility] Eosinophils % 0.2 % [facility] Eosinophils Abs 0.0 0.0 - 0.4 x10(3)/[facility] Basophils % 0.5 % [facility] Basophils Abs 0.0 0.0 - 0.1 x10(3)/[facility] Immature Gran % 0.60 % [facility] Comment: Immature granulocytes(IG's)percentage and absolute count will include metamyelocytes, myelocytes, and promyelocytes. Blood smears from CBCs yielding IG's will be scanned manually for concordance. If this scan disagrees with the automated IG or if promyelocytes are noted, a manual differential will be performed. Neelam Gran Abs 0.05(H) 0.00 - 0.04 x10(3)/[facility] Blood 01/21/2024 1:02 AM EDT 01/21/2024 1:13 AM EDT Narrative Resulting Agency Comment Spec In Lab Miguel Pack MD HEMATOLOGY ORDERABLE S Performing Organization Address City/State/[facility] Co de Phone Number [facility] [place] [address] * (ABNORMAL) Hemogram (01/21/2024 1:02 AM EDT) WBC 8.4 4.0 - 9.5 x10(3)/[facility] RBC 4.18 4.00 - 5.21 x10(6)/[facility] Hemoglobin 12.2 11.7 - 15.5 g/dL [facility] Hematocrit 38.9 35.7 - 45.8 % [facility] MCV 93.1 82.6 - 94.4 fL [facility] MCH 29.2 27.1 - 32.0 pg [facility] MCHC 31.4(L) 31.7 - 35.0 g/dL [facility] Platelets 174 145 - 357 x10(3)/[facility] RDWSD 47.9(H) 37.0 - 46.0 fL [facility] RDWCV 13.9 11.5 - 14.1 % [facility] MPV 11.2 7.6 - 12.9 fL [facility] nRBC % Auto 0.0 % [facility] nRBC Abs Auto 0.000 0.000 - 0.000 x10(3)/mcL [facility] Blood 01/21/2024 1:02 AM EDT 01/21/2024 1:13 AM EDT Narrative Resulting Agency Comment Spec In Lab Miguel Pack MD HEMATOLOGY ORDERABLE S [facility] [place] [address] * (ABNORMAL) Basic Metabolic Panel (non-fasting) (01/21/2024 1:02 AM EDT) Glucose Lvl 159 65 - 199 mg/dL [facility] Comment:Diabetes: >=200 mg/d L plus symptoms BUN 23(H) 8 - 18 mg/dL [facility] Creatinine 1.58(H) 0.70 - 1.20 mg/dL [facility] Sodium 144 135 - 145 mmol/L [facility] Potassium 3.6 3.5 - 5.0 mmol/L [facility] Comment: Please note: ??Patients with WBC >100,000 may have falsely elevated Potassium levels. ??For accurate Potassium quantification in these patients send serum separator tube (gold top) for subsequent determinations. ??Contact the Clinical Chemistry Laboratory if there are any questions. Chloride 113(H) 98 - 107 mmol/L [facility] CO2 19(L) 22 - 31 mmol/L [facility] Anion Gap 12 5 - 15 mmol/L [facility] Calcium 8.3(L) 8.5 - 10.5 mg/dL [facility] Comment:result rechecked-HT Estimated GFR 37(L) >=60 mL/min/1. 73 m?? [facility] Comment: This patient's estimated [...] Rodriguez MD CHEMISTRY ORDERABLES Performing Organization Address [facility] Co de Phone Number [facility] [place] [address] * Magnesium (01/21/2024 1:02 AM EDT) Magnesium 0.70 0.69 - 1.07 mmol/L [facility] Blood 01/21/2024 1:02 AM EDT 01/21/2024 1:13 AM EDT Narrative Resulting Agency Comment Spec In Lab Brendan Rodriguez MD CHEMISTRY ORDERABLES Performing Organization Address [facility] Co de Phone Number [facility] [place] [address] * Phosphorus (01/21/2024 1:02 AM EDT) Phosphorus 2.9 2.5 - 4.5 mg/dL [facility] Blood 01/21/2024 1:02 AM EDT 01/21/2024 1:13 AM EDT Narrative Resulting Agency Comment Spec In Lab Brendan Rodriguez MD CHEMISTRY ORDERABLES Performing Organization Address City/[facility]/ZIP Co de Phone Number [facility] [place] [address] * (ABNORMAL) BLOOD GAS 2 VENOUS (01/21/2024 12:52 AM EDT) pH Antwan 7.17(Criti vijaya) 7.32 - 7.42 [facility] Comment:Not noted by instrum ent screw machine operator swiss type. pCO2 Antwan 52(H) 41 - 51 mmHg [facility] pO2 Antwan 29 25 - 40 mmHg [facility] HCO3 Antwan 18.6 mmol/L [facility] [place] -9.9 mmol/L [facility] Hgb Blood Gas 13.3 11.7 - 15.5 g/dL [facility] O2HB [place] 52.0 % [facility] COHB [place] 0.1 % [facility] Comment: Nonsmokers: 0.5-1.5% COHB Smokers: Variable, but usually less than 10% Toxic: 20-30% COHB Lethal: Greater than 60% COHB METHB [place] 0.6 <=1.5 % [facility] Na Whole Blood 143 135 - 145 mmol/L [facility] K Whole Blood 3.6 3.5 - 5.0 mmol/L [facility] Comment: Please note: Patients with WBC >100,000 may have falsely elevated Potassium levels. Contact the Clinical Chemistry Laboratory if there are any questions. ICa Whole Blood 1.20 1.15 - 1.33 mmol/L [facility] Comment: Note: ??Total bilirubin higher than 20 mg/dL may lead to falsely low ionized calcium. CL Whole Blood 113(H) 98 - 107 mmol/L [facility] Gluc Whole Bld 154 65 - 199 mg/dL [facility] Comment:Diabetes: >=200 mg/d L plus symptoms Lactate WB 3.2(H) 0.5 - 2.2 mmol/L [facility] Flow [place] 3.0 LPM [facility] BGas Source Venous [facility] Blood 01/21/2024 12:5 2 AM EDT 01/21/2024 12:52 AM EDT Brendan Rodriguez MD CHEMISTRY ORDERABLES Performing Organization Address City/[facility]/ZIP Co de Phone Number [facility] [place] [address] * POCT Glucose (01/21/2024 12:49 AM EDT) POC Glucose 124 65 - 199 mg/dL [facility] Comment: Supplemental ranges: <140 mg/dL before meals <180 mg/dL all other times of the day Blood 01/21/2024 12:4 9 AM EDT 01/21/2024 12:49 AM EDT Brendan Rodriguez MD POINT OF CARE TEST O RDERABLES Performing Organization Address [facility] Co de Phone Number [facility] [place] [address] * XR Fluoro No Rad <1Hr - OR Use (01/21/2024 12:28 AM EDT) Narrative Dicom, Auditing User - 01/21/2024 12:29 AM EDT This exam is auto-finalizing. No interpretation was done. Nhan Castelan MD IMG FLUORO ORDERABLE S * (ABNORMAL) Urine culture Cystoscopic Urine (01/21/2024 12:00 AM EDT) Urine Culture 10,000-49,000 cfu/ml Escherichia coli(A) [facility] Organism Escherichia coli(A) [facility] Cystoscopic Urine 01/21/2024 12:32 [...] - GENER AL ORDERABLES Performing Organization Address [facility] Co de Phone Number [facility] [place] [address] * Urine culture Cystoscopic Urine (01/20/2024 11:55 PM EDT) Urine Culture No growth (Less than 100 cfu/ml). [facility] Cystoscopic Urine 01/20/2024 11:55 PM EDT 01/21/2024 12:32 AM EDT Comment:Bladder urine cultur e Narrative Resulting Agency Comment Spec In Lab Brendan Rodriguez MD MICROBIOLOGY - GENER AL ORDERABLES Performing Organization Address [facility] Co de Phone Number [facility] [place] [address] * Scan, Peripheral Blood (01/20/2024 11:14 PM EDT) Plat Estimate Normal [facility] RBC Morphology Normal [facility] Blood 01/20/2024 11:1 4 PM EDT 01/20/2024 11:20 PM EDT Narrative Resulting Agency Comment Spec In Lab Sunshine June MD HEMATOLOGY ORDERA BLES Performing Organization Address [facility] Co de Phone Number [facility] [place] [address] * (ABNORMAL) Differential, Automated (01/20/2024 11:14 PM EDT) Neutrophils % 92.9 % [facility] Neutr Abs (ANC) 25.22(H) 1.70 - 6.10 x10(3)/ L [facility] Lymphocytes % 2.1 % [facility] Lymphocytes Abs 0.6(L) 0.9 - 3.2 x10(3)/ L [facility] Monocytes % 3.2 % [facility] Monocyte Abs 0.9 0.3 - 0.9 x10(3)/[facility] Eosinophils % 0.4 % [facility] Eosinophils Abs 0.1 0.0 - 0.4 x10(3)/[facility] Basophils % 0.2 % [facility] Basophils Abs 0.1 0.0 - 0.1 x10(3)/[facility] Immature Gran % 1.20 % [facility] Comment: Immature granulocytes(IG's)percentage and absolute count will include metamyelocytes, myelocytes, and promyelocytes. Blood smears from CBCs yielding IG's will be scanned manually for concordance. If this scan disagrees with the automated IG or if promyelocytes are noted, a manual differential will be performed. Neelam Gran Abs 0.32(H) 0.00 - 0.04 x10(3)/ L [facility] Blood 01/20/2024 11:1 4 PM EDT 01/20/2024 11:20 PM EDT Narrative Resulting Agency Comment Spec In Lab Sunshine June MD HEMATOLOGY ORDERA BLES [facility] [place] [address] * (ABNORMAL) Hemogram (01/20/2024 11:14 PM EDT) [facility] WBC 27.2(H) 4.0 - 9.5 x10(3)/[facility] RBC 4.03 4.00 - 5.21 x10(6)/[facility] Hemoglobin 11.7 11.7 - 15.5 g/dL [facility] Hematocrit 37.2 35.7 - 45.8 % [facility] MCV 92.3 82.6 - 94.4 fL [facility] MCH 29.0 27.1 - 32.0 pg [facility] MCHC 31.5(L) 31.7 - 35.0 g/dL [facility] Platelets 194 145 - 357 x10(3)/[facility] RDWSD 47.5(H) 37.0 - 46.0 [facility] RDWCV 14.0 11.5 - 14.1 % [facility] MPV 11.1 7.6 - 12.9 [facility] nRBC % Auto 0.0 % [facility] nRBC Abs Auto 0.000 0.000 - 0.000 x10(3)/[facility] Blood 01/20/2024 11:1 4 PM EDT 01/20/2024 11:20 PM EDT Narrative Resulting Agency Comment Spec In Lab Sunshine June MD HEMATOLOGY ORDERA BLES [facility] [place] [address] * (ABNORMAL) Basic Metabolic Panel (non-fasting) (01/20/2024 11:14 PM EDT) [facility] Glucose Lvl 111 65 - 199 mg/dL [facility] Comment:Diabetes: >=200 mg/d L plus symptoms BUN 21(H) 8 - 18 mg/dL [facility] Creatinine 1.51(H) 0.70 - 1.20 mg/dL [facility] Sodium 145 135 - 145 mmol/L [facility] Potassium 3.0(Criti vijaya) 3.5 - 5.0 mmol/L [facility] Comment: Called by: FLORA, Read back by: Denisse Ambrose, Date/Time:01/21/24 00:00. Please note: ??Patients with WBC >100,000 may have falsely elevated Potassium levels. ??For accurate Potassium quantification in these patients send serum separator tube (gold top) for subsequent determinations. ??Contact the Clinical Chemistry Laboratory if there are any questions. Chloride 118(H) 98 - 107 mmol/L [facility] CO2 17(L) 22 - 31 mmol/L [facility] Anion Gap 10 5 - 15 mmol/L [facility] Calcium 7.4(L) 8.5 - 10.5 mg/dL [facility] Estimated GFR 40(L) >=60 mL/min/1. 73 m?? [facility] Comment: This patient's estimated [...] In Lab Nhan Castelan MD CHEMISTRY ORDERABLES [facility] [place] [address] * Request For 2nd Read CT Abdomen & Pelvis (01/20/2024 10:47 PM EDT) [employer] WORKSTATION ID [id number] RAD Anatomical Region Laterality Modality Abdomen, Pelvis [...] who have questions please contact the health customer care manager that requested your imaging first. ? Electronically signed by: Rebeca Garcia MD, [facility] ([phone]), at 01/21/2024 7:07 AM Narrative 01/21/2024 7:07 AM EDT EXAMINATION: REQUEST FOR 2ND READ CT ABDOMEN AND PELVIS CLINICAL HISTORY: septioc stone; Sending Institution [facility]; Date of exam [id number]; I [...] PELVIS CLINICAL HISTORY: septioc stone; Sending Institution [facility]; Date of exam [id number]; I [...] patients who have questions please contactthe health customer care manager that requested your imaging first. Electronically signed by: Rebeca Garcia MD, [facility]([phone]), at 01/21/2024 7:07 AM Nhan Castelan MD IMG OUTSIDE INTERPRE TATION ORDERABLES * EKG 12 Lead (01/20/2024 10:06 PM EDT) Ventricular rate 91 BPM MUSE SYSTEM Atrial Rate 91 BPM MUSE SYSTEM P-R Interval 140 ms MUSE SYSTEM QRS Duration 98 ms MUSE SYSTEM Q-T Interval 394 ms MUSE SYSTEM QTC Calculated (Bezet) 484 ms MUSE SYSTEM Calculated P [place] 48 degrees MUSE SYSTEM Calculated R [place] 26 degrees MUSE SYSTEM Calculated T [place] 39 degrees MUSE SYSTEM INTERPRETATION Normal sinus rhythm Lateral infarct , age undetermined Abnormal ECG No previous ECGs available Confirmed by Ashleigh Santana ([id number]) on 01/21/2024 12:58:47 PM MUSE SYSTEM 01/20/2024 [...] unspecified Ureteral obstruction, left Other ureteric obstruction Sepsis documented in this encounter Admitting Diagnoses Diagnosis Ureteral obstruction, left Other ureteric obstruction Sepsis documented in this encounter Administered Medications Inactive Administered Medications - up to 3 most recent administrations Medication Order MAR Action Action Date Dose Rate Site acetaminophen (Tylenol) tablet 975 mg 975 mg, Oral, EVERY 8 HOURS PRN, Starting on 5/25/24 at 0106, Until Tue01/24/24 at 1628, Pain, Maximum dose of acetaminophen is 4000 mg from all sources in 24 hours. When ordered for pain, acetaminophen should be given even when other ordered pain medications are indicated. , Routine Given 01/21/2024 5:43 PM EDT 975 mg calcium gluconate 1g in sodium chloride 0.9% 50mL 1 g, Intravenous, ONCE, 1 dose, On Tue01/21/24 at 0200, Administer over 60 Minutes, Warning Vesicant/Irritant Medication New Bag 01/21/2024 1:27 AM EDT 1 g 50 mL/hr ciprofloxacin (Cipro) tablet 500 mg 500 mg, [...] Given 01/23/2024 8:49 AM EDT 5,000 Units lactated Ringers 500 mL IV bolus Intravenous, ONCE, 1 dose, On Tue01/21/24 at 1230 New Bag 01/21/2024 11:48 AM EDT lactated ringers infusion 100 mL/hr, Intravenous, CONTINUOUS, Starting on Tue01/21/24 at 0100, Until 01/22/24 at 0942 Rate/Dose Verify 01/22/2024 8:00 AM EDT 100 mL/hr 100 mL/hr New Bag 01/22/2024 5:03 AM EDT 100 mL/hr 100 mL/hr Rate/Dose Verify 01/22/2024 4:05 AM EDT 100 mL/hr 100 mL/ hr magnesium sulfate 1 g in dextrose 5% 100 mL infusion 1 g, Intravenous, ONCE, 1 dose, On 01/21/24 at 0100, Administer over 60 Minutes New Bag 01/21/2024 1:24 AM EDT 1 g 100 mL/hr piperacillin-tazobactam (Zosyn) 3.375 g vial attach to sodium chloride 0.9% 50 mL Mini-Bag Plus 3.375 g, Intravenous, EVERY 8 HOURS, First dose on 01/21/24 at 0800, Until Discontinued, Administer over 4 Hours, Warning Vesicant/Irritant Medication Do not administer or Y-site with lactated ringers., Indication for (Active or Suspected): Bacteremia/Sepsis New Bag 01/24/2024 12:00 AM EDT 3.375 g 12.5 mL/hr New Bag 01/23/2024 3:45 PM EDT 3.375 g 12.5 mL/hr New Bag 01/23/2024 8:44 AM EDT 3.375 g 12.5 mL/hr potassium chloride 10 mEq in sterile water 100 mL infusion 10 mEq, Intravenous, EVERY 1 HOUR PRN, Starting on 01/21/24 at 0029, Until 01/21/24 at 0546, Administer over 60 Minutes, hypokalemia, Administer 4 times 10 meq/100 mL bags, each over 30-60 minutes for serum potassium (mMol/L) of 3.3 - 3.8 See instructions for Potassium Protocol in online policies. New Bag 01/21/2024 5:18 AM EDT 10 mEq 100 mL/h r potassium chloride ER (Klor-Con M) crystal tablet 40 mEq 40 mEq, Oral, EVERY 4 HOURS PRN, Starting on 01/21/24 at 0546, Until 01/22/24 at 0942, hypokalemia, Administer for serum potassium (mMol/L) of 3.6 - 3.8 potassium chloride ER particle/crystal tablets (Klor-Con M) may be broken in half and each half swallowed separately. Tablets can be dissolved in ~4 ounces of water; allow ~2 minutes to dissolve, stir well and drink immediately. Do not crush, chew, or suck on tablet., Routine Given 01/21/2024 5:58 AM EDT 40 mEq potassium, sodium phosphates (Neutra-Phos) 280-160-250 mg oral packet 3 g 3 g, Oral, ONCE, 1 dose, On Tue01/23/24 at 0945, Reconstitute each packet in 75 mL of water. Give with full glass of water (240 mL)., Routine Given 01/23/2024 9:02 AM EDT 3 g potassium, sodium phosphates (Neutra-Phos) 280-160-250 mg oral packet 3 g 3 g, Oral, ONCE, 1 dose, On Tue01/23/24 at 1315, Reconstitute each packet in 75 mL of water. Give with full glass of water (240 mL)., Routine Given 01/23/2024 1:13 PM EDT 3 g topiramate (Topamax) tablet 100 mg 100 mg, Oral, 2 TIMES DAILY, First dose on 01/21/24 at 0900, Until Discontinued, DO NOT SPLIT, CRUSH OR OPEN, Routine Given 01/24/2024 9:30 AM EDT 100 mg Given 01/23/2024 9:03 PM EDT 100 mg Given 01/23/2024 8:49 AM EDT 100 mg vancomycin (Vancocin) 1.5 gram in sodium chloride 0.9% 500 mL infusion 1.5 g, Intravenous, at 333.3 mL/hr, ONCE, 1 dose, On 01/21/24 at 0200, Maximum infusion rate is 1 gram/hour. If flushing of the face, neck, upper body, arms, and/or back occurs decrease infusion rate by 50% to reduce the severity of symptoms. This medication may have an associated drug lab level. Please see MAR for scheduled level. Warning Vesicant/Irritant Medication , STAT New Bag 01/21/2024 2:25 AM EDT 1.5 g 333.3 mL/hr venlafaxine XR (Effexor-XR) capsule 150 mg 150 [...] Suspected): Bacteremia/Sepsis 0939 (Given - Provider: Carmita Pham RN) dextroamphetamine-amphe tamine XR (Adderall XR) capsule 30 mg 30 mg, Oral, DAILY, First dose on 01/21/24 at 0900, Until Discontinued, Routine 0821 (Given [...] Juliet Hoffmann RN)2040 (Stopped - Provider: Quita Emmanuel RN)2344 (New Bag - Provider: Quita Emmanuel RN) [...] Juliet Hoffmann, COLETTE)2008 (Given - Provider: Quita Emmanuel RN) 0849 (Given - Provider: Meaghan Manrique, COLETTE)2103 (Given - Provider: Mayda Marcano, COLETTE) 0930 (Given - Provider: Carmita Pham, RN) venlafaxine XR (Effexor-XR) capsule 150 mg 150 mg, Oral, DAILY WITH BREAKFAST, First dose on 01/21/24 at 0800, Until Discontinued, DO NOT CRUSH OR OPEN, Routine 819 (Given - Provider: Juliet Hoffmann, COLETTE) 0849 (Given - Provider: Meaghan Manrique, COLETTE) 0930 (Given - Provider: Carmita Pham, COLETTE) Continuous Medication Order 01/22/2024 01/23/2024 01/24/2024 lactated [...] Routine documented in this encounter Care Teams Spring Up Supervisor Relationship Specialty Start Date End Date Graciela Naidu MD [address] [place] [address] PCP - General 07/21/10 documented as of this encounter
--- OUTSIDE RECORDS SUMMARY | 2024-03-28 02:45 | XMS_ITS | Encounter Summary ---
[place] [address] Care Team Providers Care Steam Train Driver Name Role Phone Graciela Naidu MD Primary Care Provider [phone] Encounter Details Date Type Department Care Team (Late st Contact Info) Description 01/20/2024 Ancillary Procedure [place] [phone] Social History Tobacco Use Types Packs/Day Years Used Date Smoking Tobacco: Never Assessed [facility] Utilities Answer Date Recorded In the past [...] any time in the past 12 m [facility], were you homeless or living in a fci (including now)? No 01/21/2024 IPV Inpatient Questions [...] 04/20/2024 3:45 PM EDT Appointment [place] [address] Pam Grant MD [facility] [place] [address] 04/20/2024 4:40 PM EDT Office [place] [address] Pam Grant MD [facility] [place] [address] documented as of this encounter Procedures Procedure Name Priority Date/Time Associated Diagnosis Comments FILM LIBRARY STORAGE ONLY DX CHEST Routine 01/20/2024 12:00 AM EDT documented in this encounter Results * Film Library- Storage Only DX Chest (01/20/2024 12:00 AM EDT) Narrative Dicom, Auditing User - 01/21/2024 2:16 AM EDT This exam is auto-finalizing. It's purpose is for storage only. Nhan Castelan MD [facility] FILM LIBRARY ORD ERABLES documented in this encounter Visit Diagnoses Not on filedocumented in this encounter Care Teams Steam Train Driver Relationship Specialty Start Date End Date Graciela Naidu MD [facility] [address] [place] [address] PCP - General 07/21/10 documented as of this encounter
[2024-03-29 20:24] LABS: Osmolality, Urine 608 mOsm/kg (150-1150)
== END 2024-03-28 02:43 | disposition home or self-care (01) ==
LOC: LBO 02:42
PROVIDERS: PCP Family Medicine; Visit Provider Family Medicine
DX: E87.0 Hyperosmolality and hypernatremia (principal)
CPT/HCPCS: 36415; 80048; 82088; 83935; 84244

== ENCOUNTER 2024-04-05 01:46 | Outpatient (CLI) | payer BC, SELFPAY ==
--- OUTSIDE RECORDS SUMMARY | 2024-04-05 01:47 | XMS_ITS | Encounter Summary ---
Author Organization [facility] Address [address] [place] [address] Care Team Providers Care Interstate Bus Dispatcher Name Role Phone Unknown, Provider Primary Care Provider Encounter Details Date Type Department Care Team (Late st Contact Info) Description 12/12/2015 Results Only [facility] [phone] Graciela Arciniega MD [address] [place] [address] Social History Tobacco Use Types [...] ? CHRISTINA, BARBRA ? Accession #: ? [id number] ? : ? 1965 (Age: 50) ??F [...] types 16,18,31,33,35, 39,45,51,52,56,58, 59,66, and 68 by film historian mediated amplification. Comments Document reviewed and electronically signed by: ? System Interface ? Report date: 12/30/2015 By the signature above, the attending physician certifies that he/she has personally conducted a gross and/or microscopic examination of the described specimens and rendered or confirmed the above diagnosis. End of Report [facility] 12/12/2015 12/15/2015 Graciela Arciniega MD PATHOLOGY ORDERABLES [facility] [address] [place] [address] documented in this encounter Visit Diagnoses Not on filedocumented in this encounter Care Teams Interstate Bus Dispatcher Relationship Specialty Start Date End Date Unknown, Provider, PCP - General 07/15/15 documented as of this encounter
--- OUTSIDE RECORDS SUMMARY | 2024-04-05 01:47 | XMS_ITS | Encounter Summary ---
Author Organization [facility] Address [address] [place] [address] Care Team Providers Care Building Construction Contractor Name Role Phone Unavailable Primary Care Provider Unavailabl e Encounter Details Date Type Department Care Team (Late st Contact Info) Description 04/25/2002 Results Only [facility] [address] [place] [address] Graciela Naidu MD [address] [place] [phone] Social History Tobacco Use Types Packs/Day Years [...] ? CHRISTINA, BARBRA ? Accession #: ? [id number] : ? 1965 (Age: 36) ??F ?Collect [...] Naidu MD PATHOLOGY ORDERABLES [facility] [address] [place] [address] documented in this encounter Visit Diagnoses Not on filedocumented in this encounter
--- OUTSIDE RECORDS SUMMARY | 2024-04-05 01:47 | XMS_ITS | Encounter Summary ---
Author Organization [facility] Address [address] [place] [address] Care Team Providers Care Furnace Firer Name Role Phone Unknown, Provider Primary Care Provider [phone] Encounter Details Date Type Department Care Team (Late st Contact Info) Description 09/07/2021 Lab Requisition [facility] Pathology & Laboratory Medicine - [facility] [address] [place] [address] Outr Resulting Lab, Provider Social History Tobacco [...] 4th Generation Negative Negative 09/08/2021 11:13 EST [facility] Comment:If acute HIV-1 infec tion is suspected in a high risk patient, submit plasma specimen for HIV-1 RNA quantitation test. Blood VENOUS BLOOD / Unknown 09/07/2021 7:36 EST 09/07/2021 21:22 EST Narrative [facility] - 09/08/2021 11:13 EST Fourth Generation assay performed on the Siemens Centaur XPT. Provider Outr Resulting Lab IMMUNOLOGY A ND SEROLOGY ORDERABLES Performing Organization Address [facility]/State/ZIP Co de Phone Number [facility] [address] [place] [address] documented in this encounter Visit Diagnoses Not on filedocumented in this encounter Care Teams Furnace Firer Relationship Specialty Start Date End Date Unknown, Provider, PCP - General 07/15/15 documented as of this encounter
--- OUTSIDE RECORDS SUMMARY | 2024-04-05 01:47 | XMS_ITS | Encounter Summary ---
Author Organization [facility] Address [address] [place] [address] Care Team Providers Care Groundman Name Role Phone Unknown, Provider Primary Care Provider Encounter Details Date Type Department Care Team (Late st Contact Info) Description 03/29/2024 Lab Requisition [facility] Pathology & Laboratory Medicine - [facility] [address] [place], [place] [address] Outr Resulting Lab, Provider Social History Tobacco [...] Procedure Name Priority Date/Time Associated Diagnosis Comments OSMOLALITY, URINE Routine 03/28/2024 15: 45 EDT documented in this encounter Results * OSMOLALITY, URINE (03/28/2024 15:45 EDT) Osmolality, Urine 608 150 - 1,150 mOsm/kg 03/29/2024 20:19 EDT [facility] Urine URINE / Unknown 03/28/2024 1 5:45 EDT 03/29/2024 20:05 EDT Provider Outr Resulting Lab URINALYSIS O RDERABLES [facility] [address] [place], [place] [address] documented in this encounter Visit Diagnoses Not on filedocumented in this encounter Care Teams Groundman Relationship Specialty Start Date End Date Unknown, ProviderMD PCP - General 07/15/15 documented as of this encounter
--- OUTSIDE RECORDS SUMMARY | 2024-04-05 01:47 | XMS_ITS | Encounter Summary ---
Author Organization [facility] Address [address] [place] [address] Care Team Providers Care Treating Machine Operator Name Role Phone Unavailable Primary Care Provider Unavailabl e Encounter Details Date Type Department Care Team (Late st Contact Info) Description 07/06/2001 Results Only [facility] - Maple conversion [address] [place] [address] Graciela Arciniega MD [address] [place] [phone] Social History Tobacco Use Types Packs/Day Years [...] ? BARBRA VASQUEZ ? Accession #: ? [id number] : ? 1965 (Age: 35) ??F ?Collect [...] Arciniega MD PATHOLOGY ORDERABLES [facility] GREWAL [address] [place] [address] documented in this encounter Visit Diagnoses Not on filedocumented in this encounter
--- OUTSIDE RECORDS SUMMARY | 2024-04-05 01:47 | XMS_ITS | Encounter Summary ---
Author Organization [facility] Address [address] [place] [address] Care Team Providers Care Pipe Fitter Name Role Phone Unknown, Provider Primary Care Provider Encounter Details Date Type Department Care Team (Late st Contact Info) Description 09/07/2021 Lab Requisition [facility] Pathology & Laboratory Medicine - [facility] [address] [place] [address] Outr Resulting Lab, Provider Social History Tobacco [...] C Antibody Negative Negative 09/08/2021 10:59 EST [facility] Blood VENOUS BLOOD / Unknown 09/07/2021 7:36 EST 09/07/2021 21:22 EST Provider Outr Resulting Lab CHEMISTRY & BLOOD GAS ORDERABLES [facility] [address] [place] [address] documented in this encounter Visit Diagnoses Not on filedocumented in this encounter Care Teams Pipe Fitter Relationship Specialty Start Date End Date Unknown, ProviderMD PCP - General 07/15/15 documented as of this encounter
--- OUTSIDE RECORDS SUMMARY | 2024-04-05 01:47 | XMS_ITS | Encounter Summary ---
Author Organization [facility] Address [address] [place] [address] Care Team Providers Care Workers Compensation Consultant Name Role Phone Unknown, Provider Primary Care Provider Encounter Details Date Type Department Care Team (Latest Contact Info) Description 06/23/2021 Lab Requisition [facility] Pathology & Laboratory Medicine - [facility] [address] [place] [address] Graciela Naidu MD [address] [phone] Encounter for gynecological examination (general) [...] findings documented in this encounter Care Teams Workers Compensation Consultant Relationship Specialty Start Date End Date Unknown, Provider, PCP - General 07/15/15 documented as of this encounter
--- OUTSIDE RECORDS SUMMARY | 2024-04-05 01:47 | XMS_ITS | Encounter Summary ---
Author Organization [facility] Address [address] [place] [address] Care Team Providers Care Binder Layer Name Role Phone Unavailable Primary Care Provider Unavailabl e Encounter Details Date Type Department Care Team (Late st Contact Info) Description 05/17/2011 Results Only [facility] Laboratory Services - [facility] ([facility] [address] [place] [address] Edilia Genao, EYAD [address] [place] [phone] Social History Tobacco Use Types [...] ? BARBRA VASQUEZ ? Accession #: ? [id number] ? : ? 1965 (Age: 45) ??F [...] ? ANASTASIA GREWAL 05/17/2011 05/19/2011 Edilia Genao FISH FARM LABORER PATHOLOGY ORDERABLES [facility] [address] [place] [address] documented in this encounter Visit Diagnoses Not on filedocumented in this encounter
--- OUTSIDE RECORDS SUMMARY | 2024-04-05 01:47 | XMS_ITS | Clinical Summary ---
Author Organization [facility] Address [address] [place] [address] Care Team Providers Care Care Transition Mgr Name Role Phone Unknown, Provider Primary Care Provider Encounters Date Type Department Care Team Description 03/29/2024 Lab Requisition [facility] Pathology & Laboratory Medicine - [facility] [address] [place] [address] Outr Resulting Lab, Provider from Last 3 Months Social History Tobacco [...] OSMOLALITY, URINE Routine 03/28/2024 15: 45 EDT HEPATITIS C AB W REFLEX TO HCV RNA BY PCR Routine 09/07/2021 7:36 EST from Last 3 Months or Most Recently Relevant to Health Maintenance Results * OSMOLALITY, URINE (03/28/2024 15:45 EDT) Osmolality, Urine 608 150 - 1,150 mOsm/kg 03/29/2024 20:19 EDT [facility] Urine URINE / Unknown 03/28/2024 1 5:45 EDT 03/29/2024 20:05 EDT Provider Outr Resulting Lab URINALYSIS O RDERABLES [facility] [address] [place], [place] [id number] * HEPATITIS C AB W REFLEX TO HCV RNA BY PCR (09/07/2021 7:36 EST) Hep C Antibody Negative Negative 09/08/2021 10:59 EST [facility] Blood VENOUS BLOOD / Unknown 09/07/2021 7:36 EST 09/07/2021 21:22 EST Provider Outr Resulting Lab CHEMISTRY & BLOOD GAS ORDERABLES Performing Organization Address City/[facility] Co de Phone Number [facility] [address] [place] [address] from Last 3 Months or Most Recently Relevant to Health Maintenance Care Teams Care Transition Mgr Relationship Specialty Start Date End Date Unknown, Provider, PCP - General 07/15/15
--- OUTSIDE RECORDS SUMMARY | 2024-04-05 01:47 | XMS_ITS | Referral Summary ---
Author Organization [facility] Address [address] [place] [address] Care Team Providers Care Termite Control Representative Name Role Phone Unknown, Provider Primary Care Provider Encounters Date Type Department Care Team Description 03/29/2024 Lab Requisition [facility] Pathology & Laboratory Medicine - [facility] [address] [place] [address] Outr Resulting Lab, Provider from Last 3 [...] 150 - 1,150 mOsm/kg 03/29/2024 20:19 EDT [facility] Urine URINE / Unknown 03/28/2024 1 5:45 EDT 03/29/2024 20:05 EDT Provider Outr Resulting Lab URINALYSIS O RDERABLES [facility] [address] [place] [address] * HEPATITIS C AB W REFLEX TO HCV RNA BY PCR (09/07/2021 7:36 EST) Hep C Antibody Negative Negative 09/08/2021 10:59 EST [facility] Blood VENOUS BLOOD / Unknown 09/07/2021 7:36 EST 09/07/2021 21:22 EST Provider Outr Resulting Lab CHEMISTRY & BLOOD GAS ORDERABLES [facility] [address] [place] [phone] from Last 3 Months or Most Recently Relevant to Health Maintenance Care Teams Termite Control Representative Relationship Specialty Start Date End Date Unknown, Provider, PCP - General 07/15/15
--- OUTSIDE RECORDS SUMMARY | 2024-04-05 01:47 | XMS_ITS | Encounter Summary ---
Author Organization [facility] Address [address] [place] [address] Care Team Providers Care Linux Kernel Engineer Name Role Phone Unavailable Primary Care Provider Unavailabl e Encounter Details Date Type Department Care Team (Late st Contact Info) Description 05/27/2003 Results Only [facility] - [facility] conversion [address] [place] [address] Graciela Arciniega MD [address] [place] [address] [place] [phone] Social History Tobacco Use Types Packs/Day Years [...] ? CHRISTINA, BARBRA ? Accession #: ? [id number] : ? 1965 (Age: 37) ??F ?Collect [...] Arciniega MD PATHOLOGY ORDERABLES ANASTASIA GREWAL [address] [place] [address] documented in this encounter Visit Diagnoses Not on filedocumented in this encounter
--- OUTSIDE RECORDS SUMMARY | 2024-04-05 01:47 | XMS_ITS | Encounter Summary ---
Author Organization [facility] Address [address] [place] [address] Care Team Providers Care Senior Oracle Pl Sql Developer Name Role Phone Unavailable Primary Care Provider Unavailabl e Encounter Details Date Type Department Care Team (Late st Contact Info) Description 07/12/2005 Results Only [facility] - [facility] conversion [address] [place] [address] Graciela Arciniega MD [address] [place] [address] [place] [phone] Social History Tobacco Use Types Packs/Day Years [...] ? BARBRA VASQUEZ ? Accession #: ? [id number] : ? 1965 (Age: 39) ??F ?Collect Date: ? 07/12/2005 Location: ? [facility] ? Receive Date: ? 07/14/2005 Provider: ?GRACIELA ARCINIEGA MD Copy to: ? Specimen/Source: ?ThinPrep Pap Test, Cervix/Endocervix, processed on [employer] ThinPrep Imaging System, with manual evaluation Last [...] Arciniega MD PATHOLOGY ORDERABLES Performing Organization Address City/State/[facility] Co de Phone Number ANASTASIA GREWAL [address] [place] [address] documented in this encounter Visit Diagnoses Not on filedocumented in this encounter
--- OUTSIDE RECORDS SUMMARY | 2024-04-05 01:47 | XMS_ITS | Encounter Summary ---
Author Organization [facility] Address [address] [place] [address] Care Team Providers Care Pcas Name Role Phone Unknown, Provider Primary Care Provider Encounter Details Date Type Department Care Team (Late st Contact Info) Description 06/23/2021 Lab Requisition [facility] Pathology & Laboratory Medicine - [facility] [address] [place] [address] Unknown, Provider, Social History Tobacco Use Types [...] on filedocumented in this encounter Care Teams Pcas Relationship Specialty Start Date End Date Unknown, Provider, PCP - General 07/15/15 documented as of this encounter
--- OUTSIDE RECORDS SUMMARY | 2024-04-05 01:47 | XMS_ITS | Encounter Summary ---
Author Organization [facility] Address [address] [place] [address] Care Team Providers Care Satellite Dish Installer Name Role Phone Unavailable Primary Care Provider Unavailabl e Encounter Details Date Type Department Care Team (Late st Contact Info) Description 10/19/2007 Results Only [facility] - Maple conversion [address] [place] [address] Graciela Arciniega MD [address] [place] [phone] Social History Tobacco Use Types Packs/Day [...] ? BARBRA VASQUEZ ? Accession #: ? [id number] : ? 1965 (Age: 41) ??F ?Collect Date: ? 10/19/2007 Location: ? [facility] ? Receive Date: ? 10/23/2007 Provider: ?GRACIELA ARCINIEGA MD Copy to: ? Specimen/Source: ?ThinPrep Pap Test, Cervix/Endocervix, processed on [employer] ThinPrep Imaging System, with manual evaluation Last [...] Arciniega MD PATHOLOGY ORDERABLES ANASTASIA GREWAL [address] [place] [address] documented in this encounter Visit Diagnoses Not on filedocumented in this encounter
--- OUTSIDE RECORDS SUMMARY | 2024-04-05 01:47 | XMS_ITS | Encounter Summary ---
Author Organization [facility] Address [address] [place] [address] Care Team Providers Care Parking Cashier Name Role Phone Unavailable Primary Care Provider Unavailabl e Encounter Details Date Type Department Care Team (Late st Contact Info) Description 04/01/2000 Results Only [facility] - Maple conversion [address] [place] [address] Graciela Arciniega MD [address] [place] [phone] Social History Tobacco Use Types Packs/Day Years [...] ? CHRISTINA, BARBRA ? Accession #: ? [id number] : ? 1965 (Age: 34) ??F ?Collect [...] Date: ??04/07/2000 13:03 End of Report ANASTASIA GREWAL 04/01/2000 04/05/2000 Graciela Arciniega MD PATHOLOGY ORDERABLES ANASTASIA GREWAL [address] [place] [address] documented in this encounter Visit Diagnoses Not on filedocumented in this encounter
--- OUTSIDE RECORDS SUMMARY | 2024-04-05 01:47 | XMS_ITS | Encounter Summary ---
Author Organization [facility] Address [address] [place] [address] Care Team Providers Care Grain Farmworker Name Role Phone Unavailable Primary Care Provider Unavailabl e Encounter Details Date Type Department Care Team (Late st Contact Info) Description 05/23/2012 Results Only [facility] Laboratory Services - [facility] [address] [place] [address] Edilia Genao, EYAD [address] [place] [phone] Social History Tobacco Use Types [...] ? CHRISTINA, BARBRA ? Accession #: ? [id number] : ? 1965 (Age: 46) ??F ?Collect Date: ? 05/23/2012 Location: ? [facility] ? Receive Date: ? 05/25/2012 Provider: ?EDILIA GENAO RECRUITMENT COORDINATOR Copy to: ? Specimen/Source: ?Pap Test, Cervix/Endocervix, [...] Genao NP PATHOLOGY ORDERABLES ANASTASIA GREWAL [address] [place] [address] documented in this encounter Visit Diagnoses Not on filedocumented in this encounter
--- OUTSIDE RECORDS SUMMARY | 2024-04-05 01:47 | XMS_ITS | Encounter Summary ---
Author Organization [facility] Address [address] [place] [address] Care Team Providers Care Roof Fixer Name Role Phone Unknown, Provider Primary Care Provider Encounter Details Date Type Department Care Team (Latest Contact Info) Description 06/23/2021 Lab Requisition [facility] Pathology & Laboratory Medicine - [facility] [address] [place] [address] Graciela Naidu MD [address] [phone] Encounter for gynecological examination (general) [...] types, PCR Negative Negative 06/30/2021 11:51 EDT [facility] Papanicolaou smear specimen (specimen) CERVIX UTERI STRUCTURE / Unknown 06/22/2021 4:00 EDT 06/29/2021 10:14 EDT Graciela Naidu MD MICROBIOLOGY - GENER AL ORDERABLES Performing Organization Address City/[facility]/ZIP Co de Phone Number [facility] [address] [place] [address] * PAP TEST (06/22/2021 4:00 EDT) Specimens A. Cervix and/or Endocervix , ThinPrep Imaging System with Manual Evaluation 06/30/2021 11:51 EDT [facility] Specimen Adequacy Satisfactory for Evaluation - transformation zone component present 06/30/2021 11:51 EDT [facility] General Categorization Negative for intraepithelial lesion or malignancy 06/30/2021 11:51 T [facility] Attestation . 06/30/2021 11:51 EDT [facility] at 1151 Clinical History SEE BELOW 06/30/20 11:51 EDT [facility] HPV The result for the Human Papillomavirus (HPV) Detection-High Risk Types is Negative. No E6 or E7 mRNA is detected from HPV types 16,18,31,33,35,39 ,45,51,52,56,58,5 9,66, and 68 by scanner operator mediated amplification.Kadi ting was performed on specimen [id number] and was resulted on 06/30/2021 1147 EDT by JEANNE, LAB INSTRUMENT RESULTS IN 06/30/2021 11:51 EDT [facility] Performing Lab [facility] 06/30/2021 11:51 EDT [facility] Scanned Images 06/30/2021 11:51 EDT [facility] Papanicolaou smear specimen (specimen) CERVIX UTERI STRUCTURE / Unknown 06/22/2021 4:00 EDT 06/23/2021 15:11 EDT Graciela Naidu MD PATHOLOGY ORDERABLES Performing Organization Address City/[facility]/ZIP Co de Phone Number [facility] [address] [place] [phone] documented in this encounter Visit Diagnoses Diagnosis Encounter for gynecological examination (general) (routine) without abnormal findings documented in this encounter Care Teams Roof Fixer Relationship Specialty Start Date End Date Unknown, Provider, PCP - General 07/15/15 documented as of this encounter
--- OUTSIDE RECORDS SUMMARY | 2024-04-05 01:48 | XMS_ITS | Encounter Summary ---
[place] [address] Care Team Providers Care Business Strategist Name Role Phone Graciela Naidu MD Primary Care Provider [phone] Encounter Details Date Type Department Care Team (Late st Contact Info) Description 02/15/2024 [place] [phone] Fernanda Meek RN Social History Tobacco Use Types Packs/Day Years Used Date Smoking Tobacco: Never Smokeless Tobacco: Never Alcohol Use Standard Drinks/Week Comments Never 0 (1 standard drink = 0.6 oz pur e alcohol) [facility] Utilities Answer Date Recorded In the past 12 months has e [place], gas, oil, or water [employer] threatened to shut off services in your [...] any time in the past 12 m [facility], were you homeless or living in a [...] 04/20/2024 3:45 PM EDT [place]oint[place] [phone] Pam Grant MD [facility] [address] 04/20/2024 4:40 PM EDT [place] [phone] Pam Grant MD [facility] [place] [address] documented as of this encounter Visit Diagnoses Not on filedocumented in this encounter Care Teams Business Strategist Relationship Specialty Start Date End Date Graciela Naidu MD [facility] [address] [place] [address] PCP - General 07/21/10 documented as of this encounter
--- OUTSIDE RECORDS SUMMARY | 2024-04-05 01:48 | XMS_ITS | Clinical Summary ---
[place] [address] Care Team Providers Care Acid Tender Name Role Phone Graciela Naidu MD Primary Care Provider [phone] Allergies No known active allergies Medications Medication [...] 11:00 AM EDT [place] [address] Pam Grant MD Nephrolithiasis (Primary Dx); Ureteral obstruction, left 02/24/2024 Travel 02/17/2024 Travel 02/15/2024 [place] [address] Fernanda Meek RN 02/09/2024 10:10 AM EDT - 02/09/2024 11:59 PM EDT Hospital Encounter XRay at [address] [place] [phone] Pam Grant MD Discharge Disposition: Home 02/09/2024 7:30 AM EDT - 02/09/2024 9:28 AM EDT [facility] [place] [phone] Pam Grant MD CYSTOURETEROSCOPY, LITHOTRIPSY (WRVU 7.5) 02/09/2024 7:26 AM EDT Anesthesia Event [facility] [place] [address] Jaguar Lassiter MD 02/09/2024 6:09 AM EDT - 02/09/2024 9:46 AM EDT Hospital Encounter [facility] [place] [phone] Pam Grant MD Ureteral obstruction, left (Primary Dx); Left ureteral calculus; Urinary tract infection with hematuria, site unspecified Discharge Disposition: Home 02/09/2024 Telephone Urology at [place] [phone] Fernanda Meek RN 02/08/2024 Telephone Urology at [place] [phone] Fernanda Meek RN 01/27/2024 [place] [address] Meilta Dang RN 01/26/2024 [place] [address] Melita Dang, RN 01/20/2024 11:29 PM EDT Anesthesia Event Main Operating Room [place] [phone] José Luis Gee MD Keane, Patrick C, CRNA 01/20/2024 10:50 PM EDT Ancillary Procedure [place] [address] 01/20/2024 10:40 PM EDT - 01/21/2024 12:23 AM EDT Surgery [place] [address] Evangelist Rodriguez MD CYSTO, STENT PLACEMENT (WRVU 2.82) 01/20/2024 9:44 PM EDT - 01/24/2024 2:05 PM EDT Hospital Encounter Surgical [place] [phone] Nhan Castelan MD Chavez, David R, MD Left ureteral calculus; Pyelonephritis, acute; Ureteral stone; Urinary tract infection with hematuria, site unspecified; Ureteral obstruction, left Discharge Disposition: Home 01/20/2024 5:45 PM EDT Ancillary Procedure [place] [address] Evangelist Rodriguez MD 01/20/2024 5:40 PM EDT Ancillary Procedure [place] [phone] Candi Rodriguez MD 01/20/2024 Ancillary Procedure [place] [address] 01/20/2024 Travel 01/20/2024 Orders [place] [address] Evangelist Rodriguez MD Left ureteral calculus; Pyelonephritis, acute 01/13/2024 Ancillary [place] [address] Candi Rodriguez MD from Last 3 Months Social History Tobacco Use Types Packs/Day Years Used Date Smoking Tobacco: Never Smokeless Tobacco: Never Tobacco Cessation:Counseling Given: Not Answered Alcohol Use Standard Drinks/Week Comments Never 0 (1 standard drink = 0.6 oz pur e alcohol) [facility] Utilities Answer Date Recorded In the [...] time in the past 12 m [facility], were you homeless or living in a [...] 04/20/2024 3:45 PM EDT [place]oint[place] [phone] Pam Grant MD [facility] [place] [address] 04/20/2024 4:40 PM EDT [place] [phone] Pam Grant MD [facility] [place] [address] Health Maintenance Due Date Last Done Comments [...] history exists Medical Devices Implanted Type Area Telephone Technician Device Identifier Shelf Expiration Date Model / Serial / Lot Stent Ureteral [id number] Set Dbl Pgtl Tpr Tip Ptfe Hyconi ([id number]) (Autoreq) - [id number] Implanted:Qty : 1 on 01/20/2024 by Evangelist Rodriguez MD at [facility] IMPLANTS Left: Ureter [place] t3n [employer] [id number] 06/16/2026 [id number] 60 / / [id number] Explanted Type Area Telephone Technician Device Identifier Shelf Expiration Date Model / Serial / Lot Stent Ureteral [id number] Set Dbl Pgtl Radpq Tip Hydpc ([id number]) - [id number] Implanted:Qt y: 1 on 02/09/2024 by Pam Grant MD at [facility] Explanted:Qt y: 1 on 02/24/2024 by Pam Grant MD IMPLANTS Left: Urinary Bladder [employer] [id number] 07/05/2026 [id number] 30 / / [id number] Procedures Procedure Name Priority Date/Time Associated Diagnosis Comments CYSTO, STENT REMOVAL Routine 02/24/2024 11:00 AM EDT Nephrolithiasis XR FLUORO NO RAD <1HR - OR USE Routine 02/09/2024 9:44 AM EDT CYSTO,RETROGRADE,URE TEROPYELOGRAPHY Routine 02/09/2024 8:59 AM EDT Left ureteral calculus Urinary tract infection with hematuria, site unspecified Ureteral obstruction, left KIDNEY STONE ANALYSIS Routine 02/09/2024 8:45 AM EDT Cystourethroscopy, Ureter Catheter ([id number]) 02/09/2024 7:26 AM EDT Left ureteral calculus Urinary tract infection with hematuria, site unspecified Ureteral obstruction, left MODIFIER HOLMIUM LASER 02/09/2024 7:26 AM EDT Left ureteral calculus Urinary tract infection with hematuria, site unspecified Ureteral obstruction, left Cysto/Uretero/Pyelos copy W/Lithotripsy ([id number]) 02/09/2024 7:26 AM EDT Left ureteral calculus Urinary tract infection with hematuria, site unspecified Ureteral obstruction, left CYSTO,URETEROSCOPY\L ITHOTRIPSY Routine 02/09/2024 6:10 AM EDT Left ureteral calculus Urinary tract infection with hematuria, site unspecified Ureteral obstruction, left DIFFERENTIAL, AUTOMATED Routine 01/24/2024 12:25 AM EDT HEMOGRAM Routine 01/24/2024 12:25 AM EDT CBC (WITH DIFF) Routine 01/24/2024 12:25 AM EDT BASIC METABOLIC PANEL Routine 01/24/2024 12:25 AM EDT DIFFERENTIAL, AUTOMATED Routine 01/23/2024 5:06 AM EDT HEMOGRAM Routine 01/23/2024 5:06 AM EDT CBC (WITH DIFF) Routine 01/23/2024 5:06 AM EDT BASIC METABOLIC PANEL Routine 01/23/2024 5:06 AM EDT MAGNESIUM Routine 01/23/2024 5:06 AM EDT PHOSPHORUS Routine 01/23/2024 5:06 AM EDT SCAN DOC: TELEMETRY STRIPS 01/21/2024 10:55 PM EDT SCAN DOC: TELEMETRY STRIPS 01/21/2024 10:53 PM EDT DIFFERENTIAL, AUTOMATED STAT 01/21/2024 1:02 AM EDT HEMOGRAM STAT 01/21/2024 1:02 AM EDT CBC (WITH DIFF) STAT 01/21/2024 1:02 AM EDT BASIC METABOLIC PANEL STAT 01/21/2024 1:02 AM EDT MAGNESIUM STAT 01/21/2024 1:02 AM EDT PHOSPHORUS STAT 01/21/2024 1:02 AM EDT BLOOD GAS VENOUS POC Routine 01/21/2024 12:52 AM EDT POCT GLUCOSE Routine 01/21/2024 12:49 AM EDT XR FLUORO NO RAD <1HR - OR USE STAT 01/21/2024 12:28 AM EDT URINE CULTURE Routine 01/21/2024 12:00 AM EDT URINE CULTURE Routine 01/20/2024 11:55 PM EDT MODIFIER,UROLOGY,PED I TO ADULT 01/20/2024 11:29 PM EDT Left ureteral calculus Pyelonephritis, acute Cystoscopy, Insert Ureteral Stent ([id number]) 01/20/2024 11:29 PM EDT Left ureteral calculus Pyelonephritis, acute SCAN, PERIPHERAL BLOOD STAT 01/20/2024 11:14 PM EDT DIFFERENTIAL, AUTOMATED STAT 01/20/2024 11:14 PM EDT HEMOGRAM STAT 01/20/2024 11:14 PM EDT BASIC METABOLIC PANEL STAT 01/20/2024 11:14 PM EDT CBC (WITH DIFF) STAT 01/20/2024 11:14 PM EDT CYSTO, STENT [...] Kidney Stone Analysis (02/09/2024 8:45 AM EDT) [facility] Kidney Stone Analysis (MAY) Test ? Result ?Flag ??Unit ??RefValue ------- [...] developed and its performance characteristics ?determined by [facility] in a manner consistent with CLIA ?requirements. This test has not been cleared or approved by ?the U.S. Food and Drug Administration. ?Test Performed by: ?[facility] ?[address] [place] [address] ?Belt Sewer: Duane Lewis Ph.D.; CLIA# [id number] [facility] Calculus 02/09/2024 8:45 AM EDT 02/09/2024 1:20 PM EDT Narrative Resulting Agency Comment Spec In Lab Pam Grant MD LAB SEND OUT OR DERABLES [facility] [place] [address] * (ABNORMAL) Hemogram (01/24/2024 12:25 AM EDT) Only the most recent of4 resultswithin the time period is included. White Blood Cell 11.1(H) 4.0 - 9.5 x10(3)/ L [facility] Red Blood Cell 3.85(L) 4.00 - 5.21 x10(6)/ L [facility] Hemoglobin 10.9(L) 11.7 - 15.5 g/dL [facility] Hematocrit 34.0(L) 35.7 - 45.8 % [facility] Mean Cell Volume 88.3 82.6 - 94.4 fL [facility] Mean Cell Hemoglobin 28.3 27.1 - 32.0 pg [facility] Mean Cell Hemoglobin Concentration 32.1 31.7 - 35.0 g/dL [facility] Platelet 161 145 - 357 x10(3)/ L [facility] RDW Standard Deviation 46.8(H) 37.0 - 46.0 fL [facility] RDW coefficient of variation 14.5(H) 11.5 - 14.1 % [facility] Mean Platelet Volume 11.4 7.6 - 12.9 [facility] NRBC% auto 0.0 % [facility] NRBC Absolute 0.000 0.000 - 0.000 x10(3)/ L [facility] Blood 01/24/2024 12:2 5 AM EDT 01/24/2024 12:38 AM EDT Narrative Resulting Agency Comment Spec In Lab Quique Hanson MD HEMATOLOGY ORDERABLE S [facility] [place] [address] * (ABNORMAL) Differential, Automated (01/24/2024 12:25 AM EDT) Only the most recent of4 resultswithin the time period is included. Neutrophil % 75.5 % [facility] Neutrophil Absolute 8.38(H) 1.70 - 6.10 x10(3)/mc L [facility] Lymph % 13.0 % [facility] Lymphocytes Abs 1.4 0.9 - 3.2 x10(3)/mc L [facility] Monocyte % 7.6 % [facility] Monocyte Abs 0.8 0.3 - 0.9 x10(3)/mc L [facility] Eos % 2.5 % [facility] Eosinophils Abs 0.3 0.0 - 0.4 x10(3)/mc L [facility] Basophil % 0.6 % [facility] Baso Absolute 0.1 0.0 - 0.1 x10(3)/mc L [facility] Immature Gran % 0.80 % [facility] Comment: Immature granulocytes(IG's)percentage and absolute count will include metamyelocytes, myelocytes, and promyelocytes. Blood smears from CBCs yielding IG's will be scanned manually for concordance. If this scan disagrees with the automated IG or if promyelocytes are noted, a manual differential will be performed. Immature Gran Absolute 0.09(H) 0.00 - 0.04 x10(3)/mc L [facility] Blood 01/24/2024 12:2 5 AM EDT 01/24/2024 12:38 AM EDT Narrative Resulting Agency Comment Spec In Lab Quique Hanson MD HEMATOLOGY ORDERABLE S [facility] [place] [address] * (ABNORMAL) Basic Metabolic Panel (non-fasting) (01/24/2024 12:25 AM EDT) Only the most recent of4 resultswithin the time period is included. Glucose 155 65 - 199 mg/dL [facility] Comment:Diabetes: >=200 mg/d L plus symptoms Blood Urea Nitrogen 15 8 - 18 mg/dL [facility] Creatinine 0.78 0.70 - 1.20 mg/dL [facility] Sodium 138 135 - 145 mmol/L [facility] Potassium Not Perf 3.5 - 5.0 [facility] Comment: Unable to quantitate due [...] questions. Chloride 111(H) 98 - 107 mmol/L [facility] Carbon Dioxide 19(L) 22 - 31 mmol/L [facility] Anion Gap 8 5 - 15 mmol/L [facility] Calcium 8.4(L) 8.5 - 10.5 mg/dL [facility] Est Glomerular Filtration Rate 87 >=60 mL/min/1. 73 m?? [facility] Comment: This patient's estimated GFR [...] Rodriguez MD CHEMISTRY ORDERABLES Performing Organization Address City/[facility] Co de Phone Number [facility] [place] [address] * (ABNORMAL) Phosphorus (01/23/2024 5:06 AM EDT) Only the most recent of2 resultswithin the time period is included. Phosphorus 2.0(L) 2.5 - 4.5 mg/dL [facility] Blood 01/23/2024 5:06 AM EDT 01/23/2024 5:12 AM EDT Narrative Resulting Agency Comment Spec In Lab Evangelist Rodriguez MD CHEMISTRY ORDERABLES Performing Organization Address [facility] Co de Phone Number [facility] [place] [address] * Magnesium (01/23/2024 5:06 AM EDT) Only the most recent of2 resultswithin the time period is included. Magnesium 0.84 0.69 - 1.07 mmol/L [facility] Blood 01/23/2024 5:06 AM EDT 01/23/2024 5:12 AM EDT Narrative Resulting Agency Comment Spec In Lab Evangelist Rodriguez MD CHEMISTRY ORDERABLES Performing Organization Address [facility] Co de Phone Number [facility] [place] [address] * Scan Doc: Telemetry Strips (01/21/2024 10:55 PM EDT) Only the most recent of2 resultswithin the time period is included. Narrative 01/21/2024 10:55 PM EDT Ordered by an unspecified provider. Scanning Provider MEDIA MGR SCAN EXT O RDR/RSLT * (ABNORMAL) BLOOD GAS 2 VENOUS (01/21/2024 12:52 AM EDT) pH, Venous 7.17(Criti vijaya) 7.32 - 7.42 [facility] Comment:Not noted by instrum ent numerical control machine operator. PCO2, Venous 52(H) 41 - 51 mmHg [facility] PO2, Venous 29 25 - 40 mmHg [facility] Bicarbonate, Venous 18.6 mmol/L [facility] Base Excess, Venous -9.9 mmol/L [facility] Hgb Blood Gas 13.3 11.7 - 15.5 g/dL [facility] Oxyhemoglobin, Venous 52.0 % [facility] Carboxyhemoglob in, Venous 0.1 % [facility] Comment: Nonsmokers: 0.5-1.5% COHB Smokers: Variable, but usually less than 10% Toxic: 20-30% COHB Lethal: Greater than 60% COHB Methemoglobin, Venous 0.6 <=1.5 % [facility] Na Whole Blood 143 135 - 145 mmol/L [facility] K Whole Blood 3.6 3.5 - 5.0 mmol/L [facility] Comment: Please note: Patients with WBC >100,000 may have falsely elevated Potassium levels. Contact the Clinical Chemistry Laboratory if there are any questions. ICa Whole Blood 1.20 1.15 - 1.33 mmol/L [facility] Comment: Note: ??Total bilirubin higher than 20 mg/dL may lead to falsely low ionized calcium. CL Whole Blood 113(H) 98 - 107 mmol/L [facility] Gluc Whole Bld 154 65 - 199 mg/dL [facility] Comment:Diabetes: >=200 mg/d L plus symptoms Lactate WB 3.2(H) 0.5 - 2.2 mmol/L [facility] Flow, Antwan 3.0 LPM [facility] Blood Gas Source Venous [facility] Blood 01/21/2024 12:5 2 AM EDT 01/21/2024 12:52 AM EDT Evangelist Rodriguez MD POINT OF CARE TEST O JESUS Performing Organization Address [facility] Co de Phone Number [facility] [place] [address] * POCT Glucose (01/21/2024 12:49 AM EDT) Glucose, POC 124 65 - 199 mg/dL [facility] Comment: Supplemental ranges: <140 mg/dL before meals <180 mg/dL all other times of the day Blood 01/21/2024 12:4 9 AM EDT 01/21/2024 12:49 AM EDT Evangelist Rodriguez MD POINT OF CARE TEST O JESUS Performing Organization Address [facility] Co de Phone Number [facility] [place] [address] * (ABNORMAL) Urine culture Cystoscopic Urine (01/21/2024 12:00 AM EDT) Only the most recent of2 resultswithin the time period is included. Urine Culture 10,000-49,000 cfu/ml Escherichia coli(A) [facility] Organism Escherichia coli(A) [facility] Cystoscopic Urine 01/21/2024 12:32 AM [...] GENER AL ORDERABLES Performing Organization Address [facility]/ZIP Co de Phone Number [facility] [place] [address] * Scan, Peripheral Blood (01/20/2024 11:14 PM EDT) Plat estimate Normal [facility] RBC Morphology Normal [facility] Blood 01/20/2024 11:1 4 PM EDT 01/20/2024 11:20 PM EDT Narrative Resulting Agency Comment Spec In Lab Sunshine June MD HEMATOLOGY ORDERA BLES Performing Organization Address [facility] Co de Phone Number [facility] [place] [address] * Request For 2nd Read CT Abdomen & Pelvis (01/20/2024 10:47 PM EDT) Helpr WORKSTATION ID [id number] DH RAD Anatomical Region Laterality Modality Abdomen, [...] who have questions please contact the health care associate that requested your imaging first. ? Electronically signed by: Rebeca Garcia MD, [facility] ([phone]), at 01/21/2024 7:07 AM Narrative 01/21/2024 7:07 AM EDT EXAMINATION: REQUEST FOR 2ND READ CT ABDOMEN AND PELVIS CLINICAL HISTORY: septioc stone; Sending Institution [facility]; Date of exam [id number]; I believe a reinterpretation of this exam may alter care of Patient. Yes TECHNIQUE: Helical CT of the abdomen and pelvis without intravenous contrast. Oral contrast was not administered. Multiplanar reformatted images were generated. Study performed January 20, 2024 at [facility]. COMPARISON: None FINDINGS: The absence of [...] PELVIS CLINICAL HISTORY: septioc stone; Sending Institution [facility]; Date of exam [id number]; I believe a reinterpretation of this exam may alter care ofPatient. Yes TECHNIQUE: Helical CT of the abdomen and pelvis without intravenouscontrast. Oral contrast was not administered. Multiplanar reformatted images were generated. Study performed January 20, 2024 at [facility]. COMPARISON: None FINDINGS: The absence of [...] patients who have questions please contactthe health care associate that requested your imaging first. Electronically signed by: Rebeca Garcia MD, [facility]([phone]), at 01/21/2024 7:07 AM Nhan Castelan MD IMG OUTSIDE INTERPRE TATION ORDERABLES * EKG 12 Lead (01/20/2024 10:06 PM EDT) Ventricular rate 91 BPM MUSE SYSTEM Atrial Rate 91 BPM MUSE SYSTEM P-R Interval 140 ms MUSE SYSTEM QRS Duration 98 ms MUSE SYSTEM Q-T Interval 394 ms MUSE SYSTEM QTC Calculated (Bezet) 484 ms MUSE SYSTEM Calculated P [place] 48 degrees MUSE SYSTEM Calculated R [place] 26 degrees MUSE SYSTEM Calculated T [place] 39 degrees MUSE SYSTEM INTERPRETATION Normal sinus rhythm Lateral infarct , age undetermined Abnormal ECG No previous ECGs available Confirmed by Ashleigh Santana ([id number]) on 01/21/2024 12:58:47 PM MUSE SYSTEM 01/20/2024 10:0 6 PM EDT 01/21/2024 12:58 PM EDT Nhan Castelan MD ECG ORDERABLES Performing Organization Address City/[facility]/ZIP Co de Phone Number MUSE SYSTEM * Film Library- Storage Only DX Chest (01/20/2024 5:39 PM EDT) Only the most recent of2 resultswithin the time period is included. Narrative [facility] - 01/20/2024 5:39 PM EDT This exam is auto-finalizing. It's purpose is for storage only. Evangelist Rodriguez MD [facility] FILM LIBRARY ORD ERABLES Performing Organization Address [facility] de Phone Number [place], [place] * Film Library- Storage Only CT Abdomen & Pelvis (01/20/2024 5:37 PM EDT) Narrative [facility] - 01/20/2024 5:37 PM EDT This exam is auto-finalizing. It's purpose is for storage only. Candi Rodriguez MD [facility] FILM LIBRARY ORD ERABLES Performing Organization Address [facility] Co de Phone Number [place], [place] * Film Library- Storage Only DX Abdomen (01/13/2024 12:00 AM EDT) Narrative [facility] 01/20/2024 5:37 PM EDT This exam is auto-finalizing. It's purpose is for storage only. Candi Rodriguez MD [facility] FILM LIBRARY ORD ERABLES Performing Organization Address City/[facility] Co de Phone Number [place], [place] from Last 3 Months Advance Directives * Attempt Cardiopulmonary Resuscitation - Inpatient (Latest Code Status on File) Date Activated Date Inactivated Comments 01/21/2024 12:30 AM 01/24/2024 4:28 PM Question Answer Comments Code Status decision made by: Patient Care Teams Acid Tender Relationship Specialty Start Date End Date Graciela Naidu MD [address] [place] [address] PCP - General 07/21/10
--- OUTSIDE RECORDS SUMMARY | 2024-04-05 01:48 | XMS_ITS | Encounter Summary ---
[place] [address] Care Team Providers Care Underground Miner Name Role Phone Graciela Naidu MD Primary Care Provider [phone] Reason for Visit * Auth/Cert (Routine) Specialty Diagnoses / Procedures Referred By Bradley lopez Referred To Contact Diagnoses Left ureteral calculus Urinary tract infection with hematuria, site unspecified Ureteral obstruction, left Urolithiasis Procedures PRO CYSTO/URETERO/PYELOSCOPY W/LITHOTRIPSY CYSTOURETEROSCOPY, LITHOTRIPSY (WRVU 7.5) MODIFIER HOLMIUM LASER Pam Grant MD [facility] [place] [address] [facility] Referral ID Status Reason Start Date Expiration Date Visits Re quested Visits Authorized [id number] 1 1 Encounter Details Date Type Department Care Team (Late st Contact Info) Description 02/09/2024 7:30 AM EDT - 02/09/2024 9:28 AM EDT Surgery [place] [address] Pam Grant MD [facility] [place] [address] CYSTOURETEROSCOPY, LITHOTRIPSY (WRVU 7.5) Social History Tobacco Use Types Packs/Day Years Used Date Smoking Tobacco: Never Smokeless Tobacco: Never Alcohol Use Standard Drinks/Week Comments Never 0 (1 standard drink = 0.6 oz pur e alcohol) [facility] Utilities Answer Date Recorded In the [...] time in the past 12 m [facility], were you homeless or living in a intermediate (including now)? No 01/21/2024 DH IPV Inpatient [...] closest emergency room or call the hospital circular ripsaw operator at [phone] and ask for physician nurse infection control covering for your physician. Questions or problems after 5pm or on a weekend: Call the [facility] circular ripsaw operator at and ask for the physician nurse infection control covering for your doctor. * Patient Instructions* [...] stent removal in the Urology clinic. Pleasecall [phone] if you do not receive your appointment. [...] mask 6L, LMA DC'd on arrival by EDUCATIONAL INTERPRETER 09:13 O2 mask off R/A trial, HOB [...] 2.82) performed by Evangelist Rodriguez MD at [facility] MAIN OR Allergies: No Known Allergies No [...] 2.82) performed by Evangelist Rodriguez MD at [facility] MAIN OR Allergies: No Known Allergies No [...] MD - 02/09/2024 7:41 AM EDT [facility] Operative Note Patient Name: Barbra Dc : [id number] MR#: [id number] Case Date: 02/09/2024 Surgeon: Surgeons and Role: [...] for fragmentation. These fragments were extractedwith a Accuradio/zero tip basket and sent off for analysis. [...] 04/20/2024 3:45 PM EDT [place] [address] Pam Grant MD [facility] [place] [address] 04/20/2024 4:40 PM EDT [place] [address] Pam Grant MD [facility] [place] [address] Scheduled Orders Name Type Priority Associated Diagnoses [...] 02/09/2024 8:45 AM EDT Cystourethroscopy, Ureter Catheter ([id number]) 02/09/2024 7:26 AM EDT Left ureteral calculus Urinary tract infection with hematuria, site unspecified Ureteral obstruction, left MODIFIER HOLMIUM LASER 02/09/2024 7:26 AM EDT Left ureteral calculus Urinary tract infection with hematuria, site unspecified Ureteral obstruction, left Cysto/Uretero/Pyelo scopy W/Lithotripsy ([id number]) 02/09/2024 7:26 AM EDT Left ureteral calculus [...] No interpretation was done. Pam Grant MD [facility] GUICHO MATHEWS * Kidney Stone Analysis (02/09/2024 8:45 AM EDT) Pathologist [facility] Kidney Stone Analysis (MAY) Test ? Result [...] developed and its performance characteristics ?determined by [facility] in a manner consistent with CLIA ?requirements. This test has not been cleared or approved by ?the U.S. Food and Drug Administration. ?Test Performed by: ?[facility] ?[address] [place] [address] ?Drywall Taper: Duane Lewis Ph.D.; CLIA# [id number] [facility] Calculus 02/09/2024 8:45 AM EDT 02/09/2024 1:20 PM EDT Narrative Resulting Agency Comment Spec In Lab Pam Grant MD LAB SEND OUT OR DERABLES [facility] [place] [address] documented in this encounter Visit Diagnoses Diagnosis [...] solution 2 g (COMPLETED) 2 g, Intravenous, PARACHUTE CUSHION INSTALLER TO O.R., 1 dose, On Therese 02/09/24 [...] Starting on Therese 02/09/24 at 0630, Until Thersee 02/09/24 at 0945, Day of Surgery (Day [...] prn) documented in this encounter Care Teams Underground Miner Relationship Specialty Start Date End Date Graciela Naidu MD [address] [place] [address] PCP - General 07/21/10 documented as of this encounter
--- OUTSIDE RECORDS SUMMARY | 2024-04-05 01:48 | XMS_ITS | Encounter Summary ---
[place] [address] Care Team Providers Care Broadcast Operations Manager Name Role Phone Graciela Naidu MD Primary Care Provider [phone] Encounter Details Date Type Department Care Team (Late st Contact Info) Description 01/27/2024 [place] [phone] Melita Dang, RN Social History Tobacco Use Types Packs/Day Years Used Date Smoking Tobacco: Never Smokeless Tobacco: Never Alcohol Use Standard Drinks/Week Comments Never 0 (1 standard drink = 0.6 oz pur e alcohol) [facility] Utilities Answer Date Recorded In the past 12 months has e [employer], gas, oil, or water [employer] threatened to shut off services in your [...] any time in the past 12 m [facility], were you homeless or living in a nursing home (including now)? No 01/21/2024 DH IPV Inpatient [...] of this encounter Progress Notes * Melita Dnag RN - 01/27/2024 10:57 AM EDT Call [...] limit bladder irritants. Will send to resident resolution agent, patient will continue to monitor and will call back with any furtherquestions or concerns. documented in this encounter Miscellaneous Notes * Telephone Encounter - Melita Dang RN - 01/27/2024 10:43 AM EDT Copied from [facility] #[id number]. Topic: Specialty Dept CRMs - Triage >> [...] 04/20/2024 3:45 PM EDT [place] [address] Pam Grant MD [facility] [place] [address] 04/20/2024 4:40 PM EDT [place] [address] Pam Grant MD [facility] [place] [address] documented as of this encounter Visit Diagnoses Not on filedocumented in this encounter Care Teams Broadcast Operations Manager Relationship Specialty Start Date End Date Graciela Naidu MD [facility] [address] [place] [address] PCP - General 07/21/10 documented as of this encounter
--- OUTSIDE RECORDS SUMMARY | 2024-04-05 01:48 | XMS_ITS | Encounter Summary ---
[place] [address] Care Team Providers Care Hot Dog Vendor Name Role Phone Graciela Naidu MD Primary Care Provider [phone] Reason for Referral * Diagnostic Test (Routine) - Closed Specialty Diagnoses / Procedures Referred By Bradley lopez Referred To Contact Urology Diagnoses Ureteral obstruction, left Procedures Cysto Stent Removal Long Galloway MD [facility] [place] [address] [facility] [place] [address] Referral ID Status Reason Start Date Expiration Date V isits Requested Visits Authorized [id number] Closed Test Only 02/09/2024 02/08/2025 1 1 Reason for Visit * Auth/Cert (Routine) Specialty Diagnoses / Procedures Referred By Bradley lopez Referred To Contact Diagnoses Left ureteral calculus Urinary tract infection with hematuria, site unspecified Ureteral obstruction, left Urolithiasis Procedures PRO CYSTO/URETERO/PYELOSCOPY W/LITHOTRIPSY CYSTOURETEROSCOPY, LITHOTRIPSY (WRVU 7.5) MODIFIER HOLMIUM LASER Pam Grant MD [facility] [address] [facility] Referral ID Status Reason Start Date Expiration Date Visits Re quested Visits Authorized [id number] 1 1 Encounter Details Date Type Department Care Team (Late st Contact Info) Description 02/09/2024 6:09 AM EDT - 02/09/2024 9:46 AM EDT Hospital Encounter [facility] [place] [phone] Pam Grant MD [facility] [address] Ureteral obstruction, left (Primary Dx); Left ureteral calculus; Urinary tract infection with hematuria, site unspecified Discharge Disposition: Home Social History Tobacco Use Types Packs/Day Years Used Date Smoking Tobacco: Never Smokeless Tobacco: Never Alcohol Use Standard Drinks/Week Comments Never 0 (1 standard drink = 0.6 oz pur e alcohol) [facility] Utilities Answer Date Recorded In the past 12 months has th e [employer], gas, oil, or water [employer] threatened to shut off services in your [...] closest emergency room or call the hospital frame gate mortiser operator at [phone] and ask for physician weigher production covering for your physician. Questions or problems after 5pm or on a weekend: Call the [facility] frame gate mortiser operator at and ask for the physician weigher production covering for your doctor. * Patient Instructions* [...] stent removal in the Urology clinic. Pleasecall [phone] if you do not receive your appointment. [...] mask 6L, LMA DC'd on arrival by MOLDING PRESS OPERATOR 09:13 O2 mask off R/A trial, HOB up, gingerale. 09:30 denies pain/ nausea. VSS, I need to pee, assist to BR for void, pink urine. 09:41 Discharge instructions and medications reviewed with patient and and Kem. Dr. Galloawy paged for Flomax Rx to pt. Pharmacy. [...] 2.82) performed by Evangelist Rodriguez MD at [facility] MAIN OR Allergies: No Known Allergies [...] 2.82) performed by Evangelist Rodriguez MD at [facility] MAIN OR Allergies: No Known Allergies [...] Grant MD - 02/09/2024 7:41 AM EDT [facility] Operative Note Patient Name: Barbra Dc : [id number] MR#: [id number] Case Date: 02/09/2024 Surgeon: Surgeons and Role: [...] 04/20/2024 3:45 PM EDT [place] [address] Pam Grant MD [facility] [place] [address] 04/20/2024 4:40 PM EDT [place] [address] Pam Grant MD [facility] [place] [address] Scheduled Orders Name Type Priority Associated Diagnoses [...] 02/09/2024 8:45 AM EDT Cystourethroscopy, Ureter Catheter ([id number]) 02/09/2024 7:26 AM EDT Left ureteral calculus Urinary tract infection with hematuria, site unspecified Ureteral obstruction, left MODIFIER HOLMIUM LASER 02/09/2024 7:26 AM EDT Left ureteral calculus Urinary tract infection with hematuria, site unspecified Ureteral obstruction, left Cysto/Uretero/Pyelo scopy W/Lithotripsy ([id number]) 02/09/2024 7:26 AM EDT Left ureteral calculus [...] Stone Analysis (02/09/2024 8:45 AM EDT) Pathologist [facility] Kidney Stone Analysis (MAY) Test ? Result [...] developed and its performance characteristics ?determined by [facility] in a manner consistent with CLIA ?requirements. This test has not been cleared or approved by ?the U.S. Food and Drug Administration. ?Test Performed by: ?[facility] ?[address] [place] [address] ?Heel Nail Rasper: Duane Lewis Ph.D.; CLIA# [id number] [facility] Calculus 02/09/2024 8:45 AM EDT 02/09/2024 1:20 PM EDT Narrative Resulting Agency Comment Spec In Lab Pam Grant MD LAB SEND OUT OR DERABLES Performing Organization Address City/State/[facility] Co de Phone Number [facility] [place] [address] documented in this encounter Visit Diagnoses Diagnosis [...] solution 2 g (COMPLETED) 2 g, Intravenous, SOCIAL WORK MSW TO O.R., 1 dose, On Therese 02/09/24 [...] prn) documented in this encounter Care Teams Hot Dog Vendor Relationship Specialty Start Date End Date Graciela Naidu MD [facility] [address] [facility] [address] [place] [address] PCP - General 07/21/10 documented as of this encounter
--- OUTSIDE RECORDS SUMMARY | 2024-04-05 01:48 | XMS_ITS | Encounter Summary ---
Author Organization [facility] Address [facility] [place] [address] Care Team Providers Care Hemodialysis Lab Technician Name Role Phone Graciela Naidu MD Primary Care Provider [phone] Encounter Details Date Type Department Care Team (Late st Contact Info) Description 02/09/2024 10:10 AM EDT - 02/09/2024 11:59 PM EDT Hospital Encounter XRay at [address] [place] [address] Pam Grant MD [facility] [place] [address] Discharge Disposition: Home Social History Tobacco Use Types Packs/Day Years Used Date Smoking Tobacco: Never Smokeless Tobacco: Never Alcohol Use Standard Drinks/Week Comments Never 0 (1 standard drink = 0.6 oz pur e alcohol) [facility] Utilities Answer Date Recorded In the past 12 months has [employer], gas, oil, or water company threatened [...] any time in the past 12 m [facility], were you homeless or living in a alf (including now)? No 01/21/2024 IPV Inpatient Questions [...] 04/20/2024 3:45 PM EDT [place] [address] Pam Grant MD [facility] [place] [address] 04/20/2024 4:40 PM EDT [place] [address] Pam Grant MD [facility] [place] [address] documented as of this encounter Procedures Procedure [...] on filedocumented in this encounter Care Teams Hemodialysis Lab Technician Relationship Specialty Start Date End Date Graciela Naidu MD [facility] [address] [place] [address] PCP - General 07/21/10 documented as of this encounter
--- OUTSIDE RECORDS SUMMARY | 2024-04-05 01:48 | XMS_ITS | Encounter Summary ---
[place] [address] Care Team Providers Care Director It Name Role Phone Graciela Naidu MD Primary Care Provider [phone] Encounter Details Date Type Department Care Team (Late st Contact Info) Description 02/08/2024 [place] [address] Fernanda Meek, RN Social History Tobacco Use Types Packs/Day Years Used Date Smoking Tobacco: Never Smokeless Tobacco: Never Alcohol Use Standard Drinks/Week Comments Never 0 (1 standard drink = 0.6 oz pur e alcohol) [facility] Utilities Answer Date Recorded In the past 12 months has e [employer], gas, oil, or water [email or web address] threatened to shut off services in your [...] any time in the past 12 m [facility], were you homeless or living in a correction (including now)? No 01/21/2024 IPV Inpatient Questions [...] Telephone Encounter - Fernanda Meek RN - 02/08/2024 5:09 PM EDT Copied from [facility] #[id number]. Topic: Specialty Dept CRMs - Generic Call [...] 04/20/2024 3:45 PM EDT Appoint[place] [address] Pam Grant MD [facility] [place] [address] 04/20/2024 4:40 PM EDT Office [place] [address] Pam Grant MD [facility] [place] [address] documented as of this encounter Visit Diagnoses Not on filedocumented in this encounter Care Teams Director It Relationship Specialty Start Date End Date Graciela Naidu MD [address] [facility] [address] [place] [address] PCP - General 07/21/10 documented as of this encounter
--- OUTSIDE RECORDS SUMMARY | 2024-04-05 01:48 | XMS_ITS | Encounter Summary ---
Author Organization [facility] [place] [address] Care Team Providers Care Collection Card Clerk Name Role Phone Graciela Naidu MD Primary Care Provider [phone] Encounter Details Date Type Department Care Team (Latest Contact Info) Description 02/17/2024 Travel Social History Tobacco Use Types Packs/Day Years Used Date Smoking Tobacco: Never Smokeless Tobacco: Never Alcohol Use Standard Drinks/Week Comments Never 0 (1 standard drink = 0.6 oz pur e alcohol) [facility] Utilities Answer Date Recorded In [...] any time in the past 12 m [facility], were you homeless or [...] 04/20/2024 3:45 PM EDT Appointment [place] [address] Pam Grant MD [facility] [place] [address] 04/20/2024 4:40 PM EDT Office [place] [address] Pam Grant MD [facility] [place] [address] documented as of this encounter Visit Diagnoses Not on filedocumented in this encounter Care Teams Collection Card Clerk Relationship Specialty Start Date End Date Graciela Naidu MD [address] [place] [address] PCP - General 07/21/10 documented as of this encounter
--- OUTSIDE RECORDS SUMMARY | 2024-04-05 01:48 | XMS_ITS | Encounter Summary ---
[place] [address] Care Team Providers Care Supervisor Force Adjustment Name Role Phone Graciela Naidu MD Primary Care Provider [phone] Reason for Visit * Auth/Cert (Routine) Specialty Diagnoses / Procedures Referred By Bradley lopez Referred To Contact Diagnoses Left ureteral calculus Urinary tract infection with hematuria, site unspecified Ureteral obstruction, left Urolithiasis Procedures PRO CYSTO/URETERO/PYELOSCOPY W/LITHOTRIPSY CYSTOURETEROSCOPY, LITHOTRIPSY (WRVU 7.5) MODIFIER HOLMIUM LASER Pam Grant MD [facility] [place] [address] [facility] Referral ID Status Reason Start Date Expiration Date Visits Re quested Visits Authorized [id number] 1 1 Encounter Details Date Type Department Care Team (Late st Contact Info) Description 02/09/2024 7:26 AM EDT Anesthesia Event [place] [phone] Jaguar Lassiter MD [facility] [place] [address] Anesthesia Record Procedure Summary Procedure Name Responsible [...] by: Jomar 02/09/24 0734 by Shahram Hadley, MANAGER RELIABILITY Incision 02/09/24; 0741; uret hral meatus; cystoscopy 02/09/24 0741 by Taty Rogers RN PIV 02/09/24; 0655; [id number] catheter system; 22 gauge; metacarpal vein (top of hand), right; Anatomical Landmarks; [facility] RN; distraction, intradermal injection; 02/09/24; 0935 02/09/24 0655 by Marlee Greco RN 02/09/24 0935 by Radha Adam RN documented in this encounter Social History Tobacco Use Types Packs/Day Years Used Date Smoking Tobacco: Never Smokeless Tobacco: Never Alcohol Use Standard Drinks/Week Comments Never 0 (1 standard drink = 0.6 oz pur e alcohol) [facility] Utilities Answer Date Recorded In the past 12 months has [employer], gas, oil, or water [employer] threatened to shut off services in your [...] were you homeless or living in a detention (including now)? No 01/21/2024 IPV Inpatient Questions [...] Procedure Summary Date: 02/09/24 Room / Location: [facility] [address] [place] [address] OSC Anesthesia Start: 725 Anesthesia Stop: 900 Procedures: CYSTOURETEROSCOPY, LITHOTRIPSY (WRVU 7.5) (Left: Bladder) MODIFIER HOLMIUM LASER CYSTO, RETROGRADE, URETEROPYELOGRAPHY (WRVU 2.37) (Left: Bladder) Diagnosis: Left ureteral calculus Urinary tract infection with hematuria, site unspecified Ureteral obstruction, left (Urolithiasis) Surgeons: Pam Grant MD Responsible Provider: Jaguar Lassiter MD Anesthesia Type: general ASA Status: 2 All Anesthesia Providers: Anesthesiologist: Jaguar Lassiter MD MANAGER RELIABILITY: Shahram Hadley CRNA Vitals Value Taken Time BP 148/82 02/09/24 0931 Temp 36 ??C (96.8 ??F) 02/09/24 0902 Pulse 69 02/09/24 0931 Resp 16 02/09/24 0931 SpO2 96 % 02/09/24 0931 Pain Level 0 02/09/24 0935 Patient Location: PACU/[facility] Level of Consciousness: Awake and Alert [...] 2.82) performed by Evangelist Rodriguez MD at [facility] MAIN OR Social History Tobacco Use ??? [...] 04/20/2024 3:45 PM EDT [place] [phone] Pam Grant MD [facility] [place] [address] 04/20/2024 4:40 PM EDT [place] [address] Pam Grant MD [facility] [place] [address] documented as of this encounter Visit Diagnoses Not on filedocumented in this encounter Administered Medications Inactive Administered Medications - up to 3 most recent administrations Medication Order MAR Action Action Date Dose Rate Site ceFAZolin (Ancef) (100 mg/mL) injection solution 2 g 2 g, Intravenous, MANAGER GENERATION TO O.R., 1 dose, On Therese 02/09/24 [...] mg documented in this encounter Care Teams Supervisor Force Adjustment Relationship Specialty Start Date End Date Graciela Naidu MD [address] [place] [address] PCP - General 07/21/10 documented as of this encounter
--- OUTSIDE RECORDS SUMMARY | 2024-04-05 01:48 | XMS_ITS | Encounter Summary ---
[place] [address] Care Team Providers Care Human Resources Records Clerk Name Role Phone Graciela Naidu MD Primary Care Provider [phone] Encounter Details Date Type Department Care Team (Late st Contact Info) Description 02/09/2024 Tele[place] [phone] Fernanda Meek, RN Social History Tobacco Use Types Packs/Day Years Used Date Smoking Tobacco: Never Smokeless Tobacco: Never Alcohol Use Standard Drinks/Week Comments Never 0 (1 standard drink = 0.6 oz pur e alcohol) [facility] Utilities Answer Date Recorded In the past 12 months has e [employer], gas, oil, or water [employer] threatened to shut off services in your [...] - 02/09/2024 4:49 PM EDT Copied from [facility] #[id number]. Topic: Specialty Dept CRMs - Triage >> [...] 04/20/2024 3:45 PM EDT [place]oint[place] [address] Pam Grant MD [facility] [address] 04/20/2024 4:40 PM EDT [place] [address] Pam Grant MD [facility] [place] [address] documented as of this encounter Visit Diagnoses Not on filedocumented in this encounter Care Teams Human Resources Records Clerk Relationship Specialty Start Date End Date Graciela Naidu MD [facility] [address] [facility] [address] [place] [address] PCP - General 07/21/10 documented as of this encounter
--- OUTSIDE RECORDS SUMMARY | 2024-04-05 01:48 | XMS_ITS | Encounter Summary ---
[place] [address] Care Team Providers Care Chha Name Role Phone Graciela Naidu MD Primary Care Provider [phone] Encounter Details Date Type Department Care Team (Late st Contact Info) Description 01/26/2024 [place] [id number] Melita Dang, RN Social History Tobacco Use Types Packs/Day Years Used Date Smoking Tobacco: Never Smokeless Tobacco: Never Alcohol Use Standard Drinks/Week Comments Never 0 (1 standard drink = 0.6 oz pur e alcohol) [facility] Utilities Answer Date Recorded In the past 12 months has e [email or web address], gas, oil, or water [employer] threatened to shut off services in your [...] any time in the past 12 m [facility], were you homeless or living in a halfway (including now)? No 01/21/2024 DH IPV Inpatient [...] - 01/26/2024 2:52 PM EDT Copied from [facility] #[id number]. Topic: Specialty Dept CRMs - Triage >> [...] 04/20/2024 3:45 PM ED[place] [address] Pam Grant MD [facility] [place] [address] 04/20/2024 4:40 PM EDT [place] [address] Pam Grant MD [facility] [place] [address] documented as of this encounter Visit Diagnoses Not on filedocumented in this encounter Care Teams Chha Relationship Specialty Start Date End Date Graciela Naidu MD [address] [place] [address] PCP - General 07/21/10 documented as of this encounter
--- OUTSIDE RECORDS SUMMARY | 2024-04-05 01:48 | XMS_ITS | Encounter Summary ---
[place] [address] Care Team Providers Care Butcher All Round Name Role Phone Graciela Naidu MD Primary Care Provider [phone] Encounter Details Date Type Department Care Team (Late st Contact Info) Description 01/20/2024 Ancillary Procedure [place] [phone] Social History Tobacco Use Types Packs/Day Years Used Date Smoking Tobacco: Never Assessed [facility] Utilities [...] 04/20/2024 3:45 PM EDT Appointment [place] [address] Pam Grant MD [facility] [place] [address] 04/20/2024 4:40 PM EDT Office [place] [address] Pam Grant MD [facility] [place] [address] documented as of this encounter Procedures Procedure Name Priority Date/Time Associated Diagnosis Comments FILM LIBRARY STORAGE ONLY DX CHEST Routine 01/20/2024 12:00 AM EDT documented in this encounter Results * Film Library- Storage Only DX Chest (01/20/2024 12:00 AM EDT) Narrative Dicom, Auditing User - 01/21/2024 2:16 AM EDT This exam is auto-finalizing. It's purpose is for storage only. Nhan Castelan MD [facility] FILM LIBRARY ORD ERABLES documented in this encounter Visit Diagnoses Not on filedocumented in this encounter Care Teams Butcher All Round Relationship Specialty Start Date End Date Graciela Naidu MD [facility] [address] [facility] [address] [place] [address] PCP - General 07/21/10 documented as of this encounter
--- OUTSIDE RECORDS SUMMARY | 2024-04-05 01:48 | XMS_ITS | Encounter Summary ---
[place] [address] Care Team Providers Care Nurses Supervisor Name Role Phone Graciela Naidu MD Primary Care Provider [phone] Encounter Details Date Type Department Care Team (Latest Contact Info) Description 01/20/2024 Travel Social History Tobacco Use Types Packs/Day Years Used Date Smoking Tobacco: Never Assessed [facility] Utilities Answer Date Recorded In the [...] in a intermediate (including now)? No 01/21/2024 IPV Inpatient Questions [...] 04/20/2024 3:45 PM EDT [place] [address] Pam Grant MD [facility] [place] [address] 04/20/2024 4:40 PM EDT Office Visit Urology at [place] [phone] Pam Grant MD [facility] [place] [address] documented as of this encounter Visit Diagnoses Not on filedocumented in this encounter Care Teams Nurses Supervisor Relationship Specialty Start Date End Date Graciela Naidu MD [address] [place] [address] PCP - General 07/21/10 documented as of this encounter
--- OUTSIDE RECORDS SUMMARY | 2024-04-05 01:48 | XMS_ITS | Encounter Summary ---
[place] [address] Care Team Providers Care Jet Wiper Name Role Phone Graciela Naidu MD Primary Care Provider [phone] Reason for Visit * Reason Comments Hospital Transfer Urinary Tract Infection * Auth/Cert (Routine) Specialty Diagnoses / Procedures Referred By Bradley t Referred To Contact Diagnoses Pyelonephritis, acute Left ureteral calculus Ureteral obstruction, left Sepsis Infected kidney stone Procedures EMERGENCY IPI Brendan Rodriguez MD [facility] [place] [address] [facility] Referral ID Status Reason Start Date Expiration Date Visits Re quested Visits Authorized [id number] 1 1 Encounter Details Date Type Department Care Team (Latest Contact Info) Description 01/20/2024 9:44 PM EDT - 01/24/2024 2:05 PM EDT Hospital Encounter Surgical [place] [address] Nhan Castelan MD [address] [place] [address] Brendan Rodriguez MD [facility] [place] [address] Left ureteral calculus; Pyelonephritis, acute; Ureteral stone; Urinary tract infection with hematuria, site unspecified; Ureteral obstruction, left Discharge Disposition: Home Social History Tobacco Use Types Packs/Day Years Used Date Smoking Tobacco: Never Smokeless Tobacco: Never Tobacco Cessation:Counseling Given: Not Answered Alcohol Use Standard Drinks/Week Comments Never 0 (1 standard drink = 0.6 oz pur e alcohol) [facility] Utilities Answer Date Recorded In the past 12 months has th e [employer], gas, oil, or water apartum threatened to shut off services in your [...] Barbra Dc Patient Age: 58 y.o. Language: Bangladeshi Race: White Ethnicity: Not nor Admit date: [...] tachycardic, Cr 1.4. Received Rocephin 2grams at [facility]. OR Findings: - Septic from obstructing left ureteral stone - Cloudy bladder urine sent for culture - Left renal aspirate sent for culture - L 6Fr x variable length ureteral stent placed - 14Fr lemus catheter placed Hospital Course: Patient was admitted electively to [facility] via the ED and was transferred from the PACU to the [facility] in good condition a few hours after [...] up: URS in 2-4 weeks requested -Cx: [facility] blood cx grew E.coli, continue cipro for [...] 01/20/2024 10:47 PM) Result Value WORKSTATION ID [id number] Impression Obstructing 5 x 8 mm proximal left ureteral calculus. Bilateral scattered nonobstructing nephrolithiases, largest 3 mm. Thank you for letting us participate in the care of this patient. If you are a health care provider and have any questions regarding this report, please contact the number below. For patients who have questions please contact the health medicare specialist that requested your imaging first. Pending [...] blood clots The number for questions is [phone] before 5 PM weekdays and [phone] after 5 PM and weekends if questions [...] stone in 2-4 weeks time. Please call [phone] if you do not hear from the [...] SURGICAL CASE REQUEST: CYSTOURETEROSCOPY, LITHOTRIPSY (WRVU 7.5) [[id number] CPT(R)] As directed Process Instructions: Scheduling Instructions: This order is to be used for Surgeries and Procedures being performed at an internal [facility] facility or an external facility with a [facility] or [place] provider. This includes allinternal ORs, ASCs, and Endoscopy areas, and Pain Clinics at [facility], [facility]. [...] appointments. Primary Care Provider: Graciela Naidu MD [phone] Follow-up Recommendations for Providers: None Unexpected Findings: [...] was managed by the Urology Team at [facility]. If you have any questions or concerns, please feel free to contact us. Provider Contact Information: Urology Clinic: [facility] (after business hours): Time spent [...] blood clots The number for questions is [phone] before 5 PM weekdays and [phone] after 5 PM and weekends if questions [...] stone in 2-4 weeks time. Please call [phone] if you do not hear from the [...] this encounter Progress Notes * Brendan Quarles, CREDIT COLLECTIONS REP - 01/23/2024 10:17 PM EDT Respiratory Therapy [...] Note Patient: Barbra Dc : 1965 Room: [address] Admit date: 01/20/2024 Attending: Brendan Rodriguez [...] Note Patient: Barbra Dc : 1965 Room: [place] [address]- Admit date: 01/20/2024 Attending: Brendan Rodriguez MD [...] Note Patient: Barbra Dc : 1965 Room: [address] Admit date: 01/20/2024 Attending: Brendan Rodriguez [...] Migraines (med review) who was transferred from [facility] for management of L obstructing ureteral stone [...] tachycardic, Cr 1.4. Received Rocephin 2grams at [facility]. PMH: No past medical history on file. [...] the patient. Sunshine June MD Resident 01/21/24 1682 Associated attestation - Nhan Castelan MD - [...] none Patient is insured through: Primary Insurance: [employer] [place] Pay[place] [employer] [place] / Plan[place] / [...] needs at d/c. Carmita Bentley RN, CM [phone] * Plan of Care - Meaghan Manrique [...] Team, bedside nurse, medical record, and Patient POLITICAL REPORTER Introduced self/reviewed role; services accepted. Admitted From: Transfer from another hospital Location: [facility] Reason for Hospitalization: Left ureteral obstruction Covid Vaccination Status: 1st, 2nd & booster Last COVID test: Past medical History: No past medical history on file. Hospitalizations Within the Past 30 Days: no previous admission in last 30 days Current Decision-Making Capacity: Self If AD's have not been completed the following surrogate would be surrogate decision maker per [place] surrogate decision making law. (Only good for 180 days) Any patient receiving care in [place] must abide by [place] law. The hierarchy for surrogate decision making [...] (i) The agent with financial power of document review attorney or a conservator appointed in accordance with [...] homeless or living in a half-way (including now)?: No In the past 12 months has the electric, gas, oil, or water apartum threatened to shut off services in your [...] use as needed) Home Address confirmed as: [address] [place] [phone] Social & Family Supports: All names listed [...] Information: Pt lives in a house in [place], [place] with her /SDM Kem and adult daughter Lexy. Kem is not listed in pt's chart because he doesn't have aphone and per pt, Kem receives information and updates on pt through Lexy when needed. Pt also has two other adult children who do not live locally. Health/Prescription Coverage: Primary Insurance: [employer] [place] [employer] [place] / Plan[place] / Product Type: *No Product type* / Secondary Insurance: N/A ; Prescription Coverage: Yes Preferred Pharmacy: No Pharmacies Listed [place] Status: Patient is a : No Primary Care Provider confirmed: Graciela Naidu MD [phone] Patient/Caregiver Goals of Treatment: Pt's goal is to return back home after discharge Potential Needs for Transition of Care: (Pending) Agency Referrals: Not Applicable Transportation: no concerns Transportation Anticipated: family or friend will provide Concerns to be Addressed: denies needs/concerns at this time Assessment: Mrs. Dc is a 58 year old female who was transferred from [facility] and admitted to the SICU at [facility] with a left ureteral obstruction. Plan: Pt is currently alert and oriented. A member of the Care Management team will continue to monitor progress, follow for continuity of care and assist with transition of care planning. [employer] Director Office of Care Management * Plan of [...] Rodriguez MD - 01/20/2024 11:52 PM EDT [facility] Operative Note Patient Name: Barbra Dc : [id number] MR#: [id number] Case Date: 01/20/2024 - 01/21/2024 Surgeon: Surgeons [...] tachycardic, Cr 1.4. Received Rocephin 2grams at [facility]. Procedure Description: The patient was identified in [...] EDT [place]ointment [place] [address] Pam Grant MD [facility] [place] [address] 04/20/2024 4:40 PM EDT Office [place] [phone] Pam Grant MD [facility] [place] [address] documented as of this encounter Procedures Procedure Name Priority Date/Time Associated Diagnosis Comments HEMOGRAM Routine 01/24/2024 12:25 AM EDT DIFFERENTIAL, AUTOMATED Routine 01/24/2024 12:25 AM EDT CBC (WITH DIFF) Routine 01/24/2024 12:25 AM EDT BASIC METABOLIC PANEL Routine 01/24/2024 12:25 AM EDT HEMOGRAM Routine 01/23/2024 5:06 AM EDT DIFFERENTIAL, AUTOMATED Routine 01/23/2024 5:06 AM EDT CBC (WITH DIFF) Routine 01/23/2024 5:06 AM EDT PHOSPHORUS Routine 01/23/2024 5:06 AM EDT MAGNESIUM Routine 01/23/2024 5:06 AM EDT BASIC METABOLIC PANEL Routine 01/23/2024 5:06 AM EDT HEMOGRAM STAT 01/21/2024 1:02 AM EDT DIFFERENTIAL, AUTOMATED STAT 01/21/2024 1:02 AM EDT CBC (WITH DIFF) STAT 01/21/2024 1:02 AM EDT PHOSPHORUS STAT 01/21/2024 1:02 AM EDT MAGNESIUM STAT 01/21/2024 1:02 AM EDT BASIC METABOLIC PANEL STAT 01/21/2024 1:02 AM EDT BLOOD GAS [...] calculus Pyelonephritis, acute Cystoscopy, Insert Ureteral Stent ([id number]) 01/20/2024 11:29 PM EDT Left ureteral calculus Pyelonephritis, acute SCAN, PERIPHERAL BLOOD STAT 01/20/2024 11:14 PM EDT HEMOGRAM STAT 01/20/2024 11:14 PM EDT DIFFERENTIAL, AUTOMATED STAT 01/20/2024 11:14 PM EDT CBC (WITH DIFF) STAT 01/20/2024 11:14 PM EDT BASIC METABOLIC PANEL STAT 01/20/2024 11:14 PM EDT CYSTO, STENT PLACEMENT Routine 01/20/2024 10:49 PM EDT Left ureteral calculus Pyelonephritis, acute REQUEST FOR 2ND READ CT ABDOMEN AND PELVIS STAT 01/20/2024 10:47 PM EDT EKG 12-LEAD STAT 01/20/2024 10:06 PM EDT FILM LIBRARY STORAGE ONLY DX CHEST Routine 01/20/2024 12:00 AM EDT documented in this encounter Results * (ABNORMAL) Differential, Automated (01/24/2024 12:25 AM EDT) Neutrophil % 75.5 % [facility] Neutrophil Absolute 8.38(H) 1.70 - 6.10 x10(3)/mc L [facility] Lymph % 13.0 % [facility] Lymphocytes Abs 1.4 0.9 - 3.2 x10(3)/mc L [facility] Monocyte % 7.6 % [facility] Monocyte Abs 0.8 0.3 - 0.9 x10(3)/mc L [facility] Eos % 2.5 % [facility] Eosinophils Abs 0.3 0.0 - 0.4 x10(3)/mc L [facility] Basophil % 0.6 % [facility] Baso Absolute 0.1 0.0 - 0.1 x10(3)/mc L [facility] Immature Gran % 0.80 % [facility] Comment: Immature granulocytes(IG's)percentage and absolute count will include metamyelocytes, myelocytes, and promyelocytes. Blood smears from CBCs yielding IG's will be scanned manually for concordance. If this scan disagrees with the automated IG or if promyelocytes are noted, a manual differential will be performed. Immature Gran Absolute 0.09(H) 0.00 - 0.04 x10(3)/mc L [facility] Blood 01/24/2024 12:2 5 AM EDT 01/24/2024 12:38 AM EDT Narrative Resulting Agency Comment Spec In Lab Quique Hanson MD HEMATOLOGY ORDERABLE S [facility] [place] [address] * (ABNORMAL) Hemogram (01/24/2024 12:25 AM EDT) White Blood Cell 11.1(H) 4.0 - 9.5 x10(3)/mc L [facility] Red Blood Cell 3.85(L) 4.00 - 5.21 x10(6)/mc L [facility] Hemoglobin 10.9(L) 11.7 - 15.5 g/dL [facility] Hematocrit 34.0(L) 35.7 - 45.8 % [facility] Mean Cell Volume 88.3 82.6 - 94.4 fL [facility] Mean Cell Hemoglobin 28.3 27.1 - 32.0 pg [facility] Mean Cell Hemoglobin Concentration 32.1 31.7 - 35.0 g/dL [facility] Platelet 161 145 - 357 x10(3)/mc L [facility] RDW Standard Deviation 46.8(H) 37.0 - 46.0 [facility] RDW coefficient of variation 14.5(H) 11.5 - 14.1 % [facility] Mean Platelet Volume 11.4 7.6 - 12.9 [facility] NRBC% auto 0.0 % [facility] NRBC Absolute 0.000 0.000 - 0.000 x10(3)/[facility] Blood 01/24/2024 12:2 5 AM EDT 01/24/2024 12:38 AM EDT Narrative Resulting Agency Comment Spec In Lab Quique Hanson MD HEMATOLOGY ORDERABLE S [facility] [place] [address] * (ABNORMAL) Basic Metabolic Panel (non-fasting) (01/24/2024 12:25 AM EDT) Glucose 155 65 - 199 mg/dL [facility] Comment:Diabetes: >=200 mg/d L plus symptoms Blood Urea Nitrogen 15 8 - 18 mg/dL [facility] Creatinine 0.78 0.70 - 1.20 mg/dL [facility] Sodium 138 135 - 145 mmol/L [facility] Potassium Not Perf 3.5 - 5.0 [facility] Comment: Unable to quantitate [...] questions. Chloride 111(H) 98 - 107 mmol/L [facility] Carbon Dioxide 19(L) 22 - 31 mmol/L [facility] Anion Gap 8 5 - 15 mmol/L [facility] Calcium 8.4(L) 8.5 - 10.5 mg/dL [facility] Est Glomerular Filtration Rate 87 >=60 mL/min/1. 73 m?? [facility] Comment: This patient's estimated [...] In Lab Brendan Rodriguez MD CHEMISTRY ORDERABLES [facility] [place] [address] * (ABNORMAL) Differential, Automated (01/23/2024 5:06 AM EDT) Neutrophil % 85.4 % [facility] Neutrophil Absolute 11.58(H) 1.70 - 6.10 x10(3)/mc L [facility] Lymph % 7.8 % [facility] Lymphocytes Abs 1.1 0.9 - 3.2 x10(3)/mc L [facility] Monocyte % 4.2 % [facility] Monocyte Abs 0.6 0.3 - 0.9 x10(3)/mc L [facility] Eos % 1.5 % [facility] Eosinophils Abs 0.2 0.0 - 0.4 x10(3)/ L [facility] Basophil % 0.4 % [facility] Baso Absolute 0.0 0.0 - 0.1 x10(3)/mc L [facility] Immature Gran % 0.70 % [facility] Comment: Immature granulocytes(IG's)percentage and absolute count will include metamyelocytes, myelocytes, and promyelocytes. Blood smears from CBCs yielding IG's will be scanned manually for concordance. If this scan disagrees with the automated IG or if promyelocytes are noted, a manual differential will be performed. Immature Gran Absolute 0.09(H) 0.00 - 0.04 x10(3)/mc L [facility] Blood 01/23/2024 5:06 AM EDT 01/23/2024 5:12 AM EDT Narrative Resulting Agency Comment Spec In Lab Quique Hanson MD HEMATOLOGY ORDERABLE S Performing Organization Address City/[facility]/ZIP Co de Phone Number [facility] [place] [address] * (ABNORMAL) Hemogram (01/23/2024 5:06 AM EDT) White Blood Cell 13.6(H) 4.0 - 9.5 x10(3)/mc L [facility] Red Blood Cell 4.06 4.00 - 5.21 x10(6)/mc L [facility] Hemoglobin 12.1 11.7 - 15.5 g/dL [facility] Hematocrit 36.5 35.7 - 45.8 % [facility] Mean Cell Volume 89.9 82.6 - 94.4 fL [facility] Mean Cell Hemoglobin 29.8 27.1 - 32.0 pg [facility] Mean Cell Hemoglobin Concentration 33.2 31.7 - 35.0 g/dL [facility] Platelet 151 145 - 357 x10(3)/mc L [facility] RDW Standard Deviation 47.8(H) 37.0 - 46.0 fL [facility] RDW coefficient of variation 14.5(H) 11.5 - 14.1 % [facility] Mean Platelet Volume 11.0 7.6 - 12.9 fL [facility] NRBC% auto 0.0 % [facility] NRBC Absolute 0.000 0.000 - 0.000 x10(3)/mc L [facility] Blood 01/23/2024 5:06 AM EDT 01/23/2024 5:12 AM EDT Narrative Resulting Agency Comment Spec In Lab Quique Hanson MD HEMATOLOGY ORDERABLE S Performing Organization Address City/[facility]/ZIP Co de Phone Number [facility] [place] [address] * (ABNORMAL) Basic Metabolic Panel (non-fasting) (01/23/2024 5:06 AM EDT) Glucose 109 65 - 199 mg/dL [facility] Comment:Diabetes: >=200 mg/d L plus symptoms Blood Urea Nitrogen 20(H) 8 - 18 mg/dL [facility] Creatinine 1.05 0.70 - 1.20 mg/dL [facility] Sodium 139 135 - 145 mmol/L [facility] Potassium 3.6 3.5 - 5.0 mmol/L [facility] Comment: Please note: ??Patients with WBC >100,000 may have falsely elevated Potassium levels. ??For accurate Potassium quantification in these patients send serum separator tube (gold top) for subsequent determinations. ??Contact the Clinical Chemistry Laboratory if there are any questions. Chloride 110(H) 98 - 107 mmol/L [facility] Carbon Dioxide 21(L) 22 - 31 mmol/L [facility] Anion Gap 8 5 - 15 mmol/L [facility] Calcium 8.6 8.5 - 10.5 mg/dL [facility] Est Glomerular Filtration Rate 61 >=60 mL/min/1. 73 m?? [facility] Comment: This patient's estimated [...] In Lab Brendan Rodriguez MD CHEMISTRY ORDERABLES [facility] [place] [address] * Magnesium (01/23/2024 5:06 AM EDT) [facility] Magnesium 0.84 0.69 - 1.07 mmol/L [facility] Blood 01/23/2024 5:06 AM EDT 01/23/2024 5:12 AM EDT Narrative Resulting Agency Comment Spec In Lab Brendan Rodriguez MD CHEMISTRY ORDERABLES Performing Organization Address City/[facility]/ZIP Co de Phone Number [facility] [place] [address] * (ABNORMAL) Phosphorus (01/23/2024 5:06 AM EDT) [facility] Phosphorus 2.0(L) 2.5 - 4.5 mg/dL [facility] Blood 01/23/2024 5:06 AM EDT 01/23/2024 5:12 AM EDT Narrative Resulting Agency Comment Spec In Lab Brendan Rodriguez MD CHEMISTRY ORDERABLES Performing Organization Address City/[facility]/ZIP Co de Phone Number [facility] [place] [address] * (ABNORMAL) Differential, Automated (01/21/2024 1:02 AM EDT) [facility] Neutrophil % 94.2 % [facility] Neutrophil Absolute 7.96(H) 1.70 - 6.10 x10(3)/mc L [facility] Lymph % 3.7 % [facility] Lymphocytes Abs 0.3(L) 0.9 - 3.2 x10(3)/mc L [facility] Monocyte % 0.8 % [facility] Monocyte Abs 0.1(L) 0.3 - 0.9 x10(3)/mc L [facility] Eos % 0.2 % [facility] Eosinophils Abs 0.0 0.0 - 0.4 x10(3)/mc L [facility] Basophil % 0.5 % [facility] Baso Absolute 0.0 0.0 - 0.1 x10(3)/[facility] Immature Gran % 0.60 % [facility] Comment: Immature granulocytes(IG's)percentage and absolute count will include metamyelocytes, myelocytes, and promyelocytes. Blood smears from CBCs yielding IG's will be scanned manually for concordance. If this scan disagrees with the automated IG or if promyelocytes are noted, a manual differential will be performed. Immature Gran Absolute 0.05(H) 0.00 - 0.04 x10(3)/[facility] Blood 01/21/2024 1:02 AM EDT 01/21/2024 1:13 AM EDT Narrative Resulting Agency Comment Spec In Lab Miguel Pack MD HEMATOLOGY ORDERABLE S Performing Organization Address City/State/[facility] Co de Phone Number [facility] [place] [address] * (ABNORMAL) Hemogram (01/21/2024 1:02 AM EDT) White Blood Cell 8.4 4.0 - 9.5 x10(3)/[facility] Red Blood Cell 4.18 4.00 - 5.21 x10(6)/[facility] Hemoglobin 12.2 11.7 - 15.5 g/dL [facility] Hematocrit 38.9 35.7 - 45.8 % [facility] Mean Cell Volume 93.1 82.6 - 94.4 fL [facility] Mean Cell Hemoglobin 29.2 27.1 - 32.0 pg [facility] Mean Cell Hemoglobin Concentration 31.4(L) 31.7 - 35.0 g/dL [facility] Platelet 174 145 - 357 x10(3)/[facility] RDW Standard Deviation 47.9(H) 37.0 - 46.0 fL [facility] RDW coefficient of variation 13.9 11.5 - 14.1 % [facility] Mean Platelet Volume 11.2 7.6 - 12.9 fL [facility] NRBC% auto 0.0 % [facility] NRBC Absolute 0.000 0.000 - 0.000 x10(3)/mc L [facility] Blood 01/21/2024 1:02 AM EDT 01/21/2024 1:13 AM EDT Narrative Resulting Agency Comment Spec In Lab Miguel Pack MD HEMATOLOGY ORDERABLE S [facility] [place] [address] * (ABNORMAL) Basic Metabolic Panel (non-fasting) (01/21/2024 1:02 AM EDT) Glucose 159 65 - 199 mg/dL [facility] Comment:Diabetes: >=200 mg/d L plus symptoms Blood Urea Nitrogen 23(H) 8 - 18 mg/dL [facility] Creatinine 1.58(H) 0.70 - 1.20 mg/dL [facility] Sodium 144 135 - 145 mmol/L [facility] Potassium 3.6 3.5 - 5.0 mmol/L [facility] Comment: Please note: ??Patients with WBC >100,000 may have falsely elevated Potassium levels. ??For accurate Potassium quantification in these patients send serum separator tube (gold top) for subsequent determinations. ??Contact the Clinical Chemistry Laboratory if there are any questions. Chloride 113(H) 98 - 107 mmol/L [facility] Carbon Dioxide 19(L) 22 - 31 mmol/L [facility] Anion Gap 12 5 - 15 mmol/L [facility] Calcium 8.3(L) 8.5 - 10.5 mg/dL [facility] [facility] Comment:result rechecked-HT Est Glomerular Filtration Rate 37(L) >=60 mL/min/1. 73 m?? [facility] Comment: This patient's estimated [...] Rodriguez MD CHEMISTRY ORDERABLES Performing Organization Address [facility] Co de Phone Number [facility] [place] [address] * Magnesium (01/21/2024 1:02 AM EDT) Magnesium 0.70 0.69 - 1.07 mmol/L [facility] Blood 01/21/2024 1:02 AM EDT 01/21/2024 1:13 AM EDT Narrative Resulting Agency Comment Spec In Lab Brenadn Rodriguez MD CHEMISTRY ORDERABLES Performing Organization Address [facility] Co de Phone Number [facility] [place] [address] * Phosphorus (01/21/2024 1:02 AM EDT) Phosphorus 2.9 2.5 - 4.5 mg/dL [facility] Blood 01/21/2024 1:02 AM EDT 01/21/2024 1:13 AM EDT Narrative Resulting Agency Comment Spec In Lab Brendan Rodriguez MD CHEMISTRY ORDERABLES Performing Organization Address City/[facility]/ZIP Co de Phone Number [facility] [place] [address] * (ABNORMAL) BLOOD GAS 2 VENOUS (01/21/2024 12:52 AM EDT) pH, Venous 7.17(Criti vijaya) 7.32 - 7.42 [facility] Comment: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 PCO2, Venous 52(H) 41 - 51 mmHg [facility] PO2, Venous 29 25 - 40 mmHg [facility] Bicarbonate, Venous 18.6 mmol/L [facility] Base Excess, Venous -9.9 mmol/L [facility] Hgb Blood Gas 13.3 11.7 - 15.5 g/dL [facility] Oxyhemoglobin, Venous 52.0 % [facility] Carboxyhemoglob in, Venous 0.1 % [facility] Comment: Nonsmokers: 0.5-1.5% COHB Smokers: Variable, but usually less than 10% Toxic: 20-30% COHB Lethal: Greater than 60% COHB Methemoglobin, Venous 0.6 <=1.5 % [facility] Na Whole Blood 143 135 - 145 mmol/L [facility] K Whole Blood 3.6 3.5 - 5.0 mmol/L [facility] Comment: Please note: Patients with WBC >100,000 may have falsely elevated Potassium levels. Contact the Clinical Chemistry Laboratory if there are any questions. ICa Whole Blood 1.20 1.15 - 1.33 mmol/L [facility] Comment: Note: ??Total bilirubin higher than 20 mg/dL may lead to falsely low ionized calcium. CL Whole Blood 113(H) 98 - 107 mmol/L [facility] Gluc Whole Bld 154 65 - 199 mg/dL [facility] Comment:Diabetes: >=200 mg/d L plus symptoms Lactate WB 3.2(H) 0.5 - 2.2 mmol/L [facility] Flow, Antwan 3.0 LPM [facility] Blood Gas Source Venous [facility] Blood 01/21/2024 12:5 2 AM EDT 01/21/2024 12:52 AM EDT Brendan Rodriguez MD POINT OF CARE TEST O JESUS Performing Organization Address [facility] Co de Phone Number [facility] [place] [address] * POCT Glucose (01/21/2024 12:49 AM EDT) Glucose, POC 124 65 - 199 mg/dL [facility] Comment: Supplemental ranges: <140 mg/dL before meals <180 mg/dL all other times of the day Blood 01/21/2024 12:4 9 AM EDT 01/21/2024 12:49 AM EDT Brendan Rodriguez MD POINT OF CARE TEST O JESUS Performing Organization Address [facility] Co de Phone Number [facility] [place] [address] * XR Fluoro No Rad <1Hr - OR Use (01/21/2024 12:28 AM EDT) Narrative Dicom, Auditing User - 01/21/2024 12:29 AM EDT This exam is auto-finalizing. No interpretation was done. Nhan Castelan MD IMG FLUORO ORDERABLE S * (ABNORMAL) Urine culture Cystoscopic Urine (01/21/2024 12:00 AM EDT) Urine Culture 10,000-49,000 cfu/ml Escherichia coli(A) [facility] Organism Escherichia coli(A) [facility] Cystoscopic Urine 01/21/2024 024 12:32 AM EDT Comment:Left kidney urine sa [...] - GENER AL ORDERABLES Performing Organization Address [facility] Co de Phone Number [facility] [place] [address] * Urine culture Cystoscopic Urine (01/20/2024 11:55 PM EDT) Urine Culture No growth (Less than 100 cfu/ml). [facility] Cystoscopic Urine 01/20/2024 11:55 PM EDT 01/21/2024 12:32 AM EDT Comment:Bladder urine cultur e Narrative Resulting Agency Comment Spec In Lab Brendan Rodriguez MD MICROBIOLOGY - GENER AL ORDERABLES Performing Organization Address City/[facility]/ZIP Co de Phone Number [facility] [place] [address] * Scan, Peripheral Blood (01/20/2024 11:14 PM EDT) Plat estimate Normal [facility] RBC Morphology Normal [facility] Blood 01/20/2024 11:1 4 PM EDT 01/20/2024 11:20 PM EDT Narrative Resulting Agency Comment Spec In Lab Sunshine June MD HEMATOLOGY ORDERA BLES Performing Organization Address City/[facility]/ZIP Co de Phone Number [facility] [place] [address] * (ABNORMAL) Differential, Automated (01/20/2024 11:14 PM EDT) Neutrophil % 92.9 % [facility] Neutrophil Absolute 25.22(H) 1.70 - 6.10 x10(3)/mc L [facility] Lymph % 2.1 % [facility] Lymphocytes Abs 0.6(L) 0.9 - 3.2 x10(3)/mc L [facility] Monocyte % 3.2 % [facility] Monocyte Abs 0.9 0.3 - 0.9 x10(3)/mc L [facility] Eos % 0.4 % [facility] Eosinophils Abs 0.1 0.0 - 0.4 x10(3)/mc L [facility] Basophil % 0.2 % [facility] Baso Absolute 0.1 0.0 - 0.1 x10(3)/mc L [facility] Immature Gran % 1.20 % [facility] Comment: Immature granulocytes(IG's)percentage and absolute count will include metamyelocytes, myelocytes, and promyelocytes. Blood smears from CBCs yielding IG's will be scanned manually for concordance. If this scan disagrees with the automated IG or if promyelocytes are noted, a manual differential will be performed. Immature Gran Absolute 0.32(H) 0.00 - 0.04 x10(3)/mc L [facility] Blood 01/20/2024 11:1 4 PM EDT 01/20/2024 11:20 PM EDT Narrative Resulting Agency Comment Spec In Lab Sunshine June MD HEMATOLOGY ORDERA BLES Performing Organization Address City/[facility]/ZIP Co de Phone Number [facility] [place] [address] * (ABNORMAL) Hemogram (01/20/2024 11:14 PM EDT) [facility] White Blood Cell 27.2(H) 4.0 - 9.5 x10(3)/mc L [facility] Red Blood Cell 4.03 4.00 - 5.21 x10(6)/[facility] Hemoglobin 11.7 11.7 - 15.5 g/dL [facility] Hematocrit 37.2 35.7 - 45.8 % [facility] Mean Cell Volume 92.3 82.6 - 94.4 fL [facility] Mean Cell Hemoglobin 29.0 27.1 - 32.0 pg [facility] Mean Cell Hemoglobin Concentration 31.5(L) 31.7 - 35.0 g/dL [facility] Platelet 194 145 - 357 x10(3)/[facility] RDW Standard Deviation 47.5(H) 37.0 - 46.0 fL [facility] RDW coefficient of variation 14.0 11.5 - 14.1 % [facility] Mean Platelet Volume 11.1 7.6 - 12.9 fL [facility] NRBC% auto 0.0 % [facility] NRBC Absolute 0.000 0.000 - 0.000 x10(3)/[facility] Blood 01/20/2024 11:1 4 PM EDT 01/20/2024 11:20 PM EDT Narrative Resulting Agency Comment Spec In Lab Sunshine June MD HEMATOLOGY ORDERA BLES [facility] [place] [address] * (ABNORMAL) Basic Metabolic Panel (non-fasting) (01/20/2024 11:14 PM EDT) [facility] Glucose 111 65 - 199 mg/dL [facility] Comment:Diabetes: >=200 mg/d L plus symptoms Blood Urea Nitrogen 21(H) 8 - 18 mg/dL [facility] Creatinine 1.51(H) 0.70 - 1.20 mg/dL [facility] Sodium 145 135 - 145 mmol/L [facility] Potassium 3.0(Criti vijaya) 3.5 - 5.0 mmol/L [facility] Comment: Called by: , Read back by: Denisse Ambrose, Date/Time:01/21/24 00:00. Please note: ??Patients with WBC >100,000 may have falsely elevated Potassium levels. ??For accurate Potassium quantification in these patients send serum separator tube (gold top) for subsequent determinations. ??Contact the Clinical Chemistry Laboratory if there are any questions. Chloride 118(H) 98 - 107 mmol/L [facility] Carbon Dioxide 17(L) 22 - 31 mmol/L [facility] Anion Gap 10 5 - 15 mmol/L [facility] Calcium 7.4(L) 8.5 - 10.5 mg/dL [facility] Est Glomerular Filtration Rate 40(L) >=60 mL/min/1. 73 m?? [facility] Comment: This patient's estimated [...] In Lab Nhan Castelan MD CHEMISTRY ORDERABLES [facility] [place] [address] * Request For 2nd Read CT Abdomen & Pelvis (01/20/2024 10:47 PM EDT) WORKSTATION ID [id number] RAD Anatomical Region Laterality Modality Abdomen, Pelvis [...] who have questions please contact the health medicare specialist that requested your imaging first. ? Narrative 01/21/2024 7:07 AM EDT EXAMINATION: REQUEST FOR 2ND READ CT ABDOMEN AND PELVIS CLINICAL HISTORY: septioc stone; Sending Institution [facility]; Date of exam 20240120; I believe a reinterpretation of this exam may alter care of Patient. Yes TECHNIQUE: Helical CT of the abdomen and pelvis without intravenous contrast. Oral contrast was not administered. Multiplanar reformatted images were generated. Study performed January 20, 2024 at [facility]. COMPARISON: None FINDINGS: The absence of [...] PELVIS CLINICAL HISTORY: septioc stone; Sending Institution [facility]; Date of exam 20240120; I believe a reinterpretation of this exam may alter care ofPatient. Yes TECHNIQUE: Helical CT of the abdomen and pelvis without intravenouscontrast. Oral contrast was not administered. Multiplanar reformatted images were generated. Study performed January 20, 2024 at [facility]. COMPARISON: None FINDINGS: The absence of [...] patients who have questions please contactthe health medicare specialist that requested your imaging first. Nhan Castelan MD IMG OUTSIDE INTERPRE TATION ORDERABLES * EKG 12 Lead (01/20/2024 10:06 PM EDT) Ventricular rate 91 BPM MUSE SYSTEM Atrial Rate 91 BPM MUSE SYSTEM P-R Interval 140 ms MUSE SYSTEM QRS Duration 98 ms MUSE SYSTEM Q-T Interval 394 ms MUSE SYSTEM QTC Calculated (Bezet) 484 ms MUSE SYSTEM Calculated P Enigma 48 degrees MUSE SYSTEM Calculated R Enigma 26 degrees MUSE SYSTEM Calculated T Enigma 39 degrees MUSE SYSTEM INTERPRETATION Normal sinus rhythm Lateral infarct , age undetermined Abnormal ECG No previous ECGs available Confirmed by Ashleigh Santana ([id number]) on 01/21/2024 12:58:47 PM MUSE SYSTEM 01/20/2024 [...] Oral, EVERY 8 HOURS PRN, Starting on Tue01/21/24 at 0106, Until Tue01/24/24 at 1628, Pain, [...] IV bolus Intravenous, ONCE, 1 dose, On 01/21/24 at 1230 New Bag 01/21/2024 11:48 AM EDT lactated ringers infusion 100 mL/hr, Intravenous, CONTINUOUS, Starting on 01/21/24 at 0100, Until 01/22/24 at 0942 Rate/Dose [...] 0849 (Given - Provider: Meaghan Manrique RN) 09 (Given - Provider: Carmita Pham RN - Comment: dose verified by EK- barcode unreadable) heparin (porcine) (5,000 units/1 mL) subcutaneous injection 5,000 Units 5,000 Units, Subcutaneous, EVERY 12 HOURS SCHEDULED (2 times per day), First dose on Tue01/21/24 at 0200, Until Discontinued, Routine 0820 (Given - Provider: Juliet Hoffmann RN)2008 (Given - Provider: Quita Emmanuel RN) 0849 (Given - Provider: Meaghan Manrique RN)2102 (Given - Provider: Mayda Marcano RN) 0930 (Given - Provider: Carmita Pahm RN) piperacillin-tazobactam (Zosyn) 3.375 g vial attach [...] Oral, ONCE, 1 dose, On 01/23/24 at 0945, Reconstitute each packet in 75 [...] mL)., Routine 1313 (Given - Provider: Meaghan Manrique, COLETTE) topiramate (Topamax) tablet 100 mg 100 mg, Oral, 2 TIMES DAILY, First dose on 01/21/24 at 0900, Until Discontinued, DO NOT SPLIT, CRUSH OR OPEN, Routine 0820 (Given - Provider: Juliet Hoffmann, COLETTE)2008 (Given - Provider: Quita Emmanuel RN) 0849 (Given - Provider: Meaghan Manrique, COLETTE)210 (Given - Provider: Mayda Marcano RN) 0930 (Given - Provider: Carmita Pham, COLETTE) venlafaxine XR (Effexor-XR) capsule 150 mg 150 mg, Oral, DAILY WITH BREAKFAST, First dose on 01/21/24 at 0800, Until Discontinued, DO NOT CRUSH OR OPEN, Routine 08 (Given - Provider: Juliet Hoffmann RN) 0849 (Given - Provider: Meaghan Manrique RN) 09 (Given - Provider: Carmita Pham, COLETTE) Continuous Medication Order 01/22/2024 01/23/2024 01/24/2024 lactated ringers infusion (CANCELED) 100 mL/hr, Intravenous, CONTINUOUS, Starting on 01/21/24 at 0100, Until 01/22/24 at 0942 0405 (Rate/Dose Verify - Provider: Quita Emmanuel RN)0503 (New Bag - Provider: Quita Emmanuel RN)0800 (Rate/Dose Verify - Provider: Juliet Hoffmann, COLETTE)0942 (Stopped - Provider: Juliet Hoffmann RN) PRN Medication Order 01/22/2024 01/23/2024 01/24/2024 acetaminophen [...] Routine documented in this encounter Care Teams Jet Wiper Relationship Specialty Start Date End Date Graciela Naidu MD [address] [place] [address] PCP - General 07/21/10 documented as of this encounter
--- OUTSIDE RECORDS SUMMARY | 2024-04-05 01:48 | XMS_ITS | Encounter Summary ---
[place] [address] Care Team Providers Care Loan Originator Name Role Phone Graciela Naidu MD Primary Care Provider [phone] Encounter Details Date Type Department Care Team (Late st Contact Info) Description 01/20/2024 10:50 PM EDT Ancillary Procedure [place] [id number] Social History Tobacco Use Types Packs/Day Years Used Date Smoking Tobacco: Never Assessed [facility] Utilities Answer Date Recorded In [...] any time in the past 12 m [facility], were you homeless or living in a custodial (including now)? No 01/21/2024 IPV Inpatient Questions [...] 04/20/2024 3:45 PM EDT Appointment [place] [address] Pam Grant MD [facility] [place] [address] 04/20/2024 4:40 PM EDT Office [place] [address] Pam Grant MD [facility] [place] [address] documented as of this encounter Procedures Procedure Name Priority Date/Time Associated Diagnosis Comments REQUEST FOR 2ND READ CT ABDOMEN AND PELVIS STAT 01/20/2024 10:47 PM EDT documented in this encounter Results * Request For 2nd Read CT Abdomen & Pelvis (01/20/2024 10:47 PM EDT) WORKSTATION ID [id number] [facility] Anatomical Region Laterality Modality Abdomen, Pelvis SO [...] have questions please contact the health healthcare management that requested your imaging first. ? Electronically signed by: Rebeca Garcia MD, [facility] ([phone]), at 01/21/2024 7:07 AM Narrative 01/21/2024 7:07 AM EDT EXAMINATION: REQUEST FOR 2ND READ CT ABDOMEN AND PELVIS CLINICAL HISTORY: septioc stone; Sending Institution [facility]; Date of exam 20240120; I believe a reinterpretation of this exam may alter care of Patient. Yes TECHNIQUE: Helical CT of the abdomen and pelvis without intravenous contrast. Oral contrast was not administered. Multiplanar reformatted images were generated. Study performed January 20, 2024 at [facility]. COMPARISON: None FINDINGS: The absence of [...] HISTORY: septioc stone; Sending Institution [facility]; Date of exam 20240120; I believe a reinterpretation of this exam may alter care ofPatient. Yes TECHNIQUE: Helical CT of the abdomen and pelvis without intravenouscontrast. Oral contrast was not administered. Multiplanar reformatted images were generated. Study performed January 20, 2024 at [facility]. COMPARISON: None FINDINGS: The absence of [...] who have questions please contactthe health healthcare management that requested your imaging first. Nhan Castelan MD IMG OUTSIDE INTERPRE TATION ORDERABLES documented in this encounter Visit Diagnoses Not on filedocumented in this encounter Care Teams Loan Originator Relationship Specialty Start Date End Date Graciela Naidu MD [address] [place] [address] PCP - General 07/21/10 documented as of this encounter
--- OUTSIDE RECORDS SUMMARY | 2024-04-05 01:48 | XMS_ITS | Encounter Summary ---
[place] [address] Care Team Providers Care Boarding Kennel Or Cattery Operator Name Role Phone Graciela Naidu MD Primary Care Provider [phone] Reason for Visit * Auth/Cert (Routine) Specialty Diagnoses / Procedures Referred By Bradley t Referred To Contact Diagnoses Pyelonephritis, acute Left ureteral calculus Ureteral obstruction, left Sepsis Infected kidney stone Procedures EMERGENCY HARDYI Evangelist Rodriguez MD [facility] [place] [address] [facility] Referral ID Status Reason Start Date Expiration Date Visits Re quested Visits Authorized [id number] 1 1 Encounter Details Date Type Department Care Team (Late st Contact Info) Description 01/20/2024 11:29 PM EDT Anesthesia Event [place] [address] José Luis Gee MD [facility] [place] [address] Milan Monroy CRNA [facility] [place] [address] Anesthesia Record Procedure Summary Procedure Name Responsible Anesthesiologist Anesthesia Start Time Anesthesia Stop Time CYSTO, STENT PLACEMENT (WRVU 2.82) (Left: Bladder) José Luis Gee MD 01/20/24232801/21/24 0047 Events Date Time [...] Type Details Placement Removal PIV 01/20/24; 1600; nmpo-blt-ufxkup catheter system; 20 gauge; median cubital vein (antecubital fossa), left; Anatomical Landmarks; Outside hospital; 01/24/24; 1400 01/20/24 1600 by Kiki Mills RN 01/24/24 1400 by Carmita Pham RN PIV 01/20/24; 1600; vaig-izv-cpiyke catheter system; 20 gauge; Anatomical Landmarks; Sending [...] Years Used Date Smoking Tobacco: Never Assessed [facility] Utilities Answer Date Recorded In the past 12 months has th e electric, gas, oil, or water [employer] threatened to shut off services in your [...] the past 12 m [facility], were you homeless or living in a half-way (including now)? No 01/21/2024 DH IPV Inpatient [...] Procedure Summary Date: 01/20/24 Room / Location: [facility] OR [facility] MAIN OR Anesthesia Start: 2328 Anesthesia Stop: 01/21/2446 Procedures: CYSTO, STENT PLACEMENT (WRVU 2.82) (Left: Bladder) MODIFIER,UROLOGY,PEDI TO ADULT Diagnosis: Left ureteral calculus Pyelonephritis, acute (Left ureteral stone.) Surgeons: Evangelist Rodriguez MD Responsible Provider: José Luis Gee MD Anesthesia Type: general ASA Status: 3 - Emergent All Anesthesia Providers: Anesthesiologist: José Luis Gee MD Owner Operator: Judy Chan MD Vitals Value Taken Time [...] PM EDT [place] [address] Pam Grant MD [facility] [place] [address] 04/20/2024 4:40 PM EDT [place] [phone] Pam Grant MD [facility] [place] [address] documented as of this encounter Visit Diagnoses [...] mg documented in this encounter Care Teams Boarding Kennel Or Cattery Operator Relationship Specialty Start Date End Date Graciela Naidu MD [address] [place] [address] PCP - General 07/21/10 documented as of this encounter
--- OUTSIDE RECORDS SUMMARY | 2024-04-05 01:48 | XMS_ITS | Encounter Summary ---
[place] [address] Care Team Providers Care Senior Windows Engineer Name Role Phone Graciela Naidu MD Primary Care Provider [phone] Reason for Referral * Diagnostic Test (Routine) - Closed Specialty Diagnoses / Procedures Referred By Bradley lopez Referred To Contact Urology Diagnoses Nephrolithiasis Procedures Cysto Stent Removal Pam Grant MD [facility] [address] [place] [address] Referral ID Status Reason Start Date Expiration Date V isits Requested Visits Authorized [id number] Closed Test Only 02/24/2024 02/23/2025 1 1 Reason for Visit * Diagnostic Test (Routine) - Closed Specialty Diagnoses / Procedures Referred By Bradley lopez Referred To Contact Urology Diagnoses Ureteral obstruction, left Procedures Cysto Stent Removal Long Galloway MD [facility] [place] [address] [place] [address] Referral ID Status Reason Start Date Expiration Date V isits Requested Visits Authorized [id number] Closed Test Only 02/09/2024 02/08/2025 1 1 Encounter Details Date Type Department Care Team (Late st Contact Info) Description 02/24/2024 11:00 AM EDT Procedure visit Urology at [facility] [place] [address] Pam Grant MD [facility] [place] [address] Nephrolithiasis (Primary Dx); Ureteral obstruction, left Social History Tobacco Use Types Packs/Day Years Used Date Smoking Tobacco: Never Smokeless Tobacco: Never Alcohol Use Standard Drinks/Week Comments Never 0 (1 standard drink = 0.6 oz pur e alcohol) [facility] Utilities Answer Date Recorded In the past [...] a senior living (including now)? No 01/21/2024 [facility] Inpatient Questions Answer Date Recorded Does Anyone [...] and cola. You do not need to [id number] ounces of water today. Urination: You will likely have a small amount of blood in your urine for the next several days. This is normal; however, if you are passing large amounts of blood clots or are unable to void please call our office at [phone] before 5PM or [phone] after hours. Please call if: * you have copious blood in your urine * fevers greater than 101.3 F * you are unable to void The number for questions is [phone] before 5 PM weekdays and [phone] after 5 PM and weekends. Follow-up: Drink [...] 04/20/2024 3:45 PM EDT [place] [address] Pam Grant MD [facility] [place] [address] 04/20/2024 4:40 PM EDT [place] [address] Pam Grant MD [facility] [place] [address] Scheduled Orders Name Type Priority Associated Diagnoses [...] mg documented in this encounter Care Teams Senior Windows Engineer Relationship Specialty Start Date End Date Graciela Naidu MD [address] [place] [address] PCP - General 07/21/10 documented as of this encounter
--- OUTSIDE RECORDS SUMMARY | 2024-04-05 01:48 | XMS_ITS | Encounter Summary ---
Author Organization [facility] [place] [address] Care Team Providers Care Expeller Operator Name Role Phone Graciela Naidu MD Primary Care Provider [phone] Encounter Details Date Type Department Care Team (Latest Contact Info) Description 02/24/2024 Travel Social History Tobacco Use Types Packs/Day Years Used Date Smoking Tobacco: Never Smokeless Tobacco: Never Alcohol Use Standard Drinks/Week Comments Never 0 (1 standard drink = 0.6 oz pur e alcohol) [facility] Utilities Answer Date Recorded In [...] were you homeless or living in a long term (including now)? No 01/21/2024 IPV Inpatient Questions [...] 04/20/2024 3:45 PM EDT [place] [address] Pam Grant MD [facility] [place] [address] 04/20/2024 4:40 PM EDT [place] [address] Pam Grant MD [facility] [place] [address] [place] [address] documented as of this encounter Visit Diagnoses Not on filedocumented in this encounter Care Teams Expeller Operator Relationship Specialty Start Date End Date Graciela Naidu MD [address] [place] [address] PCP - General 07/21/10 documented as of this encounter
--- OUTSIDE RECORDS SUMMARY | 2024-04-05 01:49 | XMS_ITS | Encounter Summary ---
Author Organization [facility] [address] Care Team Providers Care Pump Runner Name Role Phone Unavailable Primary Care Provider Unavailabl e Encounter Details Date Type Department Care Team (Late st Contact Info) Description 07/16/2010 8:40 AM EST Follow-[place] [address] Soniya Miranda APRN [facility] [address] Social History Tobacco Use Types Packs/Day Years Used Date Smoking Tobacco: Never Assessed Sex and Gender Information Value Date Recorded Sex Assigned at Not on file Gender Identity Not on file Sexual Orientation Not on file documented as of this encounter Plan of Treatment Upcoming Encounters Date Type Department Care Team (Late st Contact Info) Description 04/20/2024 3:45 PM EDT [place] [address] Pam Grant MD [facility] [place] [address] 04/20/2024 4:40 PM EDT [place] [address] Pam Grant MD [facility] [place] [address] documented as of this encounter Visit Diagnoses Not on filedocumented in this encounter
--- OUTSIDE RECORDS SUMMARY | 2024-04-05 01:49 | XMS_ITS | Encounter Summary ---
[place] [address] Care Team Providers Care Buttonhole Facer Name Role Phone Graciela Naidu MD Primary Care Provider Encounter Details Date Type Department Care Team (Late st Contact Info) Description 01/20/2024 5:40 PM EDT Ancillary Procedure [place] [address] Candi Rodriguez MD [address] [place] [address] Social History Tobacco Use Types Packs/Day Years Used Date Smoking Tobacco: Never Assessed [facility] Utilities Answer Date Recorded In the past 12 months has [employer], gas, oil, or water [facility] threatened to shut off services in your [...] any time in the past 12 m [facility], were you homeless or living in [...] 04/20/2024 3:45 PM EDT [place] [address] Pam Grant MD [facility] [place] [address] 04/20/2024 4:40 PM EDT [place] [address] Pam Grant MD [facility] [place] [address] documented as of this encounter Procedures Procedure [...] Rodriguez MD IMG FILM LIBRARY ORD ERABLES [place], [place] documented in this encounter Visit Diagnoses Not on filedocumented in this encounter Care Teams Buttonhole Facer Relationship Specialty Start Date End Date Graciela Naidu MD [address] [place] [address] PCP - General 07/21/10 documented as of this encounter
--- OUTSIDE RECORDS SUMMARY | 2024-04-05 01:49 | XMS_ITS | Encounter Summary ---
Author Organization [facility] [place] [address] Care Team Providers Care Inseam Leveler Name Role Phone Graciela Naidu MD Primary Care Provider [phone] Encounter Details Date Type Department Care Team (Late st Contact Info) Description 01/20/2024 5:45 PM EDT Ancillary Procedure [place] [address] Evangelist Rodriguez MD [facility] [place] [address] Social History Tobacco Use Types Packs/Day Years Used Date Smoking Tobacco: Never Assessed [facility] Utilities Answer Date Recorded In the past 12 months has [employer], gas, oil, or water [employer] threatened to shut off services in your [...] any time in the past 12 m [facility], were you homeless or living in a prison (including now)? No 01/21/2024 IPV Inpatient Questions [...] 04/20/2024 3:45 PM EDT [place]oint[place] [phone] Pam Grant MD [facility] [place] [address] 04/20/2024 4:40 PM EDT [place] [address] Pam Grant MD [facility] [place] [address] documented as of this encounter Procedures Procedure [...] MD IMG FILM LIBRARY ORD ERABLES [place] documented in this encounter Visit Diagnoses Not on filedocumented in this encounter Care Teams Inseam Leveler Relationship Specialty Start Date End Date Graciela Naidu MD [facility] [address] [place] [address] PCP - General 07/21/10 documented as of this encounter
--- OUTSIDE RECORDS SUMMARY | 2024-04-05 01:49 | XMS_ITS | Encounter Summary ---
[place] [address] Care Team Providers Care Supervisor [employer] Name Role Phone Graciela Naidu MD Primary Care Provider [phone] Reason for Visit * Reason Comments Hospital Transfer Urinary Tract Infection * Auth/Cert (Routine) Specialty Diagnoses / Procedures Referred By Bradley t Referred To Contact Diagnoses Pyelonephritis, acute Left ureteral calculus Ureteral obstruction, left Sepsis Infected kidney stone Procedures EMERGENCY IPI Brendan Rodriguez MD [facility] [address] [facility] Referral ID Status Reason Start Date Expiration Date Visits Re quested Visits Authorized [id number] 1 1 Encounter Details Date Type Department Care Team (Late st Contact Info) Description 01/20/2024 10:40 PM EDT - 01/21/2024 12:23 AM EDT Surgery Main [place] [address] Brendan Rodriguez MD [facility] [address] CYSTO, STENT PLACEMENT (WRVU 2.82) Social History Tobacco Use Types Packs/Day Years Used Date Smoking Tobacco: Never Smokeless Tobacco: Never Tobacco Cessation:Counseling Given: Not Answered Alcohol Use Standard Drinks/Week Comments Never 0 (1 standard drink = 0.6 oz pur e alcohol) [facility] Utilities Answer Date Recorded In the past [...] any time in the past 12 m [facility], were you homeless or living in a [place] health care facility (including now)? No 01/21/2024 IPV Inpatient Questions [...] Barbra Dc Patient Age: 58 y.o. Language: Khmer Race: White Ethnicity: Not nor Admit date: [...] tachycardic, Cr 1.4. Received Rocephin 2grams at [facility]. OR Findings: - Septic from obstructing left ureteral stone - Cloudy bladder urine sent for culture - Left renal aspirate sent for culture - L 6Fr x variable length ureteral stent placed - 14Fr lemus catheter placed Hospital Course: Patient was admitted electively to [facility] via the ED and [facility] hours after [...] 01/20/2024 10:47 PM) Result Value WORKSTATION ID [id number] Impression Obstructing 5 x 8 mm proximal left ureteral calculus. Bilateral scattered nonobstructing nephrolithiases, largest 3 mm. Thank you for letting us participate in the care of this patient. If you are a health care provider and have any questions regarding this report, please contact the number below. For patients who have questions please contact the health critical care nurse practitioner that requested your imaging first. Pending Studies [...] blood clots The number for questions is [phone] before 5 PM weekdays and [phone] after 5 PM and weekends if questions [...] stone in 2-4 weeks time. Please call [phone] if you do not hear from the [...] SURGICAL CASE REQUEST: CYSTOURETEROSCOPY, LITHOTRIPSY (WRVU 7.5) [[id number] CPT(R)] As directed Process Instructions: Scheduling Instructions: This order is to be used for Surgeries and Procedures being performed at an internal [facility] facility or an external facility with a [place] or [place] provider. This includes allinternal ORs, ASCs, and Endoscopy areas, and Pain Clinics at [facility], [facility]. For Surgeries and Procedures being performed at [...] appointments. Primary Care Provider: Graciela Naidu MD [phone] Follow-up Recommendations for Providers: None Unexpected Findings: [...] was managed by the Urology Team at [facility]. If you have any questions or concerns, please feel free to contact us. Provider Contact Information: Urology Clinic: [facility] (after business hours): Time spent on discharge [...] blood clots The number for questions is [phone] before 5 PM weekdays and [phone] after 5 PM and weekends if questions [...] stone in 2-4 weeks time. Please call [phone] if you do not hear from the [...] this encounter Progress Notes * Brendan Quarles, STUDENT SERVICES ADVISOR - 01/23/2024 10:17 PM EDT Respiratory Therapy [...] tonight. Plan: Continue HS CPAP BRENDAN QUARLES STUDENT SERVICES ADVISOR * Brendan Rodriguez MD - 01/23/2024 9:19 AM EDT Urology Progress Note Patient: Barbra Dc : 1965 Room: [address] Admit date: 01/20/2024 Attending: Brendan Rodriguez MD ID: Barbar Dc is a 58 y.o. female with [...] Note Patient: Barbra Dc : 1965 Room: [address] Admit date: 01/20/2024 Attending: Brendan Rodriguez [...] Note Patient: Barbra Dc : 1965 Room: [address] Admit date: 01/20/2024 Attending: Brendan Rodriguez [...] Migraines (med review) who was transferred from [facility] for management of L obstructing ureteral stone [...] tachycardic, Cr 1.4. Received Rocephin 2grams at [facility]. PMH: No past medical history on file. [...] none Patient is insured through: Primary Insurance: [employer] [place] Pay[place] [employer] [place] / Plan[place] / [...] needs at d/c. Carmita Bentley RN, CM [phone] * Plan of Care - Meaghan Manrique [...] Team, bedside nurse, medical record, and Patient PATIENT OBSERVER Introduced self/reviewed role; services accepted. Admitted From: Transfer from another hospital Location: [facility] Reason for Hospitalization: Left ureteral obstruction Covid Vaccination Status: 1st, 2nd & booster Last COVID test: Past medical History: No past medical history on file. Hospitalizations Within the Past 30 Days: no previous admission in last 30 days Current Decision-Making Capacity: Self If AD's have not been completed the following surrogate would be surrogate decision maker per [place] surrogate decision making law. (Only good for 180 days) Any patient receiving care in [place] must abide by [place] law. The hierarchy for surrogate decision making [...] (i) The agent with financial power of broaching machine repairer or a conservator appointed in accordance with [...] were you homeless or living in a [place] health [place] facility (including now)?: No In the past 12 [...] use as needed) Home Address confirmed as: [address] [place] [phone] Social & Family Supports: All names listed [...] Information: Pt lives in a house in [place], [place] with her /SDM Kem and adult daughter Lexy. Kem is not listed in pt's chart because he doesn't have aphone and per pt, Kem receives information and updates on pt through Lexy when needed. Pt also has two other adult children who do not live locally. Health/Prescription Coverage: Primary Insurance: [employer] [facility] [place] Payor: [employer] [facility] [place] / Plan[place] / Product Type: *No Product type* / Secondary Insurance: N/A ; Prescription Coverage: Yes Preferred Pharmacy: No Pharmacies Listed [place] Status: Patient is a : No Primary Care Provider confirmed: Graciela Naidu MD [phone] Patient/Caregiver Goals of Treatment: Pt's goal is to return back home after discharge Potential Needs for Transition of Care: (Pending) Agency Referrals: Not Applicable Transportation: no concerns Transportation Anticipated: family or friend will provide Concerns to be Addressed: denies needs/concerns at this time Assessment: Mrs. Dc is a 58 year old female who was transferred from [facility] and admitted to the SICU at [facility] with a left ureteral obstruction. Plan: Pt is currently alert and oriented. A member of the Care Management team will continue to monitor progress, follow for continuity of care and assist with transition of care planning. MARITZA Madison Archivist [employer] Office of Care Management * Plan of [...] Rodriguez MD - 01/20/2024 11:52 PM EDT [facility] Operative Note Patient Name: Barbra Dc : [id number] MR#: [id number] Case Date: 01/20/2024 - 01/21/2024 Surgeon: Surgeons [...] tachycardic, Cr 1.4. Received Rocephin 2grams at [facility]. Procedure Description: The patient was identified in [...] 04/20/2024 3:45 PM EDT Appointment Ultrasound at [facility] [place] [address] Pam Grant MD [facility] [place] [place] [address] 04/20/2024 4:40 PM EDT Office Visit Urology at [facility] [place] [address] Pam Grant MD [facility] [place] [place] [address] documented as of this encounter Procedures Procedure [...] calculus Pyelonephritis, acute Cystoscopy, Insert Ureteral Stent ([id number]) 01/20/2024 11:29 PM EDT Left ureteral calculus [...] 12:25 AM EDT) Neutrophil % 75.5 % [facility] Neutrophil Absolute 8.38(H) 1.70 - 6.10 x10(3)/mc L [facility] Lymph % 13.0 % [facility] Lymphocytes Abs 1.4 0.9 - 3.2 x10(3)/mc L [facility] Monocyte % 7.6 % [facility] Monocyte Abs 0.8 0.3 - 0.9 x10(3)/mc L [facility] Eos % 2.5 % [facility] Eosinophils Abs 0.3 0.0 - 0.4 x10(3)/mc L [facility] Basophil % 0.6 % [facility] Baso Absolute 0.1 0.0 - 0.1 x10(3)/mc L [facility] Immature Gran % 0.80 % [facility] Comment: Immature granulocytes(IG's)percentage and absolute count will include metamyelocytes, myelocytes, and promyelocytes. Blood smears from CBCs yielding IG's will be scanned manually for concordance. If this scan disagrees with the automated IG or if promyelocytes are noted, a manual differential will be performed. Immature Gran Absolute 0.09(H) 0.00 - 0.04 x10(3)/mc L [facility] Blood 01/24/2024 12:2 5 AM EDT 01/24/2024 12:38 AM EDT Narrative Resulting Agency Comment Spec In Lab Quique Hanson MD HEMATOLOGY ORDERABLE S [facility] [place] [address] * (ABNORMAL) Hemogram (01/24/2024 12:25 AM EDT) White Blood Cell 11.1(H) 4.0 - 9.5 x10(3)/ L [facility] Red Blood Cell 3.85(L) 4.00 - 5.21 x10(6)/mc L [facility] Hemoglobin 10.9(L) 11.7 - 15.5 g/dL [facility] Hematocrit 34.0(L) 35.7 - 45.8 % [facility] Mean Cell Volume 88.3 82.6 - 94.4 fL [facility] Mean Cell Hemoglobin 28.3 27.1 - 32.0 pg [facility] Mean Cell Hemoglobin Concentration 32.1 31.7 - 35.0 g/dL [facility] Platelet 161 145 - 357 x10(3)/ L [facility] RDW Standard Deviation 46.8(H) 37.0 - 46.0 fL [facility] RDW coefficient of variation 14.5(H) 11.5 - 14.1 % [facility] Mean Platelet Volume 11.4 7.6 - 12.9 fL [facility] NRBC% auto 0.0 % [facility] NRBC Absolute 0.000 0.000 - 0.000 x10(3)/ L [facility] Blood 01/24/2024 12:2 5 AM EDT 01/24/2024 12:38 AM EDT Narrative Resulting Agency Comment Spec In Lab Quique Hanson MD HEMATOLOGY ORDERABLE S [facility] [place] [address] * (ABNORMAL) Basic Metabolic Panel (non-fasting) (01/24/2024 12:25 AM EDT) Glucose 155 65 - 199 mg/dL [facility] Comment:Diabetes: >=200 mg/d L plus symptoms Blood Urea Nitrogen 15 8 - 18 mg/dL [facility] Creatinine 0.78 0.70 - 1.20 mg/dL [facility] Sodium 138 135 - 145 mmol/L [facility] Potassium Not Perf 3.5 - 5.0 [facility] Comment: Unable to quantitate [...] questions. Chloride 111(H) 98 - 107 mmol/L [facility] Carbon Dioxide 19(L) 22 - 31 mmol/L [facility] Anion Gap 8 5 - 15 mmol/L [facility] Calcium 8.4(L) 8.5 - 10.5 mg/dL [facility] Est Glomerular Filtration Rate 87 >=60 mL/min/1. 73 m?? [facility] Comment: This patient's estimated [...] In Lab Brendan Rodriguez MD CHEMISTRY ORDERABLES [facility] [place] [address] * (ABNORMAL) Differential, Automated (01/23/2024 5:06 AM EDT) Neutrophil % 85.4 % [facility] Neutrophil Absolute 11.58(H) 1.70 - 6.10 x10(3)/mc L [facility] Lymph % 7.8 % [facility] Lymphocytes Abs 1.1 0.9 - 3.2 x10(3)/ L [facility] Monocyte % 4.2 % [facility] Monocyte Abs 0.6 0.3 - 0.9 x10(3)/[facility] Eos % 1.5 % [facility] Eosinophils Abs 0.2 0.0 - 0.4 x10(3)/[facility] Basophil % 0.4 % [facility] Baso Absolute 0.0 0.0 - 0.1 x10(3)/ L [facility] Immature Gran % 0.70 % [facility] Comment: Immature granulocytes(IG's)percentage and absolute count will include metamyelocytes, myelocytes, and promyelocytes. Blood smears from CBCs yielding IG's will be scanned manually for concordance. If this scan disagrees with the automated IG or if promyelocytes are noted, a manual differential will be performed. Immature Gran Absolute 0.09(H) 0.00 - 0.04 x10(3)/ L [facility] Blood 01/23/2024 5:06 AM EDT 01/23/2024 5:12 AM EDT Narrative Resulting Agency Comment Spec In Lab Quique Hanson MD HEMATOLOGY ORDERABLE S [facility] [place] [address] * (ABNORMAL) Hemogram (01/23/2024 5:06 AM EDT) [facility] White Blood Cell 13.6(H) 4.0 - 9.5 x10(3)/ L [facility] Red Blood Cell 4.06 4.00 - 5.21 x10(6)/mc L [facility] Hemoglobin 12.1 11.7 - 15.5 g/dL [facility] Hematocrit 36.5 35.7 - 45.8 % [facility] Mean Cell Volume 89.9 82.6 - 94.4 fL [facility] Mean Cell Hemoglobin 29.8 27.1 - 32.0 pg [facility] Mean Cell Hemoglobin Concentration 33.2 31.7 - 35.0 g/dL [facility] Platelet 151 145 - 357 x10(3)/[facility] RDW Standard Deviation 47.8(H) 37.0 - 46.0 [facility] RDW coefficient of variation 14.5(H) 11.5 - 14.1 % [facility] Mean Platelet Volume 11.0 7.6 - 12.9 [facility] NRBC% auto 0.0 % [facility] NRBC Absolute 0.000 0.000 - 0.000 x10(3)/[facility] Blood 01/23/2024 5:06 AM EDT 01/23/2024 5:12 AM EDT Narrative Resulting Agency Comment Spec In Lab Quique Hanson MD HEMATOLOGY ORDERABLE S [facility] [place] [address] * (ABNORMAL) Basic Metabolic Panel (non-fasting) (01/23/2024 5:06 AM EDT) [facility] Glucose 109 65 - 199 mg/dL [facility] Comment:Diabetes: >=200 mg/d L plus symptoms Blood Urea Nitrogen 20(H) 8 - 18 mg/dL [facility] Creatinine 1.05 0.70 - 1.20 mg/dL [facility] Sodium 139 135 - 145 mmol/L [facility] Potassium 3.6 3.5 - 5.0 mmol/L [facility] Comment: Please note: ??Patients with WBC >100,000 may have falsely elevated Potassium levels. ??For accurate Potassium quantification in these patients send serum separator tube (gold top) for subsequent determinations. ??Contact the Clinical Chemistry Laboratory if there are any questions. Chloride 110(H) 98 - 107 mmol/L [facility] Carbon Dioxide 21(L) 22 - 31 mmol/L [facility] Anion Gap 8 5 - 15 mmol/L [facility] Calcium 8.6 8.5 - 10.5 mg/dL [facility] Est Glomerular Filtration Rate 61 >=60 mL/min/1. 73 m?? [facility] Comment: This patient's estimated [...] In Lab Brendan Rodriguez MD CHEMISTRY ORDERABLES [facility] [place] [address] * Magnesium (01/23/2024 5:06 AM EDT) Magnesium 0.84 0.69 - 1.07 mmol/L [facility] Blood 01/23/2024 5:06 AM EDT 01/23/2024 5:12 AM EDT Narrative Resulting Agency Comment Spec In Lab Brendan Rodriguez MD CHEMISTRY ORDERABLES Performing Organization Address City/[facility] Co de Phone Number [facility] [place] [address] * (ABNORMAL) Phosphorus (01/23/2024 5:06 AM EDT) Pathologist [facility] Phosphorus 2.0(L) 2.5 - 4.5 mg/dL [facility] Blood 01/23/2024 5:06 AM EDT 01/23/2024 5:12 AM EDT Narrative Resulting Agency Comment Spec In Lab Brendan Rodriguez MD CHEMISTRY ORDERABLES Performing Organization Address [facility] de Phone Number [facility] [place] [address] * (ABNORMAL) Differential, Automated (01/21/2024 1:02 AM EDT) [facility] Neutrophil % 94.2 % [facility] Neutrophil Absolute 7.96(H) 1.70 - 6.10 x10(3)/mc L [facility] Lymph % 3.7 % [facility] Lymphocytes Abs 0.3(L) 0.9 - 3.2 x10(3)/mc L [facility] Monocyte % 0.8 % [facility] Monocyte Abs 0.1(L) 0.3 - 0.9 x10(3)/mc L [facility] Eos % 0.2 % [facility] Eosinophils Abs 0.0 0.0 - 0.4 x10(3)/mc L [facility] Basophil % 0.5 % [facility] Baso Absolute 0.0 0.0 - 0.1 x10(3)/mc L [facility] Immature Gran % 0.60 % [facility] Comment: Immature granulocytes(IG's)percentage and absolute count will include metamyelocytes, myelocytes, and promyelocytes. Blood smears from CBCs yielding IG's will be scanned manually for concordance. If this scan disagrees with the automated IG or if promyelocytes are noted, a manual differential will be performed. Immature Gran Absolute 0.05(H) 0.00 - 0.04 x10(3)/mc L [facility] Blood 01/21/2024 1:02 AM EDT 01/21/2024 1:13 AM EDT Narrative Resulting Agency Comment Spec In Lab Miguel Pack MD HEMATOLOGY ORDERABLE S [facility] [place] [address] * (ABNORMAL) Hemogram (01/21/2024 1:02 AM EDT) White Blood Cell 8.4 4.0 - 9.5 x10(3)/mc L [facility] Red Blood Cell 4.18 4.00 - 5.21 x10(6)/mc L [facility] Hemoglobin 12.2 11.7 - 15.5 g/dL [facility] Hematocrit 38.9 35.7 - 45.8 % [facility] Mean Cell Volume 93.1 82.6 - 94.4 fL [facility] Mean Cell Hemoglobin 29.2 27.1 - 32.0 pg [facility] Mean Cell Hemoglobin Concentration 31.4(L) 31.7 - 35.0 g/dL [facility] Platelet 174 145 - 357 x10(3)/mc L [facility] RDW Standard Deviation 47.9(H) 37.0 - 46.0 fL [facility] RDW coefficient of variation 13.9 11.5 - 14.1 % [facility] Mean Platelet Volume 11.2 7.6 - 12.9 fL [facility] NRBC% auto 0.0 % [facility] NRBC Absolute 0.000 0.000 - 0.000 x10(3)/mc L [facility] Blood 01/21/2024 1:02 AM EDT 01/21/2024 1:13 AM EDT Narrative Resulting Agency Comment Spec In Lab Miguel Pack MD HEMATOLOGY ORDERABLE S [facility] [place] [address] * (ABNORMAL) Basic Metabolic Panel (non-fasting) (01/21/2024 1:02 AM EDT) Glucose 159 65 - 199 mg/dL [facility] Comment:Diabetes: >=200 mg/d L plus symptoms Blood Urea Nitrogen 23(H) 8 - 18 mg/dL [facility] Creatinine 1.58(H) 0.70 - 1.20 mg/dL [facility] Sodium 144 135 - 145 mmol/L [facility] Potassium 3.6 3.5 - 5.0 mmol/L [facility] Comment: Please note: ??Patients with WBC >100,000 may have falsely elevated Potassium levels. ??For accurate Potassium quantification in these patients send serum separator tube (gold top) for subsequent determinations. ??Contact the Clinical Chemistry Laboratory if there are any questions. Chloride 113(H) 98 - 107 mmol/L [facility] Carbon Dioxide 19(L) 22 - 31 mmol/L [facility] Anion Gap 12 5 - 15 mmol/L [facility] Calcium 8.3(L) 8.5 - 10.5 mg/dL [facility] Comment:result rechecked-HT Est Glomerular Filtration Rate 37(L) >=60 mL/min/1. 73 m?? [facility] Comment: This patient's estimated [...] Rodriguez MD CHEMISTRY ORDERABLES Performing Organization Address City/[facility]/ZIP Co de Phone Number [facility] [place] [address] * Magnesium (01/21/2024 1:02 AM EDT) Magnesium 0.70 0.69 - 1.07 mmol/L [facility] Blood 01/21/2024 1:02 AM EDT 01/21/2024 1:13 AM EDT Narrative Resulting Agency Comment Spec In Lab Brendan Rodriguez MD CHEMISTRY ORDERABLES Performing Organization Address City/[facility]/ZIP Co de Phone Number [facility] [place] [address] * Phosphorus (01/21/2024 1:02 AM EDT) Phosphorus 2.9 2.5 - 4.5 mg/dL [facility] Blood 01/21/2024 1:02 AM EDT 01/21/2024 1:13 AM EDT Narrative Resulting Agency Comment Spec In Lab Brendan Rodriguez MD CHEMISTRY ORDERABLES Performing Organization Address City/[facility]/ZIP Co de Phone Number [facility] [place] [address] * (ABNORMAL) BLOOD GAS 2 VENOUS (01/21/2024 12:52 AM EDT) pH, Venous 7.17(Criti vijaya) 7.32 - 7.42 [facility] Comment:Not noted by instrum ent cooling system operator. PCO2, Venous 52(H) 41 - 51 mmHg [facility] PO2, Venous 29 25 - 40 mmHg [facility] Bicarbonate, Venous 18.6 mmol/L [facility] Base Excess, Venous -9.9 mmol/L [facility] Hgb Blood Gas 13.3 11.7 - 15.5 g/dL [facility] Oxyhemoglobin, Venous 52.0 % [facility] Carboxyhemoglob in, Venous 0.1 % [facility] Comment: Nonsmokers: 0.5-1.5% COHB Smokers: Variable, but usually less than 10% Toxic: 20-30% COHB Lethal: Greater than 60% COHB Methemoglobin, Venous 0.6 <=1.5 % [facility] Na Whole Blood 143 135 - 145 mmol/L [facility] K Whole Blood 3.6 3.5 - 5.0 mmol/L [facility] Comment: Please note: Patients with WBC >100,000 may have falsely elevated Potassium levels. Contact the Clinical Chemistry Laboratory if there are any questions. ICa Whole Blood 1.20 1.15 - 1.33 mmol/L [facility] Comment: Note: ??Total bilirubin higher than 20 mg/dL may lead to falsely low ionized calcium. CL Whole Blood 113(H) 98 - 107 mmol/L [facility] Gluc Whole Bld 154 65 - 199 mg/dL [facility] Comment:Diabetes: >=200 mg/d L plus symptoms Lactate WB 3.2(H) 0.5 - 2.2 mmol/L [facility] Flow, Antwan 3.0 LPM [facility] Blood Gas Source Venous [facility] Blood 01/21/2024 12:5 2 AM EDT 01/21/2024 12:52 AM EDT Brendan Rodriguez MD POINT OF CARE TEST O RDERABLES Performing Organization Address City/[facility]/ZIP Co de Phone Number [facility] [place] [address] * POCT Glucose (01/21/2024 12:49 AM EDT) Glucose, POC 124 65 - 199 mg/dL [facility] Comment: Supplemental ranges: <140 mg/dL before meals <180 mg/dL all other times of the day Blood 01/21/2024 12:4 9 AM EDT 01/21/2024 12:49 AM EDT Brendan Rodriguez MD POINT OF CARE TEST O RDERABLES Performing Organization Address [facility] Co de Phone Number [facility] [place] [address] * XR Fluoro No Rad <1Hr - OR Use (01/21/2024 12:28 AM EDT) Narrative Dicom, Auditing User - 01/21/2024 12:29 AM EDT This exam is auto-finalizing. No interpretation was done. Nhan Castelan MD IMG FLUORO ORDERABLE S * (ABNORMAL) Urine culture Cystoscopic Urine (01/21/2024 12:00 AM EDT) Urine Culture 10,000-49,000 cfu/ml Escherichia coli(A) [facility] Organism Escherichia coli(A) [facility] Cystoscopic Urine 01/21/2024 024 12:32 AM [...] - GENER AL ORDERABLES Performing Organization Address [facility] Co de Phone Number [facility] [place] [address] * Urine culture Cystoscopic Urine (01/20/2024 11:55 PM EDT) Pathologist [facility] Urine Culture No growth (Less than 100 cfu/ml). [facility] Cystoscopic Urine 01/20/2024 11:55 PM EDT 01/21/2024 12:32 AM EDT Comment:Bladder urine cultur e Narrative Resulting Agency Comment Spec In Lab Brendan Rodriguez MD MICROBIOLOGY - GENER AL ORDERABLES Performing Organization Address [facility] Co de Phone Number [facility] [place] [address] * Scan, Peripheral Blood (01/20/2024 11:14 PM EDT) Plat estimate Normal [facility] RBC Morphology Normal [facility] Blood 01/20/2024 11:1 4 PM EDT 01/20/2024 11:20 PM EDT Narrative Resulting Agency Comment Spec In Lab Sunshine June MD HEMATOLOGY ORDERA BLES Performing Organization Address [facility] Co de Phone Number [facility] [place] [address] * (ABNORMAL) Differential, Automated (01/20/2024 11:14 PM EDT) Neutrophil % 92.9 % [facility] Neutrophil Absolute 25.22(H) 1.70 - 6.10 x10(3)/ L [facility] Lymph % 2.1 % [facility] Lymphocytes Abs 0.6(L) 0.9 - 3.2 x10(3)/[facility] Monocyte % 3.2 % [facility] Monocyte Abs 0.9 0.3 - 0.9 x10(3)/[facility] Eos % 0.4 % [facility] Eosinophils Abs 0.1 0.0 - 0.4 x10(3)/[facility] Basophil % 0.2 % [facility] Baso Absolute 0.1 0.0 - 0.1 x10(3)/[facility] Immature Gran % 1.20 % [facility] Comment: Immature granulocytes(IG's)percentage and absolute count will include metamyelocytes, myelocytes, and promyelocytes. Blood smears from CBCs yielding IG's will be scanned manually for concordance. If this scan disagrees with the automated IG or if promyelocytes are noted, a manual differential will be performed. Immature Gran Absolute 0.32(H) 0.00 - 0.04 x10(3)/[facility] Blood 01/20/2024 11:1 4 PM EDT 01/20/2024 11:20 PM EDT Narrative Resulting Agency Comment Spec In Lab Sunshine June MD HEMATOLOGY ORDERA BLES [facility] [place] [address] * (ABNORMAL) Hemogram (01/20/2024 11:14 PM EDT) White Blood Cell 27.2(H) 4.0 - 9.5 x10(3)/[facility] Red Blood Cell 4.03 4.00 - 5.21 x10(6)/mc L [facility] Hemoglobin 11.7 11.7 - 15.5 g/dL [facility] Hematocrit 37.2 35.7 - 45.8 % [facility] Mean Cell Volume 92.3 82.6 - 94.4 fL [facility] Mean Cell Hemoglobin 29.0 27.1 - 32.0 pg [facility] Mean Cell Hemoglobin Concentration 31.5(L) 31.7 - 35.0 g/dL [facility] Platelet 194 145 - 357 x10(3)/mc L [facility] RDW Standard Deviation 47.5(H) 37.0 - 46.0 [facility]ORY RDW coefficient of variation 14.0 11.5 - 14.1 % [facility] Mean Platelet Volume 11.1 7.6 - 12.9 [facility] LAB[facility]ORY NRBC% auto 0.0 % [facility] NRBC Absolute 0.000 0.000 - 0.000 x10(3)/mc L [facility] Blood 01/20/2024 11:1 4 PM EDT 01/20/2024 11:20 PM EDT Narrative Resulting Agency Comment Spec In Lab Sunshine June MD HEMATOLOGY ORDERA BLES Performing Organization Address City/State/[facility] Co de Phone Number [facility] [place] [address] * (ABNORMAL) Basic Metabolic Panel (non-fasting) (01/20/2024 11:14 PM EDT) Glucose 111 65 - 199 mg/dL [facility] Comment:Diabetes: >=200 mg/d L plus symptoms Blood Urea Nitrogen 21(H) 8 - 18 mg/dL [facility] Creatinine 1.51(H) 0.70 - 1.20 mg/dL [facility] Sodium 145 135 - 145 mmol/L [facility] Potassium 3.0(Criti vijaya) 3.5 - 5.0 mmol/L [facility] Comment: Called by: FLORA, Read back by: Denisse Ambrose, Date/Time:01/21/24 00:00. Please note: ??Patients with WBC >100,000 may have falsely elevated Potassium levels. ??For accurate Potassium quantification in these patients send serum separator tube (gold top) for subsequent determinations. ??Contact the Clinical Chemistry Laboratory if there are any questions. Chloride 118(H) 98 - 107 mmol/L [facility] Carbon Dioxide 17(L) 22 - 31 mmol/L [facility] Anion Gap 10 5 - 15 mmol/L [facility] Calcium 7.4(L) 8.5 - 10.5 mg/dL [facility] Est Glomerular Filtration Rate 40(L) >=60 mL/min/1. 73 m?? [facility] Comment: This patient's estimated [...] In Lab Nhan Castelan MD CHEMISTRY ORDERABLES [facility] [place] [address] * Request For 2nd Read CT Abdomen & Pelvis (01/20/2024 10:47 PM EDT) [employer] WORKSTATION ID [id number] RAD Anatomical Region Laterality Modality Abdomen, Pelvis [...] who have questions please contact the health critical care nurse practitioner that requested your imaging first. ? Narrative 01/21/2024 7:07 AM EDT EXAMINATION: REQUEST FOR 2ND READ CT ABDOMEN AND PELVIS CLINICAL HISTORY: septioc stone; Sending Institution [facility]; Date of exam 20240120; I believe [...] PELVIS CLINICAL HISTORY: septioc stone; Sending Institution [facility]; Date of exam 20240120; I believe [...] patients who have questions please contactthe health critical care nurse practitioner that requested your imaging first. Nhan Castelan MD IMG OUTSIDE INTERPRE TATION ORDERABLES * EKG 12 Lead (01/20/2024 10:06 PM EDT) Ventricular rate 91 BPM MUSE SYSTEM Atrial Rate 91 BPM MUSE SYSTEM P-R Interval 140 ms MUSE SYSTEM QRS Duration 98 ms MUSE SYSTEM Q-T Interval 394 ms MUSE SYSTEM QTC Calculated (Bezet) 484 ms MUSE SYSTEM Calculated P [place] 48 degrees MUSE SYSTEM Calculated R [place] 26 degrees MUSE SYSTEM Calculated T [place] 39 degrees MUSE SYSTEM INTERPRETATION Normal sinus rhythm Lateral infarct , age undetermined Abnormal ECG No previous ECGs available Confirmed by Ashleigh Santana ([id number]) on 01/21/2024 12:58:47 PM MUSE SYSTEM 01/20/2024 [...] Oral, EVERY 8 HOURS PRN, Starting on 01/20/24 at 0106, Until Tue01/24/24 at 1628, Pain, [...] PRN, Starting on Tue01/21/24 at 0025, Until Tue01/21/24 at 0140, Intra-Operative (Intra-Procedure), Routine Given 01/21/2024 [...] 0930 (Given - Provider: Carmita Pham, COLETTE) piperacillin-tazobactam (Zosyn) 3.375 g vial attach to [...] Meaghan Manrique RN)1545 (New Bag - Provider: Maeghan Manrique RN)1945 (Stopped - Provider: Mayda Marcano [...] 819 (Given - Provider: Juliet Hoffmann RN) 0849 (Given - Provider: Meaghan Manrique, COLETTE) 0930 (Given - Provider: Carmita Pham, COLETTE) Continuous Medication Order 01/22/2024 01/23/2024 01/24/2024 lactated ringers infusion (CANCELED) 100 mL/hr, Intravenous, CONTINUOUS, Starting on 01/21/24 at 0100, Until 01/22/24 at 0942 0405 (Rate/Dose Verify - Provider: Quita Emmanuel RN)0503 (New Bag - Provider: Quita Emmanuel RN)0800 (Rate/Dose Verify - Provider: Juliet Hoffmann RN)0942 (Stopped - Provider: Juliet Hoffmann RN) PRN Medication Order 01/22/2024 01/23/2024 01/24/2024 acetaminophen (Tylenol) tablet 975 mg 975 mg, Oral, EVERY 8 HOURS PRN, Starting on 01/21/24 at 0106, Until Tu01/24/24 at 1628, Pain, Maximum dose of acetaminophen is 4000 mg from all sources in 24 hours. When ordered for pain, acetaminophen should be given even when other ordered pain medications are indicated. , Routine documented in this encounter Care Teams Supervisor [employer] Relationship Specialty Start Date End Date Graciela Naidu MD [address] [place] [address] PCP - General 07/21/10 documented as of this encounter
--- OUTSIDE RECORDS SUMMARY | 2024-04-05 01:49 | XMS_ITS | Encounter Summary ---
Author Organization [facility] Address [facility] [place] [address] Care Team Providers Care Roasterman Name Role Phone Graciela Naidu MD Primary Care Provider [phone] Encounter Details Date Type Department Care Team (Late st Contact Info) Description 01/20/2024 [place] [address] Brendan Rodriguez MD [facility] [place] [address] Left ureteral calculus; Pyelonephritis, acute Social History Tobacco Use Types Packs/Day Years Used Date Smoking Tobacco: Never Assessed [facility] Utilities Answer Date Recorded In the past 12 months has [employer], gas, oil, or water [employer] threatened to shut off services in your [...] in the past 12 m [facility], were you homeless or living in [...] 04/20/2024 3:45 PM EDT [place]ointment [place] [id number] Pam Grant MD [facility] [place] [address] 04/20/2024 4:40 PM EDT Office [place] [address] Pam Grant MD [facility] [address] documented as of this encounter Visit Diagnoses Diagnosis Left ureteral calculus Calculus of ureter Pyelonephritis, acute Acute pyelonephritis without lesion of renal medullary necrosis documented in this encounter Care Teams Roasterman Relationship Specialty Start Date End Date Graciela Naiud MD [address] [place] [address] [facility] [address] [place] [address] PCP - General 07/21/10 documented as of this encounter
--- OUTSIDE RECORDS SUMMARY | 2024-04-05 01:49 | XMS_ITS | Encounter Summary ---
[place] [address] Care Team Providers Care Cutter Tender Name Role Phone Graciela Naidu MD Primary Care Provider [phone] Encounter Details Date Type Department Care Team (Late st Contact Info) Description 01/13/2024 Ancillary Procedure [place] [address] Candi Rodriguez MD [address] [place] [address] Social History Tobacco Use Types Packs/Day Years Used Date Smoking Tobacco: Never Assessed Sex and Gender Information Value Date Recorded Sex Assigned at Not on file Gender Identity Not on file Sexual Orientation Not on file documented as of this encounter Plan of Treatment Upcoming Encounters Date Type Department Care Team (Late st Contact Info) Description 04/20/2024 3:45 PM EDT Appointment [place] [address] Pam Grant MD [facility] [place] [address] 04/20/2024 4:40 PM EDT [place] [address] Pam Grant MD [facility] [place] [address] documented as of this encounter Procedures Procedure Name Priority Date/Time Associated Diagnosis Comments FILM LIBRARY STORAGE ONLY DX ABDOMEN Routine 01/13/2024 12:00 AM EDT documented in this encounter Results * Film Library- Storage Only DX Abdomen (01/13/2024 12:00 AM EDT) Narrative [facility] - 01/20/2024 5:37 PM EDT This exam is auto-finalizing. It's purpose is for storage only. Candi Rodriguez MD IMG FILM LIBRARY ORD ERABLES Performing Organization Address City/State/[facility] Co de Phone Number [place], [place] documented in this encounter Visit Diagnoses Not on filedocumented in this encounter Care Teams Cutter Tender Relationship Specialty Start Date End Date Graciela Naidu MD [address] [place] [address] PCP - General 07/21/10 documented as of this encounter
[2024-04-05 10:48] LABS: Anion Gap 10.3 mmol/L (3-11); BUN 12 mg/dL (7-18); CO2 23.7 mmol/L (21.0-32.0); CREATININE 1.1 mg/dL (0.55-1.02); Chloride 109 mmol/L (98-107); Estimated GFR 57.88 (mL/min/1.73m2); Glucose 137 mg/dL (74-106); Potassium 3.3 mmol/L (3.5-5.1); Sodium 143 mmol/L (136-145)
[2024-04-11 12:09] LABS: Aldosterone, P 26 ng/dL (<=21)
[2024-04-12 15:39] LABS: Renin Activity, Plasma <0.6 ng/mL/h
== END 2024-04-05 01:47 | disposition home or self-care (01) ==
LOC: LBO 01:46
PROVIDERS: PCP Family Medicine; Visit Provider Family Medicine
DX: E87.0 Hyperosmolality and hypernatremia (principal)
CPT/HCPCS: 36415; 80048; 82088; 84244

== ENCOUNTER 2024-10-11 12:37 | Outpatient (CLI) | payer BC, SELFPAY ==
--- OUTSIDE RECORDS SUMMARY | 2024-10-11 12:38 | XMS_ITS | Referral Summary ---
Author Organization [facility] Address [address] [place] [address] Care Team Providers Care Silk Screen Operator Name Role Phone Unknown, Provider MD Primary Care Provider Unava ilable Social History Tobacco Use Types Packs/Day Years Used Date Smoking Tobacco: Never Assessed Comments Unknown Sex and Gender Information Value Date Recorded Sex Assigned at Not on file Legal Sex Female 18:25 EST Gender Identity Not on file Sexual Orientation [...] C Antibody Negative Negative 09/08/2021 10:59 EST [facility] Blood VENOUS BLOOD / Unknown 09/07/2021 7:36 EST 09/07/2021 21:22 EST us Provider Outr Resulting Lab CHEMISTRY & BLOOD GA S ORDERABLES Final Result [facility] [address] [place] [address] from Last 3 Months or Most Recently Relevant to Health Maintenance Care Teams Silk Screen Operator Relationship Specialty Start Date End Date Unknown, Provider, PCP - General 07/15/15
--- OUTSIDE RECORDS SUMMARY | 2024-10-11 12:38 | XMS_ITS | Encounter Summary ---
Author Organization [facility] Address [address] [place] [address] Care Team Providers Care Belt Builder Helper Name Role Phone Unknown, Provider Primary Care Provider Unava ilable Encounter Details Date Type Department Care Team (Late st Contact Info) Description 09/07/2021 Lab Requisition [facility] Pathology & Laboratory Medicine - [facility] [address] [place] [address] Outr Resulting Lab, Provider Social History Tobacco [...] 4th Generation Negative Negative 09/08/2021 11:13 EST [facility] Comment:If acute HIV-1 infec tion is suspected in a high risk patient, submit plasma specimen for HIV-1 RNA quantitation test. Blood VENOUS BLOOD / Unknown 09/07/2021 7:36 EST 09/07/2021 21:22 EST Narrative [facility] - 09/08/2021 11:13 EST Fourth Generation assay performed on the Siemens Centaur XPT. us Provider Outr Resulting Lab IMMUNOLOGY AND SEROL OGY ORDERABLES Final Result [facility] [address] [place] [address] documented in this encounter Visit Diagnoses Not on filedocumented in this encounter Care Teams Belt Builder Helper Relationship Specialty Start Date End Date Unknown, Provider, PCP - General 07/15/15 documented as of this encounter
--- OUTSIDE RECORDS SUMMARY | 2024-10-11 12:38 | XMS_ITS | Encounter Summary ---
Author Organization [facility] Address [address] [place] [address] Care Team Providers Care Way Inspector Name Role Phone Unavailable Primary Care Provider Unavailabl e Encounter Details Date Type Department Care Team (Late st Contact Info) Description 05/27/[address] [facility] - Map conversion [address] [place] [address] Graciela Arciniega MD [address] [place] [address] [place] [phone] Social History Tobacco Use Types Packs/Day [...] ? BARBRA VASQUEZ ? Accession #: ? [id number] : ? 1965 (Age: 37) ??F ?Collect [...] End of Report [facility] 05/27/2003 05/29/2003 us Graciela Arciniega MD PATHOLOGY ORDERABLES Final Resul t [facility] [address] [place] [address] documented in this encounter Visit Diagnoses Not on filedocumented in this encounter
--- OUTSIDE RECORDS SUMMARY | 2024-10-11 12:38 | XMS_ITS | Encounter Summary ---
Author Organization [facility] Address [address] [place] [address] Care Team Providers Care Oil Well Drilling Manager Name Role Phone Unavailable Primary Care Provider Unavailabl e Encounter Details Date Type Department Care Team (Late st Contact Info) Description 05/23/2012 Results Only [facility] Laboratory Services - [facility] ([facility] [address] [place] [address] Edilia Genao NP [address] [place] [address] Social History Tobacco Use Types [...] ? BARBRA VASQUEZ ? Accession #: ? [id number] : ? 1965 (Age: 46) ??F ?Collect Date: ? 05/23/2012 Location: ? [facility] ? Receive Date: ? 05/25/2012 Provider: ?EDILIA GENAO DATA ARCHITECT Copy to: ? Specimen/Source: ?Pap Test, Cervix/Endocervix, [...] End of Report [facility]ST[facility] GREWAL 05/23/2012 05/25/2012 us Edilia Genao NP PATHOLOGY ORDERABLES Final R esult [facility] [address] [place] [address] documented in this encounter Visit Diagnoses Not on filedocumented in this encounter
--- OUTSIDE RECORDS SUMMARY | 2024-10-11 12:38 | XMS_ITS | Encounter Summary ---
Author Organization [facility] Address [address] [place] [address] Care Team Providers Care Residential Appliance Repair Technician Name Role Phone Unknown, Provider Primary Care Provider Unava ilable Encounter Details Date Type Department Care Team (Late st Contact Info) Description 06/23/2021 Lab Requisition [facility] Pathology & Laboratory Medicine - [address] [address] Unknown, ProviderMD Social History Tobacco Use Types Packs/Day Years [...] on filedocumented in this encounter Care Teams Residential Appliance Repair Technician Relationship Specialty Start Date End Date Unknown, ProviderMD PCP - General 07/15/15 documented as of this encounter
--- OUTSIDE RECORDS SUMMARY | 2024-10-11 12:38 | XMS_ITS | Encounter Summary ---
Author Organization [facility] Address [address] [place] [address] Care Team Providers Care Supervisor Microwave Name Role Phone Unavailable Primary Care Provider Unavailabl e Encounter Details Date Type Department Care Team (Late st Contact Info) Description 04/25/2002 Results Only [facility] - Map conversion [address] [place] [address] Graciela Arciniega MD [address] [place] [phone] Social History Tobacco Use Types Packs/Day [...] ? BARBRA VASQUEZ ? Accession #: ? [id number] : ? 1965 (Age: 36) ??F ?Collect Date: ? 04/25/2002 Location: ? [facility] ? Receive Date: ? 04/27/2002 Provider: ?GRACIELA ARCINIEGA MD Copy to: ? [...] End of Report [facility] 04/25/2002 04/27/2002 us Graciela Arciniega MD PATHOLOGY ORDERABLES Final Resul t [facility] [address] [place] [address] documented in this encounter Visit Diagnoses Not on filedocumented in this encounter
--- OUTSIDE RECORDS SUMMARY | 2024-10-11 12:38 | XMS_ITS | Encounter Summary ---
Author Organization [facility] Address [address] [place] [address] Care Team Providers Care Network Security Administrator Name Role Phone Unavailable Primary Care Provider Unavailabl e Encounter Details Date Type Department Care Team (Late st Contact Info) Description 04/01/2000 Results Only [facility] - Maple conversion [address] [place] [address] Graciela Arciniega MD [address] [place] [phone] Social History Tobacco Use Types Packs/Day [...] ? BARBRA VASQUEZ ? Accession #: ? [id number] : ? 1965 (Age: 34) ??F ?Collect [...] End of Report [facility]ST[facility] GREWAL 04/01/2000 04/05/2000 us Graciela Arciniega MD PATHOLOGY ORDERABLES Final Resul t [facility] [address] [place] [address] documented in this encounter Visit Diagnoses Not on filedocumented in this encounter
--- OUTSIDE RECORDS SUMMARY | 2024-10-11 12:38 | XMS_ITS | Encounter Summary ---
Author Organization [facility] Address [address] [place] [address] Care Team Providers Care Service Crew Supervisor Name Role Phone Unknown, Provider Primary Care Provider Unava ilable Encounter Details Date Type Department Care Team (Latest Contact Info) Description 06/23/2021 Lab Requisition [facility] Pathology & Laboratory Medicine - [facility] [address] [place] [address] Graciela Naidu MD [address] [phone] Encounter for gynecological examination (general) [...] types, PCR Negative Negative 06/30/2021 11:51 EDT [facility] Papanicolaou smear specimen (specimen) CERVIX UTERI STRUCTURE / Unknown 06/22/2021 4:00 EDT 06/29/2021 10:14 EDT Graciela Naidu MD MICROBIOLOGY - GENERAL ORDERABLE S Final Result [facility] [address] [place] [address] * PAP TEST (06/22/2021 4:00 EDT) Specimens A. Cervix and/or Endocervix , ThinPrep Imaging System with Manual Evaluation 06/30/2021 11:51 EDT [facility] Specimen Adequacy Satisfactory for Evaluation - transformation zone component present 06/30/2021 11:51 EDT [facility] General Categorization Negative for intraepithelial lesion or malignancy 06/30/2021 11:51 EDT [facility] Attestation . 06/30/2021 11:51 EDT [facility] at 1151 Clinical History SEE BELOW 06/30/20 11:51 T [facility] HPV The result for the Human Papillomavirus (HPV) Detection-High Risk Types is Negative. No E6 or E7 mRNA is detected from HPV types 16,18,31,33,35,39 ,45,51,52,56,58,5 9,66, and 68 by instrument mechanic mediated amplification.Kadi ting was performed on specimen [id number] and was resulted on 06/30/2021 1147 EDT by JEANNE, LAB INSTRUMENT RESULTS IN 06/30/2021 11:51 EDT [facility] Performing Lab [facility] 06/30/2021 11:51 EDT [facility] Scanned Images 06/30/2021 11:51 EDT [facility] Papanicolaou smear specimen (specimen) CERVIX UTERI STRUCTURE / Unknown 06/22/2021 4:00 EDT 06/23/2021 15:11 EDT Graciela Naidu MD PATHOLOGY ORDERABLES Final Resul t [facility] [address] [place] [address] documented in this encounter Visit Diagnoses Diagnosis Encounter for gynecological examination (general) (routine) without abnormal findings documented in this encounter Care Teams Service Crew Supervisor Relationship Specialty Start Date End Date Unknown, Provider, PCP - General 07/15/15 documented as of this encounter
--- OUTSIDE RECORDS SUMMARY | 2024-10-11 12:38 | XMS_ITS | Encounter Summary ---
Author Organization [facility] Address [address] [place] [address] Care Team Providers Care Shot Core Drill Operator Name Role Phone Unknown, Provider Primary Care Provider Unava ilable Encounter Details Date Type Department Care Team (Latest Contact Info) Description 06/23/2021 Lab Requisition [facility] Pathology & Laboratory Medicine - [facility] [address] [place] [address] Graciela Naidu MD [address] [phone] Encounter for gynecological examination (general) [...] findings documented in this encounter Care Teams Shot Core Drill Operator Relationship Specialty Start Date End Date Unknown, Provider, PCP - General 07/15/15 documented as of this encounter
--- OUTSIDE RECORDS SUMMARY | 2024-10-11 12:38 | XMS_ITS | Encounter Summary ---
Author Organization [facility] Address [address] [place] [address] Care Team Providers Care Wire Puller Name Role Phone Unknown, Provider Primary Care Provider Unava ilable Encounter Details Date Type Department Care Team (Late st Contact Info) Description 03/29/2024 Lab Requisition [facility] Pathology & Laboratory Medicine - [facility] [address] [place], [place] [address] Outr Resulting Lab, Provider Social History Tobacco [...] 150 - 1,150 mOsm/kg 03/29/2024 20:19 EDT [facility] Urine URINE / Unknown 03/28/2024 1 5:45 EDT 03/29/2024 20:05 EDT us Provider Outr Resulting Lab URINALYSIS ORDERABLE S Final Result [facility] [address] [place], [place] [address] documented in this encounter Visit Diagnoses Not on filedocumented in this encounter Care Teams Wire Puller Relationship Specialty Start Date End Date Unknown, Provider, PCP - General 07/15/15 documented as of this encounter
--- OUTSIDE RECORDS SUMMARY | 2024-10-11 12:38 | XMS_ITS | Encounter Summary ---
Author Organization [facility] Address [address] [place] [address] Care Team Providers Care Trench Trimmer Fine Name Role Phone Unavailable Primary Care Provider Unavailabl e Encounter Details Date Type Department Care Team (Late st Contact Info) Description 07/06/2001 Results Only [facility] - Maple conversion [address] [place] [address] Graciela Arciniega MD [address] [place] [phone] Social History Tobacco Use Types Packs/Day [...] ? CHRISTINA, BARBRA ? Accession #: ? [id number] : ? 1965 (Age: 35) ??F ?Collect [...] Document reviewed and electronically signed by: ? Yadi Johnson, LENNIE(ASCP) ? Report Date: ??07/13/2001 13:43 End of Report [facility] 07/06/2001 07/10/2001 us Graciela Arciniega MD PATHOLOGY ORDERABLES Final Resul t [facility] [address] [place] [address] documented in this encounter Visit Diagnoses Not on filedocumented in this encounter
--- OUTSIDE RECORDS SUMMARY | 2024-10-11 12:38 | XMS_ITS | Encounter Summary ---
Author Organization [facility] Address [address] [place] [address] Care Team Providers Care Rn Perioperative Name Role Phone Unknown, Provider Primary Care Provider Unava ilable Encounter Details Date Type Department Care Team (Late st Contact Info) Description 12/12/2015 Results Only [facility] [phone] Graciela Arciniega MD [address] [place] [address] Social History Tobacco Use Types [...] when reading/interpreti ng unformatted reports. Name: ? CHRISTINA BARBRA ? Accession #: ? [id number] ? : ? 1965 (Age: 50) ??F [...] types 16,18,31,33,35, 39,45,51,52,56,58, 59,66, and 68 by rim fire priming tool setter mediated amplification. Comments Document reviewed and electronically signed by: ? System Interface ? Report date: 12/30/2015 By the signature above, the attending physician certifies that he/she has personally conducted a gross and/or microscopic examination of the described specimens and rendered or confirmed the above diagnosis. End of Report [facility] 12/12/2015 12/15/2015 us Graciela Arciniega MD PATHOLOGY ORDERABLES Final Resul t [facility] [address] [place] [address] documented in this encounter Visit Diagnoses Not on filedocumented in this encounter Care Teams Rn Perioperative Relationship Specialty Start Date End Date Unknown, Provider, PCP - General 07/15/15 documented as of this encounter
--- OUTSIDE RECORDS SUMMARY | 2024-10-11 12:38 | XMS_ITS | Encounter Summary ---
Author Organization [facility] Address [address] [place] [address] Care Team Providers Care Restaurant Manager Name Role Phone Unavailable Primary Care Provider Unavailabl e Encounter Details Date Type Department Care Team (Late st Contact Info) Description 07/12/2005 Results Only [facility] - Maple conversion [address] [place] [address] Graciela Arciniega MD [address] [place] [phone] Social History Tobacco Use Types Packs/Day [...] ? CHRISTINA, BARBRA ? Accession #: ? [id number] : ? 1965 (Age: 39) ??F ?Collect Date: ? 07/12/2005 Location: ? [facility] ? Receive Date: ? 07/14/2005 Provider: ?GRACIELA ARCINIEGA MD Copy to: ? Specimen/Source: ?ThinPrep Pap Test, Cervix/Endocervix, processed on [employer] ThinPrep Imaging System, with manual evaluation Last [...] and electronically signed by: ? Sonja Fair, LENNIE(ASCP)(IAC) ? Report Date: ??07/16/2005 14:12 End of Report [facility] 07/12/2005 07/14/2005 us Graciela Arciniega MD PATHOLOGY ORDERABLES Final Resul t Performing Organization Address City/State/[facility] Co de Phone Number [facility] [address] [place] [address] documented in this encounter Visit Diagnoses Not on filedocumented in this encounter
--- OUTSIDE RECORDS SUMMARY | 2024-10-11 12:38 | XMS_ITS | Clinical Summary ---
Author Organization [facility] Address [address] [place] [address] Care Team Providers Care Alligator Trapper Name Role Phone Unknown, Provider MD Primary [...] - 19+ 3-dose series) 11/14 COVID-19 Vaccine (2023- season) 2024 Hepatitis C Screen Completed 09/07/2021 Procedures Procedure [...] 09/08/2021 10:59 EST [facility] Blood VENOUS BLOOD / Unknown 09/07/2021 7:36 EST 09/07/2021 21:22 EST us Provider Outr Resulting Lab CHEMISTRY & BLOOD GA S ORDERABLES Final Result [facility] [address] [place] [address] from Last 3 Months or Most Recently Relevant to Health Maintenance Care Teams Alligator Trapper Relationship Specialty Start Date End Date Unknown, Provider, PCP - General 07/15/15
--- OUTSIDE RECORDS SUMMARY | 2024-10-11 12:38 | XMS_ITS | Encounter Summary ---
Author Organization [facility] Address [address] [place] [address] Care Team Providers Care Director Pharmacology Name Role Phone Unknown, Provider Primary Care Provider Unava ilable Encounter Details Date Type Department Care Team (Late st Contact Info) Description 09/07/2021 Lab Requisition [facility] Pathology & Laboratory Medicine - [facility] [address] [place] [address] Outr Resulting Lab, Provider Social History Tobacco [...] C Antibody Negative Negative 09/08/2021 10:59 EST [facility] Blood VENOUS BLOOD / Unknown 09/07/2021 7:36 EST 09/07/2021 21:22 EST us Provider Outr Resulting Lab CHEMISTRY & BLOOD GA S ORDERABLES Final Result [facility] [address] [place] [address] documented in this encounter Visit Diagnoses Not on filedocumented in this encounter Care Teams Director Pharmacology Relationship Specialty Start Date End Date Unknown, Provider, PCP - General 07/15/15 documented as of this encounter
--- OUTSIDE RECORDS SUMMARY | 2024-10-11 12:38 | XMS_ITS | Encounter Summary ---
Author Organization [facility] Address [address] [place] [address] Care Team Providers Care Flexo Operator Name Role Phone Unavailable Primary Care Provider Unavailabl e Encounter Details Date Type Department Care Team (Late st Contact Info) Description 05/17/2011 Results Only [facility] Laboratory Services - [facility] ([facility] [address] [place] [address] Edilia Genao NP [address] [place] [phone] Social History Tobacco Use Types [...] ? BARBRA VASQUEZ ? Accession #: ? [id number] ? : ? 1965 (Age: 45) ??F ?Collect Date: ? 05/17/2011 ? Location: ? [facility] ? Receive Date: ? 05/19/2011 ? Provider: EDILIA GENAO STOCK PREPARER ? Copy to: ? Final Report ? [...] of Report ? [facility] 05/17/2011 05/19/2011 us Edilia Genao STOCK PREPARER PATHOLOGY ORDERABLES Final R esult [facility] [address] [place] [address] documented in this encounter Visit Diagnoses Not on filedocumented in this encounter
--- OUTSIDE RECORDS SUMMARY | 2024-10-11 12:38 | XMS_ITS | Encounter Summary ---
Author Organization [facility] Address [address] [place] [address] Care Team Providers Care Cylinder Sander Operator Name Role Phone Unavailable Primary Care Provider Unavailabl e Encounter Details Date Type Department Care Team (Late st Contact Info) Description 10/19/2007 Results Only [facility] - Maple conversion [address] [place] [address] Graciela Arciniega MD [address] [place] [phone] Social History Tobacco Use Types Packs/Day [...] ? CHRISTINA, BARBRA ? Accession #: ? [id number] : ? 1965 (Age: 41) ??F ?Collect Date: ? 10/19/2007 Location: ? [facility] ? Receive Date: ? 10/23/2007 Provider: ?GRACIELA ARCINIEGA MD Copy to: ? Specimen/Source: ?ThinPrep Pap Test, Cervix/Endocervix, processed on [employer] ThinPrep Imaging System, with manual evaluation Last [...] End of Report [facility] 10/19/2007 10/23/2007 us Graciela Arciniega MD PATHOLOGY ORDERABLES Final Resul t [facility] [address] [place] [address] documented in this encounter Visit Diagnoses Not on filedocumented in this encounter
--- OUTSIDE RECORDS SUMMARY | 2024-10-11 12:39 | XMS_ITS | Encounter Summary ---
[place] [address] Care Team Providers Care Rivet Sticker Name Role Phone Gracieal Naidu MD Primary Care Provider Encounter Details Date Type Department Care Team (Latest Contact Info) Description 06/27/2024 10:40 AM EDT Laboratory Appointment Lab [address], [place] [phone] Hyperaldosteronism Social History Tobacco Use Types Packs/Day Years Used Date Smoking Tobacco: Never Smokeless Tobacco: Never Alcohol Use Standard Drinks/Week Comments Never 0 (1 standard drink = 0.6 oz pur e alcohol) [facility] Utilities Answer Date Recorded In the past 12 months has [employer], gas, oil, or water [employer] threatened to shut off services in your [...] were you homeless or living in a longterm (including now)? No 01/21/2024 IPV Inpatient Questions [...] Care Team (Late st Contact Info) Description 10/29/2024 4:30 PM [place] [address] Pam Grant MD [facility] [place] [address] 10/30/2024 3:20 PM EST TH Visit (TeleHealth) [place] [address] aPm Grant MD [facility] [place] [address] documented as of this encounter Procedures Procedure Name Priority Date/Time Associated Diagnosis Comments ALDOSTERONE Routine 06/27/2024 9:54 AM EDT Hyperaldosteronism RENIN ACTIVITY Routine 06/27/2024 9:54 AM EDT Hyperaldosteronism BASIC METABOLIC PANEL Routine 06/27/2024 9:54 AM EDT Hyperaldosteronism documented in this encounter Results * (ABNORMAL) Basic Metabolic Panel Non-fasting (06/27/2024 9:54 AM EDT) Glucose 106 65 - 199 mg/dL 06/27/2024 10:46 AM [facility] Comment:Glucose Concentratio n >=200 mg/dL plus symptoms is consistent with Diabetes Mellitus. Blood Urea Nitrogen 15 8 - 18 mg/dL 06/27/2024 10:46 AM [facility] Creatinine 0.89 0.70 - 1.20 mg/dL 06/27/2024 10:46 AM [facility] Sodium 140 135 - 145 mMol/L 06/27/2024 10:46 AM [facility] Potassium 3.7 3.5 - 5.0 mMol/L 06/27/2024 10:46 AM [facility] Chloride 110(H) 98 - 107 mMol/L 06/27/2024 10:46 AM [facility] Carbon Dioxide 23 22 - 31 mMol/L 06/27/2024 10:46 AM [facility] Anion Gap 7 5 - 15 mMol/L 06/27/2024 10:46 AM [facility] Calcium 9.3 8.5 - 10.5 mg/dL 06/27/2024 10:46 AM [facility] Est Glomerular Filtration Rate - Female 75 mL/min/1. 73 m?? 06/27/2024 10:46 AM [facility] Comment: This patient's estimated GFR was [...] urine creatinine clearance. Assignment of CKD stage 1 - 5 for patients with an eGFR near the transition point between stages may be based on clinical assessment of muscle mass and symptoms in addition to eGFR. Link: eGFR Calculator [employer] Fasting Status No 06/27/2024 10:46 AM EDT [facility] Blood VENOUS BLOOD SPECIMEN / Unknown Venipuncture / Unknown 06/27/2024 9:54 AM EDT 06/27/2024 9:54 AM EDT Ying Bernabe MD CHEMISTRY ORDERABL ES Performing Organization Address City/[facility]/ZIP Co de Phone Number [facility] [place] [address] * (ABNORMAL) Aldosterone (06/27/2024 9:54 AM EDT) [facility] Aldosterone January 19(H) <=21 ng/dL 07/02/2024 2:14 PM EST [facility] Comment: ADDITIONAL INFORMATION Reference range for patients 11 years and older is based on upright A.M. collection from subjects without sodium restrictions. This test was developed and its performance characteristics determined by [facility] in a manner consistent with CLIA requirements. This test has not been cleared or approved by the U.S. Food and Drug Administration. Blood VENOUS BLOOD SPECIMEN / Unknown Venipuncture / Unknown 06/27/2024 9:54 AM EDT 06/27/2024 9:54 AM EDT Narrative [facility]F [facility] - 07/02/2024 2:14 PM EST Test Performed by: [facility] - [address] [address] Corporate Counsel: Duane Lewis Ph.D.; CLIA# [id number] Ying Bernabe MD LAB SEND OUT ORDER [facility] REF LAB [address] [address], [facility] * Renin Activity (06/27/2024 9:54 AM EDT) Renin Activity May 0.8 ng/mL/h 2023 1:35 PM EDT [facility] Comment: REFERENCE VALUE (Peripheral vein specimen) Na-deplete, upright: ??Mean: 5.9 ??Range: 2.9-10.8 Na-replete, upright: ??Mean: 1.0 ??Range: < or =0.6-3.0 ADDITIONAL INFORMATION Testing performed by Liquid Chromatography-Tandem Mass Spectrometry (LC-MS/MS). This test was developed and its performance characteristics determined by [facility] in a manner consistent with CLIA requirements. This test has not been cleared or approved by the U.S. Food and Drug Administration. Blood VENOUS BLOOD SPECIMEN / Unknown Venipuncture / Unknown 06/27/2024 9:54 AM EDT 06/27/2024 9:54 AM EDT Narrative REF [facility] - 06/30/2024 1:35 PM EDT Test Performed by: [place] [address] Corporate Counsel: Duane Lewis Ph.D.; CLIA# [id number] Ying Bernabe MD LAB SEND OUT ORDER MAHI REF LAB [address] documented in this encounter Visit Diagnoses Diagnosis Hyperaldosteronism Hyperaldosteronism, unspecified documented in this encounter Care Teams Rivet Sticker Relationship Specialty Start Date End Date Graciela Naidu MD [address] [place] [address] PCP - General 07/21/10 documented as of this encounter
--- OUTSIDE RECORDS SUMMARY | 2024-10-11 12:39 | XMS_ITS | Encounter Summary ---
Author Organization [facility] [place] [address] Care Team Providers Care Harp Repairer Name Role Phone Graciela Naidu MD Primary Care Provider [phone] Encounter Details Date Type Department Care Team (Late st Contact Info) Description 01/27/2024 [place] [phone] Melita Dang RN Social History Tobacco Use Types Packs/Day Years Used Date Smoking Tobacco: Never Smokeless Tobacco: Never Alcohol Use Standard Drinks/Week Comments Never 0 (1 standard drink = 0.6 oz pur e alcohol) [facility] Utilities Answer Date Recorded In the past 12 months has [employer], gas, oil, or water [employer] threatened to shut off services in your [...] any time in the past 12 m [facility], were you homeless or living in a group home (including now)? No 01/21/2024 DH IPV [...] limit bladder irritants. Will send to resident general medical practitioner, patient will continue to monitor and will call back with any furtherquestions or concerns. documented in this encounter Miscellaneous Notes * Telephone Encounter - Melita Dang RN - 01/27/2024 10:43 AM EDT Copied from [facility] #[id number]. Topic: Specialty Dept CRMs - Triage >> [...] 10/29/2024 4:30 PM EST [place] [address] Pam Grant MD [facility] [place] [address] [place] [address] 10/30/2024 3:20 PM EST TH Visit (TeleHealth) [place] [address] Pam Grant MD [facility] [place] [place] [address] documented as of this encounter Visit Diagnoses Not on filedocumented in this encounter Care Teams Harp Repairer Relationship Specialty Start Date End Date Graciela Naidu MD [address] [place] [address] PCP - General 07/21/10 documented as of this encounter
--- OUTSIDE RECORDS SUMMARY | 2024-10-11 12:39 | XMS_ITS | Encounter Summary ---
[facility] Organization [facility] Address [facility] [place] [address] Care Team Providers Care Bed Bug Exterminator Name Role Phone Graciela Naidu MD Primary Care Provider [phone] Encounter Details Date Type Department Care Team (Latest Contact Info) Description 04/20/2024 3:23 PM EDT - 04/20/2024 11:59 PM EDT Hospital En[place] [phone] Pam [place] MD [facility] [place] [address] Nephrolithiasis Discharge Disposition: Home Social History Tobacco Use Types Packs/Day Years Used Date Smoking Tobacco: Never Smokeless Tobacco: Never Alcohol Use Standard Drinks/Week Comments Never 0 (1 standard drink = 0.6 oz pur e alcohol) [facility] Utilities Answer Date Recorded In the past 12 months has e electric, gas, oil, or water company [...] any time in the past 12 m [facility], were you homeless or [...] Sig Dispensed Refills Start Date End Date venlafaxine (Effexor-XR) 150 mg ER 24 hr capsule Take 1 capsule by mouth every morning. 03/30/2024 dextroamphetamine-ampheta mine (Adderall XR) 15 mg ER 24 hr capsule Take 45 mg by mouth every morning. 30 mg qam, 15 mg qpm 01/30/2024 topiramate (Topamax) 100 mg tablet Take 1 tablet by mouth 2 times daily. 01/02/2024 tamsulosin (Flomax) 0.4 mg capsule Take 1 capsule by mouth daily. 90 tablet 3 02/09/2024 acetaminophen (Tylenol) 325 mg tablet Take 3 tablets by mouth every 8 hours as needed for Pain. 01/24/2024 cephALEXin (Keflex) 500 mg capsule TAKE ONE CAPSULE BY MOUTH TWICE A DAY DIRECTED FOR 7 DAYS 12/15/2023 06/27/2024 HYDROmorphone (Dilaudid) 2 mg tablet Take 1 tablet by mouth every 6 hours. 01/20/2024 06/27/2024 ondansetron ODT (Zofran-ODT) 4 mg disintegrating tablet DISSOLVE ONE TABLET ON THE TONGUE EVERY 8 HOURS NEEDED FOR PAIN 01/20/2024 06/27/2024 documented as of this encounter Plan of Treatment Upcoming Encounters Date Type Department Care Team (Late st Contact Info) Description 10/29/2024 4:30 PM EST Appointment [place] [phone] Pam [place] MD [facility] [place] [address] 10/30/2024 3:20 PM EST TH Visit (TeleHealth) [place] [phone] Pam [place] MD [facility] [place] [address] documented as of this encounter Procedures Procedure Name Priority Date/Time Associated Diagnosis Comments US RETROPERITONEAL COMPLETE Routine 04/20/2024 3:47 PM EDT Nephrolithiasis documented in this encounter Results * US Retroperitoneal Complete (04/20/2024 3:47 PM EDT) WORKSTATION ID [id number] RAD Anatomical Region Laterality Modality Abdomen Ultrasound 04/20/2024 3:48 PM EDT Impressions 04/20/2024 7:38 PM EDT 1. ??No collecting system dilatation, bilaterally. 2. ??Single nonobstructing 3 mm left interpolar renal calculus. 3. ??No sonographically evident right nephrolithiasis. 4. ??Small bilateral complex renal cysts as above. 5. ??Normal contour of the partially distended bladder. No bladder calculi. Thank you for letting us participate in the care of this patient. If you are a health care provider and have any questions regarding this report, please contact the number above. For patients who have questions, please contact the health health and social care teacher that requested your imaging first. ?Kiki Wise, [facility] Armament Repairer Electronically Signed Final Report ?? 04/20/2024 07:37 pm Narrative 04/20/2024 7:38 PM EDT Renal ? (Signed Final 04/20/2024 07:37 pm) PATIENT INFO: ID #: ? [id number] ?: ??63 (58 yrs)(F) Name: ? JOMAR DIAZCHRISTINA ? Visit Date: 04/20/2024 03:48 pm PERFORMED BY: Attending: ?Billie MACKEY, Kiki Camp Performed By: ? Oniel Estrada RDMS Referred By: ?PAM [place] Location: ? [place] SERVICE(S) PROVIDED: URETRO - Retroperitoneal Complete - [id number] ? [id number] INDICATIONS: history of stones COMPARISON: Noncontrast CT Abdomen/Pelvis 01/20/24 from outside institution. RIGHT KIDNEY: Size (cm) ?L: ??11.6 Cortical Thickness: ?Normal Cortical Echogenicity: ?? Normal Hydronephrosis: ?No sonographic evidence Comment: ?No renal calculi seen. Small avascular cysts seen ? with septations and/or adjacent/wall calcifications, ? largest seen in the mid pole measuring 1 x 1.1 x ? 1.1 cm with possible calcification of septation. LEFT KIDNEY: Size (cm) ?L: ??10.6 Cortical Thickness: ?Normal Cortical Echogenicity: ?? Normal Hydronephrosis: ?No sonographic evidence Comment: ?Single non-obstructing renal calculus seen in the ? mid pole pole measuring 3 mm. ??Small avascular ? cysts seen with septations and/or adjacent/wall ? calcifications, largest seen in the mid pole ? measuring 1.2 x 0.9 x 1.1cm. URINARY BLADDER: Pre-void (cm) ? L: ??3.5 ? AP: ??3.9 ? TV: ??6.2 Vol (ml): ?44.3 Comment: ?Partially distended, normal contour. ??No bladder ? calculi. Procedure Note Kiki Wise MD - 04/20/2024 Renal (Signed Final 04/20/2024 07:37 pm) PATIENT INFO: ID #: [id number] : 63 (58 yrs)(F) Name: JOMAR VASQUEZ Visit Date: 04/20/2024 03:48 pm PERFORMED BY: Attending: Kiki Wise MD Performed By: Oniel Estrada RDMS Referred By: PAM [place] Location: [place] SERVICE(S) PROVIDED: URETRO - Retroperitoneal Complete - [id number] INDICATIONS: history of stones COMPARISON: Noncontrast CT Abdomen/Pelvis 01/20/24 from outside institution. RIGHT KIDNEY: Size (cm) L: 11.6 Cortical Thickness: Normal Cortical Echogenicity: Normal Hydronephrosis: No sonographic evidence Comment: No renal calculi seen. Small avascular cysts seen with septations and/or adjacent/wall calcifications, largest seen in the mid pole measuring 1 x 1.1 x 1.1 cm with possible calcification of septation. LEFT KIDNEY: Size (cm) L: 10.6 Cortical Thickness: Normal Cortical Echogenicity: Normal Hydronephrosis: No sonographic evidence Comment: Single non-obstructing renal calculus seen in the mid pole pole measuring 3 mm. Small avascular cysts seen with septations and/or adjacent/wall calcifications, largest seen in the mid pole measuring 1.2 x 0.9 x 1.1cm. URINARY BLADDER: Pre-void (cm) L: 3.5 AP: 3.9 TV: 6.2 Vol (ml): 44.3 Comment: Partially distended, normal contour. No bladder calculi. IMPRESSION 1. No collecting system dilatation, bilaterally. 2. Single nonobstructing 3 mm left interpolar renal calculus. 3. No sonographically evident right nephrolithiasis. 4. Small bilateral complex renal cysts as above. 5. Normal contour of the partially distended bladder. No bladder calculi. Thank you for letting us participate in the care of this patient. If you are a health care provider and have any questions regarding this report, please contact the number above. For patients who have questions, please contact the health health and social care teacher that requested your imaging first. Kiki Wise, [facility] Armament Repairer Electronically Signed Final Report 04/20/2024 07:37 pm [place] MD [facility] MEÑOClare MATHEWS documented in this encounter Visit Diagnoses Diagnosis Nephrolithiasis Calculus of kidney documented in this encounter Care Teams Bed Bug Exterminator Relationship Specialty Start Date End Date Graciela Naidu MD [address] [place] [address] PCP - General 07/21/10 documented as of this encounter
--- OUTSIDE RECORDS SUMMARY | 2024-10-11 12:39 | XMS_ITS | Encounter Summary ---
[place] [address] Care Team Providers Care Patternmaker Metal Bench Name Role Phone Graciela Naidu MD Primary Care Provider [phone] Reason for Referral * Consultation (Routine) - Authorized Specialty Diagnoses / Procedures Referred By Bradley lopez Referred To Contact Endocrinology Diagnoses Hyperaldosteronism Intermittent hypernatremia and mild intermittent hypokalemia (without diuretic). She has hypertension, but untreated has had readings in the 120s/80s, never very elevated. Recent labs showed a renin activity plasma level of <0.6 of and an aldosterone level of 26, suspicious for hyperaldosteronism. She is prediabetic, with A1Cs in the 5.7-5.9 range since 2019. 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 Shis on topirmate for migraine headaches, which can effect sodium levels. Prior to starting her on spironolactone, I was hoping to confirm the diagnosis. Would you recommend adrenal venous testing? Graciela Naidu MD [address] [place] [address] [facility] Endocrinology [address] [place] [phone] Referral ID Status Reason Start Date Expiration Date Visits Requested Visits Authorized [id number] Authorized Consult, Test & Treat PCP Updated and/or Approved 04/17/2024 04/17/2025 6 6 Encounter Details Date Type Department Care Team (Late st Contact Info) Description 05/04/2024 Transcribe Orders eDH Incoming Referrals [phone] Graciela Naidu MD [facility] [address] [place] [address] Hyperaldosteronism Social History Tobacco Use Types Packs/Day Years Used Date Smoking Tobacco: Never Smokeless Tobacco: Never Alcohol Use Standard Drinks/Week Comments Never 0 (1 standard drink = 0.6 oz pur e alcohol) [facility] Utilities Answer Date Recorded In the [...] any time in the past 12 m [facility], were you homeless or [...] 10/29/2024 4:30 PM EST [place] [address] Pam [place] MD [facility] [place] [address] 10/30/2024 3:20 PM EST TH Visit (TeleHealth) [place] [address] Pam [place] MD [facility] [place] [place] [address] Scheduled Referrals Name Type Priority Associated Diagnoses Order Schedule Referral to Endocrinology Outpatient Referral Routine Hyperaldosteronism Ordered: 05/04/2024 documented as of this encounter Visit Diagnoses Diagnosis Hyperaldosteronism Hyperaldosteronism, unspecified documented in this encounter Care Teams Patternmaker Metal Bench Relationship Specialty Start Date End Date Graciela Naidu MD [address] [place] [address] PCP - General 07/21/10 documented as of this encounter
--- OUTSIDE RECORDS SUMMARY | 2024-10-11 12:39 | XMS_ITS | Encounter Summary ---
Author Organization [facility] Address [facility] [place] [address] Care Team Providers Care Wire Saw Operator Name Role Phone Graciela Naidu MD Primary Care Provider [phone] Encounter Details Date Type Department Care Team (Latest Contact Info) Description 02/17/2024 Travel Social History Tobacco Use Types Packs/Day Years Used Date Smoking Tobacco: Never Smokeless Tobacco: Never Alcohol Use Standard Drinks/Week Comments Never 0 (1 standard drink = 0.6 oz pur e alcohol) [facility] Utilities Answer Date Recorded In the [...] any time in the past 12 m [facility], were you homeless or living in a fdc (including now)? No 01/21/2024 IPV Inpatient Questions [...] 10/29/2024 4:30 PM EST [place] [address] Pam [place] MD [facility] [place] [address] 10/30/2024 3:20 PM EST TH Visit (TeleHealth) [place] [address] Pam [place] MD [facility] [place] [address] documented as of this encounter Visit Diagnoses Not on filedocumented in this encounter Care Teams Wire Saw Operator Relationship Specialty Start Date End Date Graciela Naidu MD [address] [place] [address] PCP - General 07/21/10 documented as of this encounter
--- OUTSIDE RECORDS SUMMARY | 2024-10-11 12:39 | XMS_ITS | Encounter Summary ---
Author Organization [facility] [address] Care Team Providers Care Assistant Banquet Manager Name Role Phone Graciela Naidu MD Primary Care Provider [phone] Encounter Details Date Type Department Care Team (Late st Contact Info) Description 01/26/2024 [place] [phone] Melita Dang RN Social History Tobacco Use Types Packs/Day Years Used Date Smoking Tobacco: Never Smokeless Tobacco: Never Alcohol Use Standard Drinks/Week Comments Never 0 (1 standard drink = 0.6 oz pur e alcohol) [facility] Utilities Answer Date Recorded In the past 12 months has e [employer], gas, oil, or water [employer] threatened to shut off services in your [...] any time in the past [address] [facility], were you homeless or living in a [place] health [place] facility (including now)? No 01/21/2024 DH IPV Inpatient [...] - 01/26/2024 2:52 PM EDT Copied from [facility] #[id number]. Topic: Specialty Dept CRMs - Triage >> [...] 10/29/2024 4:30 PM [place] [address] Pam [place] MD [facility] [place] [address] 10/30/2024 3:20 PM EST TH Visit (TeleHealth) [place] [address] Pam [place] MD [facility] [place] [address] documented as of this encounter Visit Diagnoses Not on filedocumented in this encounter Care Teams Assistant Banquet Manager Relationship Specialty Start Date End Date Graciela Naidu MD [facility] [address] [place] [address] PCP - General 07/21/10 documented as of this encounter
--- OUTSIDE RECORDS SUMMARY | 2024-10-11 12:39 | XMS_ITS | Encounter Summary ---
[place] [address] Care Team Providers Care Police Records Clerk Name Role Phone Graciela Naidu MD Primary Care Provider [phone] Reason for Referral * Diagnostic Test (Routine) - Closed Specialty Diagnoses / Procedures Referred By Bradley lopez Referred To Contact Urology Diagnoses Nephrolithiasis Procedures Cysto Stent Removal Pam [place] MD [facility] [place] [address] [place] [address] Referral ID Status Reason Start Date Expiration Date V isits Requested Visits Authorized [id number] Closed Test Only 02/24/2024 02/23/2025 1 1 Reason for Visit * Diagnostic Test (Routine) - Closed Specialty Diagnoses / Procedures Referred By Bradley lopez Referred To Contact Urology Diagnoses Ureteral obstruction, left Procedures Cysto Stent Removal Long Galloway MD [facility] [place] [address] [place] [address] Referral ID Status Reason Start Date Expiration Date V isits Requested Visits Authorized [id number] Closed Test Only 02/09/2024 02/08/2025 1 1 Encounter Details Date Type Department Care Team (Late st Contact Info) Description 02/24/2024 11:00 AM EDT Procedure [place] [phone] Pam [place] MD [facility] [place] [address] Nephrolithiasis (Primary Dx); Ureteral obstruction, left Social History Tobacco Use Types Packs/Day Years Used Date Smoking Tobacco: Never Smokeless Tobacco: Never Alcohol Use Standard Drinks/Week Comments Never 0 (1 standard drink = 0.6 oz pur e alcohol) [facility] Utilities Answer Date Recorded In the past 12 months has th e [employer], gas, oil, or water company threatened to [...] any time in the past 12 m [facility], were you homeless or living in a skilled nursing (including now)? No 01/21/2024 [facility] Inpatient Questions Answer Date Recorded Does Anyone [...] and cola. You do not need to [id number] ounces of water today. Urination: You will likely have a small amount of blood in your urine for the next several days. This is normal; however, if you are passing large amounts of blood clots or are unable to void please call our office at [phone] before 5PM or [phone] after hours. Please call if: * you have copious blood in your urine * fevers greater than 101.3 F * you are unable to void The number for questions is [phone] before 5 PM weekdays and [phone] after 5 PM and weekends. Follow-up: Drink [...] All Collapse All Urology History and Physical: Jomar Vasquez is a 58 y.o. female with a [...] Upcoming Encounters Date Type Department Care Team (Bia st Contact Info) Description 10/29/2024 4:30 PM EST Appointment [place] [address] Pam [place] MD [facility] [place] [address] 10/30/2024 3:20 PM EST TH Visit (TeleHealth) [place] [phone] Pam [place] MD [facility] [place] [place] [address] documented as of this encounter Procedures Procedure Name Priority Date/Time Associated Diagnosis Comments CYSTO, STENT REMOVAL Routine 02/24/2024 11:00 AM EDT Nephrolithiasis documented in this encounter Results * US Retroperitoneal Complete (04/20/2024 3:47 PM EDT) WORKSTATION ID [id number] RAD Anatomical Region Laterality Modality Abdomen Ultrasound [...] who have questions, please contact the health point of care specialist that requested your imaging first. ?GAMA Mckinney Teletypesetter Operator Electronically Signed Final Report ?? 04/20/2024 07:37 pm Narrative 04/20/2024 7:38 PM EDT Renal ? (Signed Final 04/20/2024 07:37 pm) PATIENT INFO: ID #: ? [id number] ?: ??[birth year] (58 yrs)(F) Name: ? JOMAR VASQUEZ ? Visit Date: 04/20/2024 03:48 pm PERFORMED BY: Attending: ?Billie MACKEY, Kiki Camp Performed By: ? Oniel Estrada RDMS Referred By: ?PAM [place] Location: ? [place] SERVICE(S) PROVIDED: URETRO - Retroperitoneal Complete - [id number] ? [id number] INDICATIONS: history of stones COMPARISON: Noncontrast CT [...] 04/20/2024 07:37 pm) PATIENT INFO: ID #: [id number] : 63 (58 yrs)(F) Name: JOMAR VASQUEZ Visit Date: 04/20/2024 03:48 pm PERFORMED BY: Attending: Kiki Wise MD Performed By: Oniel Estrada RDMS Referred By: PAM [place] Location: [place] SERVICE(S) PROVIDED: URETRO - Retroperitoneal Complete - [id number] INDICATIONS: history of stones COMPARISON: Noncontrast CT [...] who have questions, please contact the health point of care specialist that requested your imaging first. Kiki Wise, [facility] Teletypesetter Operator Electronically Signed Final Report 04/20/2024 07:37 pm Pam [place] MD IMG US GEN ORDClare MATHEWS * CYSTO, STENT REMOVAL (02/24/2024 11:00 AM [...] kidney Ureteral obstruction, left Other ureteric obstruction Nephrolithiasis Calculus of kidney documented in this encounter Administered Medications Inactive Administered Medications - up to 3 most recent administrations Medication Order MAR Action Action Date Dose Rate Site cephALEXin (Keflex) capsule 500 mg 500 mg, Oral, ONCE, 1 dose, On Tue02/24/24 at 1100, Routine, Indication for (Active or Suspected): Prophylaxis Given 02/24/2024 11:18 AM EDT 500 mg documented in this encounter Care Teams Police Records Clerk Relationship Specialty Start Date End Date Graciela Naidu MD [address] [place] [address] [address] [place] [address] PCP - General 07/21/10 documented as of this encounter
--- OUTSIDE RECORDS SUMMARY | 2024-10-11 12:39 | XMS_ITS | Clinical Summary ---
Author Organization [facility] Address [facility] [place] [address] Care Team Providers Care Java Technical Manager Name Role Phone Graciela Naidu MD Primary Care Provider [phone] Medications Medication Sig Dispensed Refills Start Date End Date Status acetaminophen (Tylenol) 325 mg tablet Take 3 tablets by mouth every 8 hours as needed for Pain. 01/24/2024 Active dextroamphetamine-am phetamine (Adderall XR) 15 mg ER 24 hr capsule Take 45 mg by mouth every morning. 30 mg qam, 15 mg qpm 01/30/2024 Active topiramate (Topamax) 100 mg tablet Take 1 tablet by mouth 2 times daily. 01/02/2024 Active tamsulosin (Flomax) 0.4 mg capsule Take 1 capsule by mouth daily. 90 tablet 3 02/09/2024 Active venlafaxine (Effexor-XR) 150 mg ER 24 hr capsule Take 1 capsule by mouth every morning. 03/30/2024 Active Miscellaneous Medical Supply KitIndications:Hyper aldosteronism 1 Units by Misc.(Non-Drug; Combo Route) route 2 times daily. 1 automated BP cuff 1 kit 06/27/2024 Active Active Problems Problem Noted Date Diagnosed Date Nephrolithiasis 04/30/2024 Ureteral obstruction, left 01/21/2024 Sepsis 01/21/2024 Encounters Date Type Department Care Team Description 07/16/2024 7:45 PM EST Ancillary Procedure Radiology Library at [facility] [place] [address] Pam Grant MD from Last 3 Months Social History Tobacco Use Types Packs/Day Years Used Date Smoking Tobacco: Never Smokeless Tobacco: Never Tobacco Cessation:Counseling Given: Not Answered Alcohol Use Standard Drinks/Week Comments Never 0 (1 standard drink = 0.6 oz pur e alcohol) [facility] Utilities Answer Date Recorded In [...] were you homeless or living in a fpc (including now)? No 01/21/2024 IPV Inpatient Questions [...] Sign Reading Time Taken Comments Blood Pressure 147/85 06/27/2024 8:07 AM EDT Pulse 88 06/27/2024 8:07 AM EDT Temperature 36.2 ??C (97.1 ??F) 06/27/2024 8:07 AM ED T Respiratory Rate 16 06/27/2024 8:07 AM EDT Oxygen Saturation 100% 06/27/2024 8:07 AM EDT Inhaled Oxygen Concentration - - Weight 100.1 kg (220 lb 9.6 oz) 06/27/2024 8:07 AM EDT Height 170.2 cm (5' 7) 06/27/2024 8:07 AM EDT Body Mass Index 34.55 06/27/2024 8:07 AM EDT Plan of Treatment Upcoming Encounters Date Type Department Care Team (Late st Contact Info) Description 10/29/2024 4:30 PM EST Appointment [place] [address] Pam Grant MD [facility] [place] [address] 10/30/2024 3:20 PM EST TH Visit (TeleHealth) [place] [address] Pam Grant MD [facility] [place] [address] Health Maintenance Due Date Last Done Comments CT Colonography 1964 Colonoscopy 1964 Colorectal Cancer Screening 1964 FIT DNA 1964 FIT 1964 Sigmoidoscopy (10 year) with FIT yearly 1964 Sigmoidoscopy 1964 HIV screen 1982 Hepatitis C Screening 1982 Lipid Screening 1982 Hepatitis B vaccine (0-59 yrs) (1) 11/15/1983 Tetanus/Diphtheria/Pertussis Vaccines (1 - Tdap) 11/15/1983 HPV test 1994 PAP Smear 1994 Breast Cancer Share Decision Needed 2004 Breast Cancer screening 2004 Pneumoccocal Vaccine: 50+ (1 of 1 - PCV) 2014 Zoster vaccine (1 of 2) 2014 Advance Directive 11/15/2019 Covid-19 Vaccine (1 - 2023-2 5 season) 2024 Influenza (Flu) vaccine (1 o f 1 - Influenza standard series) 04/29/2024 Diabetes Screening (HgbA1C o r Glucose) 06/27/2027 06/27/2024, 01/24/2024, 01/23/2024, Additional history exists Medical Devices Implanted Type Area Mumps Developer Device Identifier Shelf Expiration Date Model / Serial / Lot Stent Ureteral [id number] Set Dbl Pgtl Tpr Tip Ptfe Hyconi ([id number]) (Autoreq) - [id number] Implanted:Qty : 1 on 01/20/2024 by Evangelist Rodriguez MD at [facility] IMPLANTS Left: Ureter [employer] - Couplewise [id number] 06/16/2026 [id number] 60 / / [id number] Explanted Type Area Mumps Developer Device Identifier Shelf Expiration Date Model / Serial / Lot Stent Ureteral [id number] Set Dbl Pgtl Radpq Tip Hydpc ([id number]) - [id number] Implanted:Qt y: 1 on 02/09/2024 by Pam Grant MD at [facility] Explanted:Qt y: 1 on 02/24/2024 by Pam Grant MD IMPLANTS Left: Urinary Bladder [employer] - [employer]ple[employer] [id number] 07/05/2026 [id number] 30 / / [id number] Procedures Procedure Name Priority Date/Time Associated Diagnosis Comments FILM LIBRARY STORAGE ONLY CT ABDOMEN Routine 07/16/2024 7:42 PM EST BASIC METABOLIC PANEL Routine 06/27/2024 9:54 AM EDT Hyperaldosteronism from Last 3 Months or Most Recently Relevant to Health Maintenance Results * Film Library- Storage Only CT Abdomen (07/16/2024 7:42 PM EST) Narrative [facility] RAD - 07/16/2024 7:42 PM EST This exam is auto-finalizing. It's purpose is for storage only. Pam Grant MD IMG FILM LIBRAR Y ORDERABLES [place], [place] * (ABNORMAL) Basic Metabolic Panel Non-fasting (06/27/2024 9:54 AM EDT) Glucose 106 65 - 199 mg/dL 06/27/2024 10:46 AM [facility] Comment:Glucose Concentratio n >=200 mg/dL plus symptoms is consistent with Diabetes Mellitus. Blood Urea Nitrogen 15 8 - 18 mg/dL 06/27/2024 10:46 AM [facility] Creatinine 0.89 0.70 - 1.20 mg/dL 06/27/2024 10:46 AM [facility] Sodium 140 135 - 145 mMol/L 06/27/2024 10:46 AM [facility] Potassium 3.7 3.5 - 5.0 mMol/L 06/27/2024 10:46 AM [facility] Chloride 110(H) 98 - 107 mMol/L 06/27/2024 10:46 AM [facility] Carbon Dioxide 23 22 - 31 mMol/L 06/27/2024 10:46 AM [facility] Anion Gap 7 5 - 15 mMol/L 06/27/2024 10:46 AM [facility] Calcium 9.3 8.5 - 10.5 mg/dL 06/27/2024 10:46 AM [facility] Est Glomerular Filtration Rate - Female 75 mL/min/1. 73 m?? 06/27/2024 10:46 AM [facility] Comment: This patient's estimated GFR [...] Fasting Status No 06/27/2024 10:46 AM EDT [facility] Blood VENOUS BLOOD SPECIMEN / Unknown Venipuncture / Unknown 06/27/2024 9:54 AM EDT 06/27/2024 9:54 AM EDT Ying Bernabe MD CHEMISTRY ORDERABL ES [facility] [place] [address] from Last 3 Months or Most Recently Relevant to Health Maintenance Advance Directives * Attempt Cardiopulmonary Resuscitation - Inpatient (Latest Code Status on File) Date Activated Date Inactivated Comments 01/21/2024 12:30 AM 01/24/2024 4:28 PM Question Answer Comments Code Status decision made by: Patient Care Teams Java Technical Manager Relationship Specialty Start Date End Date Graciela Naidu MD [address] [place] [address] PCP - General 07/21/10
--- OUTSIDE RECORDS SUMMARY | 2024-10-11 12:39 | XMS_ITS | Encounter Summary ---
Author Organization [facility] [place] [address] Care Team Providers Care Sheet Sorter Name Role Phone Graciela Naidu MD Primary Care Provider [phone] Encounter Details Date Type Department Care Team (Late st Contact Info) Description 02/08/2024 [place] [phone] Fernanda Meek RN Social History Tobacco Use Types Packs/Day Years Used Date Smoking Tobacco: Never Smokeless Tobacco: Never Alcohol Use Standard Drinks/Week Comments Never 0 (1 standard drink = 0.6 oz pur e alcohol) [facility] Utilities Answer Date Recorded In the past 12 months has e [employer], gas, oil, or water [facility] threatened to shut off services in your [...] any time in the past [address] [facility], were you homeless or living in a [...] - 02/08/2024 5:09 PM EDT Copied from CRM #[id number]. Topic: Specialty Dept CRMs - Generic Call [...] 10/29/2024 4:30 PM [place] [address] Pam Grant MD [facility] [place] [address] 10/30/2024 3:20 PM EST TH Visit (TeleHealth) [place] [address] Pam Grant MD [facility] [place] [place] [address] documented as of this encounter Visit Diagnoses Not on filedocumented in this encounter Care Teams Sheet Sorter Relationship Specialty Start Date End Date Graciela Naidu MD [facility] [address] [place] [address] PCP - General 07/21/10 documented as of this encounter
--- OUTSIDE RECORDS SUMMARY | 2024-10-11 12:39 | XMS_ITS | Encounter Summary ---
Author Organization [facility] [place] [address] Care Team Providers Care Carding Supervisor Name Role Phone Graciela Naidu MD Primary Care Provider [phone] Encounter Details Date Type Department Care Team (Late st Contact Info) Description 02/09/2024 [place] [phone] Fernanda Meek RN Social History Tobacco Use Types Packs/Day Years Used Date Smoking Tobacco: Never Smokeless Tobacco: Never Alcohol Use Standard Drinks/Week Comments Never 0 (1 standard drink = 0.6 oz pur e alcohol) [facility] Utilities Answer Date Recorded In the past 12 months has e txtr, gas, oil, or water [employer] threatened to shut off services in your [...] any time in the past 12 m [facility], were you homeless or living in a assisted (including now)? No 01/21/2024 IPV Inpatient Questions [...] - 02/09/2024 4:49 PM EDT Copied from [facility] #[id number]. Topic: Specialty Dept CRMs - Triage >> [...] 10/29/2024 4:30 PM [place] [address] Pam Grant MD [facility] [place] [address] 10/30/2024 3:20 PM EST TH Visit (TeleHealth) Urology at [facility] [address] Pam Grant MD [facility] [place] [address] documented as of this encounter Visit Diagnoses Not on filedocumented in this encounter Care Teams Carding Supervisor Relationship Specialty Start Date End Date Graciela Naidu MD [facility] [address] [facility] [address] [place] [address] PCP - General 07/21/10 documented as of this encounter
--- OUTSIDE RECORDS SUMMARY | 2024-10-11 12:39 | XMS_ITS | Encounter Summary ---
Author Organization [facility] Address [facility] [place] [address] Care Team Providers Care Communications Technologist Name Role Phone Graciela Naidu MD Primary Care Provider [phone] Encounter Details Date Type Department Care Team (Latest Contact Info) Description 04/16/2024 Travel Social History Tobacco Use Types Packs/Day Years Used Date Smoking Tobacco: Never Smokeless Tobacco: Never Alcohol Use Standard Drinks/Week Comments Never 0 (1 standard drink = 0.6 oz pur e alcohol) [facility] Utilities Answer Date Recorded In [...] any time in the past 12 m [facility], were you homeless or living in [...] 10/29/2024 4:30 PM EST Appointment [place] [address] Pam Grant MD [facility] [place] [address] 10/30/2024 3:20 PM EST TH Visit (TeleHealth) [place] [address] Pam Grant MD [facility] [place] [address] documented as of this encounter Visit Diagnoses Not on filedocumented in this encounter Care Teams Communications Technologist Relationship Specialty Start Date End Date Graciela Naidu MD [address] [place] [address] PCP - General 07/21/10 documented as of this encounter
--- OUTSIDE RECORDS SUMMARY | 2024-10-11 12:39 | XMS_ITS | Encounter Summary ---
Author Organization [facility] [place] [address] Care Team Providers Care Mechanical Intern Name Role Phone Graciela Naidu MD Primary Care Provider [phone] Encounter Details Date Type Department Care Team (Late st Contact Info) Description 02/15/2024 [place] [phone] Fernadna Meek RN Social History Tobacco Use Types Packs/Day Years Used Date Smoking Tobacco: Never Smokeless Tobacco: Never Alcohol Use Standard Drinks/Week Comments Never 0 (1 standard drink = 0.6 oz pur e alcohol) [facility] Utilities Answer Date Recorded In the past 12 months has e [employer], gas, oil, or water [employer] threatened to shut off services in your [...] 10/29/2024 4:30 PM [place] [address] Pam Grant MD [facility] [place] [address] 10/30/2024 3:20 PM EST TH Visit (TeleHealth) [place] [address] Pam Grant MD [facility] [place] [address] documented as of this encounter Visit Diagnoses Not on filedocumented in this encounter Care Teams Mechanical Intern Relationship Specialty Start Date End Date Graciela Naidu MD [facility] [address] [place] [address] PCP - General 07/21/10 documented as of this encounter
--- OUTSIDE RECORDS SUMMARY | 2024-10-11 12:39 | XMS_ITS | Encounter Summary ---
Author Organization [facility] Address [facility] [place] [address] Care Team Providers Care Rug Layer Name Role Phone Graciela Naidu MD Primary Care Provider [phone] Encounter Details Date Type Department Care Team (Late st Contact Info) Description 07/10/2024 9:40 AM EST TH Visit (TeleHealth) [place] [address] Pam Grant MD [facility] [place] [address] Nephrolithiasis Social History Tobacco Use Types Packs/Day Years Used Date Smoking Tobacco: Never Smokeless Tobacco: Never Alcohol Use Standard Drinks/Week Comments Never 0 (1 standard drink = 0.6 oz pur e alcohol) [facility] Utilities Answer Date Recorded In the past [...] time in the past 12 m [facility], were you homeless or living in a jail (including now)? No 01/21/2024 DH IPV Inpatient [...] as of this encounter Progress Notes * Pam Grant MD - 07/10/2024 9:40 AM EST Images from the original note were not included. Telephone Office Visit Pt was booked for a TOV as there was no need for a video visit. There was nothing that needed to beseen during the visit. Patient verbally consents to this telephone visit and understands that this visit may be billed, similar to a clinic office visit. Subjective: Last seen 04/20/24 She has had a litholink (Apr 06) This shows: When last seen she had a renal ult I have reviewed these films and agree with the report. 1. No collecting system dilatation, bilaterally. 2. Single nonobstructing 3 mm left interpolar renal calculus. 3. No sonographically evident right nephrolithiasis. 4. Small bilateral complex renal cysts as above. 5. Normal contour of the partially distended bladder. No bladder calculi. My impression at that time was: ImP: nephrolithiasis Small Lt stone Marked hypocitraturia, high urine pH and borderline urine ca. 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 Plan: Hydrate - 2 Liters Watch salt intake I will discuss her litholink study with Dr. Flower and the need for a submarine advisory team watch officer referral alone or as part of stone clinic. She will likely need K citrate and a thiazide. She went through Menopause X 5 yr She is on Topimax for migranes. She feels she has been on Topamax since prior to menopause. She does not have migraines now. Decision Making/Plan: I explained to her that I have reviewed her 24-hour study with Dr. Flower. He felt that she should try to stop the Topamax and if this could not be done then she would be a candidate for hydrochlorothiazide. I suggested to her that she stop topim - and if she has no headaches and can stay off of it then- we will repeat 24 hr urine If can't stop topiramat - will start hydrochol RTC 3 mon with a renal uls - She has a CT planned to evaluate her adrenals Jul 16 This was a 20 min visit spent in discussion and counseling, reviewing the patient's DH records in [facility] and [facility], reviewing outside records and documenting the visit on the date of service. documented in this encounter Plan of Treatment Upcoming Encounters Date Type Department Care Team (Late st Contact Info) Description 10/29/2024 4:30 PM EST Appointment [place] [address] Pam Grant MD [facility] [place] [address] 10/30/2024 3:20 PM EST TH Visit (TeleHealth) [place] [phone] Pam Grant MD [facility] [place] [address] documented as of this encounter Visit Diagnoses Diagnosis Nephrolithiasis Calculus of kidney documented in this encounter Care Teams Rug Layer Relationship Specialty Start Date End Date Graciela Naidu MD [facility] [address] [place] [address] PCP - General 07/21/10 documented as of this encounter
--- OUTSIDE RECORDS SUMMARY | 2024-10-11 12:39 | XMS_ITS | Encounter Summary ---
[place] [address] Care Team Providers Care Refinish Technician Name Role Phone Graciela Naidu MD Primary Care Provider Reason for Referral * Diagnostic Test (Routine) - New Request Specialty Diagnoses / Procedures Referred By Bradley lopez Referred To Contact Radiology Diagnoses Hyperaldosteronism Procedures CT Abdomen wwo Contrast PiliFaraz francois [facility] [place] [address] Referral ID Status Reason Start Date Expiration Date Visits Requested Visits Authorized [id number] New Request Specialty Service Requested 07/03/2024 12/31/2025 1 1 Encounter Details Date Type Department Care Team (Late st Contact Info) Description 07/03/2024 Orders Only [place] [address] Faraz Alejandre [facility] [place] [address] Hyperaldosteronism Social History Tobacco Use Types Packs/Day Years Used Date Smoking Tobacco: Never Smokeless Tobacco: Never Alcohol Use Standard Drinks/Week Comments Never 0 (1 standard drink = 0.6 oz pur e alcohol) [facility] Utilities Answer Date Recorded In the past [...] any time in the past 12 m [facility], were you homeless or living in [...] 4:30 PM EST Appointment Ultrasound at [facility] [place] [address] Pam Grant MD [facility] [place] [address] 10/30/2024 3:20 PM EST TH Visit (TeleHealth) [place] [address] Pam Grant MD [facility] [place] [address] Scheduled Orders Name Type Priority Associated Diagnoses Orde r Schedule CT Abdomen wwo Contrast Imaging Routine Hyperaldosteronism Expected: 07/03/2024, Expires: 01/02/2025 documented as of this encounter Visit Diagnoses Diagnosis Hyperaldosteronism Hyperaldosteronism, unspecified documented in this encounter Care Teams Refinish Technician Relationship Specialty Start Date End Date Graciela Naidu MD [facility] [address] [place] [address] PCP - General 07/21/10 documented as of this encounter
--- OUTSIDE RECORDS SUMMARY | 2024-10-11 12:39 | XMS_ITS | Encounter Summary ---
[place] [address] Care Team Providers Care Business Editor Name Role Phone Graciela Naidu MD Primary Care Provider [phone] Reason for Referral * Diagnostic Test (Routine) - New Request Specialty Diagnoses / Procedures Referred By Bradley lopez Referred To Contact Radiology Diagnoses Hyperaldosteronism Procedures CT Abdomen & Pelvis wwo Contrast (Generic) Faraz Flores [facility] DR ENDOCRINOLOG[place] [address] Referral ID Status Reason Start Date Expiration Date Visits Requested Visits Authorized [id number] New Request Specialty Service Requested 4 12/26/2025 1 1 Reason for Visit * Consultation (Routine) - Authorized Specialty Diagnoses [...] Naidu MD [address] [place] [address] [facility] Endocrinology [address] [place] [id number] Referral ID Status Reason Start Date Expiration Date Visits Requested Visits Authorized [id number] Authorized Consult, Test & Treat PCP Updated and/or Approved 04/17/2024 04/17/2025 6 6 Encounter Details Date Type Department Care Team (Late st Contact Info) Description 06/27/2024 8:15 AM EDT Office [place] [address] Faraz Flores, [facility] ENDOCRIN[place] [address] Hyperaldosteronism Social History Tobacco Use Types Packs/Day Years Used Date Smoking Tobacco: Never Smokeless Tobacco: Never Alcohol Use Standard Drinks/Week Comments Never 0 (1 standard drink = 0.6 oz pur e alcohol) [facility] Utilities Answer Date Recorded In the past 12 months has e [employer], gas, oil, or water [employer] threatened to shut off services in your [...] in the past 12 m [facility], were you homeless or living in a senior care (including now)? No 01/21/2024 DH IPV Inpatient [...] Mass Index 34.55 06/27/2024 8:07 AM EDT documented in this encounter Patient Instructions * Patient Instructions* Faraz Flores DO - 06/27/2024 8:15 AM EDT Blood work ordered CT adrenal scan with contrast ordered BP cuff ordered, check BP twice a day and record in a book, if BP top (systolic) is approaching 170/180s-> call us and we will prescribe you amlodipine documented in this encounter Progress Notes * Faraz Flores, DO - 06/27/2024 8:15 AM EDT Images from the original note were not included. Endocrinology Outpatient Visit Date of Visit: 06/27/24 Patient Name: Barbra Dc : 1965 Referred by: Graciela Naidu MD Reason for referral: Hyperaldosteronism HPI: Barbra Dc is a 58 y.o. female with a hx. of HTN, PACO on CPAP, prediabetes, migraines, depression presents for evaluation of hyperaldosteronism. 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 She reports having BP since 2020 but has not been on medication because BP has not been consistently high. She does not use salt in herfood. Denies licorice, denies weight gain, abdominal bruising/ striae, no fractures, no acne, no fullness/ flushing to face. No increased in breast size, increase in tenderness. 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 Integument: No balding, acne or oily skin. No easily bruising. Neurological: No headache or weakness. No dizziness Eyes: No recent vision change ENT: No dysphagia, dental issues Cardiovascular: No chest pain or palpitations Respiratory: No cough, wheezing, shortness of breath GI: Normal appetite. No nausea, vomiting, diarrhea, constipation : No frequent urinary tract infections or polyuria Musculoskeletal: No joint aches, muscle pain. Patient Active Problem List Diagnosis Code Ureteral obstruction, left N13.5 Sepsis A41.9 Nephrolithiasis N20.0 No Active Allergies Current Outpatient Medications on File Prior to Visit Medication Sig Dispense Refill venlafaxine (Effexor-XR) 150 mg ER 24 hr capsule Take 1 capsule by mouth every morning. dextroamphetamine-amphetamine (Adderall XR) 15 mg ER 24 hr capsule Take 45 mg by mouth every morning. 30 mg qam, 15 mg qpm topiramate (Topamax) 100 mg tablet Take 1 tablet by mouth 2 times daily. tamsulosin (Flomax) 0.4 mg capsule Take 1 capsule by mouth daily. 90 tablet 3 acetaminophen (Tylenol) 325 mg tablet Take 3 tablets by mouth every 8 hours as needed for Pain. [DISCONTINUED] cephALEXin (Keflex) 500 mg capsule TAKE ONE CAPSULE BY MOUTH TWICE A DAY DIRECTEDFOR 7 DAYS [DISCONTINUED] HYDROmorphone (Dilaudid) 2 mg tablet Take 1 tablet by mouth every 6 hours. [DISCONTINUED] ondansetron ODT (Zofran-ODT) 4 mg disintegrating tablet DISSOLVE ONE TABLET ON THE TONGUE EVERY 8 HOURS NEEDED FOR PAIN No current facility-administered medications on file prior to visit. Social History Socioeconomic History Marital status: Spouse name: None Number of children: None Years of education: None Highest education level: None Occupational History None Tobacco Use Smoking status: Never Smokeless tobacco: Never Vaping Use Vaping status: Never Used Substance and Sexual Activity Alcohol use: Never Drug use: Never Sexual activity: Never Other Topics Concern None Social History Narrative None Social Determinants of Health Financial Resource Strain: Not on file Food Insecurity: No Food Insecurity (01/21/2024) Hunger Vital Sign Worried About Running Out of Food in the Last Year: Never true Ran Out of Food in the Last Year: Never true Transportation Needs: No Transportation Needs (01/21/2024) PRAPARE - Transportation Lack of Transportation (Medical): No Lack of Transportation (Non-Medical): No Physical Activity: Not on file Intimate Partner Violence: Not At Risk (01/20/2024) IPV Inpatient Questions Prevent Contact with Others: no Feels Threatened by Someone: no Feels Unsafe at Home: no Physical Signs of Abuse Present: no Housing Stability: Low Risk (01/21/2024) Housing Stability Vital Sign Unable to Pay for Housing in the Last Year: No Number of Times Moved in the Last Year: 0 Homeless in the Last Year: No No family history on file. PHYSICAL EXAM: BP 147/85 (BP Location (NBP): Right arm, Patient Position: Sitting, BP Cuff Sizes: Large Adult (32-43 cm)) Pulse 88 Temp 36.2 ??C (97.1 ??F) (Temporal) Resp 16 Ht 170.2 cm (5' 7) Wt 100.1 kg (220 lb 9.6 oz) SpO2 100% BMI 34.55 kg/m?? General: Well nourished, well hydrated, in no distress, oriented x 3 Skin: normal in texture and temperature, no striae or pigmentation, no acne EYES: no thyroid eye signs, CJ, cornea normal MSK: good strength UE + LE b/l, good proximal muscle strength Recent labs: Latest Reference Range & Units 01/20/24 23:14 01/21/24 00:52 01/21/24 01:02 01/23/24 05:06 01/24/24 00:25 Sodium 135 - 145 mmol/L 145 144 139 138 Na Whole Blood 135 - 145 mmol/L 143 Potassium 3.5 - 5.0 3.0 !! 3.6 3.6 Not Perf K Whole Blood 3.5 - 5.0 mmol/L 3.6 Chloride 98 - 107 mmol/L 118 (H) 113 (H) 110 (H) 111 (H) CL Whole Blood 98 - 107 mmol/L 113 (H) Carbon Dioxide 22 - 31 mmol/L 17 (L) 19 (L) 21 (L) 19 (L) Anion Gap 5 - 15 mmol/L 10 12 8 8 Blood Urea Nitrogen 8 - 18 mg/dL 21 (H) 23 (H) 20 (H) 15 Creatinine 0.70 - 1.20 mg/dL 1.51 (H) 1.58 (H) 1.05 0.78 Est Glomerular Filtration Rate >=60 mL/min/1.73 m?? 40 (L) 37 (L) 61 87 Calcium 8.5 - 10.5 mg/dL 7.4 (L) 8.3 (L) 8.6 8.4 (L) ICa Whole Blood 1.15 - 1.33 mmol/L 1.20 !!: Data is critical (H): Data is abnormally high (L): Data is abnormally low Labs from 04/05/[address] [facility] Assessment and Plan: Barbra Dc is a 58 y.o. yo female with a hx. Of depression, migraines, PACO on CPAP and prediabetes presents for evaluation of hyperaldosteronism. Fhx. Pertinent for father with hypertension. Aldosterone /renin levels >20 consistent with hyperaldosteronism at [facility]. We will repeat labs. I willalso order CT adrenal protocol to check for hyperplasia or adenomas. Low suspicion for vania's syndrome at this time due to lack of symptoms. Other differential for hyperaldosteronism includes an enzyme deficiency of 17 alpha hydroxylase or 11 B-hydroxylase in the adrenals. At this time, we will verify her diagnosis and then continue further work up such as sodium loading test. In the mean time, I will order a BP cuff for the patient and have instructed her to check BP twice a day and document it, if BP approaches systolic 170/180, I have advised that she call us and we will start her on amlodipine. -repeat labs (Renin, janae, BMP) -ct adrenal protocol faxed to [facility] -ordered BP cuff to make automated -f/u 3 months Orders Placed This Encounter Procedures CT Abdomen w Contrast Renin Activity Aldosterone Basic Metabolic Panel Non-fasting Plan discussed with Dr. Srinivasa Flores DO PGY-4 Follow up in 3 months * Ying Bernabe MD - 06/27/2024 8:15 AM EDT I saw this patient with Dr. Flores. I reviewed the reynoso portions of the history and physical exam, and reviewed pertinent lab data. I answered all patient questions. I was involved in all medical decision making and agree with this plan. Ying Bernabe MD documented in this encounter Miscellaneous Notes * Addendum Note - Faraz Flores DO - 06/27/2024 8:15 AM EDTAddended by: FARAZ FLORES on: 06/28/2024 11:30 AM Modules accepted: Orders documented in this encounter Plan of Treatment Upcoming Encounters Date Type Department Care Team (Late st Contact Info) Description 10/29/2024 4:30 PM [place] [address] Pam Grant MD [facility] [place] [address] 10/30/2024 3:20 PM EST TH Visit (TeleHealth) [place] [address] Pam Grant MD [facility] [place] [address] Scheduled Orders Name Type Priority Associated Diagnoses Orde r Schedule CT Abdomen & Pelvis wwo Contrast (Generic) Imaging Routine Hyperaldosteronism Expected: 06/28/2024, Expires: 12/28/2024 documented as of this encounter Results * (ABNORMAL) Basic Metabolic Panel Non-fasting (06/27/2024 9:54 AM EDT) Glucose 106 65 - 199 mg/dL 06/27/2024 10:46 AM EDT [facility] Comment:Glucose Concentratio n >=200 mg/dL plus symptoms is consistent with Diabetes Mellitus. Blood Urea Nitrogen 15 8 - 18 mg/dL 06/27/2024 10:46 AM EDT [facility] Creatinine 0.89 0.70 - 1.20 mg/dL 06/27/2024 10:[address] [facility] Sodium 140 135 - 145 mMol/L 06/27/2024 10:[address] [facility] Potassium 3.7 3.5 - 5.0 mMol/L 06/27/2024 10:[address] [facility] Chloride 110(H) 98 - 107 mMol/L 06/27/2024 10:[address] [facility] Carbon Dioxide 23 22 - 31 mMol/L 06/27/2024 10:[address] [facility] Anion Gap 7 5 - 15 mMol/L 06/27/2024 10:[address] [facility] Calcium 9.3 8.5 - 10.5 mg/dL 06/27/2024 10:[address] [facility] Est Glomerular Filtration Rate - Female 75 mL/min/1. 73 m?? 06/27/2024 10:[address] [facility] Comment: This patient's estimated GFR [...] Foundation Fasting Status No 06/27/2024 10:[address] [facility] Blood VENOUS BLOOD SPECIMEN / Unknown Venipuncture / Unknown 06/27/2024 9:54 AM EDT 06/27/2024 9:54 AM EDT Ying Bernabe MD CHEMISTRY ORDERABL ES [facility] [address] * (ABNORMAL) Aldosterone (06/27/2024 9:54 AM EDT) Pathologist [facility] Aldosterone December 24(H) <=21 ng/dL 07/02/2024 2:14 PM EST REF LAB ORIENT Comment: ADDITIONAL INFORMATION Reference range for patients 11 years and older is based on upright A.M. collection from subjects without sodium restrictions. This test was developed and its performance characteristics determined by [facility] in a manner consistent with CLIA requirements. This test has not been cleared or approved by the U.S. Food and Drug Administration. Blood VENOUS BLOOD SPECIMEN / Unknown Venipuncture / Unknown 06/27/2024 9:54 AM EDT 06/27/2024 9:54 AM EDT Narrative REF LAB ORIENT - 07/02/2024 2:14 PM EST Test Performed by: [address] [address] Supply Chain Program Manager: Duane Lewis Ph.D.; CLIA# [id number] Ying Bernabe MD LAB SEND OUT ORDER MAHI REF LAB [address] [address], [facility] * Renin Activity (06/27/2024 9:54 AM EDT) [facility] Renin Activity May 0.8 ng/mL/h 2023 1:35 PM EDT REF LAB ORIENT Comment: REFERENCE VALUE (Peripheral vein specimen) Na-deplete, upright: ??Mean: 5.9 ??Range: 2.9-10.8 Na-replete, upright: ??Mean: 1.0 ??Range: < or =0.6-3.0 ADDITIONAL INFORMATION Testing performed by Liquid Chromatography-Tandem Mass Spectrometry (LC-MS/MS). This test was developed and its performance characteristics determined by [facility] in a manner consistent with CLIA requirements. This test has not been cleared or approved by the U.S. Food and Drug Administration. Blood VENOUS BLOOD SPECIMEN / Unknown Venipuncture / Unknown 06/27/2024 9:54 AM EDT 06/27/2024 9:54 AM EDT Narrative REF LAB ORIENT - 06/30/2024 1:35 PM EDT Test Performed by: [facility] [place] [address] Supply Chain Program Manager: Duane Lewis Ph.D.; CLIA# [id number] Ying Beranbe MD LAB SEND OUT ORDER MAHI REF LAB [address] documented in this encounter Visit Diagnoses Diagnosis Hyperaldosteronism Hyperaldosteronism, unspecified documented in this encounter Care Teams Business Editor Relationship Specialty Start Date End Date Graciela Naidu MD [address] [place] [address] PCP - General 07/21/10 documented as of this encounter
--- OUTSIDE RECORDS SUMMARY | 2024-10-11 12:39 | XMS_ITS | Encounter Summary ---
[place] [address] Care Team Providers Care Professional Sports Scout Name Role Phone Graciela Naidu MD Primary Care Provider [phone] Reason for Referral * Diagnostic Test (Routine) - Closed Specialty Diagnoses / Procedures Referred By Bradley lopez Referred To Contact Urology Diagnoses Ureteral obstruction, left Procedures Cysto Stent Removal Long Galloway MD [facility] [place] [address] [facility] [place] [address] Referral ID Status Reason Start Date Expiration Date V isits Requested Visits Authorized [id number] Closed Test Only 02/09/2024 02/08/2025 1 1 Reason for Visit * Auth/Cert (Routine) Specialty Diagnoses / Procedures Referred By Bradley lopez Referred To Contact Diagnoses Left ureteral calculus Urinary tract infection with hematuria, site unspecified Ureteral obstruction, left Urolithiasis Procedures PRO CYSTO/URETERO/PYELOSCOPY W/LITHOTRIPSY CYSTOURETEROSCOPY, LITHOTRIPSY (WRVU 7.5) MODIFIER HOLMIUM LASER Pam Grant MD [facility] [place] [address] [facility] Referral ID Status Reason Start Date Expiration Date Visits Re quested Visits Authorized [id number] 1 1 Encounter Details Date Type Department Care Team (Late st Contact Info) Description 02/09/2024 6:09 AM EDT - 02/09/2024 9:46 AM EDT Hospital Encounter Outpatient Surgery Center [facility] [place] [address] Pam Grant MD [facility] [place] [address] Ureteral obstruction, left (Primary Dx); Left ureteral calculus; Urinary tract infection with hematuria, site unspecified Discharge Disposition: Home Social History Tobacco Use Types Packs/Day Years Used Date Smoking Tobacco: Never Smokeless Tobacco: Never Alcohol Use Standard Drinks/Week Comments Never 0 (1 standard drink = 0.6 oz pur e alcohol) [facility] Utilities Answer Date Recorded In [...] any time in the past 12 m [facility], were you homeless or living in a longterm (including now)? No 01/21/2024 DH IPV Inpatient [...] closest emergency room or call the hospital oil lease operator at [phone] and ask for physician satellite television installer covering for your physician. Questions or problems after 5pm or on a weekend: Call the [facility] oil lease operator at and ask for the physician satellite television installer covering for your doctor. * Patient Instructions* [...] stent removal in the Urology clinic. Pleasecall [phone] if you do not receive your appointment. [...] Sig Dispensed Refills Start Date End Date dextroamphetamine-ampheta mine (Adderall XR) 15 mg ER [...] 8 HOURS NEEDED FOR PAIN 01/20/2024 06/27/2024 methylphenidate (RITALIN) 20 mg tablet 07/16/2010 03/09/2024 zolpidem (AMBIEN) 5 mg tablet 07/16/2010 03/09/2024 venlafaxine (EFFEXOR) 75 mg tablet 07/16/2010 03/09/2024 documented as of this encounter Progress Notes * Radha Adam RN - 02/09/2024 9:03 AM EDT Arrived OSC #10, monitors placed, alarms on/ audible. No urinary drainage noted on chux/ liz area.O2 mask 6L, LMA DC'd on arrival by COGENERATION OPERATOR 09:13 O2 mask off R/A trial, [...] 2.82) performed by Evangelist Rodriguez MD at [facility] MAIN OR Allergies: No Known Allergies [...] 2.82) performed by Evangelist Rodriguez MD at [facility] MAIN OR Allergies: No Known Allergies [...] Grant MD - 02/09/2024 7:41 AM EDT [facility] Operative Note Patient Name: Barbra Dc : [id number] MR#: [id number] Case Date: 02/09/2024 Surgeon: Surgeons and Role: [...] 10/29/2024 4:30 PM EST [place] [address] Pam Grant MD [facility] [place] [address] 10/30/2024 3:20 PM EST TH Visit (TeleHealth) [place] [address] Pam Grant MD [facility] [place] [address] Scheduled Orders Name Type Priority Associated Diagnoses [...] 02/09/2024 8:45 AM EDT Cystourethroscopy, Ureter Catheter ([id number]) 02/09/2024 7:26 AM EDT Left ureteral calculus Urinary tract infection with hematuria, site unspecified Ureteral obstruction, left MODIFIER HOLMIUM LASER 02/09/2024 7:26 AM EDT Left ureteral calculus Urinary tract infection with hematuria, site unspecified Ureteral obstruction, left Cysto/Uretero/Pyelo scopy W/Lithotripsy ([id number]) 02/09/2024 7:26 AM EDT Left ureteral calculus [...] (02/09/2024 8:45 AM EDT) Kidney Stone Analysis (MAY) Test ? Result [...] developed and its performance characteristics ?determined by [facility] in a manner consistent with CLIA ?requirements. This test has not been cleared or approved by ?the U.S. Food and Drug Administration. ?Test Performed by: ?[facility] ?[address] [id number] ?Form Setter/Driver: Duane Lewis Ph.D.; CLIA# [id number] [facility] Calculus 02/09/2024 8:45 AM EDT 02/09/2024 1:20 PM EDT Narrative Resulting Agency Comment Spec In Lab Pam Grant MD LAB SEND OUT OR DERABLES Performing Organization Address City/State/[facility] Co de Phone Number [facility] [place] [address] documented in this encounter Visit Diagnoses Diagnosis [...] solution 2 g (COMPLETED) 2 g, Intravenous, DIRECTOR OF RETAIL ANALYTICS TO O.R., 1 dose, On Therese 02/09/24 [...] prn) documented in this encounter Care Teams Professional Sports Scout Relationship Specialty Start Date End Date Graciela Naidu MD [facility] [address] [place] [address] PCP - General 07/21/10 documented as of this encounter
--- OUTSIDE RECORDS SUMMARY | 2024-10-11 12:39 | XMS_ITS | Encounter Summary ---
Author Organization [facility] Address [place] [address] Care Team Providers Care Manager Ethics Name Role Phone Graciela Naidu MD Primary Care Provider [phone] Encounter Details Date Type Department Care Team (Latest Contact Info) Description 06/23/2024 Travel Social History Tobacco Use Types Packs/Day [...] any time in the past 12 m [facility], were you homeless or [...] 10/29/2024 4:30 PM EST Appointment [place] [address] Pam Grant MD [facility] [place] [address] 10/30/2024 3:20 PM EST TH Visit (TeleHealth) [place] [address] Pam Grant MD [facility] [place] [address] documented as of this encounter Visit Diagnoses Not on filedocumented in this encounter Care Teams Manager Ethics Relationship Specialty Start Date End Date Graciela Naidu MD [address] [place] [address] PCP - General 07/21/10 documented as of this encounter
--- OUTSIDE RECORDS SUMMARY | 2024-10-11 12:39 | XMS_ITS | Encounter Summary ---
Author Organization [facility] Address [facility] [place] [address] Care Team Providers Care Sleep Medicine Physician Name Role Phone Graciela Naidu MD Primary Care Provider [phone] Reason for Visit * Auth/Cert (Routine) Specialty Diagnoses / Procedures Referred By Bradley lopez Referred To Contact Diagnoses Left ureteral calculus Urinary tract infection with hematuria, site unspecified Ureteral obstruction, left Urolithiasis Procedures PRO CYSTO/URETERO/PYELOSCOPY W/LITHOTRIPSY CYSTOURETEROSCOPY, LITHOTRIPSY (WRVU 7.5) MODIFIER HOLMIUM LASER Pam Grant MD [facility] [place] [address] RUST Referral ID Status Reason Start Date Expiration Date Visits Re quested Visits Authorized [id number] 1 1 Encounter Details Date Type Department Care Team (Late st Contact Info) Description 02/09/2024 7:26 AM EDT Anesthesia Event [facility] [place] [phone] Jaguar Lassiter MD Anesthesia Record Procedure Summary Procedure Name Responsible Anesthesiologist Anesthesia Start Time Anesthesia Stop Time CYSTOURETEROSCOPY, LITHOTRIPSY (WRVU 7.5) (Left: Bladder) Jaguar Lassiter MD 02/09/24 0726 02/09/24 0901 Events Date Time Event Comment 02/09/2024 0713 0726 AN Verify 0726 Start 0726 An Start Data 0731 An Induction 0732 An Intubation 0732 Anesthesia Ready 09 an stop data 09 Recovery or ICU Handoff Clarissa ent care [...] by: Jomar 02/09/24 0734 by Shahram Hadley, HYDRAULIC REPAIRER Incision 02/09/24; 0741; uret hral meatus; cystoscopy 02/09/24 0741 by Taty Rogers RN PIV 02/09/24; 0655; xqyl-nzc-skyjfu catheter system; 22 gauge; metacarpal vein (top of hand), right; Anatomical Landmarks; S RN; distraction, intradermal injection; 02/09/24; 0935 02/09/24 [...] Recorded In the past 12 months has [employer], gas, oil, or water [employer] threatened to shut off services in your [...] Procedure Summary Date: 02/09/24 Room / Location: [facility] [address] [place] [address] OSC Anesthesia Start: 725 Anesthesia Stop: 900 Procedures: CYSTOURETEROSCOPY, LITHOTRIPSY (WRVU 7.5) (Left: Bladder) MODIFIER HOLMIUM LASER CYSTO, RETROGRADE, URETEROPYELOGRAPHY (WRVU 2.37) (Left: Bladder) Diagnosis: Left ureteral calculus Urinary tract infection with hematuria, site unspecified Ureteral obstruction, left (Urolithiasis) Surgeons: Pam Grant MD Responsible Provider: Jaguar Lassiter MD Anesthesia Type: general ASA Status: 2 All Anesthesia Providers: Anesthesiologist: Jaguar Lassiter MD HYDRAULIC REPAIRER: Shahram Hadley CRNA Vitals Value Taken Time BP 148/82 02/09/24 0931 Temp 36 ??C (96.8 ??F) 02/09/24 0902 Pulse 69 02/09/24 0931 Resp 16 02/09/24 0931 SpO2 96 % 02/09/24 0931 Pain Level 0 02/09/24 0935 Patient Location: PACU/[facility] Level of Consciousness: Awake and Alert [...] 2.82) performed by Evangelist Rodriguez MD at [facility] Social History Tobacco Use [...] 10/29/2024 4:30 PM EST [place] [address] Pam Grant MD [facility] [place] [address] 10/30/2024 3:20 PM EST TH Visit (TeleHealth) [place] [address] Pam Grant MD [facility] [place] [address] documented as of this encounter Visit Diagnoses Not on filedocumented in this encounter Administered Medications Inactive Administered Medications - up to 3 most recent administrations Medication Order MAR Action Action Date Dose Rate Site ceFAZolin (Ancef) (100 mg/mL) injection solution 2 g 2 g, Intravenous, BILLBOARD ERECTOR HELPER TO O.R., 1 dose, On Therese 02/09/24 [...] mg documented in this encounter Care Teams Sleep Medicine Physician Relationship Specialty Start Date End Date Graciela Naidu MD [address] [place] [address] PCP - General 07/21/10 documented as of this encounter
--- OUTSIDE RECORDS SUMMARY | 2024-10-11 12:39 | XMS_ITS | Encounter Summary ---
Author Organization [facility] Address [facility] [place] [address] Care Team Providers Care Puppy Sitter Name Role Phone Graciela Naidu MD Primary Care Provider [phone] Reason for Visit * Reason Onset Date Comments Results 06/22/2024 Encounter Details Date Type Department Care Team (Late st Contact Info) Description 06/22/2024 [place] [address] Pam Grant MD [facility] [place] [address] Results Social History Tobacco Use Types Packs/Day Years Used Date Smoking Tobacco: Never Smokeless Tobacco: Never Alcohol Use Standard Drinks/Week Comments Never 0 (1 standard drink = 0.6 oz pur e alcohol) [facility] Utilities Answer Date Recorded In the past 12 months has [employer], gas, oil, or water company threatened [...] encounter Miscellaneous Notes * Telephone Encounter - Tania Torres - 06/22/2024 3:15 PM EDT Patient would like a call back to go over her 24 hour urine culture from April 07 documented in this encounter Plan of Treatment Upcoming Encounters Date Type Department Care Team (Late st Contact Info) Description 10/29/2024 4:30 PM EST [place] [address] Pam Grant MD [facility] [place] [address] 10/30/2024 3:20 PM EST TH Visit (TeleHealth) [place] [address] Pam Grant MD [facility] [place] [address] documented as of this encounter Visit Diagnoses Not on filedocumented in this encounter Care Teams Puppy Sitter Relationship Specialty Start Date End Date Graciela Naidu MD [facility] [address] [place] [address] PCP - General 07/21/10 documented as of this encounter
--- OUTSIDE RECORDS SUMMARY | 2024-10-11 12:39 | XMS_ITS | Encounter Summary ---
Author Organization [facility] Address [facility] [place] [address] Care Team Providers Care Party Plan Selling Distributor Name Role Phone Graciela Naidu MD Primary Care Provider [phone] Encounter Details Date Type Department Care Team (Late st Contact Info) Description 04/20/2024 4:40 PM EDT [place] [phone] Pam Grant MD [facility] [place] [address] Nephrolithiasis Social History Tobacco Use Types Packs/Day Years Used Date Smoking Tobacco: Never Smokeless Tobacco: Never Alcohol Use Standard Drinks/Week Comments Never 0 (1 standard drink = 0.6 oz pur e alcohol) [facility] Utilities Answer Date Recorded In the past 12 months has [employer], gas, oil, or water company threatened [...] in the past 12 m [facility], were you homeless or living in a alf (including now)? No 01/21/2024 DH IPV Inpatient [...] Sign Reading Time Taken Comments Blood Pressure 140/92 04/20/2024 4:35 PM EDT Pulse 85 04/20/2024 4:35 PM EDT Temperature - - Respiratory Rate - - Oxygen Saturation - - Inhaled Oxygen Concentration - - Weight - - Height - - Body Mass Index - - documented in this encounter Progress Notes * Pam Grant MD - 04/20/2024 4:40 PM EDT Images from the original note were not included. Last seen 02/24/24 for a stent removal. Barbra Dc is a 58 y.o. female [...] Ca phosphate 80%, Ca oxalate 20%. She returned 02/24/24 for a stent removal For fluids she is drinking: Water: She has a new 64 oz cup which she is going to start to use. She has been using a different bottle, she thinks this is 16 - 20 oz, that she fills 3 -4 times perday Diet gingerale -16 oz Iced coffee - medium Shaila 20 oz - Milk - 1 glass per day - 12 oz She has had a litholink (Apr 06) This shows: She is here today for a renal ult I have reviewed these films and agree with the report. 1. No collecting system dilatation, bilaterally. 2. Single nonobstructing 3 mm left interpolar renal calculus. 3. No sonographically evident right nephrolithiasis. 4. Small bilateral complex renal cysts as above. 5. Normal contour of the partially distended bladder. No bladder calculi. ImP: nephrolithiasis Small Lt stone Marked hypocitraturia, high urine pH and borderline urine ca. 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 Plan: advised to ensure she has adequate water intake I will discuss her litholink study with Dr. Flower and the need for a assistant elementary teacher referral alone or as part of stone clinic. She will likely need K citrate and a thiazide. RTC 6 mon with a repeat uls Plan: RTC 6 weeks for a renal uls\ Advised to drink enough to make 2 liters of urine daily Will then do a litholink documented in this encounter Plan of Treatment Upcoming Encounters Date Type Department Care Team (Late st Contact Info) Description 10/29/2024 4:30 PM EST [place] [address] Pam Grant MD [facility] [place] [address] 10/30/2024 3:20 PM EST TH Visit (TeleHealth) [place] [address] Pam Grant MD [facility] [place] [address] Scheduled Orders Name Type Priority Associated Diagnoses Orde r Schedule US Retroperitoneal Complete Imaging Routine Nephrolithiasis Expected: 10/28/2024, Expires: 10/28/2025 documented as of this encounter Visit Diagnoses Diagnosis Nephrolithiasis Calculus of kidney documented in this encounter Care Teams Party Plan Selling Distributor Relationship Specialty Start Date End Date Graciela Naidu MD [facility] [address] [place] [address] PCP - General 07/21/10 documented as of this encounter
--- OUTSIDE RECORDS SUMMARY | 2024-10-11 12:39 | XMS_ITS | Encounter Summary ---
Author Organization [facility] Address [facility] [place] [address] Care Team Providers Care Bus Boy Name Role Phone Graciela Naidu MD Primary Care Provider [phone] Encounter Details Date Type Department Care Team (Late st Contact Info) Description 02/09/2024 10:10 AM EDT - 02/09/2024 11:59 PM EDT Hospital Encounter XRay at [address] [place] [phone] aPm Grant MD [facility] [place] [address] Discharge Disposition: Home Social History Tobacco Use [...] time in the past 12 m [facility], were you homeless or living [...] 10/29/2024 4:30 PM EST Appointment [place] [address] Pam Grant MD [facility] [place] [address] 10/30/2024 3:20 PM EST TH Visit (TeleHealth) [place] [address] Pam Grant MD [facility] [place] [address] documented as of this encounter Procedures Procedure [...] on filedocumented in this encounter Care Teams Bus Boy Relationship Specialty Start Date End Date Graciela Naidu MD [facility] [address] [place] [address] PCP - General 07/21/10 documented as of this encounter
--- OUTSIDE RECORDS SUMMARY | 2024-10-11 12:39 | XMS_ITS | Encounter Summary ---
Author Organization [facility] [place] [address] Care Team Providers Care Family Resource Specialist Name Role Phone Graciela Naidu MD Primary Care Provider [phone] Encounter Details Date Type Department Care Team (Late st Contact Info) Description 07/09/2024 [place] [phone] Melita Dang RN Social History Tobacco Use Types Packs/Day Years Used Date Smoking Tobacco: Never Smokeless Tobacco: Never Alcohol Use Standard Drinks/Week Comments Never 0 (1 standard drink = 0.6 oz pur e alcohol) [facility] Utilities Answer Date Recorded In the past 12 months has e [employer], gas, oil, or water [employer] threatened to shut off services in your [...] Progress Notes * Melita Dang RN - 07/09/2024 11:24 AM EST Call placed to patient to schedule a TOV with Dr. Grant to review 24H urine results, no answer, LVM. Tentatively scheduled for 07/10 at 0940. documented in this encounter Miscellaneous Notes * Telephone Encounter - Melita Dang RN - 07/09/2024 11:20 AM EST Copied from [facility] #[id number]. Topic: Specialty Dept CRMs - Generic Call >> Jul 09, 2024 8:48 AM Elizabeth Phan wrote: Specialist: Pam Grant MD Relationship (if other than patient-full name): RISHABH Wilson office Reason for Call: Steve called because patient was seen in March and chace received a call with follow up plan. Per Dr Grant note on 04/20- I will discuss her litholink study with Dr. Flower and the need for a animal hospital clerk referral alone or as part of stone clinic. She will likely need K citrate and athiazide. documented in this encounter Plan of Treatment Upcoming Encounters Date Type Department Care Team (Late st Contact Info) Description 10/29/2024 4:30 PM EST [place] [address] Pam Grant MD [facility] [place] [address] 10/30/2024 3:20 PM EST TH Visit (TeleHealth) [place] [address] Pam Grant MD [facility] [place] [address] documented as of this encounter Visit Diagnoses Not on filedocumented in this encounter Care Teams Family Resource Specialist Relationship Specialty Start Date End Date Graciela Naidu MD [address] [place] [address] PCP - General 07/21/10 documented as of this encounter
--- OUTSIDE RECORDS SUMMARY | 2024-10-11 12:39 | XMS_ITS | Encounter Summary ---
Author Organization [facility] Address [facility] [place] [address] Care Team Providers Care Fitness Management Director Name Role Phone Graciela Naidu MD Primary Care Provider [phone] Encounter Details Date Type Department Care Team (Latest Contact Info) Description 06/27/2024 Travel Social History Tobacco Use Types Packs/Day Years Used Date Smoking Tobacco: Never Smokeless Tobacco: Never Alcohol Use Standard Drinks/Week Comments Never 0 (1 standard drink = 0.6 oz pur e alcohol) [facility] Utilities Answer Date Recorded In the [...] 10/29/2024 4:30 PM EST Appointment [place] [address] Pam Grant MD [facility] [place] [address] 10/30/2024 3:20 PM EST TH Visit (TeleHealth) [place] [address] Pam Grant MD [facility] [place] [address] documented as of this encounter Visit Diagnoses Not on filedocumented in this encounter Care Teams Fitness Management Director Relationship Specialty Start Date End Date Graciela Naidu MD [address] [place] [address] PCP - General 07/21/10 documented as of this encounter
--- OUTSIDE RECORDS SUMMARY | 2024-10-11 12:39 | XMS_ITS | Encounter Summary ---
Author Organization [facility] Address [facility] [place] [address] Care Team Providers Care House Principal Name Role Phone Graciela Naidu MD Primary Care Provider Encounter Details Date Type Department Care Team (Late st Contact Info) Description 07/16/2024 7:45 PM EST Ancillary Procedure Radiology Library at [facility] [place] [address] Pam Grant MD [facility] [place] [address] Social History Tobacco Use Types Packs/Day Years [...] 10/29/2024 4:30 PM [place] [address] Pam Grant MD [facility] [place] [address] 10/30/2024 3:20 PM EST TH Visit (TeleHealth) [place] [phone] Pam Grant MD [facility] [place] [address] documented as of this encounter Procedures Procedure Name Priority Date/Time Associated Diagnosis Comments FILM LIBRARY STORAGE ONLY CT ABDOMEN Routine 07/16/2024 7:42 PM EST documented in this encounter Results * Film Library- Storage Only CT Abdomen (07/16/2024 7:42 PM EST) Narrative OLEG - 07/16/2024 7:42 PM EST This exam is auto-finalizing. It's purpose is for storage only. Pam Grant MD IMG FILM LIBRAR Y ORDERABLES Performing Organization Address City/State/[facility] Co de Phone Number [place], [place] documented in this encounter Visit Diagnoses Not on filedocumented in this encounter Care Teams House Principal Relationship Specialty Start Date End Date Graciela Naidu MD [address] [place] [address] PCP - General 07/21/10 documented as of this encounter
--- OUTSIDE RECORDS SUMMARY | 2024-10-11 12:39 | XMS_ITS | Encounter Summary ---
Author Organization [facility] Address [facility] [place] [place] [address] Care Team Providers Care Flap Presser Name Role Phone Graciela Naidu MD Primary Care Provider [phone] Encounter Details Date Type Department Care Team (Latest Contact Info) Description 02/24/2024 Travel Social History Tobacco Use Types Packs/Day Years Used Date Smoking Tobacco: Never Smokeless Tobacco: Never Alcohol Use Standard Drinks/Week Comments Never 0 (1 standard drink = 0.6 oz pur e alcohol) [facility] Utilities Answer Date Recorded In the past [...] in the past 12 m [facility], were you homeless or living in a long-term (including now)? No 01/21/2024 IPV Inpatient Questions [...] 10/29/2024 4:30 PM [place] [address] Pam Grant MD [facility] [place] [address] 10/30/2024 3:20 PM EST TH Visit (TeleHealth) [place] [address] Pam Grant MD [facility] [place] [address] documented as of this encounter Visit Diagnoses Not on filedocumented in this encounter Care Teams Flap Presser Relationship Specialty Start Date End Date Graciela Naidu MD [address] [place] [address] PCP - General 07/21/10 documented as of this encounter
--- OUTSIDE RECORDS SUMMARY | 2024-10-11 12:39 | XMS_ITS | Encounter Summary ---
Author Organization [facility] Address [facility] [place] [address] Care Team Providers Care Mobility Manager Name Role Phone Graciela Naidu MD Primary Care Provider [phone] Encounter Details Date Type Department Care Team (Latest Contact Info) Description 04/20/2024 Travel Social History Tobacco Use Types Packs/Day Years Used Date Smoking Tobacco: Never Smokeless Tobacco: Never Alcohol Use Standard Drinks/Week Comments Never 0 (1 standard drink = 0.6 oz pur e alcohol) [facility] Utilities Answer Date Recorded In the [...] any time in the past 12 m [facility], were you homeless or living in a [...] 10/29/2024 4:30 PM [place] [address] Pam Grant MD [facility] [address] 10/30/2024 3:20 PM EST TH Visit (TeleHealth) [place] [address] Pam Grant MD [facility] [address] documented as of this encounter Visit Diagnoses Not on filedocumented in this encounter Care Teams Mobility Manager Relationship Specialty Start Date End Date Graciela Naidu MD [address] [place] [address] PCP - General 07/21/10 documented as of this encounter
--- OUTSIDE RECORDS SUMMARY | 2024-10-11 12:39 | XMS_ITS | Encounter Summary ---
Author Organization [facility] [place] [address] Care Team Providers Care Procedure Analyst Name Role Phone Graciela Naidu MD Primary Care Provider [phone] Reason for Visit * Auth/Cert (Routine) Specialty Diagnoses / Procedures Referred By Bradley lopez Referred To Contact Diagnoses Left ureteral calculus Urinary tract infection with hematuria, site unspecified Ureteral obstruction, left Urolithiasis Procedures PRO CYSTO/URETERO/PYELOSCOPY W/LITHOTRIPSY CYSTOURETEROSCOPY, LITHOTRIPSY (WRVU 7.5) MODIFIER HOLMIUM LASER Pam Grant MD [facility] [place] [address] [facility] Referral ID Status Reason Start Date Expiration Date Visits Re quested Visits Authorized [id number] 1 1 Encounter Details Date Type Department Care Team (Late st Contact Info) Description 02/09/2024 7:30 AM EDT - 02/09/2024 9:28 AM EDT Surgery [place] [address] Pam Grant MD [facility] [place] [address] CYSTOURETEROSCOPY, LITHOTRIPSY (WRVU 7.5) Social History Tobacco Use Types Packs/Day Years Used Date Smoking Tobacco: Never Smokeless Tobacco: Never Alcohol Use Standard Drinks/Week Comments Never 0 (1 standard drink = 0.6 oz pur e alcohol) [facility] Utilities Answer Date Recorded In the [...] time in the past 12 m [facility], were you homeless or living in a group home (including now)? No 01/21/2024 IPV Inpatient [...] closest emergency room or call the hospital wire machine operator at [phone] and ask for physician elevator constructor helper covering for your physician. Questions or problems after 5pm or on a weekend: Call the [facility] wire machine operator at and ask for the physician elevator constructor helper covering for your doctor. * Patient Instructions* [...] stent removal in the Urology clinic. Pleasecall [phone] if you do not receive your appointment. [...] mask 6L, LMA DC'd on arrival by AMBULANCE MECHANIC 09:13 O2 mask off R/A trial, HOB [...] were not included. Urology History and Physical: Barbar Dc is a 58 y.o. female [...] 2.82) performed by Evangelist Rodriguez MD at [facility] Allergies: No Known Allergies [...] 2.82) performed by Evangelist Rodriguez MD at [facility] Allergies: No Known Allergies [...] Grant MD - 02/09/2024 7:41 AM EDT [facility] Oper[facility] Note Patient Name: Barbra Dc : [id number] MR#: [id number] Case Date: 02/09/2024 Surgeon: Surgeons and Role: [...] 10/29/2024 4:30 PM EST Appointment [place] [address] Pam Grant MD [facility] [place] [address] 10/30/2024 3:20 PM EST TH Visit (TeleHealth) [place] [address] Pam Grant MD [facility] [place] [place] [address] Scheduled Orders Name Type Priority Associated Diagnoses [...] 02/09/2024 8:45 AM EDT Cystourethroscopy, Ureter Catheter ([id number]) 02/09/2024 7:26 AM EDT Left ureteral calculus Urinary tract infection with hematuria, site unspecified Ureteral obstruction, left MODIFIER HOLMIUM LASER 02/09/2024 7:26 AM EDT Left ureteral calculus Urinary tract infection with hematuria, site unspecified Ureteral obstruction, left Cysto/Uretero/Pyelo scopy W/Lithotripsy ([id number]) 02/09/2024 7:26 AM EDT Left ureteral calculus [...] developed and its performance characteristics ?determined by [facility] in a manner consistent with CLIA ?requirements. This test has not been cleared or approved by ?the U.S. Food and Drug Administration. ?Test Performed by: ?[facility] ?[address] [place] [address] ?Nuclear Equipment Sales Engineer: Duane Lewis Ph.D.; CLIA# [id number] [facility] Calculus 02/09/2024 8:45 AM EDT 02/09/2024 1:20 PM EDT Narrative Resulting Agency Comment Spec In Lab Pam Grant MD LAB SEND OUT OR DERABLES Performing Organization Address City/State/[facility] Co de Phone Number [facility] [address] [place] [address] documented in this encounter Visit Diagnoses Diagnosis [...] solution 2 g (COMPLETED) 2 g, Intravenous, CORPORATE TAX PREPARER TO O.R., 1 dose, On Therese 02/09/24 [...] prn) documented in this encounter Care Teams Procedure Analyst Relationship Specialty Start Date End Date Graciela Naidu MD [address] [facility] [address] [place] [address] PCP - General 07/21/10 documented as of this encounter
--- OUTSIDE RECORDS SUMMARY | 2024-10-11 12:39 | XMS_ITS | Encounter Summary ---
[facility] [place] [address] Care Team Providers Care Home Health Cna Name Role Phone Graciela Naidu MD Primary Care Provider [phone] Encounter Details Date Type Department Care Team (Late st Contact Info) Description 06/27/2024 Telephone [place] [id number] Faraz Alejandre [facility] [place] [address] Social History Tobacco Use Types Packs/Day Years Used Date Smoking Tobacco: Never Smokeless Tobacco: Never Alcohol Use Standard Drinks/Week Comments Never 0 (1 standard drink = 0.6 oz pur e alcohol) [facility] Utilities Answer Date Recorded In [...] were you homeless or living in a [facility] (including now)? No 01/21/2024 [facility] IPV Inpatient [...] encounter Miscellaneous Notes * Telephone Encounter - Jenn Warren RN - 07/02/2024 2:44 PM EST Forwarded Radiology phone call message to the provider for review/recommendation. * Telephone Encounter - Carmen Patterson - 07/02/2024 12:12 PM EST Sonia, with [facility] Radiology, said she received a new imaging order, but it needs to be for: CT Abdomen wwo Contrast (no Pelvis) Please print & hand fax to [phone] * Telephone Encounter - Sharon Roberts RN - 06/28/2024 4:23 PM EDT Copied from CRM #[id number]. Topic: Specialty Dept CRMs - Orders >> Jun 28, 2024 12:49 PM Rebeca Gee wrote: Orders Request Specialist: Faraz Alejandre DO Relationship (if other than patient-full name): Bailey [facility] Radiology Type of Request: [x] Send orders Type/Name of Order: Imaging If Labs and Imaging list name of specific test(s): CT Abdomen w Contrast Date of Lab/Imaging/Testing Appt: Date of Provider Appt: 06/27/24 Appt Type with Provider: Other: New Patient Requesting to Have Orders Sent to Facility Outside of [facility]: Yes If Yes, Name of Facility: [facility] Address: [address] Phone #: [phone] Fax #: [phone] Bailey called to advise they received the new order for the CT scan however the order was changedfrom a CT Abdomin to a CT Abdomin and Pelvis. Per the adrenal protocol requested the order needs arturo a CT Abdomin with or without Contrast. Please fax new order to [phone]. Please call Bailey with any questions or concerns at [phone]. * Telephone Encounter - Bonnie Ni RN - 06/27/2024 5:03 PM EDT Copied from [facility] #[id number]. Topic: Specialty Dept CRMs - Orders >> Jun 27, 2024 4:19 PM Quique Moreno wrote: Orders Request Specialist: Faraz Alejandre DO Relationship (if other than patient-full name): Bailey [facility] Radiology Type of Request: [x] Send orders Type/Name of Order: Imaging If Labs and Imaging list name of specific test(s): CT Abdomen w Contrast--Bailey calling from [facility]. She states that the techs and radiologist there reviwed the order and they would like the order changed to be with and without contrast per their adrenal protocol please refax order when possible or if any questions please call. Date of Lab/Imaging/Testing Appt: any Date of Provider Appt: 06/27/24 Appt Type with Provider: Other: new Patient Requesting to Have Orders Sent to Facility Outside of [facility]: Yes If Yes, Name of Facility: [facility] Address: [address] Phone #: [phone] Fax #: [phone] documented in this encounter Plan of Treatment Upcoming Encounters Date Type Department Care Team (Late st Contact Info) Description 10/29/2024 4:30 PM EST Appointment [place] [address] Pam Grant MD [facility] [place] [address] 10/30/2024 3:20 PM EST TH Visit (TeleHealth) [place] [address] Pam Grant MD [facility] [place] [place] [address] documented as of this encounter Visit Diagnoses Not on filedocumented in this encounter Care Teams Home Health Cna Relationship Specialty Start Date End Date Graciela Naidu MD [facility] [address] [place] [address] PCP - General 07/21/10 documented as of this encounter
--- OUTSIDE RECORDS SUMMARY | 2024-10-11 12:40 | XMS_ITS | Encounter Summary ---
Author Organization [facility] Address [facility] [place] [address] Care Team Providers Care Insurance Salesperson Name Role Phone Graciela Naidu MD Primary Care Provider [phone] Encounter Details Date Type Department Care Team (Latest Contact Info) Description 01/20/2024 Travel Social History Tobacco Use Types Packs/Day Years Used Date Smoking Tobacco: Never Assessed [facility] Utilities Answer Date Recorded In the past 12 months has th e electric, gas, oil, or water [employer] threatened to shut off services in your [...] the past 12 m [facility], were you homeless or living in [...] 10/29/2024 4:30 PM EST [place] [address] Pam Grant MD [facility] [place] [address] 10/30/2024 3:20 PM EST TH Visit (TeleHealth) [place] [address] Pam Grant MD [facility] [place] [place] [address] documented as of this encounter Visit Diagnoses Not on filedocumented in this encounter Care Teams Insurance Salesperson Relationship Specialty Start Date End Date Graciela Naidu MD [address] [place] [address] PCP - General 07/21/10 documented as of this encounter
--- OUTSIDE RECORDS SUMMARY | 2024-10-11 12:40 | XMS_ITS | Encounter Summary ---
Author Organization formerly [place] [address] Care Team Providers Care Development Coach Name Role Phone Graciela Naidu MD Primary Care Provider [phone] Reason for Visit * Reason Comments Hospital Transfer Urinary Tract Infection * Auth/Cert (Routine) Specialty Diagnoses / Procedures Referred By Contac t Referred To Contact Diagnoses Pyelonephritis, acute Left ureteral calculus Ureteral obstruction, left Sepsis Infected kidney stone Procedures EMERGENCY IPI Brendan Rodriguez MD [facility] [place] [address] [facility] Referral ID Status Reason Start Date Expiration Date Visits Re quested Visits Authorized [id number] 1 1 Encounter Details Date Type Department Care Team (Late st Contact Info) Description 01/20/2024 10:40 PM EDT - 01/21/2024 12:23 AM EDT Surgery [place] [id number] Brendan Rodriguez MD [facility] [place] [address] CYSTO, STENT PLACEMENT (WRVU 2.82) Social History Tobacco Use Types Packs/Day Years Used Date Smoking Tobacco: Never Smokeless Tobacco: Never Tobacco Cessation:Counseling Given: Not Answered Alcohol Use Standard Drinks/Week Comments Never 0 (1 standard drink = 0.6 oz pur e alcohol) [facility] Utilities Answer Date Recorded In the past [...] Barbra Dc Patient Age: 58 y.o. Language: [place] Citizen Race: White Ethnicity: Not nor Admit date: [...] tachycardic, Cr 1.4. Received Rocephin 2grams at [facility]. OR Findings: - Septic from obstructing left ureteral stone - Cloudy bladder urine sent for culture - Left renal aspirate sent for culture - L 6Fr x variable length ureteral stent placed - 14Fr lemus catheter placed Hospital Course: Patient was admitted electively to [facility] via the ED and [facility] a few hours [...] 01/20/2024 10:47 PM) Result Value WORKSTATION ID [id number] Impression Obstructing 5 x 8 mm proximal left ureteral calculus. Bilateral scattered nonobstructing nephrolithiases, largest 3 mm. Thank you for letting us participate in the care of this patient. If you are a health care provider and have any questions regarding this report, please contact the number below. For patients who have questions please contact the health transitional care manager that requested your imaging first. Pending Studies [...] blood clots The number for questions is [phone] before 5 PM weekdays and [phone] after 5 PM and weekends if questions [...] stone in 2-4 weeks time. Please call [phone] if you do not hear from the [...] SURGICAL CASE REQUEST: CYSTOURETEROSCOPY, LITHOTRIPSY (WRVU 7.5) [[id number] CPT(R)] As directed Process Instructions: Scheduling Instructions: This order is to be used for Surgeries and Procedures being performed at an internal [facility] facility or an external facility with a [facility] or [place] provider. This includes allinternal ORs, ASCs, and Endoscopy areas, and Pain Clinics at [facility]. For Surgeries and Procedures being performed at [...] appointments. Primary Care Provider: Graciela Naidu MD [phone] Follow-up Recommendations for Providers: None Unexpected Findings: [...] was managed by the Urology Team at [facility]. If you have any questions or concerns, please feel free to contact us. Provider Contact Information: Urology Clinic: [facility] (after business hours): Time spent on discharge [...] blood clots The number for questions is [phone] before 5 PM weekdays and [phone] after 5 PM and weekends if questions [...] stone in 2-4 weeks time. Please call [phone] if you do not hear from the [...] 8 HOURS NEEDED FOR PAIN 01/20/2024 06/27/2024 ciprofloxacin (Cipro) 500 mg tablet Take 1 tablet by mouth 2 times daily for 14 days. 28 tablet 01/24/2024 02/07/2024 methylphenidate (RITALIN) 20 mg tablet 07/16/2010 03/09/2024 zolpidem (AMBIEN) 5 mg tablet 07/16/2010 03/09/2024 venlafaxine (EFFEXOR) 75 mg tablet 07/16/2010 03/09/2024 documented as of this encounter Progress Notes * Brendan Quarles, PEACE - 01/23/2024 10:17 PM EDT Respiratory Therapy [...] Note Patient: Barbra Dc : 1965 Room: [address] Admit date: 01/20/2024 Attending: Brendan Rodriguez [...] Note Patient: Barbra Dc : 1965 Room: [place] [address]- Admit date: 01/20/2024 Attending: Brendan Rodriguez MD [...] Note Patient: Barbra Dc : 1965 Room: [address] Admit date: 01/20/2024 Attending: Brendan Rodriguez [...] Migraines (med review) who was transferred from [facility] for management of L obstructing ureteral stone [...] tachycardic, Cr 1.4. Received Rocephin 2grams at [facility]. PMH: No past medical history on file. [...] Resident 01/21/24 0757 Associated attestation - Nhan Catselan MD - 01/21/2024 8:38 AM EDT ED [...] none Patient is insured through: Primary Insurance: [employer] [place] [employer] [place] / Plan[place] / [...] any needs at d/c. Carmita Bentley RN, Pager-[phone] * Plan of Care - Meaghan Manrique [...] Team, bedside nurse, medical record, and Patient LOSS PREVENTION ASSOCIATE Introduced self/reviewed role; services accepted. Admitted From: Transfer from another hospital Location: [facility] Reason for Hospitalization: Left ureteral obstruction Covid Vaccination Status: 1st, 2nd & booster Last COVID test: Past medical History: No past medical history on file. Hospitalizations Within the Past 30 Days: no previous admission in last 30 days Current Decision-Making Capacity: Self If AD's have not been completed the following surrogate would be surrogate decision maker [place] decision [place] law. (Only good for 180 days) Any patient receiving care in [place] must abide by [place] law. The hierarchy for surrogate decision making [...] (i) The agent with financial power of silk soaker or a conservator appointed in accordance with [...] homeless or living in a prison (including now)?: No In the past 12 months has the electric, gas, oil, or water [employer] threatened to shut off services in your [...] use as needed) Home Address confirmed as: [address] [place] [phone] Social & Family Supports: All names listed [...] Information: Pt lives in a house in [place], [place] with her /SDM Kem and adult daughter Lexy. Kem is not listed in pt's chart because he doesn't have aphone and per pt, Kem receives information and updates on pt through Lexy when needed. Pt also has two other adult children who do not live locally. Health/Prescription Coverage: Primary Insurance: [employer] [place] [employer] [place] / Plan: [facility] [place] / Product Type: *No Product type* / Secondary Insurance: N/A ; Prescription Coverage: Yes Preferred Pharmacy: No Pharmacies Listed [place] Status: Patient is a : No Primary Care Provider confirmed: Graciela Naidu MD [phone] Patient/Caregiver Goals of Treatment: Pt's goal is to return back home after discharge Potential Needs for Transition of Care: (Pending) Agency Referrals: Not Applicable Transportation: no concerns Transportation Anticipated: family or friend will provide Concerns to be Addressed: denies needs/concerns at this time Assessment: Mrs. Dc is a 58 year old female who was transferred from [facility] and admitted to the SICU at [facility] with a left ureteral obstruction. Plan: Pt is currently alert and oriented. A member of the Care Management team will continue to monitor progress, follow for continuity of care and assist with transition of care planning. MARITZA Madison Director Clinical Pharmacology Office of Care Management * Plan of [...] Rodriguez MD - 01/20/2024 11:52 PM EDT [facility] Operative Note Patient Name: Barbra Dc : [id number] MR#: [id number] Case Date: 01/20/2024 - 01/21/2024 Surgeon: Surgeons [...] tachycardic, Cr 1.4. Received Rocephin 2grams at [facility]. Procedure Description: The patient was identified in [...] 10/29/2024 4:30 PM EST [place] [address] Pam Grant MD [facility] [place] [address] 10/30/2024 3:20 PM EST TH Visit (TeleHealth) [place] [address] aPm Grant MD [facility] [place] [address] documented as of this encounter Procedures Procedure [...] calculus Pyelonephritis, acute Cystoscopy, Insert Ureteral Stent ([id number]) 01/20/2024 11:29 PM EDT Left ureteral calculus [...] 12:25 AM EDT) Neutrophil % 75.5 % [facility] Neutrophil Absolute 8.38(H) 1.70 - 6.10 x10(3)/mc L [facility] Lymph % 13.0 % [facility] Lymphocytes Abs 1.4 0.9 - 3.2 x10(3)/mc L [facility] Monocyte % 7.6 % [facility] Monocyte Abs 0.8 0.3 - 0.9 x10(3)/mc L [facility] Eos % 2.5 % [facility] Eosinophils Abs 0.3 0.0 - 0.4 x10(3)/mc L [facility] Basophil % 0.6 % [facility] Baso Absolute 0.1 0.0 - 0.1 x10(3)/mc L [facility] Immature Gran % 0.80 % [facility] [...] Absolute 0.09(H) 0.00 - 0.04 x10(3)/ L [facility] Blood 01/24/2024 12:2 5 AM EDT 01/24/2024 12:38 AM EDT Narrative Resulting Agency Comment Spec In Lab Quique Hanson MD HEMATOLOGY ORDERABLE S [facility] [place] [address] * (ABNORMAL) Hemogram (01/24/2024 12:25 AM EDT) White Blood Cell 11.1(H) 4.0 - 9.5 x10(3)/[facility] Red Blood Cell 3.85(L) 4.00 - 5.21 x10(6)/[facility] Hemoglobin 10.9(L) 11.7 - 15.5 g/dL [facility] Hematocrit 34.0(L) 35.7 - 45.8 % [facility] Mean Cell Volume 88.3 82.6 - 94.4 fL [facility] Mean Cell Hemoglobin 28.3 27.1 - 32.0 pg [facility] Mean Cell Hemoglobin Concentration 32.1 31.7 - 35.0 g/dL [facility] Platelet 161 145 - 357 x10(3)/ L [facility] RDW Standard Deviation 46.8(H) 37.0 - 46.0 fL [facility] RDW coefficient of variation 14.5(H) 11.5 - 14.1 % [facility] Mean Platelet Volume 11.4 7.6 - 12.9 fL [facility] NRBC% auto 0.0 % [facility] NRBC Absolute 0.000 0.000 - 0.000 x10(3)/ L [facility] Blood 01/24/2024 12:2 5 AM EDT 01/24/2024 12:38 AM EDT Narrative Resulting Agency Comment Spec In Lab Quique Hanson MD HEMATOLOGY ORDERABLE S [facility] [place] [address] * (ABNORMAL) Basic Metabolic Panel (non-fasting) (01/24/2024 12:25 AM EDT) Glucose 155 65 - 199 mg/dL [facility] Comment:Diabetes: >=200 mg/d L plus symptoms Blood Urea Nitrogen 15 8 - 18 mg/dL [facility] [...] mmol/L [facility] Carbon Dioxide 19(L) 22 - 31 mmol/L [facility] Anion Gap 8 5 - 15 mmol/L [facility] Calcium 8.4(L) 8.5 - 10.5 mg/dL [facility] Est Glomerular Filtration Rate 87 >=60 mL/min/1. 73 m?? [facility] [...] ORDERABLES [facility] [place] [address] * (ABNORMAL) Differential, Automated (01/23/2024 5:06 AM EDT) Neutrophil % 85.4 % [facility] Neutrophil Absolute 11.58(H) 1.70 - 6.10 x10(3)/mc L [facility] Lymph % 7.8 % [facility] Lymphocytes Abs 1.1 0.9 - 3.2 x10(3)/mc L [facility] Monocyte % 4.2 % [facility] Monocyte Abs 0.6 0.3 - 0.9 x10(3)/mc L [facility] Eos % 1.5 % [facility] Eosinophils Abs 0.2 0.0 - 0.4 x10(3)/mc L [facility] Basophil % 0.4 % [facility] Baso Absolute 0.0 0.0 - 0.1 x10(3)/mc L [facility] Immature Gran % 0.70 % [facility] [...] Absolute 0.09(H) 0.00 - 0.04 x10(3)/mc L [facility] Blood 01/23/2024 5:06 AM EDT 01/23/2024 5:12 AM EDT Narrative Resulting Agency Comment Spec In Lab Quique Hanson MD HEMATOLOGY ORDERABLE S [facility] [place] [address] * (ABNORMAL) Hemogram (01/23/2024 5:06 AM EDT) White Blood Cell 13.6(H) 4.0 - 9.5 x10(3)/ L [facility] Red Blood Cell 4.06 4.00 - 5.21 x10(6)/ L [facility] Hemoglobin 12.1 11.7 - 15.5 g/dL [facility] Hematocrit 36.5 35.7 - 45.8 % [facility] Mean Cell Volume 89.9 82.6 - 94.4 fL [facility] Mean Cell Hemoglobin 29.8 27.1 - 32.0 pg [facility] Mean Cell Hemoglobin Concentration 33.2 31.7 - 35.0 g/dL [facility] Platelet 151 145 - 357 x10(3)/[facility] RDW Standard Deviation 47.8(H) 37.0 - 46.0 [facility] RDW coefficient of variation 14.5(H) 11.5 - 14.1 % [facility] Mean Platelet Volume 11.0 7.6 - 12.9 fL [facility] NRBC% auto 0.0 % [facility] NRBC Absolute 0.000 0.000 - 0.000 x10(3)/ L [facility] Blood 01/23/2024 5:06 AM EDT 01/23/2024 5:12 AM EDT Narrative Resulting Agency Comment Spec In Lab Quique Hanson MD HEMATOLOGY ORDERABLE S [facility] [place] [address] * (ABNORMAL) Basic Metabolic Panel (non-fasting) (01/23/2024 5:06 AM EDT) Glucose 109 65 - 199 mg/dL [facility] Comment:Diabetes: >=200 mg/d L plus symptoms Blood Urea Nitrogen 20(H) 8 - 18 mg/dL [facility] [...] mmol/L [facility] Carbon Dioxide 21(L) 22 - 31 mmol/L [facility] Anion Gap 8 5 - 15 mmol/L [facility] Calcium 8.6 8.5 - 10.5 mg/dL [facility] Est Glomerular Filtration Rate 61 >=60 mL/min/1. 73 m?? [facility] [...] Rodriguez MD CHEMISTRY ORDERABLES Performing Organization Address [facility]/ZIP Co de Phone Number [facility] [place] [address] * Magnesium (01/23/2024 5:06 AM EDT) Magnesium 0.84 0.69 - 1.07 mmol/L [facility] Blood 01/23/2024 5:06 AM EDT 01/23/2024 5:12 AM EDT Narrative Resulting Agency Comment Spec In Lab Brendan Rodriguez MD CHEMISTRY ORDERABLES Performing Organization Address [facility] Co de Phone Number [facility] [place] [address] * (ABNORMAL) Phosphorus (01/23/2024 5:06 AM EDT) Phosphorus 2.0(L) 2.5 - 4.5 mg/dL [facility] Blood 01/23/2024 5:06 AM EDT 01/23/2024 5:12 AM EDT Narrative Resulting Agency Comment Spec In Lab Brendan Rodriguez MD CHEMISTRY ORDERABLES Performing Organization Address [facility] Co de Phone Number [facility] [place] [address] * (ABNORMAL) Differential, Automated (01/21/2024 1:02 AM EDT) Neutrophil % 94.2 % [facility] Neutrophil Absolute 7.96(H) 1.70 - 6.10 x10(3)/mc L [facility] Lymph % 3.7 % [facility] Lymphocytes Abs 0.3(L) 0.9 - 3.2 x10(3)/mc L [facility] Monocyte % 0.8 % [facility] Monocyte Abs 0.1(L) 0.3 - 0.9 x10(3)/[facility] Eos % 0.2 % [facility] Eosinophils Abs 0.0 0.0 - 0.4 x10(3)/[facility] Basophil % 0.5 % [facility] Baso Absolute 0.0 0.0 - 0.1 x10(3)/[facility] Immature Gran % 0.60 % [facility] Comment: Immature granulocytes(IG's)percentage and absolute count will include metamyelocytes, myelocytes, and promyelocytes. Blood smears from CBCs yielding IG's will be scanned manually for concordance. If this scan disagrees with the automated IG or if promyelocytes are noted, a manual differential will be performed. Immature Gran Absolute 0.05(H) 0.00 - 0.04 x10(3)/[facility] Blood 01/21/2024 1:02 AM EDT 01/21/2024 1:13 AM EDT Narrative Resulting Agency Comment Spec In Lab Miguel Pack MD HEMATOLOGY ORDERABLE S [facility] [place] [address] * (ABNORMAL) Hemogram (01/21/2024 1:02 AM EDT) White Blood Cell 8.4 4.0 - 9.5 x10(3)/[facility] Red Blood Cell 4.18 4.00 - 5.21 x10(6)/[facility] Hemoglobin 12.2 11.7 - 15.5 g/dL [facility] Hematocrit 38.9 35.7 - 45.8 % [facility] Mean Cell Volume 93.1 82.6 - 94.4 fL [facility] Mean Cell Hemoglobin 29.2 27.1 - 32.0 pg [facility] Mean Cell Hemoglobin Concentration 31.4(L) 31.7 - 35.0 g/dL [facility] Platelet 174 145 - 357 x10(3)/mc L [facility] RDW Standard Deviation 47.9(H) 37.0 - 46.0 fL [facility] RDW coefficient of variation 13.9 11.5 - 14.1 % [facility] Mean Platelet Volume 11.2 7.6 - 12.9 fL [facility] NRBC% auto 0.0 % [facility] NRBC Absolute 0.000 0.000 - 0.000 x10(3)/mc L [facility] Blood 01/21/2024 1:02 AM EDT 01/21/2024 1:13 AM EDT Narrative Resulting Agency Comment Spec In Lab Miguel Pack MD HEMATOLOGY ORDERABLE S Performing Organization Address City/State/[facility] Co de Phone Number [facility] [place] [address] * (ABNORMAL) Basic Metabolic Panel (non-fasting) (01/21/2024 1:02 AM EDT) Glucose 159 65 - 199 mg/dL [facility] Comment:Diabetes: >=200 mg/d L plus symptoms Blood Urea Nitrogen 23(H) 8 - 18 mg/dL [facility] [...] mmol/L [facility] Carbon Dioxide 19(L) 22 - 31 mmol/L [facility] Anion Gap 12 5 - 15 mmol/L [facility] Calcium 8.3(L) 8.5 - 10.5 mg/dL [facility] Comment:result rechecked-HT Est Glomerular Filtration Rate 37(L) >=60 mL/min/1. 73 m?? [facility] [...] Rodriguez MD CHEMISTRY ORDERABLES Performing Organization Address City/[facility]/ZIP Co de Phone Number [facility] [place] [address] * Magnesium (01/21/2024 1:02 AM EDT) Magnesium 0.70 0.69 - 1.07 mmol/L [facility] Blood 01/21/2024 1:02 AM EDT 01/21/2024 1:13 AM EDT Narrative Resulting Agency Comment Spec In Lab Brendan Rodriguez MD CHEMISTRY ORDERABLES [facility] [place] [address] * Phosphorus (01/21/2024 1:02 AM EDT) Phosphorus 2.9 2.5 - 4.5 mg/dL [facility] Blood 01/21/2024 1:02 AM EDT 01/21/2024 1:13 AM EDT Narrative Resulting Agency Comment Spec In Lab Brendan Rodriguez MD CHEMISTRY ORDERABLES [facility] [place] [address] * (ABNORMAL) BLOOD GAS 2 VENOUS (01/21/2024 12:52 AM EDT) pH, Venous 7.17(Criti vijaya) 7.32 - 7.42 [facility] Comment:Not noted by instrum ent distribution collection operator. PCO2, Venous 52(H) 41 - 51 mmHg [facility] PO2, Venous 29 25 - 40 mmHg [facility] Bicarbonate, Venous 18.6 mmol/L [facility] Base Excess, Venous -9.9 mmol/L [facility] Hgb Blood Gas 13.3 11.7 - 15.5 g/dL [facility] Oxyhemoglobin, Venous 52.0 % [facility] Carboxyhemoglob in, Venous 0.1 % [facility] Comment: Nonsmokers: 0.5-1.5% COHB Smokers: Variable, but usually less than 10% Toxic: 20-30% COHB Lethal: Greater than 60% COHB Methemoglobin, Venous 0.6 <=1.5 % [facility] Na Whole Blood [...] mmol/L [facility] Flow, Antwan 3.0 LPM [facility] Blood Gas Source Venous [facility] Blood 01/21/2024 12:5 2 AM EDT 01/21/2024 12:52 AM EDT Brendan Rodriguez MD POINT OF CARE TEST O JESUS Performing Organization Address [facility]/ZIP Co de Phone Number [facility] [place] [address] * POCT Glucose (01/21/2024 12:49 AM EDT) Glucose, POC 124 65 - 199 mg/dL [facility] Comment: Supplemental ranges: <140 mg/dL before meals <180 mg/dL all other times of the day Blood 01/21/2024 12:4 9 AM EDT 01/21/2024 12:49 AM EDT Brendan Rodriguez MD POINT OF CARE TEST O JESUS Performing Organization Address [facility]/ZIP Co de Phone Number [facility] [place] [address] * XR Fluoro No Rad <1Hr - [...] Rodriguez MD MICROBIOLOGY - GENER AL ORDERABLES [facility] [place] [address] * Urine culture Cystoscopic Urine (01/20/2024 11:55 PM EDT) Urine Culture No growth (Less than 100 cfu/ml). [facility] Cystoscopic Urine 01/20/2024 11:55 PM EDT 01/21/2024 12:32 AM EDT Comment:Bladder urine cultur e Narrative Resulting Agency Comment Spec In Lab Brendan Rodriguez MD MICROBIOLOGY - GENER AL ORDERABLES [facility] [place] [address] * Scan, Peripheral Blood (01/20/2024 11:14 PM EDT) Plat estimate Normal [facility] RBC Morphology Normal [facility] Blood 01/20/2024 11:1 4 PM EDT 01/20/2024 11:20 PM EDT Narrative Resulting Agency Comment Spec In Lab Sunshine June MD HEMATOLOGY ORDERA BLES [facility] [place] [address] * (ABNORMAL) Differential, Automated (01/20/2024 11:14 PM EDT) Pathologist [facility] Neutrophil % 92.9 % [facility] Neutrophil Absolute 25.22(H) 1.70 - 6.10 x10(3)/mc L [facility] Lymph % 2.1 % [facility] Lymphocytes Abs 0.6(L) 0.9 - 3.2 x10(3)/ L [facility] Monocyte % 3.2 % [facility] Monocyte Abs 0.9 0.3 - 0.9 x10(3)/mc L [facility] Eos % 0.4 % [facility] [facility] Eosinophils Abs 0.1 0.0 - 0.4 x10(3)/mc L [facility] Basophil % 0.2 % [facility] Baso Absolute 0.1 0.0 - 0.1 x10(3)/mc L [facility] Immature Gran % 1.20 % [facility] [...] Absolute 0.32(H) 0.00 - 0.04 x10(3)/mc L [facility] Blood 01/20/2024 11:1 4 PM EDT 01/20/2024 11:20 PM EDT Narrative Resulting Agency Comment Spec In Lab Sunshine June MD HEMATOLOGY ORDERA BLES Performing Organization Address City/[facility]/ZIP Co de Phone Number [facility] [place] [address] * (ABNORMAL) Hemogram (01/20/2024 11:14 PM EDT) White Blood Cell 27.2(H) 4.0 - 9.5 x10(3)/mc L [facility] Red Blood Cell 4.03 4.00 - 5.21 x10(6)/mc L [facility] Hemoglobin 11.7 11.7 - 15.5 g/dL [facility] Hematocrit 37.2 35.7 - 45.8 % [facility] Mean Cell Volume 92.3 82.6 - 94.4 [facility] Mean Cell Hemoglobin 29.0 27.1 - 32.0 pg [facility] Mean Cell Hemoglobin Concentration 31.5(L) 31.7 - 35.0 g/dL [facility] Platelet 194 145 - 357 x10(3)/mc L [facility] RDW Standard Deviation 47.5(H) 37.0 - 46.0 [facility] RDW coefficient of variation 14.0 11.5 - 14.1 % [facility] Mean Platelet Volume 11.1 7.6 - 12.9 [facility] NRBC% auto 0.0 % [facility] NRBC Absolute 0.000 0.000 - 0.000 x10(3)/ L [facility] Blood 01/20/2024 11:1 4 PM EDT 01/20/2024 11:20 PM EDT Narrative Resulting Agency Comment Spec In Lab Susnhine June MD HEMATOLOGY ORDERA BLES [facility] [place] [address] * (ABNORMAL) Basic Metabolic Panel (non-fasting) (01/20/2024 11:14 PM EDT) Glucose 111 65 - 199 mg/dL [facility] Comment:Diabetes: >=200 mg/d L plus symptoms Blood Urea Nitrogen 21(H) 8 - 18 mg/dL [facility] Creatinine 1.51(H) 0.70 - 1.20 mg/dL [facility] Sodium 145 135 - 145 mmol/L [facility] Potassium 3.0(Criti vijaya) 3.5 - 5.0 mmol/L [facility] Comment: Called by: FLORA, [...] mmol/L [facility] Carbon Dioxide 17(L) 22 - 31 mmol/L [facility] Anion Gap 10 5 - 15 mmol/L [facility] Calcium 7.4(L) 8.5 - 10.5 mg/dL [facility] Est Glomerular Filtration Rate 40(L) >=60 mL/min/1. 73 m?? [facility] [...] ORDERABLES [facility] [place] [address] * Request For 2nd Read CT Abdomen & Pelvis (01/20/2024 10:47 PM EDT) WORKSTATION ID [id number] RAD Anatomical Region Laterality Modality Abdomen, Pelvis [...] who have questions please contact the health transitional care manager that requested your imaging first. ? Narrative 01/21/2024 7:07 AM EDT EXAMINATION: REQUEST FOR 2ND READ CT ABDOMEN AND PELVIS CLINICAL HISTORY: septioc stone; Sending Institution [facility]; Date of exam 20240120; I believe a [...] PELVIS CLINICAL HISTORY: septioc stone; Sending Institution [facility]; Date of exam 20240120; I believe a [...] patients who have questions please contactthe health transitional care manager that requested your imaging first. Nhan Castelan MD IMG OUTSIDE INTERPRE TATION ORDERABLES * EKG 12 Lead (01/20/2024 10:06 PM EDT) Ventricular rate 91 BPM MUSE SYSTEM Atrial Rate 91 BPM MUSE SYSTEM P-R Interval 140 ms MUSE SYSTEM QRS Duration 98 ms MUSE SYSTEM Q-T Interval 394 ms MUSE SYSTEM QTC Calculated (Bezet) 484 ms MUSE SYSTEM Calculated P [place] 48 degrees MUSE SYSTEM Calculated R [place] 26 degrees MUSE SYSTEM Calculated T [place] 39 degrees MUSE SYSTEM INTERPRETATION Normal sinus rhythm Lateral infarct , age undetermined Abnormal ECG No previous ECGs available Confirmed by Ashleigh Santana ([id number]) on 01/21/2024 12:58:47 PM MUSE SYSTEM 01/20/2024 [...] (Omnipaque) (300 mg/mL) solution PRN, Starting on 01/21/24 at 0025, Until 01/21/24 at 0140, Intra-Operative [...] Oral, 2 TIMES DAILY, First dose on Tu01/24/24 at 0830, Until Discontinued, Give this medication [...] (2 times per day), First dose on 01/21/24 at 0200, Until Discontinued, Routine 0820 (Given - Provider: Juliet Hoffmann RN)2008 (Given - Provider: Quita Emmanuel RN) 0849 (Given - Provider: Meaghan Manrique RN)210 (Given - Provider: Mayda Marcano, COLETTE) 0930 (Given - Provider: Carmita Pham RN) [...] Meaghan Manrique RN)1244 (Stopped - Provider: Meaghan Manrique, COLETTE)1545 (New Bag - Provider: Meaghan Manrique RN)1945 (Stopped - Provider: Mayda Marcano RN) 0000 (New Bag - Provider: Mayda Marcano RN)0400 (Stopped - Provider: Mayda Marcano, COLETTE) potassium, sodium phosphates (Neutra-Phos) 280-160-250 mg oral packet 3 g (COMPLETED) 3 g, Oral, ONCE, 1 dose, On 01/23/24 at 0945, Reconstitute each packet in 75 mL of water. Give with full glass of water (240 mL)., Routine 09 (Given - Provider: Meaghan Manrique RN) potassium, [...] DO NOT SPLIT, CRUSH OR OPEN, Routine 08 (Given - Provider: Juliet Hoffmann RN)2008 (Given [...] 0849 (Given - Provider: Meaghan Manrique RN) 0930 (Given - Provider: Carmita Pham, COLETTE) Continuous Medication Order 01/22/2024 01/23/2024 01/24/2024 lactated ringers infusion (CANCELED) 100 mL/hr, Intravenous, CONTINUOUS, Starting on 01/21/24 at 0100, Until 01/22/24 at 0942 0405 (Rate/Dose Verify - Provider: Quita Emmanuel RN)0503 (New Bag - Provider: Quita Emmanuel RN)0800 (Rate/Dose Verify - Provider: Juliet Hoffmann RN)0942 (Stopped - Provider: Juliet Hoffmann, COLETTE) PRN [...] Routine documented in this encounter Care Teams Development Coach Relationship Specialty Start Date End Date Graciela Naidu MD [facility] [address] [place] [address] PCP - General 07/21/10 documented as of this encounter
--- OUTSIDE RECORDS SUMMARY | 2024-10-11 12:40 | XMS_ITS | Encounter Summary ---
Author Organization [facility] Address [facility] [place] [address] Care Team Providers Care Applications Scientist Name Role Phone Graciela Naidu MD Primary Care Provider [phone] Encounter Details Date Type Department Care Team (Late st Contact Info) Description 01/20/2024 [place] [address] Brendan Rodriguez MD [facility] [place] [address] Left ureteral calculus; Pyelonephritis, acute Social History Tobacco Use Types Packs/Day Years Used Date Smoking Tobacco: Never Assessed [facility] Utilities Answer Date Recorded In the past 12 months has e [employer], gas, oil, or water [employer] threatened to shut off services in your [...] No 01/21/2024 Housing Stability Vital Sign Answer Richadr e Recorded In the last 12 months, was t here a time when you were not able to pay the mortgage or rent on time? No 01/21/2024 In the past 12 months, how m any times have you moved where you were living? 0 01/21/2024 At any time in the past 12 m ont, were you homeless or living in a chcf (including now)? No 01/21/2024 IPV Inpatient Questions [...] 10/29/2024 4:30 PM EST Appointment [place] [phone] Pam Grant MD [facility] [place] [address] 10/30/2024 3:20 PM EST TH Visit (TeleHealth) [place] [address] Pam Grant MD [facility] [place] [address] documented as of this encounter Visit Diagnoses Diagnosis Left ureteral calculus Calculus of ureter Pyelonephritis, acute Acute pyelonephritis without lesion of renal medullary necrosis documented in this encounter Care Teams Applications Scientist Relationship Specialty Start Date End Date Graciela Naidu MD [address] [place] [address] PCP - General 07/21/10 documented as of this encounter
--- OUTSIDE RECORDS SUMMARY | 2024-10-11 12:40 | XMS_ITS | Encounter Summary ---
Author Organization [facility] Address [facility] [place] [address] Care Team Providers Care Structures Mechanic Name Role Phone Graciela Naidu MD Primary Care Provider [phone] Encounter Details Date Type Department Care Team (Late st Contact Info) Description 01/20/2024 10:50 PM EDT Ancillary Procedure Radiology Library at [facility] [phone] Social History Tobacco Use Types Packs/Day Years [...] any time in the past 12 m [facility], were you homeless or [...] 10/29/2024 4:30 PM EST [place] [address] Pam Grant MD [facility] [place] [address] 10/30/2024 3:20 PM EST TH Visit (TeleHealth) [place] [address] Pam Grant MD [facility] [place] [address] documented as of this encounter Procedures Procedure Name Priority Date/Time Associated Diagnosis Comments REQUEST FOR 2ND READ CT ABDOMEN AND PELVIS STAT 01/20/2024 10:47 PM EDT documented in this encounter Results * Request For 2nd Read CT Abdomen & Pelvis (01/20/2024 10:47 PM EDT) WORKSTATION ID [id number] [facility] Anatomical Region Laterality Modality Abdomen, Pelvis SO [...] who have questions please contact the health primary care coordinator that requested your imaging first. ? Narrative 01/21/2024 7:07 AM EDT EXAMINATION: REQUEST FOR 2ND READ CT ABDOMEN AND PELVIS CLINICAL HISTORY: septioc stone; Sending Institution [facility]; Date of exam 20240120; I believe a reinterpretation of this exam may alter care of Patient. Yes TECHNIQUE: Helical CT of the abdomen and pelvis without intravenous contrast. Oral contrast was not administered. Multiplanar reformatted images were generated. Study performed January 20, 2024 at [facility]. COMPARISON: None FINDINGS: The absence of [...] CLINICAL HISTORY: septioc stone; Sending Institution [facility]; Date of exam 20240120; I believe a reinterpretation of this exam may alter care ofPatient. Yes TECHNIQUE: Helical CT of the abdomen and pelvis without intravenouscontrast. Oral contrast was not administered. Multiplanar reformatted images were generated. Study performed January 20, 2024 at [facility]. COMPARISON: None FINDINGS: The absence of [...] patients who have questions please contactthe health primary care coordinator that requested your imaging first. Nhan Castelan MD IMG OUTSIDE INTERPRE TATION ORDERABLES documented in this encounter Visit Diagnoses Not on filedocumented in this encounter Care Teams Structures Mechanic Relationship Specialty Start Date End Date Graciela Naidu MD [facility] [address] [facility] [address] [place] [address] PCP - General 07/21/10 documented as of this encounter
--- OUTSIDE RECORDS SUMMARY | 2024-10-11 12:40 | XMS_ITS | Encounter Summary ---
Author Organization [facility] Address [facility] [place] [address] Care Team Providers Care Auto Research Engineer Name Role Phone Graciela Naidu MD Primary Care Provider [phone] Encounter Details Date Type Department Care Team (Late st Contact Info) Description 01/20/2024 5:40 PM EDT Ancillary Procedure Radiology Library at [facility] [place] [phone] Candi Rodriguez MD [address] [place] [address] Social History Tobacco Use Types Packs/Day Years Used Date Smoking Tobacco: Never Assessed [facility] Utilities Answer Date Recorded In the past 12 months has e [employer], gas, oil, or water [employer] threatened to shut off services in your [...] 10/29/2024 4:30 PM EST [place] [address] Pam Grant MD [facility] [place] [address] 10/30/2024 3:20 PM EST TH Visit (TeleHealth) [place] [address] Pam Grant MD [facility] [place] [address] documented as of this encounter Procedures Procedure Name Priority Date/Time Associated Diagnosis Comments FILM LIBRARY STORAGE ONLY CT ABDOMEN AND PELVIS Routine 01/20/2024 5:37 PM EDT documented in this encounter Results * Film Library- Storage Only CT Abdomen & Pelvis (01/20/2024 5:37 PM EDT) Narrative ROSALIE DEJESUS - 01/20/2024 5:37 PM EDT This exam is auto-finalizing. It's purpose is for storage only. Candi Rodriguez MD IMG FILM LIBRARY ORD ERABLES [place], [place] documented in this encounter Visit Diagnoses Not on filedocumented in this encounter Care Teams Auto Research Engineer Relationship Specialty Start Date End Date Graciela Naidu MD [address] [place] [address] PCP - General 07/21/10 documented as of this encounter
--- OUTSIDE RECORDS SUMMARY | 2024-10-11 12:40 | XMS_ITS | Encounter Summary ---
[place] [address] Care Team Providers Care [employer] Name Role Phone Graciela Naidu MD Primary Care Provider [phone] Reason for Visit * Reason Comments Hospital Transfer Urinary Tract Infection * Auth/Cert (Routine) Specialty Diagnoses / Procedures Referred By Contac t Referred To Contact Diagnoses Pyelonephritis, acute Left ureteral calculus Ureteral obstruction, left Sepsis Infected kidney stone Procedures EMERGENCY IPI Brendan Rodriguez MD [facility] [place] [address] [facility] Referral ID Status Reason Start Date Expiration Date Visits Re quested Visits Authorized [id number] 1 1 Encounter Details Date Type Department Care Team (Latest Contact Info) Description 01/20/2024 9:44 PM EDT - 01/24/2024 2:05 PM EDT Hospital Encounter Surgical [place] [id number] Nhan Castelan MD [facility] [place] [address] [facility] PEDIATRIC SURGERY [place], [place] [id number] Left ureteral calculus; Pyelonephritis, acute; Ureteral stone; Urinary tract infection with hematuria, site unspecified; Ureteral obstruction, left Discharge Disposition: Home Social History Tobacco Use Types Packs/Day Years Used Date Smoking Tobacco: Never Smokeless Tobacco: Never Tobacco Cessation:Counseling Given: Not Answered Alcohol Use Standard Drinks/Week Comments Never 0 (1 standard drink = 0.6 oz pur e alcohol) [facility] Utilities Answer Date Recorded In the past 12 months has th e [employer], gas, oil, or water [place] threatened to shut off services in your [...] Barbra Dc Patient Age: 58 y.o. Language: Serbian Race: White Ethnicity: Not nor Admit date: [...] Cr 1.4. Received Rocephin 2grams at [facility]. OR Findings: - Septic from obstructing left ureteral stone - Cloudy bladder urine sent for culture - Left renal aspirate sent for culture - L 6Fr x variable length ureteral stent placed - 14Fr lemus catheter placed Hospital Course: Patient was admitted electively to [facility] via the ED and was transferred from the PACU to the [facility] in good condition a few [...] URS in 2-4 weeks requested -Cx: [facility] blood cx grew E.coli, continue cipro for [...] 01/20/2024 10:47 PM) Result Value WORKSTATION ID [id number] Impression Obstructing 5 x 8 mm proximal left ureteral calculus. Bilateral scattered nonobstructing nephrolithiases, largest 3 mm. Thank you for letting us participate in the care of this patient. If you are a health care provider and have any questions regarding this report, please contact the number below. For patients who have questions please contact the health health care / medical job titles that requested your imaging first. Electronically signed by: Rebeca Garcia MD, [facility] ([phone]), at 01/21/2024 7:07 AM Pending Studies and Lab Data: The patient will need the following 2 tests completed on: 01/20/2024 1. Urinalysis with reflex Culture 2. Request for Blood Gas Draw (b/[facility]) Diagnosis: Authorizing Provider: Nhan Castelan MD, Brendan [...] blood clots The number for questions is [phone] before 5 PM weekdays and [phone] after 5 PM and weekends if questions [...] stone in 2-4 weeks time. Please call [phone] if you do not hear from the [...] SURGICAL CASE REQUEST: CYSTOURETEROSCOPY, LITHOTRIPSY (WRVU 7.5) [[id number] CPT(R)] As directed Process Instructions: Scheduling Instructions: This order is to be used for Surgeries and Procedures being performed at an internal Critical Access Hospital facility or an external facility with a [facility] or [place] provider. This includes allinternal ORs, ASCs, and Endoscopy areas, and Pain Clinics at [facility], [facility] & [facility]. For Surgeries and Procedures being [...] appointments. Primary Care Provider: Graciela Naidu MD [phone] Follow-up Recommendations for Providers: None Unexpected Findings: [...] was managed by the Urology Team at [facility]. If you have any questions or concerns, please feel free to contact us. Provider Contact Information: Urology Clinic: [facility] (after business hours): Time spent on discharge [...] blood clots The number for questions is [phone] before 5 PM weekdays and [phone] after 5 PM and weekends if questions [...] stone in 2-4 weeks time. Please call [phone] if you do not hear from the [...] of this encounter Progress Notes * Brendan Quarles RRT - 01/23/2024 10:17 PM EDT Respiratory Therapy [...] Note Patient: Barbra Dc : 1965 Room: [address] Admit date: 01/20/2024 Attending: Brendan Rodriguez [...] Note Patient: Barbra Dc : 1965 [facility]: [facility] Admit date: 01/20/2024 Attending: Brendan Rodriguez MD [...] 9:17 AM EDT Urology Progress Note Patient: Brabra Dc : 1965 Room: [facility] Admit date: 01/20/2024 Attending: Brendan Rodriguez MD [...] care as documented in PACatynes Nelson's, note. Berndan Rodriguez MD, FACS documented in this encounter H&P Notes * Brandyn Kan MD - 01/21/2024 12:08 AM EDT Critical Care - Admission Note History of Present Illness: Barbra Dc is a 58 y.o. female with PMH of ADHD and PACO per patient report, possible MDD or Migraines (med review) who was transferred from [facility] for management of L obstructing ureteral stone [...] Brandyn Kan MD 01/21/2024 Associated attestation - Seu Cao DO - 01/21/2024 7:58 AM EDT [...] Cr 1.4. Received Rocephin 2grams at [facility]. PMH: No past medical history on file. [...] none Patient is insured through: Primary Insurance: [employer] [place] Payor: [employer] [place] / Plan: [place] / [...] needs at d/c. Carmita Bentley RN, CM [phone] * Plan of Care - Meaghan Manrique [...] Team, bedside nurse, medical record, and Patient MARITZA Introduced self/reviewed role; services accepted. Admitted From: Transfer from another hospital Location: [facility] Reason for Hospitalization: Left ureteral obstruction Covid Vaccination Status: 1st, 2nd & booster Last COVID test: Past medical History: No past medical history on file. Hospitalizations Within the Past 30 Days: no previous admission in last 30 days Current Decision-Making Capacity: Self If AD's have not been completed the following surrogate would be surrogate decision maker per [place] surrogate decision making law. (Only good for 180 days) Any patient receiving care in [place] must abide by [place] law. The hierarchy for surrogate decision making [...] (i) The agent with financial power of litigation attorney associate or a conservator appointed in accordance with [...] homeless or living in a fdc (including now)?: No In the past 12 months has the [employer] gas, oil, or water [place] threatened to shut off services in your [...] use as needed) Home Address confirmed as: [address] [place] [phone] Social & Family Supports: All names listed [...] Information: Pt lives in a house in [place], [place] with her /SDM Kem and adult daughter Lexy. Kem is not listed in pt's chart because he doesn't have aphone and per pt, Kem receives information and updates on pt through Lexy when needed. Pt also has two other adult children who do not live locally. Health/Prescription Coverage: Primary Insurance: [employer] [place] Payor: [employer] [place] / Plan: [facility] [place] VHP / Product Type: *No Product type* / Secondary Insurance: N/A ; Prescription Coverage: Yes Preferred Pharmacy: No Pharmacies Listed [place] Status: Patient is a : No Primary Care Provider confirmed: Graciela Naidu MD [phone] Patient/Caregiver Goals of Treatment: Pt's goal is to return back home after discharge Potential Needs for Transition of Care: (Pending) Agency Referrals: Not Applicable Transportation: no concerns Transportation Anticipated: family or friend will provide Concerns to be Addressed: denies needs/concerns at this time Assessment: Mrs. Dc is a 58 year old female who was transferred from [facility] and admitted to the SICU at [facility] with a left ureteral obstruction. Plan: Pt is currently alert and oriented. A member of the Care Management team will continue to monitor progress, follow for continuity of care and assist with transition of care planning. MARITZA Madison Battery Technician Office of Care Management * Plan of [...] ADLs]: Hands on Surveillance [continuous indirect monitoring]: [facility] ICU, bed alarm, purposeful rounding, room near [...] Rodriguez MD - 01/20/2024 11:52 PM EDT [facility] Operative Note Patient Name: Barbra Dc : [id number] MR#: [id number] Case Date: 01/20/2024 - 01/21/2024 Surgeon: Surgeons [...] Cr 1.4. Received Rocephin 2grams at [facility]. Procedure Description: The patient was identified in [...] 10/29/2024 4:30 PM EST [place] [address] [facility] [place] [address] 10/30/2024 3:20 PM EST TH Visit (TeleHealth) [place] [address] [facility] [place] [address] documented as of this encounter Procedures Procedure [...] calculus Pyelonephritis, acute Cystoscopy, Insert Ureteral Stent (36826) 01/20/2024 11:29 PM EDT Left ureteral calculus [...] 12:25 AM EDT) Neutrophil % 75.5 % [facility] Neutrophil Absolute 8.38(H) 1.70 - 6.10 x10(3)/mc L [facility] Lymph % 13.0 % [facility] Lymphocytes Abs 1.4 0.9 - 3.2 x10(3)/mc L [facility] Monocyte % 7.6 % [facility] Monocyte Abs 0.8 0.3 - 0.9 x10(3)/mc L [facility] Eos % 2.5 % [facility] Eosinophils Abs 0.3 0.0 - 0.4 x10(3)/mc L [facility] Basophil % 0.6 % [facility] Baso Absolute 0.1 0.0 - 0.1 x10(3)/mc L [facility] Immature Gran % 0.80 % [facility] Comment: Immature granulocytes(IG's)percentage and absolute count will include metamyelocytes, myelocytes, and promyelocytes. Blood smears from CBCs yielding IG's will be scanned manually for concordance. If this scan disagrees with the automated IG or if promyelocytes are noted, a manual differential will be performed. Immature Gran Absolute 0.09(H) 0.00 - 0.04 x10(3)/ L [facility] Blood 01/24/2024 12:2 5 AM EDT 01/24/2024 12:38 AM EDT Narrative Resulting Agency Comment Spec In Lab Quique Hanson MD HEMATOLOGY ORDERABLE S [facility] [place] [address] * (ABNORMAL) Hemogram (01/24/2024 12:25 AM EDT) White Blood Cell 11.1(H) 4.0 - 9.5 x10(3)/ L [facility] Red Blood Cell 3.85(L) 4.00 - 5.21 x10(6)/mc L [facility] Hemoglobin 10.9(L) 11.7 - 15.5 g/dL [facility] Hematocrit 34.0(L) 35.7 - 45.8 % [facility] Mean Cell Volume 88.3 82.6 - 94.4 [facility] Mean Cell Hemoglobin 28.3 27.1 - 32.0 pg [facility] Mean Cell Hemoglobin Concentration 32.1 31.7 - 35.0 g/dL [facility] Platelet 161 145 - 357 x10(3)/mc L [facility] RDW Standard Deviation 46.8(H) 37.0 - 46.0 fL [facility] RDW coefficient of variation 14.5(H) 11.5 - 14.1 % [facility] Mean Platelet Volume 11.4 7.6 - 12.9 fL [facility] NRBC% auto 0.0 % [facility] NRBC Absolute 0.000 0.000 - 0.000 x10(3)/mc L [facility] Blood 01/24/2024 12:2 5 AM EDT 01/24/2024 12:38 AM EDT Narrative Resulting Agency Comment Spec In Lab Quique Hanson MD HEMATOLOGY ORDERABLE S [facility] [place] [address] * (ABNORMAL) Basic Metabolic Panel (non-fasting) (01/24/2024 12:25 AM EDT) Glucose 155 65 - 199 mg/dL [facility] Comment:Diabetes: >=200 mg/d L plus symptoms Blood Urea Nitrogen 15 8 - 18 mg/dL [facility] Creatinine 0.78 0.70 - 1.20 mg/dL [facility] Sodium 138 135 - 145 mmol/L [facility] Potassium Not Perf 3.5 - 5.0 [facility] Comment: Unable to quantitate [...] questions. Chloride 111(H) 98 - 107 mmol/L [facility] Carbon Dioxide 19(L) 22 - 31 mmol/L [facility] Anion Gap 8 5 - 15 mmol/L [facility] Calcium 8.4(L) 8.5 - 10.5 mg/dL [facility] Est Glomerular Filtration Rate 87 >=60 mL/min/1. 73 m?? [facility] Comment: This patient's estimated [...] In Lab Brendan Rodriguez MD CHEMISTRY ORDERABLES [facility] [place] [address] * (ABNORMAL) Differential, Automated (01/23/2024 5:06 AM EDT) Neutrophil % 85.4 % [facility] Neutrophil Absolute 11.58(H) 1.70 - 6.10 x10(3)/mc L [facility] Lymph % 7.8 % [facility] Lymphocytes Abs 1.1 0.9 - 3.2 x10(3)/mc L [facility] Monocyte % 4.2 % [facility] Monocyte Abs 0.6 0.3 - 0.9 x10(3)/mc L [facility] Eos % 1.5 % [facility] Eosinophils Abs 0.2 0.0 - 0.4 x10(3)/mc L [facility] Basophil % 0.4 % [facility] Baso Absolute 0.0 0.0 - 0.1 x10(3)/mc L [facility] Immature Gran % 0.70 % [facility] Comment: Immature granulocytes(IG's)percentage and absolute count will include metamyelocytes, myelocytes, and promyelocytes. Blood smears from CBCs yielding IG's will be scanned manually for concordance. If this scan disagrees with the automated IG or if promyelocytes are noted, a manual differential will be performed. Immature Gran Absolute 0.09(H) 0.00 - 0.04 x10(3)/mc L [facility] Blood 01/23/2024 5:06 AM EDT 01/23/2024 5:12 AM EDT Narrative Resulting Agency Comment Spec In Lab Quique Hanson MD HEMATOLOGY ORDERABLE S [facility] [place] [address] * (ABNORMAL) Hemogram (01/23/2024 5:06 AM EDT) White Blood Cell 13.6(H) 4.0 - 9.5 x10(3)/ L [facility] Red Blood Cell 4.06 4.00 - 5.21 x10(6)/ L [facility] Hemoglobin 12.1 11.7 - 15.5 g/dL [facility] Hematocrit 36.5 35.7 - 45.8 % [facility] Mean Cell Volume 89.9 82.6 - 94.4 fL [facility] Mean Cell Hemoglobin 29.8 27.1 - 32.0 pg [facility] Mean Cell Hemoglobin Concentration 33.2 31.7 - 35.0 g/dL [facility] Platelet 151 145 - 357 x10(3)/ L [facility] RDW Standard Deviation 47.8(H) 37.0 - 46.0 fL [facility] RDW coefficient of variation 14.5(H) 11.5 - 14.1 % [facility] Mean Platelet Volume 11.0 7.6 - 12.9 fL [facility] NRBC% auto 0.0 % [facility] NRBC Absolute 0.000 0.000 - 0.000 x10(3)/mc L [facility] Blood 01/23/2024 5:06 AM EDT 01/23/2024 5:12 AM EDT Narrative Resulting Agency Comment Spec In Lab Quique Hanson MD HEMATOLOGY ORDERABLE S [facility] [place] [address] * (ABNORMAL) Basic Metabolic Panel (non-fasting) (01/23/2024 5:06 AM EDT) Glucose 109 65 - 199 mg/dL [facility] Comment:Diabetes: >=200 mg/d L plus symptoms Blood Urea Nitrogen 20(H) 8 - 18 mg/dL [facility] Creatinine 1.05 0.70 - 1.20 mg/dL [facility] Sodium 139 135 - 145 mmol/L [facility] Potassium 3.6 3.5 - 5.0 mmol/L [facility] Comment: Please note: ??Patients with WBC >100,000 may have falsely elevated Potassium levels. ??For accurate Potassium quantification in these patients send serum separator tube (gold top) for subsequent determinations. ??Contact the Clinical Chemistry Laboratory if there are any questions. Chloride 110(H) 98 - 107 mmol/L [facility] Carbon Dioxide 21(L) 22 - 31 mmol/L [facility] Anion Gap 8 5 - 15 mmol/L [facility] Calcium 8.6 8.5 - 10.5 mg/dL [facility] Est Glomerular Filtration Rate 61 >=60 mL/min/1. 73 m?? [facility] Comment: This patient's estimated [...] Rodriguez MD CHEMISTRY ORDERABLES Performing Organization Address City/[facility]/ZIP Co de Phone Number [facility] [place] [address] * Magnesium (01/23/2024 5:06 AM EDT) Magnesium 0.84 0.69 - 1.07 mmol/L [facility] Blood 01/23/2024 5:06 AM EDT 01/23/2024 5:12 AM EDT Narrative Resulting Agency Comment Spec In Lab Brendan Rodriguez MD CHEMISTRY ORDERABLES Performing Organization Address [facility] Co de Phone Number [facility] [place] [address] * (ABNORMAL) Phosphorus (01/23/2024 5:06 AM EDT) Phosphorus 2.0(L) 2.5 - 4.5 mg/dL [facility] Blood 01/23/2024 5:06 AM EDT 01/23/2024 5:12 AM EDT Narrative Resulting Agency Comment Spec In Lab Brendan Rodriguez MD CHEMISTRY ORDERABLES Performing Organization Address [facility] Co de Phone Number [facility] [place] [address] * (ABNORMAL) Differential, Automated (01/21/2024 1:02 AM EDT) Neutrophil % 94.2 % [facility] Neutrophil Absolute 7.96(H) 1.70 - 6.10 x10(3)/[facility] Lymph % 3.7 % [facility] Lymphocytes Abs 0.3(L) 0.9 - 3.2 x10(3)/[facility] Monocyte % 0.8 % [facility] Monocyte Abs 0.1(L) 0.3 - 0.9 x10(3)/[facility] Eos % 0.2 % [facility] Eosinophils Abs 0.0 0.0 - 0.4 x10(3)/[facility] Basophil % 0.5 % [facility] Baso Absolute 0.0 0.0 - 0.1 x10(3)/[facility] Immature Gran % 0.60 % [facility] Comment: Immature granulocytes(IG's)percentage and absolute count will include metamyelocytes, myelocytes, and promyelocytes. Blood smears from CBCs yielding IG's will be scanned manually for concordance. If this scan disagrees with the automated IG or if promyelocytes are noted, a manual differential will be performed. Immature Gran Absolute 0.05(H) 0.00 - 0.04 x10(3)/[facility] Blood 01/21/2024 1:02 AM EDT 01/21/2024 1:13 AM EDT Narrative Resulting Agency Comment Spec In Lab Miguel Pack MD HEMATOLOGY ORDERABLE S [facility] [place] [address] * (ABNORMAL) Hemogram (01/21/2024 1:02 AM EDT) White Blood Cell 8.4 4.0 - 9.5 x10(3)/[facility] Red Blood Cell 4.18 4.00 - 5.21 x10(6)/[facility] Hemoglobin 12.2 11.7 - 15.5 g/dL [facility] Hematocrit 38.9 35.7 - 45.8 % [facility] Mean Cell Volume 93.1 82.6 - 94.4 [facility] Mean Cell Hemoglobin 29.2 27.1 - 32.0 pg [facility] Mean Cell Hemoglobin Concentration 31.4(L) 31.7 - 35.0 g/dL [facility] Platelet 174 145 - 357 x10(3)/mc L [facility] RDW Standard Deviation 47.9(H) 37.0 - 46.0 [facility] RDW coefficient of variation 13.9 11.5 - 14.1 % [facility] Mean Platelet Volume 11.2 7.6 - 12.9 [facility] NRBC% auto 0.0 % [facility] NRBC Absolute 0.000 0.000 - 0.000 x10(3)/mc L [facility] Blood 01/21/2024 1:02 AM EDT 01/21/2024 1:13 AM EDT Narrative Resulting Agency Comment Spec In Lab Miguel Pack MD HEMATOLOGY ORDERABLE S [facility] [place] [address] * (ABNORMAL) Basic Metabolic Panel (non-fasting) (01/21/2024 1:02 AM EDT) Glucose 159 65 - 199 mg/dL [facility] Comment:Diabetes: >=200 mg/d L plus symptoms Blood Urea Nitrogen 23(H) 8 - 18 mg/dL [facility] Creatinine 1.58(H) 0.70 - 1.20 mg/dL [facility] Sodium 144 135 - 145 mmol/L [facility] Potassium 3.6 3.5 - 5.0 mmol/L [facility] Comment: Please note: ??Patients with WBC >100,000 may have falsely elevated Potassium levels. ??For accurate Potassium quantification in these patients send serum separator tube (gold top) for subsequent determinations. ??Contact the Clinical Chemistry Laboratory if there are any questions. Chloride 113(H) 98 - 107 mmol/L [facility] Carbon Dioxide 19(L) 22 - 31 mmol/L [facility] Anion Gap 12 5 - 15 mmol/L [facility] Calcium 8.3(L) 8.5 - 10.5 mg/dL [facility] Comment:result rechecked-HT Est Glomerular Filtration Rate 37(L) >=60 mL/min/1. 73 m?? [facility] Comment: This patient's estimated [...] Rodriguez MD CHEMISTRY ORDERABLES Performing Organization Address [facility]/ZIP Co de Phone Number [facility] [place] [address] * Magnesium (01/21/2024 1:02 AM EDT) Magnesium 0.70 0.69 - 1.07 mmol/L [facility] Blood 01/21/2024 1:02 AM EDT 01/21/2024 1:13 AM EDT Narrative Resulting Agency Comment Spec In Lab Brendan Rodriguez MD CHEMISTRY ORDERABLES Performing Organization Address [facility]/ZIP Co de Phone Number [facility] [place] [address] * Phosphorus (01/21/2024 1:02 AM EDT) Phosphorus 2.9 2.5 - 4.5 mg/dL [facility] Blood 01/21/2024 1:02 AM EDT 01/21/2024 1:13 AM EDT Narrative Resulting Agency Comment Spec In Lab Brendan Rodriguez MD CHEMISTRY ORDERABLES [facility] [place] [address] * (ABNORMAL) BLOOD GAS 2 VENOUS (01/21/2024 12:52 AM EDT) pH, Venous 7.17(Criti vijaya) 7.32 - 7.42 [facility] Comment:Not noted by instrum ent cold roll operator. PCO2, Venous 52(H) 41 - 51 mmHg [facility] PO2, Venous 29 25 - 40 mmHg [facility] Bicarbonate, Venous 18.6 mmol/L [facility] Base Excess, Venous -9.9 mmol/L [facility] Hgb Blood Gas 13.3 11.7 - 15.5 g/dL [facility] Oxyhemoglobin, Venous 52.0 % [facility] Carboxyhemoglob in, Venous 0.1 % [facility] Comment: Nonsmokers: 0.5-1.5% COHB Smokers: Variable, but usually less than 10% Toxic: 20-30% COHB Lethal: Greater than 60% COHB Methemoglobin, Venous 0.6 <=1.5 % [facility] Na Whole Blood 143 135 - 145 mmol/L [facility] K Whole Blood 3.6 3.5 - 5.0 mmol/L [facility] Comment: Please note: Patients with WBC >100,000 may have falsely elevated Potassium levels. Contact the Clinical Chemistry Laboratory if there are any questions. ICa Whole Blood 1.20 1.15 - 1.33 mmol/L [facility] Comment: Note: ??Total bilirubin higher than 20 mg/dL may lead to falsely low ionized calcium. CL Whole Blood 113(H) 98 - 107 mmol/L [facility] Gluc Whole Bld 154 65 - 199 mg/dL [facility] Comment:Diabetes: >=200 mg/d L plus symptoms Lactate WB 3.2(H) 0.5 - 2.2 mmol/L [facility] Flow, Antwan 3.[address] [facility] Blood Gas Source Venous [facility] Blood 01/21/2024 12:5 2 AM EDT 01/21/2024 12:52 AM EDT Brendan Rodriguez MD POINT OF CARE TEST O JESUS Performing Organization Address [facility] Co de Phone Number [facility] [place] [address] * POCT Glucose (01/21/2024 12:49 AM EDT) Glucose, POC 124 65 - 199 mg/dL [facility] Comment: Supplemental ranges: <140 mg/dL before meals <180 mg/dL all other times of the day Blood 01/21/2024 12:4 9 AM EDT 01/21/2024 12:49 AM EDT Brendan Rodriguez MD POINT OF CARE TEST O JESUS Performing Organization Address [facility] Co de Phone Number [facility] [place] [address] * XR Fluoro No Rad <1Hr - OR Use (01/21/2024 12:28 AM EDT) Narrative Dicom, Auditing User - 01/21/2024 12:29 AM EDT This exam is auto-finalizing. No interpretation was done. Nhan Castelan MD IMG FLUORO ORDERABLE S * (ABNORMAL) Urine culture Cystoscopic Urine (01/21/2024 12:00 AM EDT) Urine Culture 10,000-49,000 cfu/ml Escherichia coli(A) [facility] Organism Escherichia coli(A) [facility] Cystoscopic Urine 01/21/2024 12:32 [...] Rodriguez MD MICROBIOLOGY - GENER AL ORDERABLES [facility] [place] [address] * Urine culture Cystoscopic Urine (01/20/2024 11:55 PM EDT) Urine Culture No growth (Less than 100 cfu/ml). [facility] Cystoscopic Urine 01/20/2024 11:55 PM EDT 01/21/2024 12:32 AM EDT Comment:Bladder urine cultur e Narrative Resulting Agency Comment Spec In Lab Brendan Rodriguez MD MICROBIOLOGY - GENER AL ORDERABLES [facility] [place] [address] * Scan, Peripheral Blood (01/20/2024 11:14 PM EDT) Pathologist [facility] Plat estimate Normal [facility] RBC Morphology Normal [facility] Blood 01/20/2024 11:1 4 PM EDT 01/20/2024 11:20 PM EDT Narrative Resulting Agency Comment Spec In Lab Sunshine June MD HEMATOLOGY ORDERA BLES Performing Organization Address [facility]/ZIP Co de Phone Number [facility] [place] [address] * (ABNORMAL) Differential, Automated (01/20/2024 11:14 PM EDT) [facility] Neutrophil % 92.9 % [facility] Neutrophil Absolute 25.22(H) 1.70 - 6.10 x10(3)/mc L [facility] Lymph % 2.1 % [facility] Lymphocytes Abs 0.6(L) 0.9 - 3.2 x10(3)/mc L [facility] Monocyte % 3.2 % [facility] Monocyte Abs 0.9 0.3 - 0.9 x10(3)/mc L [facility] Eos % 0.4 % [facility] Eosinophils Abs 0.1 0.0 - 0.4 x10(3)/mc L [facility] Basophil % 0.2 % [facility] Baso Absolute 0.1 0.0 - 0.1 x10(3)/mc L [facility] Immature Gran % 1.20 % [facility] Comment: Immature granulocytes(IG's)percentage and absolute count will include metamyelocytes, myelocytes, and promyelocytes. Blood smears from CBCs yielding IG's will be scanned manually for concordance. If this scan disagrees with the automated IG or if promyelocytes are noted, a manual differential will be performed. Immature Gran Absolute 0.32(H) 0.00 - 0.04 x10(3)/mc L [facility] Blood 01/20/2024 11:1 4 PM EDT 01/20/2024 11:20 PM EDT Narrative Resulting Agency Comment Spec In Lab Sunshine June MD HEMATOLOGY ORDERA BLES [facility] [place] [address] * (ABNORMAL) Hemogram (01/20/2024 11:14 PM EDT) White Blood Cell 27.2(H) 4.0 - 9.5 x10(3)/ L [facility] Red Blood Cell 4.03 4.00 - 5.21 x10(6)/[facility] Hemoglobin 11.7 11.7 - 15.5 g/dL [facility] Hematocrit 37.2 35.7 - 45.8 % [facility] Mean Cell Volume 92.3 82.6 - 94.4 fL [facility] Mean Cell Hemoglobin 29.0 27.1 - 32.0 pg [facility] Mean Cell Hemoglobin Concentration 31.5(L) 31.7 - 35.0 g/dL [facility] Platelet 194 145 - 357 x10(3)/ L [facility] RDW Standard Deviation 47.5(H) 37.0 - 46.0 fL [facility] RDW coefficient of variation 14.0 11.5 - 14.1 % [facility] Mean Platelet Volume 11.1 7.6 - 12.9 fL [facility] NRBC% auto 0.0 % [facility] NRBC Absolute 0.000 0.000 - 0.000 x10(3)/ L [facility] Blood 01/20/2024 11:1 4 PM EDT 01/20/2024 11:20 PM EDT Narrative Resulting Agency Comment Spec In Lab Sunshine June MD HEMATOLOGY ORDERA FARHAD [facility] [place] [address] * (ABNORMAL) Basic Metabolic Panel (non-fasting) (01/20/2024 11:14 PM EDT) Glucose 111 65 - 199 mg/dL [facility] Comment:Diabetes: >=200 mg/d L plus symptoms Blood Urea Nitrogen 21(H) 8 - 18 mg/dL [facility] Creatinine 1.51(H) 0.70 - 1.20 mg/dL [facility] Sodium 145 135 - 145 mmol/L [facility] Potassium 3.0(Criti vijaya) 3.5 - 5.0 mmol/L [facility] Comment: Called by: , Read back by: Denisse Ambrose, Date/Time:01/21/24 00:00. Please note: ??Patients with WBC >100,000 may have falsely elevated Potassium levels. ??For accurate Potassium quantification in these patients send serum separator tube (gold top) for subsequent determinations. ??Contact the Clinical Chemistry Laboratory if there are any questions. Chloride 118(H) 98 - 107 mmol/L [facility] Carbon Dioxide 17(L) 22 - 31 mmol/L [facility] Anion Gap 10 5 - 15 mmol/L [facility] Calcium 7.4(L) 8.5 - 10.5 mg/dL [facility] Est Glomerular Filtration Rate 40(L) >=60 mL/min/1. 73 m?? [facility] Comment: This patient's estimated [...] In Lab Nhan Castelan MD CHEMISTRY ORDERABLES [facility] [place] [address] * Request For 2nd Read CT Abdomen & Pelvis (01/20/2024 10:47 PM EDT) [facility] WORKSTATION ID [id number] RAD Anatomical Region Laterality Modality Abdomen, Pelvis [...] who have questions please contact the health health care / medical job titles that requested your imaging first. ? Narrative 01/21/2024 7:07 AM EDT EXAMINATION: REQUEST FOR 2ND READ CT ABDOMEN AND PELVIS CLINICAL HISTORY: septioc stone; Sending Institution [facility]; Date of exam 20240120; I believe a reinterpretation of this exam may alter care of Patient. Yes TECHNIQUE: Helical CT of the abdomen and pelvis without intravenous contrast. Oral contrast was not administered. Multiplanar reformatted images were generated. Study performed January 20, 2024 at [facility]. COMPARISON: None FINDINGS: The absence of intravenous [...] CLINICAL HISTORY: septioc stone; Sending Institution [facility]; Date of exam 20240120; I believe a reinterpretation of this exam may alter care ofPatient. Yes TECHNIQUE: Helical CT of the abdomen and pelvis without intravenouscontrast. Oral contrast was not administered. Multiplanar reformatted images were generated. Study performed January 20, 2024 at [facility]. COMPARISON: None FINDINGS: The absence of intravenous [...] patients who have questions please contactthe health health care / medical job titles that requested your imaging first. Electronically signed by: Rebeca Garcia MD, [facility]([phone]), at 01/21/2024 7:07 AM Nhan Castelan MD IMG OUTSIDE INTERPRE TATION ORDERABLES * EKG 12 Lead (01/20/2024 10:06 PM EDT) Ventricular rate 91 BPM MUSE SYSTEM Atrial Rate 91 BPM MUSE SYSTEM P-R Interval 140 ms MUSE SYSTEM QRS Duration 98 ms MUSE SYSTEM Q-T Interval 394 ms MUSE SYSTEM QTC Calculated (Bezet) 484 ms MUSE SYSTEM Calculated P [place] 48 degrees MUSE SYSTEM Calculated R [place] 26 degrees MUSE SYSTEM Calculated T [place] 39 degrees MUSE SYSTEM INTERPRETATION Normal sinus rhythm Lateral infarct , age undetermined Abnormal ECG No previous ECGs available Confirmed by Ashleigh Santana ([id number]) on 01/21/2024 12:58:47 PM MUSE SYSTEM 01/20/2024 [...] PRN, Starting on 01/21/24 at 0106, Until Tue01/24/24 at 1628, Pain, Maximum dose of acetaminophen is 4000 mg from all sources in 24 hours. When ordered for pain, acetaminophen should be given even when other ordered pain medications are indicated. , Routine Given 01/21/2024 5:43 PM EDT 975 mg calcium gluconate 1g in sodium chloride 0.9% 50mL 1 g, Intravenous, ONCE, 1 dose, On 01/21/24 at 0200, Administer over 60 Minutes, Warning [...] on 01/21/24 at 0900, Until Discontinued, Routine Given 01/24/2024 9:00 AM EDT 30 mg Given 01/23/2024 8:49 AM EDT 30 mg Given 01/22/2024 8:21 AM EDT 30 mg heparin (porcine) (5,000 units/1 mL) subcutaneous injection 5,000 Units 5,000 Units, Subcutaneous, EVERY 12 HOURS SCHEDULED (2 times per day), First dose on 01/21/24 at 0200, Until Discontinued, Routine Given 01/24/2024 [...] for scheduled level. Warning Vesicant/Irritant Medication , STAT, Indication for (Active or Suspected): Bacteremia/Sepsis New Bag 01/21/2024 2:25 AM EDT 1.5 g 3 33.3 mL/hr venlafaxine XR (Effexor-XR) capsule 150 mg [...] Manrique RN) 0900 (Given - Provider: Carmita Pham, COLETTE - Comment: dose verified by EK- barcode [...] Meaghan Manrique RN)1945 (Stopped - Provider: Mayda Marcano, COLETTE) 0000 (New Bag - Provider: Mayda Marcano, COLETTE)0400 (Stopped - Provider: Mayda Marcano RN) potassium, sodium phosphates (Neutra-Phos) 280-160-250 mg oral packet 3 g (COMPLETED) 3 g, Oral, ONCE, 1 dose, On 01/23/24 at 0945, Reconstitute each packet in 75 mL of water. Give with full glass of water (240 mL)., Routine 0902 (Given - Provider: Meaghan Manrique, COLETTE) potassium, sodium phosphates (Neutra-Phos) 280-160-250 mg [...] 08 (Given - Provider: Juliet Hoffmann RN) 08 [...] Routine documented in this encounter Care Teams Bleacher [employer] Relationship Specialty Start Date End Date Graciela Naidu MD [facility] [address] [place] [address] PCP - General 07/21/10 documented as of this encounter
--- OUTSIDE RECORDS SUMMARY | 2024-10-11 12:40 | XMS_ITS | Encounter Summary ---
Author Organization [facility] Address [facility] [place] [address] Care Team Providers Care Packaging Machine Operator Name Role Phone Graciela Naidu MD Primary Care Provider [phone] Encounter Details Date Type Department Care Team (Late st Contact Info) Description 01/20/2024 Ancillary Procedure Radiology Library at [facility] [place] [id number] Social History Tobacco Use Types Packs/Day Years Used Date Smoking Tobacco: Never Assessed [facility] Utilities Answer Date Recorded In the [...] No 01/21/2024 Housing Stability Vital Sign Answer [place] e Recorded In the last 12 months, was t here a time when you were not able to pay the mortgage or rent on time? No 01/21/2024 In the past 12 months, how m any times have you moved where you were living? 0 01/21/2024 At any time in the [facility] were you homeless or living in [...] 10/29/2024 4:30 PM [place] [address] Pam Grant MD [facility] [place] [place] [address] 10/30/2024 3:20 PM EST TH Visit (TeleHealth) [place] [address] Pam Grant MD [facility] [place] [address] documented as of this encounter Procedures Procedure Name Priority Date/Time Associated Diagnosis Comments FILM LIBRARY STORAGE ONLY DX CHEST Routine 01/20/2024 12:00 AM EDT documented in this encounter Results * Film Library- Storage Only DX Chest (01/20/2024 12:00 AM EDT) Narrative Dicom, Auditing User - 01/21/2024 2:16 AM EDT This exam is auto-finalizing. It's purpose is for storage only. Nhan Castelan MD [facility] FILM LIBRARY ORD ERABLES documented in this encounter Visit Diagnoses Not on filedocumented in this encounter Care Teams Packaging Machine Operator Relationship Specialty Start Date End Date Graciela Naidu MD [facility] [address] [place] [address] PCP - General 07/21/10 documented as of this encounter
--- OUTSIDE RECORDS SUMMARY | 2024-10-11 12:40 | XMS_ITS | Encounter Summary ---
Author Organization [facility] Address [facility] [place] [address] Care Team Providers Care Manager Marketing Communications Name Role Phone Graciela Naidu MD Primary Care Provider [phone] Encounter Details Date Type Department Care Team (Late st Contact Info) Description 01/20/2024 5:45 PM EDT Ancillary Procedure Radiology Library at [facility] [place] [address] Evangelist Rodriguez MD [facility] [place] [address] Social History Tobacco Use Types Packs/Day Years Used Date Smoking Tobacco: Never Assessed [facility] Utilities Answer Date Recorded In the past 12 months has [employer], gas, oil, or water [employer] threatened to shut off services in your [...] in the past [address] [facility], were you homeless or [...] 10/29/2024 4:30 PM EST [place] [address] Pam Grant MD [facility] [place] [address] 10/30/2024 3:20 PM EST TH Visit (TeleHealth) [place] [address] Pam Grant MD [facility] [place] [address] documented as of this encounter Procedures Procedure Name Priority Date/Time Associated Diagnosis Comments FILM LIBRARY STORAGE ONLY DX CHEST Routine 01/20/2024 5:39 PM EDT documented in this encounter Results * Film Library- Storage Only DX Chest (01/20/2024 5:39 PM EDT) Narrative ROSALIE DEJESUS - 01/20/2024 5:39 PM EDT This exam is auto-finalizing. It's purpose is for storage only. Evangelist Rodriguez MD IMG FILM LIBRARY ORD ERABLES [place] documented in this encounter Visit Diagnoses Not on filedocumented in this encounter Care Teams Manager Marketing Communications Relationship Specialty Start Date End Date Graciela Naidu MD [address] [place] [address] PCP - General 07/21/10 documented as of this encounter
--- OUTSIDE RECORDS SUMMARY | 2024-10-11 12:40 | XMS_ITS | Encounter Summary ---
Author Organization [facility] [place] [address] Care Team Providers Care Six Pack Loader Operator Name Role Phone Graciela Naidu MD Primary Care Provider [phone] Encounter Details Date Type Department Care Team (Late st Contact Info) Description 01/13/2024 Ancillary Procedure Radiology Library at [facility] [place] [address] Candi Rodriguez MD [address] [place] [address] Social History Tobacco Use Types Packs/Day Years Used Date Smoking Tobacco: Never Assessed Sex and Gender Information Value Date Recorded Sex Assigned at Not on file Gender Identity Not on file Sexual Orientation Not on file documented as of this encounter Plan of Treatment Upcoming Encounters Date Type Department Care Team (Late st Contact Info) Description 10/29/2024 4:30 PM EST [place] [phone] Pam Grant MD [facility] [place] [address] 10/30/2024 3:20 PM EST TH Visit (TeleHealth) [place] [address] Pam Grant MD [facility] [place] [address] documented as of this encounter Procedures Procedure Name Priority Date/Time Associated Diagnosis Comments FILM LIBRARY STORAGE ONLY DX ABDOMEN Routine 01/13/2024 12:00 AM EDT documented in this encounter Results * Film Library- Storage Only DX Abdomen (01/13/2024 12:00 AM EDT) Narrative [facility] - 01/20/2024 5:37 PM EDT This exam is auto-finalizing. It's purpose is for storage only. Candi Rodriguez MD IMG FILM LIBRARY ORD ERABLES [place], [place] documented in this encounter Visit Diagnoses Not on filedocumented in this encounter Care Teams Six Pack Loader Operator Relationship Specialty Start Date End Date Graciela Naidu MD [facility] [address] [place] [address] PCP - General 07/21/10 documented as of this encounter
--- OUTSIDE RECORDS SUMMARY | 2024-10-11 12:40 | XMS_ITS | Encounter Summary ---
Author Organization [facility] [place] [address] Care Team Providers Care Mock Up Maker Name Role Phone Unavailable Primary Care Provider Unavailabl e Encounter Details Date Type Department Care Team (Late st Contact Info) Description 07/16/2010 8:40 AM EST Follow[place] [address] Soniya Miranda, DEVON Social History Tobacco Use Types Packs/Day Years Used Date Smoking Tobacco: Never Assessed Sex and Gender Information Value Date Recorded Sex Assigned at Not on file Gender Identity Not on file Sexual Orientation Not on file documented as of this encounter Plan of Treatment Upcoming Encounters Date Type Department Care Team (Late st Contact Info) Description 10/29/2024 4:30 PM EST Appointment [place] [address] Pam Grant MD [facility] [place] [address] 10/30/2024 3:20 PM EST TH Visit (TeleHealth) [place] [address] Pam Grant MD [facility] [place] [address] documented as of this encounter Visit Diagnoses Not on filedocumented in this encounter
--- OUTSIDE RECORDS SUMMARY | 2024-10-11 12:40 | XMS_ITS | Encounter Summary ---
Author Organization [facility] [place] [address] Care Team Providers Care Technical Agronomist Name Role Phone Graciela Naidu MD Primary Care Provider [phone] Reason for Visit * Auth/Cert (Routine) Specialty Diagnoses / Procedures Referred By Bradley lopez Referred To Contact Diagnoses Pyelonephritis, acute Left ureteral calculus Ureteral obstruction, left Sepsis Infected kidney stone Procedures EMERGENCY IPI Evangelist Rodriguez MD [facility] [address] [place] [address] [facility] Referral ID Status Reason Start Date Expiration Date Visits Re quested Visits Authorized [id number] 1 1 Encounter Details Date Type Department Care Team (Late st Contact Info) Description 01/20/2024 11:29 PM EDT Anesthesia Event [place] [address] José Luis Gee MD [facility] DR [place] [address] Milan Monroy CRNA [facility] [place] [address] Anesthesia Record Procedure Summary Procedure Name Responsible Anesthesiologist Anesthesia Start Time Anesthesia Stop Time CYSTO, STENT PLACEMENT (WRVU 2.82) (Left: Bladder) José Luis Gee MD 01/20/24232801/21/24 0047 Events Date Time Event Comment 01/20/20242328 AN Verify 232 Start 2329 An Start Data 2338 An Induction 2341 [...] Type Details Placement Removal PIV 01/20/24; 1600; [id number] catheter system; 20 gauge; median cubital vein (antecubital fossa), left; Anatomical Landmarks; Outside hospital; 01/24/24; 1400 01/20/24 1600 by Kiki Mills RN 01/24/24 1400 by Carmita Pham RN PIV 01/20/24; 1600; [id number] catheter system; 20 gauge; Anatomical Landmarks; Sending [...] Years Used Date Smoking Tobacco: Never Assessed [facility] Utilities Answer Date Recorded [...] any time in the past 12 m [facility], were you homeless or living in [...] Procedure Summary Date: 01/20/24 Room / Location: [facility] MAIN OR Anesthesia Start: 2328 Anesthesia Stop: 01/21/2446 Procedures: CYSTO, STENT PLACEMENT (WRVU 2.82) (Left: Bladder) MODIFIER,UROLOGY,PEDI TO ADULT Diagnosis: Left ureteral calculus Pyelonephritis, acute (Left ureteral stone.) Surgeons: Evangelist Rodriguez MD Responsible Provider: José Luis Gee MD Anesthesia Type: general ASA Status: 3 - Emergent All Anesthesia Providers: Anesthesiologist: José Luis Gee MD Wax Blender: Judy Chan MD Vitals Value Taken Time [...] Gee MD * Anesthesia Preprocedure Evaluation - JoséL uis Gee MD - 01/20/2024 9:13 PM EDT [...] 10/29/2024 4:30 PM EST Appointment [place] [address] Pam Grant MD [facility] [place] [address] 10/30/2024 3:20 PM EST TH Visit (TeleHealth) [place] [address] Pam Grant MD [facility] [place] [address] documented as of this encounter Visit Diagnoses [...] mg documented in this encounter Care Teams Technical Agronomist Relationship Specialty Start Date End Date Graciela Naidu MD [address] [place] [address] PCP - General 07/21/10 documented as of this encounter
--- NOTE | 2024-10-11 13:06 | DI.RAD_ITS ---
Exam(s) XR CHEST 2V PA LATERAL EXAM: XR CHEST 2V PA LATERAL CLINICAL HISTORY: CHRONIC COUGH, R05.9. TECHNIQUE: 2D digital imaging was performed. COMPARISON: CR XR CHEST 2V PA LATERAL from 01/20/2024 FINDINGS: 2 views: Heart size is normal. The mediastinum is not widened. Lungs are clear. No infiltrates nor pleural effusions. IMPRESSION: No acute pulmonary findings. DATA REPOSITORY: RADIATION DOSE DELIVERED:
== END 2024-10-11 12:57 ==
LOC: DI 12:37
PROVIDERS: PCP Family Medicine; Visit Provider Family Medicine
DX: R05.3 Chronic cough (principal)
CPT/HCPCS: 71046

== ENCOUNTER 2024-10-29 12:57 | Outpatient (REF) | payer BC, SELFPAY ==
[2024-10-29 16:51] LABS: Anion Gap 9.8 mmol/L (3-11); BUN 14 mg/dL (7-18); CO2 27.2 mmol/L (21.0-32.0); CREATININE 0.8 mg/dL (0.55-1.02); Calcium 9.3 mg/dL (8.5-10.1); Chloride 109 mmol/L (98-107); Estimated GFR 84.82 (mL/min/1.73m2); Glucose 115 mg/dL (74-106); Potassium 4.4 mmol/L (3.5-5.1); Sodium 146 mmol/L (136-145)
== END 2024-10-29 12:58 | disposition home or self-care (01) ==
LOC: NCHCN 12:57
PROVIDERS: PCP Family Medicine; Visit Provider Family Medicine
DX: I10 Essential (primary) hypertension (principal)
CPT/HCPCS: 80048

== ENCOUNTER 2025-01-02 20:36 | Outpatient (REF) | payer BC, SELFPAY ==
[2025-01-02 21:09] LABS: Anion Gap 8.4 mmol/L (3-11); BUN 17 mg/dL (7-18); CO2 30.6 mmol/L (21.0-32.0); CREATININE 0.9 mg/dL (0.55-1.02); Calcium 9.6 mg/dL (8.5-10.1); Chloride 108 mmol/L (98-107); Estimated GFR 73.19 (mL/min/1.73m2); Glucose 90 mg/dL (74-106); Potassium 3.7 mmol/L (3.5-5.1); Sodium 147 mmol/L (136-145)
[2025-01-02 21:14] LABS: Hemoglobin A1C 5.5 % (<5.7)
== END 2025-01-02 20:37 | disposition home or self-care (01) ==
LOC: NCHCN 20:36
PROVIDERS: PCP Family Medicine; Visit Provider Family Medicine
DX: I10 Essential (primary) hypertension (principal); R73.03 Prediabetes
CPT/HCPCS: 80048; 83036

== ENCOUNTER 2025-03-04 02:51 | Outpatient (CLI) | payer BC, SELFPAY ==
--- NOTE | 2025-03-04 | DI.MAMMO_ITS ---
Exam(s) MAMMO SCREENING EXAM: MAMMO SCREENING CLINICAL HISTORY: Screening, Z12.31. TECHNIQUE: Bilateral full field digital CC and MLO mammographic images were obtained with 3D tomosynthesis and utilizing computer aided detection (CAD). COMPARISON: Prior mammograms were reviewed. FINDINGS: The fibroglandular tissue pattern is again noted be moderately dense, this somewhat decreasing the sensitivity of the mammogram for finding hidden underlying lesions. There are no new right breast findings. Benign intramammary lymph node located laterally in the right breast again noted. In the left breast on the MLO view there is an area of asymmetric density located inferiorly approximately 7 cm in from the nipple on the MLO view and measuring approximately 1.8 x 0.7 cm.. This is more evident than on prior studies. Spot compression recommended. There are no malignant-appearing kaity rocalcification groups in this region or elsewhere in either breast. There is no significant architectural distortion nor skin thickening-retraction. IMPRESSION: 1. Moderately dense fibroglandular tissue pattern. No radiographic evidence of malignancy in the right breast. 2. Asymmetric density is seen in the left breast on the MLO view as described above. Spot compression MLO view and breast ultrasound recommended. BI-RADS Category 0 - Incomplete: Need additional imaging evaluation Breast Density - Category C - The breast are heterogeneously dense, which may obscure small masses. Breast density Category C or D implies that the patient has dense breast tissue. Dense breast tissue can make it harder to find cancer on a mammogram. Dense breast tissue is also associated with an increased risk of breast cancer. This information about the result of the mammogram report was provided to the patient to raise their awareness. Use this report when you speak with the patient about their risks for breast cancer, which includes their family history. At that time, you may recommend additional screening tests (Ultrasound or MRI) as these tests may add significant information. A negative radiographic report should not delay biopsy if a dominant or clinically suspicious mass is present. Up to ten percent of cancers are not identified on mammography. A negative report may reinforce clinical impression. Adenosis and dense breasts may obscure an underlying neoplasm. False positive reports average 6 to 10%. Patient will receive a letter notifying them of these results.
== END 2025-03-04 03:11 ==
PROVIDERS: PCP Family Medicine; Visit Provider Family Medicine
DX: Z12.31 Encounter for screening mammogram for malignant neoplasm of breast (principal); R92.333 Mammographic heterogeneous density, bilateral breasts
CPT/HCPCS: 77063; 77067

== ENCOUNTER 2025-03-06 02:36 | Outpatient (CLI) | payer BC, SELFPAY ==
--- NOTE | 2025-03-06 13:17 | DI.MAMMO_ITS ---
Exam(s) MAMMO SCREEN CALL BACK UNI EXAM: MAMMO SCREEN CALL BACK UNI CLINICAL HISTORY: F/U ABNL MAMMO, ASYMMETRIC DENSITY LT BREAST TECHNIQUE: Spot compression MLO view with tomographic imaging were performed. COMPARISON: 04 March 2025 and exams back to 02/16/2016. FINDINGS: No suspicious masses or suspicious microcalcifications are seen. No persistent abnormality is seen on the additional views performed. The findings are consistent with overlying fibroglandular tissue. There has been no significant change from prior exams. IMPRESSION: BI-RADS Category 1, Negative Yearly screening mammography is recommended. Breast Density - Category C - The breast are heterogeneously dense, which may obscure small masses. Breast density Category C or D implies that the patient has dense breast tissue. Dense breast tissue can make it harder to find cancer on a mammogram. Dense breast tissue is also associated with an increased risk of breast cancer. This information about the result of the mammogram report was provided to the patient to raise their awareness. Use this report when you speak with the patient about their risks for breast cancer, which includes their family history. At that time, you may recommend additional screening tests (Ultrasound or MRI) as these tests may add significant information. A negative radiographic report should not delay biopsy if a dominant or clinically suspicious mass is present. Up to ten percent of cancers are not identified on mammography. A negative report may reinforce clinical impression. Adenosis and dense breasts may obscure an underlying neoplasm. False positive reports average 6 to 10%. Patient will receive a letter notifying them of these results.
== END 2025-03-06 02:56 ==
LOC: DI 02:36
PROVIDERS: PCP Family Medicine; Visit Provider Family Medicine
DX: Z12.31 Encounter for screening mammogram for malignant neoplasm of breast (principal); R92.333 Mammographic heterogeneous density, bilateral breasts
CPT/HCPCS: 77063; 77067